=== PATIENT | male | born 1950 | race Caucasian/White ===

== ENCOUNTER 2017-10-30 20:42 | Observation (INO) | payer BC, OTHER ==
[~2017-10-30] VITALS: Ht 175.3 cm; Wt 109.0 kg
[~2017-10-30 20:42] MED LIST: ALLO100T PO; AMLO10TA2 PO; ASPI1TAB83 PO; ATOR-26 PO; B-COTAB18 PO; BNC40 PO; CALC500C50 PO; CARV25TA2 PO; CHOL1TAB2 PO; CLOP1TAB15 PO; FERR325T5 PO; FLV1 PO; FRS/40 PO; IMDSR30 PO; LACTCAP3 PO; MCRK20 PO; MRC50 PO; MULT-845 PO; NTRGSL/4 UT
[2017-10-30] MEDS ORDERED: ASPIRIN 324 MG CHEW PO STA (20:53)
--- NOTE | 2017-10-30 20:58 | EMERGENCY ROOM VISIT NOTE ---
History Report prepared by April: Desirae Ledezma Under the Supervision of: Dr. Wilbert Cosme D.O. First contact with patient: 20:50 Chief Complaint: CHEST PAIN Stated Complaint: CHEST DISCOMFORT History of Present Illness The patient is a 66 year old male who presents to the Emergency Room with complaints of intermittent chest discomfort since 1030 this morning. He notes the discomfort initially began at 1030 this morning and would not go away until thirty minutes after he took Tylenol. He notes the discomfort returned at 1800 this evening. He notes the pain lasted for 45 minutes. He does not have any current chest pain. He was at work when the pain occurred. 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 He denies any shortness of breath, leg pain, or leg swelling. He denies any shortness of breath when he walks. He has a history of CAD with a stent in place and cardiac catheterization. He reports a current sinus infection. He has not taken any Aspirin. He denies any recent alcohol use. He has not taken any NTG. He denies any abdominal pain. He reports a murmur. Source of History: patient Onset: since 1030 this morning Position: chest Quality: other (discomfort) Timing: intermittent Associated Symptoms: No SOB Note: He denies any leg pain or leg swelling. Review of Systems See HPI for pertinent positives & negatives. A total of 10 systems reviewed and were otherwise negative. Past Medical & Surgical Medical Problems: (1) Coronary artery disease (2) elevated calcium levels (3) Ulcerative colitis Surgical Problems: (1) Stented coronary artery Family History Diabetes mellitus Heart disease Social History Smoking Status: Former Smoker Alcohol Use: none Marital Status: Housing Status: lives with significant other Occupation Status: retired Current/Historical Medications Scheduled Allopurinol (Zyloprim), 50 MG PO QPM Amlodipine Besylate (Amlodipine Besylate), 5 MG PO DAILY Aspirin (Aspirin), 1 TAB PO QPM Atorvastatin (Lipitor), 80 MG PO QPM B-Complex Vitamins (Vitamin B Complex), 1 TAB PO DAILY Carvedilol (Coreg), 1.5 TAB PO BID Clopidogrel (Plavix), 75 MG PO DAILY Doxycycline Hyclate (Doxycycline Hyclate), 100 MG PO BID Folic Acid (Folic Acid), 1 TAB PO DAILY Furosemide (Lasix), 40 MG PO DAILY Isosorbide Mononitrate Ext Rel (Imdur Ext Rel), 15 MG PO DAILY Lactobacillus (Acidophilus), 1 CAP PO DAILY Mercaptopurine (Mercaptopurine), 1 TAB PO QPM Multiple Vitamins W/ Minerals (Centrum Silver Adult 50+), 1 TAB PO DAILY Nitroglycerin (Nitrostat), 0.4 MG UT PRN Olmesartan Medoxomil (Olmesartan Medoxomil), 40 MG PO DAILY Potassium Ext Rel (Klor-Con), 20 MEQ PO QPM Allergies Coded Allergies: Fish Oil (Verified Allergy, Severe, RASH, 07/17/10) Vancomycin (Verified Allergy, Unknown, Rash, 05/15/14) SHELLFISH (Verified Adverse Reaction, Intermediate, VOMITTING, 07/17/10) Lisinopril (Verified Adverse Reaction, Mild, COUGH, 07/17/10) Physical Exam Vital Signs Date Time Temp Pulse Resp B/P (MAP) Pulse Ox O2 Delivery O2 Flow Rate FiO2 10/30/17 22:30 58 18 129/63 94 Room Air 10/30/17 21:39 61 16 121/66 94 Room Air 10/30/17 21:04 68 10/30/17 21:03 94 Room Air 10/30/17 20:55 94 Room Air 10/30/17 20:55 93 Room Air 10/30/17 20:47 37.1 71 20 171/81 94 Room Air Physical Exam GENERAL: Patient is awake, alert, and in no acute distress. Patient is resting comfortably and showing no signs of anxiety EYES: The conjunctivae are clear. The pupils are round and reactive. EARS, NOSE, MOUTH AND THROAT: The nose is without any evidence of any deformity. Mucous membranes are moist tongue is midline NECK: The neck is nontender and supple. RESPIRATORY: Normal respiratory effort is noted there is no evidence of wheezing rhonchi or rales CARDIOVASCULAR: Regular rate and rhythm noted to auscultation, systolic murmur was suggested. GASTROINTESTINAL: The abdomen is soft. Bowel sounds are present in all quadrants. Abdomen is nontender MUSCULOSKELETAL/EXTREMITIES: There is no evidence of gross deformity full range of motion is noted in the hips and shoulders SKIN: There is no obvious evidence of any rash. There are no petechiae, pallor or cyanosis noted. NEUROLOGIC: Patient is awake alert and oriented x3. Medical Decision & Procedures ER Provider Diagnostic Interpretation: Radiology results as stated below per my review and radiologist interpretation: CHEST ONE VIEW PORTABLE HISTORY: Atypical CHEST PAIN COMPARISON: Chest 09/17/2014. FINDINGS: Low lung volumes. Small linear densities the left lung base consistent with subsegmental atelectasis are scarring. This remains unchanged. The lungs are otherwise clear. No pleural effusions. No pneumothorax. Stable mild cardiomegaly. IMPRESSION: No significant change compared to the prior study. No acute process. Electronically signed by: Harpreet Duggan M.D. 10/30/2017 9:47 PM Dictated Date/Time: 10/30/2017 9:45 PM Laboratory Results Test 10/30/17 20:55 Prothrombin Time 10.0 SECONDS (9.0-12.0) Prothromb Time International Ratio 1.0 (0.9-1.1) Activated Partial Thromboplast Time 22.9 SECONDS (21.0-31.0) Partial Thromboplastin Ratio 0.9 D-Dimer 600 ug/L FEU (0-500) Magnesium Level 1.9 mg/dl (1.8-2.4) Total Bilirubin 0.6 mg/dl (0.2-1) Direct Bilirubin 0.2 mg/dl (0-0.2) Aspartate Amino Transf (AST/SGOT) 43 U/L (15-37) Alanine Aminotransferase (ALT/SGPT) 50 U/L (12-78) Alkaline Phosphatase 102 U/L (45-117) Total Creatine Kinase 152 U/L (39-308) Creatine Kinase MB 2.0 ng/ml (0.5-3.6) Creatine Kinase MB Ratio 1.3 (0-3.0) Total Protein 7.7 gm/dl (6.4-8.2) Albumin 3.8 gm/dl (3.4-5.0) Lipase 95 U/L (73-393) Laboratory results per my review. Medications Administered Medications (Trade) Dose Ordered Sig/Jo Route Start Time Stop Time Status Last Admin Dose Admin Aspirin (Aspirin Chew) 324 mg NOW STAT PO 10/30/17 20:53 10/30/17 20:55 DC 10/30/17 20:59 324 MG ECG Per My Interpretation Indication: chest pain Rate (beats per minute): 83 Rhythm: normal sinus Findings: Q waves (Inferior), no ectopy Change: no significant change (When compared to 09/18/2014) Change: Patient's EKG was interpreted by me. ED Course 2050: The patient was evaluated in room A12B. A complete history and physical examination were performed. 2052: Ordered Aspirin 324 mg PO 2240: [facility] We discussed the patient' s case. [facility]. Medical Decision Prior records/ancillary studies reviewed. Triage Nursing notes reviewed. The patient's history was concerning for chest pain. Differential diagnosis: Etiologies such as cardiac ischemia, aortic dissection, pulmonary embolism, pneumonia, pneumothorax, musculoskeletal, infections, pericarditis, myocarditis , esophageal rupture, gastrointestinal, as well as others were entertained. The patient is a 66-year-old male who presented to the emergency department for an evaluation of chest discomfort. The patient was treated with aspirin in the emergency department. I discussed the patient's laboratory and radiographic studies with him. I also discussed the limitations of the emergency department workup for chest pain with them. Given his risk factors and past medical history I discussed his case with the on-call [facility] hospitalist. They have agreed to evaluate the patient in the emergency department for further management and disposition. Medication Reconcilliation Current Medication List: was personally reviewed by me Blood Pressure Screening Patient's blood pressure: Elevated blood pressure Blood pressure disposition: Elevated BP felt to be situational Consults Time Called: [id number] Consulting Physician: [facility] Returned Call: [phone] [facility] We discussed the patient's case. [facility]. Impression Primary Impression: Substernal precordial chest pain Scribe Attestation The scribe's documentation has been prepared under my direction and personally reviewed by me in its entirety. I confirm that the note above accurately reflects all work, treatment, procedures, and medical decision making performed by me. Departure Information Dispostion Being Evaluated By Hospitalist Prescriptions Doxycycline Hyclate (Doxycycline Hyclate) 100 Mg Cap 100 MG PO BID for 3 Days, #6 CAP Prov: Irving Paulino, DO 10/31/17 Referrals No Doctor, Assigned (PCP) Patient Instructions My [facility]
[2017-10-30 21:10] LABS: BASO % 0.4 %; BASO ABS # 0.01 K/uL (0-0.2); EOS % 2.8 %; EOS ABS # 0.08 K/uL (0-0.5); HEMATOCRIT 38.8 % (42-52); IG# 0.01 K/uL (0.00-0.02); LYMPH % 22.7 %; LYMPH ABS # 0.64 K/uL (1.2-3.4); MEAN CORPUSCULAR HEMOGLOBIN 33.2 pg (25-34); MEAN CORPUSCULAR HGB CONC 33.5 g/dl (32-36); MEAN PLATELET VOLUME 10.1 fL (7.4-10.4); MONO % 9.9 %; MONO ABS # 0.28 K/uL (0.11-0.59); NEUT % 63.8 %; PLATELET COUNT 155 K/uL (130-400); RED CELL DISTRIBUTION WIDTH CV 15.8 % (11.5-14.5); RED CELL DISTRIBUTION WIDTH SD 57.1 fL (36.4-46.3); WHITE BLOOD COUNT 2.82 K/uL (4.8-10.8)
[2017-10-30 21:19] LABS: PTT PATIENT 22.9 SECONDS (21.0-31.0)
[2017-10-30 21:46] LABS: ALBUMIN 3.8 gm/dl (3.4-5.0); ALKALINE PHOSPHATASE 102 U/L (45-117); ALT/SGPT 50 U/L (12-78); AST/SGOT 43 U/L (15-37); BLOOD UREA NITROGEN 11 mg/dl (7-18); CALCIUM 9.5 mg/dl (8.5-10.1); CARBON DIOXIDE 30 mmol/L (21-32); CREATININE 0.93 mg/dl (0.60-1.40); LIPASE 95 U/L (73-393); POTASSIUM 3.5 mmol/L (3.5-5.1); SODIUM 139 mmol/L (136-145); TOTAL PROTEIN 7.7 gm/dl (6.4-8.2)
[2017-10-30 21:47] LABS: GLUCOSE 92 mg/dl (70-99)
--- NOTE | 2017-10-30 21:48 | DIAGNOSTIC IMAGING REPORT ---
CHEST ONE VIEW PORTABLE HISTORY: Atypical CHEST PAIN COMPARISON: Chest 09/17/2014. FINDINGS: Low lung volumes. Small linear densities the left lung base consistent with subsegmental atelectasis are scarring. This remains unchanged. The lungs are otherwise clear. No pleural effusions. No pneumothorax. Stable mild cardiomegaly. IMPRESSION: No significant change compared to the prior study. No acute process. Electronically signed by: Harpreet Duggan M.D. 10/30/2017 9:47 PM Dictated Date/Time: 10/30/2017 9:45 PM
[2017-10-30] MEDS ORDERED: NRV/5 PO (22:24)
[2017-10-30] MEDS ORDERED: OLME40TA33 PO (22:24)
[2017-10-30] MEDS ORDERED: POTA20TA16 PO (22:24)
[2017-10-30] MEDS ORDERED: ISOS30TA35 PO (22:24)
[2017-10-31] MEDS ORDERED: IV FLUIDS COMPLETED PRN (00:45)
[2017-10-31] MEDS ORDERED: OPTIRAY 320 IV PRN (01:00)
[2017-10-31] MEDS ORDERED: ASPIRIN 81 MG ECTAB PO ONE (01:11)
[2017-10-31] MEDS ORDERED: TRAMADOL HCL 50 MG TAB PO PRN (01:15)
[2017-10-31] MEDS ORDERED: LORAZEPAM 2 MG/ML 1 ML VIAL IV PRN ×2 (01:15)
[2017-10-31] MEDS ORDERED: MoRPHine SULFATE 2 MG/ML CARP IV PRN (01:15)
[2017-10-31] MEDS ORDERED: ACETAMINOPHEN 325 MG TAB PO PRN (01:15)
[2017-10-31] MEDS ORDERED: NITROGLYCERIN 0.4 MG SL PER TAB CHARGE SL PRN (01:15)
[2017-10-31] MEDS ORDERED: PROCHLORPERAZINE INJ 5 MG in SYRINGE 4 ML IV PRN (01:15)
[2017-10-31] MEDS ORDERED: ALBUT/IPRATROP 3MG/0.5MG NEB 3 ML VIAL INH PRN ×2 (01:15→02:30)
[2017-10-31] MEDS ORDERED: SODIUM CHLORIDE 0.65% NA SOLN 45 ML (OCEAN) PRN (01:15)
[2017-10-31] MEDS ORDERED: DOXYCYCLINE IV 100 MG in DEXTROSE 5% 100ML 100 ML IV STA (01:20)
[2017-10-31 01:30] VITALS: BP 152/73; PULSE 72; TEMP 36.9; O2SAT 90; Ht 175.3 cm; Wt 109.0 kg
[2017-10-31] MEDS ORDERED: CARVEDILOL 25 MG TAB PO STA (01:39)
[2017-10-31] MEDS ORDERED: ALLOPURINOL 100 MG TAB PO STA (01:39)
[2017-10-31] MEDS ORDERED: ATORVASTATIN 40 MG TAB PO STA (01:39)
[2017-10-31] MEDS ORDERED: MERCAPTOPURINE 50 MG TAB PO STA (01:40)
[2017-10-31] MEDS ORDERED: NSS + 20MEQ KCL 1000ML 1,000 ML IV SCH (01:45)
[2017-10-31] MEDS ORDERED: LORAZEPAM INJ 0.5 MG in SYRINGE 0.75 ML IV PRN (01:45)
[2017-10-31] MEDS ORDERED: ALBUT/IPRATROP 3MG/0.5MG NEB 3 ML VIAL INH STA (02:26)
[2017-10-31] MEDS ORDERED: METHYLPREDNISOLONE IV 20 MG in SYRINGE 0 ML IV STA (02:34)
[2017-10-31] MEDS ORDERED: NSS + 20MEQ KCL 1000ML 1,000 ML IV ONE (02:35)
[2017-10-31] MEDS ORDERED: ENOXAPARIN 40 MG/0.4 ML SYR SC SCH (06:00)
--- NOTE | 2017-10-31 06:05 | HISTORY & PHYSICAL EXAMINATION ---
DATE OF ADMISSION: 10/30/2017 PRIMARY CARE PHYSICIAN: Dr. Zavala CHIEF COMPLAINT: Chest pain. HISTORY OF PRESENT ILLNESS: History obtained from patient and records. Medical history significant for CAD status post stenting, hypertension, hyperlipidemia, past tobacco abuse, history of IBD on Mercaptopurine, chronic anemia (baseline hemoglobin of 12), history of MGUS, prediabetes as per records. Recent confinement last September 2014 for chest pain. Stress test was normal. Patient has been dealing with sinus symptoms for more than a month now. Outpatient course of Augmentin last month - incomplete response. Two days ago, the patient had sinus congestion, cough symptoms, productive of yellow sputum. Patient noted chest tightness yesterday with some shortness of breath. Patient received Aspirin up on arrival at the ER. Patient currently comfortable. MEDICAL HISTORY: As above. SURGERIES: He has had no surgeries. HOME MEDICATIONS: Include Zyloprim, aspirin, Lipitor, amlodipine, and B complex, Coreg, Plavix, folic acid, furosemide, Imdur ER, lactobacillus, mercaptopurine, Centrum, Nitrostat, olmesartan and Klor-Con. ALLERGIES: ALLERGIC TO SHELLFISH, LISINOPRIL, VANCOMYCIN . FAMILY HISTORY: Heart disease. PERSONAL AND SOCIAL HISTORY: Past tobacco abuse. No chronic intake of alcoholic beverages. [employer] employee. REVIEW OF SYSTEMS: As per HPI. All 10 systems reviewed. all other ROS negative. PHYSICAL EXAMINATION: VITAL SIGNS: Blood pressure was noted to be 171/81 later 120/80, pulse 61, RR 26, sats 94 on room air. GENERAL: Noted to be pleasant, no respiratory distress. SKIN: Pallor, warm. HEENT: Alopecia. Pale palpebral conjunctivae. No ptosis or mucosa. NECK: Short neck. Supple. CHEST: Decreased breath sounds. Occasional wheeze. HEART: Regular rhythm. No murmur. ABDOMEN: Soft, nontender. EXTREMITIES: No edema. No gross deformities. No tenderness NEUROLOGIC: coherent, no gross focality. LABORATORY DATA: Hemoglobin was noted to be 13, hematocrit 38, WBC 2.82, platelets 155. Sodium 136, potassium 3.5, chloride 102, CO2 30, BUN 11, creatinine 0.9 and glucose was noted to be 92. D-dimer abnormal. trop 0 DIAGNOSTIC STUDIES: CT chest initial read showed oral mucous plugging reticulonodular densities, mild peribronchial thickening EKG as per my interpretation rate 80, NSR, normal axis, Q waves inferior leads ASSESSMENT AND PLAN: 1. Atypical chest pain secondary to complicated bronchitis No sepsis 2. CAD status post stenting 3. past tobacco abuse 4. hx IBD on Mercaptopurine. 5. Chronic anemia , hx MGUS. Hemoglobin better than baseline. Observation PCU. Doxycycline, nebs steroid 1 dose for occasional wheeze appreciated AM troponin, TTE RE cp Home in AM if patient feeling better and above cardiac workup unremarkable. DVT prophylaxis, Lovenox subQ. Full code. MTDD
--- NOTE | 2017-10-31 06:47 | DIAGNOSTIC IMAGING REPORT ---
CT ANGIOGRAM OF THE CHEST CLINICAL HISTORY: Atypical chest pain COMPARISON STUDY: Chest x-ray dated 10/30/2017 TECHNIQUE: Following the IV administration of 91 mL of Optiray-320, CT angiogram of the thorax was performed from the thoracic inlet to the lung bases utilizing the pulmonary embolus protocol. Images are reviewed in the axial, sagittal, and coronal planes. IV contrast was administered without complication. MIP imaging was performed. A dose lowering technique was utilized adhering to the principles of ALARA. CT DOSE: 696.70 mGy.cm FINDINGS: There is a multinodular thyroid gland with nodules measuring up to 11 mm in diameter There are mildly enlarged subcarinal lymph nodes measuring up to 12 mm in short axis. There is no pathologic axillary or mediastinal lymphadenopathy There was no evidence of thoracic aortic dilatation. There were no pulmonary artery filling defects to indicate acute pulmonary embolism. No pleural effusions are visualized. There is mild lower lobe bronchial wall thickening. There are clustered nodules within the right lower lobe, likely inflammatory/postinflammatory. These measure up to 8 mm in diameter. A 6 month follow-up CT scan would seem prudent. IMPRESSION: 1. No evidence of acute pulmonary embolism 2. Multiple clustered right lower lobe point nodules measuring up to 8 mm in diameter. These are statistically inflammatory/postinflammatory. A 6 month follow-up CT scan would seem prudent 3. Mildly enlarged mediastinal lymph nodes Electronically signed by: Espinoza Reid M.D. 10/31/2017 6:45 AM Dictated Date/Time: 10/31/2017 6:41 AM
[2017-10-31 06:49] LABS: BASO % 0.4 %; BASO ABS # 0.01 K/uL (0-0.2); HEMATOCRIT 37.3 % (42-52); HEMOGLOBIN 12.3 g/dL (14.0-18.0); IG# 0.01 K/uL (0.00-0.02); LYMPH % 15.7 %; LYMPH ABS # 0.36 K/uL (1.2-3.4); MEAN CELL VOLUME 100.3 fL (80-100); MEAN CORPUSCULAR HEMOGLOBIN 33.1 pg (25-34); MEAN PLATELET VOLUME 10.4 fL (7.4-10.4); MONO % 3.5 %; MONO ABS # 0.08 K/uL (0.11-0.59); NEUT ABS # 1.83 K/uL (1.4-6.5); PLATELET COUNT 136 K/uL (130-400); RED CELL DISTRIBUTION WIDTH CV 15.7 % (11.5-14.5); RED CELL DISTRIBUTION WIDTH SD 57.1 fL (36.4-46.3); WHITE BLOOD COUNT 2.29 K/uL (4.8-10.8)
[2017-10-31 07:21] LABS: BLOOD UREA NITROGEN 12 mg/dl (7-18); CALCIUM 9.3 mg/dl (8.5-10.1); CARBON DIOXIDE 29 mmol/L (21-32); CREATININE 0.75 mg/dl (0.60-1.40); GLUCOSE 128 mg/dl (70-99); SODIUM 140 mmol/L (136-145)
[2017-10-31 07:26] LABS: CHOLESTEROL 112 mg/dl (0-200); LDL CHOLESTEROL CALCULATED 44 mg/dl
[2017-10-31 07:49] VITALS: BP 139/74; PULSE 63; TEMP 36.8; O2SAT 93
[2017-10-31] MEDS ORDERED: PERFLUTREN LIPID MICROSPHERE (DEFINITY) IV ONE ×2 (08:38→11:58)
[2017-10-31] MEDS ORDERED: VITAMIN B COMPLEX TAB PO SCH (09:00)
[2017-10-31] MEDS ORDERED: CARVEDILOL 25 MG TAB PO SCH (09:00)
[2017-10-31] MEDS ORDERED: AMLODIPINE BESYLATE 5 MG TAB PO SCH (09:00)
[2017-10-31] MEDS ORDERED: CEROVITE ADV FORMULA TAB PO SCH (09:00)
[2017-10-31] MEDS ORDERED: OLMESARTAN MEDOXOMIL 40 MG TAB PO SCH (09:00)
[2017-10-31] MEDS ORDERED: CLOPIDOGREL BISULFATE 75 MG TAB PO SCH (09:00)
[2017-10-31] MEDS ORDERED: LACTOBACILLUS ACIDOPHILUS (FLORANEX) TAB PO SCH (09:00)
[2017-10-31] MEDS ORDERED: ISOSORBIDE MONONITRATE 30 MG TABCR PO SCH (09:00)
--- NOTE | 2017-10-31 10:57 | CARDIOLOGY CONSULTATION ---
DATE OF CONSULTATION: 10/31/2017 The patient seen and examined. Chart, medications, telemetry reviewed. REFERRING PHYSICIAN: Dr. Villanueva. PRIMARY CARE PHYSICIAN: Dr. Zavala. PRIMARY ELEMENTARY ASSISTANT PRINCIPAL: Dr. Laguerre. HISTORY OF PRESENT ILLNESS: The patient is a 66-year-old male whose underlying history is notable for ischemic heart disease with prior LAD stent in 1997, history of recurrent ischemia and subsequent right coronary artery stenting after non-ST segment elevation myocardial infarction in 2008 and subsequent repeat coronary intervention of the right coronary artery, distal PDA in 2013. Underlying medical problems include hypertension, hyperlipidemia, ulcerative colitis, monoclonal gammopathy, mild chronic anemia, and diabetes mellitus. The patient notes difficulties with sinus infection and febrile illness off and on for approximately 1-2 months. He notes 2 days prior to admission, increasing symptoms of cough and chest tightness, which is productive sputum. He notes on the date of admission, he shoveled snow and generally felt okay while doing so at low level, but while driving to work, did develop substernal chest pain and tightness. Symptoms were mild in severity, but persistent and due to past history, he presented to the Emergency Room for further evaluation. Episodes had recurred once prior to the ER presentation. On evaluation, they noted no acute ST segment changes or cardiac enzyme abnormalities. He is referred now for further evaluation. He denies tachypalpitations, syncope, or near syncope. Notes no dizziness or lightheadedness. Notes no orthopnea. Notes no recent worsening peripheral edema. Appetite and weight have been stable. He has had no acute changes in medical therapies other than addition of Augmentin approximately 6 weeks ago. REVIEW OF SYSTEMS: Otherwise negative. ALLERGIES: FISH OIL, LISINOPRIL, SHELLFISH AND VANCOMYCIN. MEDICATIONS: Prior to hospitalization were allopurinol 50 mg q.p.m., amlodipine 5 mg p.o. every day, aspirin 81 mg per day, atorvastatin 80 mg p.o. every day, B complex, carvedilol 37.5 mg b.i.d., clopidogrel 75 mg p.o. every day, folic acid 1 mg every day, furosemide 40 mg p.o. every day, isosorbide 15 mg p.o. every day, multivitamin per day, olmesartan 40 mg p.o. every day, potassium chloride 20 mEq p.o. q.p.m. PAST SURGICAL HISTORY: Notable for coronary artery interventions only. FAMILY HISTORY: Positive for heart disease. 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 He has not used recent tobacco products. He uses no significant alcoholic beverages. PHYSICAL EXAMINATION: GENERAL: The patient is an age-appropriate male in no acute distress. VITAL SIGNS: Reveal a heart rate of 63, blood pressure 139/74, O2 saturations 93% on room air. HEENT: Normocephalic and atraumatic. Nares without discharge. Throat was clear. NECK: Supple without thyromegaly, lymphadenopathy, JVD. There are no carotid bruits. Carotid pulses are 2/4 without delay. LUNGS: Notable for mildly diminished breath sounds, but are clear. There are minimal wheezes on forced cough. CARDIOVASCULAR: Regular with normal S1, S2. No murmur, gallop or rub. ABDOMEN: Soft, nontender. There is no palpable hepatosplenomegaly. EXTREMITIES: Without cyanosis or clubbing. There is no peripheral edema. There are intact distal pulses of 3/4. LABORATORY DATA: EKG reveals sinus rhythm with an old inferior infarct without acute evolutionary changes. Laboratory studies since admission revealed troponin negative x3 at less than 0.015. Cholesterol is 112, LDL is 44, HDL is 40. Sodium is 140, potassium is 4.0, chloride is 105, bicarbonate is 29, BUN is 12, creatinine is 0.75. White cell count is 2.2, hemoglobin is 12.3, platelet count is 136. Chest x-ray reveals no infiltrate or edema. CT scan of the chest revealed no evidence of pulmonary emboli. IMPRESSION: A 66-year-old male with known coronary artery disease with prior coronary artery intervention x3 in the past who presents now with mild chest tightness, possibly in association with acute tracheobronchitis or respiratory distress. He appears clinically improved this morning though no signs of recent infarct or injury. Discussed the options of management. We will proceed with stress echocardiography today, exclude underlying ischemic heart disease. Laboratory studies and data all reviewed, only findings notable for mild leukopenia, which appears relatively new for the patient.
--- NOTE | 2017-10-31 11:36 | ECHOCARDIOGRAM REPORT ---
*NOTICE TO RECEIVING [employer] This information is strictly Confidential and protected under [place] law. [place] law prohibits you from making any further disclosure of this information unless further disclosure is expressly permitted by the written consent of the person to whom it pertains or is authorized by law. A general authorization for the release of medical or other information is not sufficient for this purpose. Hospital accepts no responsibility if the information is made available to any other person, INCLUDING THE PATIENT. Interpretation Summary * Name: ANTWON HOWARD Study Date: 10/31/2017 08:05 AM BP: 152/73 mmHg * Patient Location: .[facility]\S\N285\S\1 HR: 73 * : 1950 (M/d/yyyy) Gender: Male Height: 69 in * Age: 66 yrs Ethnicity: [place] Weight: 240 lb * Ordering Physician: Jovan Villanueva * Referring Physician: Self, Referred * Performed By: Maria Ines Luz RCS * * Reason For Study: CHEST PAIN * BSA: 2.2 m2 * -- Conclusions -- * The left ventricle is normal in size. * There is moderate concentric left ventricular hypertrophy. * No regional wall motion abnormalities noted. * Ejection Fraction = 60-65%. * Aortic valve sclerosis moderate, without significant aortic valvular stenosis. * Grade I diastolic dysfunction, (abnormal relaxation pattern). * The left atrium is mildly dilated. Procedure Details * A complete two-dimensional transthoracic echocardiogram was performed (2D, M-mode, Doppler and color flow Doppler). * The study was technically difficult. * A contrast injection of Definity was performed to improve assessment of LV function. * Contrast was injected into an intravenous site in the left arm. * One vial of Definity ultrasound contrast was diluted in normal saline to a total volume of 10 ml. A total of '1' ml of solution was administered during imaging. * Lot # [id number] of Definity utilized for procedure. * Expiration date SEP 30. * The attending nurse who injected the contrast agent was GALINA GILLESPIE CPL, RN. Left Ventricle * The left ventricle is normal in size. * There is moderate concentric left ventricular hypertrophy. * Left ventricular systolic function is normal. * Ejection Fraction = 60-65%. * No regional wall motion abnormalities noted. Right Ventricle * The right ventricle is normal in size and function. Atria * The left atrium is mildly dilated. * Right atrial size is normal. * No ASD detected; PFO is not assessed. Mitral Valve * The mitral valve anatomy is normal. * There is no mitral valve stenosis. * There is trace mitral regurgitation. Tricuspid Valve * The tricuspid valve anatomy is normal. * There is no tricuspid stenosis. * There is trace tricuspid regurgitation. Aortic Valve * The aortic valve is trileaflet. * Aortic valve sclerosis moderate, without significant aortic valvular stenosis. * No aortic regurgitation is present. Pulmonic Valve * The pulmonic valve is not well visualized. Great Vessels * The aortic root is normal size. Pericardium/Pleural * There is no pericardial effusion. Great Vessels * Normal inferior vena cava diameter and respiratory variation suggests normal central venous pressure. Left Ventricular Diastolic Function * Grade I diastolic dysfunction, (abnormal relaxation pattern). MMode 2D Measurements and Calculations IVSd 1.6 cm IVSs 2.0 cm LVIDd 4.5 cm LVIDs 2.8 cm LVPWd 1.3 cm LVPWs 1.5 cm IVS/LVPW 1.2 FS 37.0 % EDV(Teich) 92.7 ml ESV(Teich) 30.6 ml EF(Teich) 67.0 % EDV(cubed) 91.4 ml ESV(cubed) 22.9 ml EF(cubed) 75.0 % % IVS thick 26.5 % % LVPW thick 14.5 % LV mass(C)d 263.8 grams LV mass(C)dI 118.2 grams/m\S\2 LV mass(C)s 195.9 grams LV mass(C)sI 87.8 grams/m\S\2 SV(Teich) 62.1 ml SI(Teich) 27.8 ml/m\S\2 SV(cubed) 68.5 ml SI(cubed) 30.7 ml/m\S\2 Ao root diam 3.3 cm Ao root area 8.8 cm\S\2 ACS 1.8 cm LA dimension 4.6 cm LA/Ao 1.4 LVOT diam 2.0 cm LVOT area 3.2 cm\S\2 LVAd ap4 37.3 cm\S\2 LVLd ap4 8.4 cm EDV(MOD-sp4) 134.8 ml EDV(sp4-el) 140.6 ml LVAs ap4 23.3 cm\S\2 LVLs ap4 7.1 cm ESV(MOD-sp4) 63.2 ml ESV(sp4-el) 64.5 ml EF(MOD-sp4) 53.1 % EF(sp4-el) 54.1 % LVAd ap2 29.4 cm\S\2 LVLd ap2 7.6 cm EDV(MOD-sp2) 96.6 ml EDV(sp2-el) 95.9 ml LVAs ap2 21.4 cm\S\2 LVLs ap2 7.2 cm ESV(MOD-sp2) 52.5 ml ESV(sp2-el) 53.9 ml EF(MOD-sp2) 45.6 % EF(sp2-el) 43.8 % LVLd %diff -9.93 % EDV(MOD-bp) 118.3 ml LVLs %diff 0.82 % ESV(MOD-bp) 57.6 ml EF(MOD-bp) 51.3 % SV(MOD-sp4) 71.6 ml SI(MOD-sp4) 32.1 ml/m\S\2 SV(MOD-sp2) 44.0 ml SI(MOD-sp2) 19.7 ml/m\S\2 SV(MOD-bp) 60.7 ml SI(MOD-bp) 27.2 ml/m\S\2 SV(sp4-el) 76.1 ml SI(sp4-el) 34.1 ml/m\S\2 SV(sp2-el) 42.0 ml SI(sp2-el) 18.8 ml/m\S\2 Doppler Measurements and Calculations MV E max flor 69.1 cm/sec MV A max flor 94.0 cm/sec MV E/A 0.74 MV P1/2t max flor 76.8 cm/sec MV P1/2t 60.3 msec MVA(P1/2t) 3.6 cm\S\2 MV dec slope 372.7 cm/sec\S\2 MV dec time 0.24 sec Ao V2 max 182.0 cm/sec Ao max PG 13.3 mmHg Ao max PG (full) 7.3 mmHg LILIAM(V,A) 2.2 cm\S\2 LILIAM(V,D) 2.2 cm\S\2 LV V1 max PG 6.0 mmHg LV V1 max 122.1 cm/sec PA V2 max 111.3 cm/sec PA max PG 5.0 mmHg TR max flor 258.8 cm/sec
[2017-10-31 12:31] VITALS: BP 120/62; PULSE 75; TEMP 36.9; O2SAT 92
--- NOTE | 2017-10-31 12:41 | EXERCISE STRESS ECHO ---
*NOTICE TO RECEIVING CONSTITUTION PARTY AGENCY This information is strictly Confidential and protected under [place] law. [place] law prohibits you from making any further disclosure of this information unless further disclosure is expressly permitted by the written consent of the person to whom it pertains or is authorized by law. A general authorization for the release of medical or other information is not sufficient for this purpose. Hospital accepts no responsibility if the information is made available to any other person, INCLUDING THE PATIENT. Interpretation Summary * Name: ANTWON HOWARD Study Date: 10/31/2017 11:02 AM BP: 147/74 mmHg * Patient Location: [facility]\S\N287\S\2 HR: 59 * : 1950 (M/d/yyyy) Gender: Male Height: 69 in * Age: 66 yrs Ethnicity: [place] Weight: 240 lb * Ordering Physician: Jv Hoffman * Referring Physician: Self, Referred * Performed By: Myah Heath RDCS * * Reason For Study: CHEST PAIN * BSA: 2.2 m2 * The stress echocardiogram is negative for inducible ischemia. * _ workload achieved. * -- Conclusions -- * Resting wall motion: Normal. Stress wall motion: Appropriate increase in Left ventricular systolic function and decrease in cavity size. No stress induced segmental wall motion abnormalities. * Heart rate resposnse was slightly sub optmal achieving 80% age predicted maximum without symptoms. Procedure Details * A contrast injection of Definity was performed to improve assessment of LV function. * Contrast was injected into an intravenous site in the left arm. * One vial of Definity ultrasound contrast was diluted in normal saline to a total volume of 10 ml. A total of '4' ml of solution was administered during imaging. * Lot # [id number] of Definity utilized for procedure. * Expiration date SEP 30. * The attending nurse who injected the contrast agent was GALINA GILLESPIE RN. Left Ventricle * Resting wall motion: Normal. Stress wall motion: Appropriate increase in Left ventricular systolic function and decrease in cavity size. No stress induced segmental wall motion abnormalities. * The left ventricular ejection fraction increases normally with stress. The left ventricular end-systolic cavity size reduces post-stress (normal response). The left ventricular wall motion with stress is normal. Stress Parameters * Sinus rhythm with old inferior Q waves . * Stress ECG: No ST changes. No arrhythmias. * The stress portion of this study was personally supervised by the undersigned interpreting physician. * Rest heart rate was '59' BPM. * Rest blood pressure was '147/74' * Maximum heart rate achieved was 125 bpm. * Maximum heart rate was 80 % of maximum age-predicted heart rate. * Maximum blood pressure was '218/56' * Total exercise time was '6:13' * Maximum exercise MET level achieved was '7.20' METS * Maximum treadmill speed was '3.30' miles per hour. * Maximum treadmill elevation was '14.00'% grade. * Exercise was terminated due to 'FATIGUE'
--- NOTE | 2017-10-31 15:09 | Progress Note ---
Subjective Date of Service: Oct 31, 2017. Subjective Pt evaluation today including: conversation w/ patient, physical exam, lab review, review of studies, review of inpatient medication list Saw/examined the patient in room 287 No problems/issues today mild cough persists no shortness of breath, denies chest pain/palpitations Problem List Medical Problems: (1) Substernal precordial chest pain Status: Acute Review of Systems Constitutional: No fever, No chills Respiratory: + cough, + sputum, No wheezing, No shortness of breath, No dyspnea on exertion, No dyspnea at rest, No hemoptysis Cardiac: No chest pain, No edema, No palpitations Medications Current Inpatient Medications Medications (Trade) Dose Ordered Sig/Jo Route Start Time Stop Time Status Last Admin Dose Admin Miscellaneous (Iv Fluids Completed) 1 ea PRN PRN N/A 10/31/17 00:45 10/31/18 00:44 Ioversol (Optiray 320) 100 ml UD PRN IV 10/31/17 01:00 11/04/17 00:59 Doxycycline Hyclate (Vibramycin Cap) 100 mg BID PO 10/31/17 21:00 11/10/17 20:59 Enoxaparin Sodium (Lovenox Inj) 40 mg Q24H SC 10/31/17 06:00 11/30/17 05:59 10/31/17 06:13 40 MG Acetaminophen (Tylenol Tab) 650 mg Q4H PRN PO 10/31/17 01:15 11/30/17 01:14 Nitroglycerin (Nitrostat Tab) 0.4 mg UD PRN SL 10/31/17 01:15 11/30/17 01:14 Morphine Sulfate (MoRPHine SULFATE INJ) 4 mg Q3H PRN IV 10/31/17 01:15 11/14/17 01:14 Tramadol HCl (Ultram Tab) not relieved ... Q6H PRN PO 10/31/17 01:15 11/30/17 01:14 Prochlorperazine Edisylate 5 mg/ Syringe 5 ml @ 5 mls/min Q6H PRN IV 10/31/17 01:15 11/30/17 01:14 Sodium Chloride (Andale Nasal Girard) 2 sprays TID PRN NA 10/31/17 01:15 11/30/17 01:14 Lorazepam (Ativan Inj) 0.5 mg Q4H PRN IV 10/31/17 01:15 11/30/17 01:14 Allopurinol (Zyloprim Tab) 50 mg QPM PO 10/31/17 21:00 11/30/17 20:59 Amlodipine Besylate (Norvasc Tab) 5 mg DAILY PO 10/31/17 09:00 11/30/17 08:59 10/31/17 09:22 5 MG Aspirin (Ecotrin Tab) 81 mg QPM PO 10/31/17 21:00 11/30/17 20:59 Atorvastatin Calcium (Lipitor Tab) 80 mg QPM PO 10/31/17 21:00 11/30/17 20:59 Carvedilol (Coreg Tab) 37.5 mg BID PO 10/31/17 09:00 11/30/17 08:59 10/31/17 09:21 37.5 MG Clopidogrel Bisulfate (plAVix TAB) 75 mg DAILY PO 10/31/17 09:00 11/30/17 08:59 10/31/17 09:21 75 MG Folic Acid (Folvite Tab) 1 mg DAILY PO 10/31/17 09:00 11/30/17 08:59 10/31/17 09:22 1 MG Isosorbide Mononitrate (Imdur Ext Rel Tab) 15 mg DAILY PO 10/31/17 09:00 11/30/17 08:59 10/31/17 09:22 15 MG Mercaptopurine (Purinethol Tab) 50 mg QPM PO 10/31/17 21:00 11/30/17 20:59 Multivitamins/ Minerals (Multivitamin W/ Minerals Tab) 1 tab DAILY PO 10/31/17 09:00 11/30/17 08:59 10/31/17 09:22 1 TAB Olmesartan (Benicar Tab) 40 mg DAILY PO 10/31/17 09:00 11/30/17 08:59 10/31/17 09:22 40 MG Vitamin B Complex (Vitamin B Complex) 1 tab DAILY PO 10/31/17 09:00 11/30/17 08:59 10/31/17 09:21 1 TAB Lactobacillus Acidophilus (Floranex Tab) 1 tab DAILY PO 10/31/17 09:00 11/30/17 08:59 10/31/17 09:22 1 TAB Albuterol/ Ipratropium (Duoneb) 3 ml Q2H PRN INH 10/31/17 01:15 11/30/17 01:14 Lorazepam 0.5 mg/ Syringe 1 ml @ 1 mls/min Q4H PRN IV 10/31/17 01:45 11/30/17 01:44 Objective Vital Signs Date Time Temp Pulse Resp B/P (MAP) Pulse Ox O2 Delivery O2 Flow Rate FiO2 10/31/17 12:31 36.9 75 18 120/62 (81) 92 Room Air 10/31/17 12:30 Room Air 10/31/17 08:30 Room Air 10/31/17 07:49 36.8 63 18 139/74 (95) 93 Room Air 10/31/17 04:00 Room Air 10/31/17 01:30 36.9 72 18 152/73 90 Room Air 10/31/17 01:07 61 15 146/70 93 10/31/17 00:48 61 15 146/70 93 Room Air 10/30/17 22:30 58 18 129/63 94 Room Air 10/30/17 21:39 61 16 121/66 94 Room Air 10/30/17 21:04 68 10/30/17 21:03 94 Room Air 10/30/17 20:55 94 Room Air 10/30/17 20:55 93 Room Air 10/30/17 20:47 37.1 71 20 171/81 94 Room Air Physical Exam General Appearance: no apparent distress Eyes: normal inspection ENT: hearing grossly normal Neck: supple Respiratory/Chest: no respiratory distress, no accessory muscle use Cardiovascular: regular rate, rhythm, no edema, no murmur Abdomen: normal bowel sounds, non tender, soft Extremities: normal inspection, no pedal edema Neurologic/Psychiatric: no motor/sensory deficits, alert, normal mood/affect Skin: normal color Lymphatic: no adenopathy Laboratory Results Last 24 Hours Test 10/30/17 20:55 10/30/17 23:20 10/31/17 06:39 White Blood Count 2.82 K/uL 2.29 K/uL Red Blood Count 3.92 M/uL 3.72 M/uL Hemoglobin 13.0 g/dL 12.3 g/dL Hematocrit 38.8 % 37.3 % Mean Corpuscular Volume 99.0 fL 100.3 fL Mean Corpuscular Hemoglobin 33.2 pg 33.1 pg Mean Corpuscular Hemoglobin Concent 33.5 g/dl 33.0 g/dl Platelet Count 155 K/uL 136 K/uL Mean Platelet Volume 10.1 fL 10.4 fL Neutrophils (%) (Auto) 63.8 % 80.0 % Lymphocytes (%) (Auto) 22.7 % 15.7 % Monocytes (%) (Auto) 9.9 % 3.5 % Eosinophils (%) (Auto) 2.8 % 0.0 % Basophils (%) (Auto) 0.4 % 0.4 % Neutrophils # (Auto) 1.80 K/uL 1.83 K/uL Lymphocytes # (Auto) 0.64 K/uL 0.36 K/uL Monocytes # (Auto) 0.28 K/uL 0.08 K/uL Eosinophils # (Auto) 0.08 K/uL 0.00 K/uL Basophils # (Auto) 0.01 K/uL 0.01 K/uL RDW Standard Deviation 57.1 fL 57.1 fL RDW Coefficient of Variation 15.8 % 15.7 % Immature Granulocyte % (Auto) 0.4 % 0.4 % Immature Granulocyte # (Auto) 0.01 K/uL 0.01 K/uL Prothrombin Time 10.0 SECONDS Prothromb Time International Ratio 1.0 Activated Partial Thromboplast Time 22.9 SECONDS Partial Thromboplastin Ratio 0.9 D-Dimer 600 ug/L FEU Sodium Level 139 mmol/L 140 mmol/L Potassium Level 3.5 mmol/L 4.0 mmol/L Chloride Level 102 mmol/L 105 mmol/L Carbon Dioxide Level 30 mmol/L 29 mmol/L Anion Gap 7.0 mmol/L 6.0 mmol/L Blood Urea Nitrogen 11 mg/dl 12 mg/dl Creatinine 0.93 mg/dl 0.75 mg/dl Est Creatinine Clear Calc Drug Dose 98.2 ml/min 121.1 ml/min Estimated GFR () 100.2 112.4 Estimated GFR (Non- 86.5 96.9 BUN/Creatinine Ratio 11.7 16.4 Random Glucose 92 mg/dl 128 mg/dl Calcium Level 9.5 mg/dl 9.3 mg/dl Magnesium Level 1.9 mg/dl Total Bilirubin 0.6 mg/dl Direct Bilirubin 0.2 mg/dl Aspartate Amino Transf (AST/SGOT) 43 U/L Alanine Aminotransferase (ALT/SGPT) 50 U/L Alkaline Phosphatase 102 U/L Total Creatine Kinase 152 U/L Creatine Kinase MB 2.0 ng/ml Creatine Kinase MB Ratio 1.3 Troponin I < 0.015 ng/ml < 0.015 ng/ml < 0.015 ng/ml Total Protein 7.7 gm/dl Albumin 3.8 gm/dl Lipase 95 U/L Triglycerides Level 139 mg/dl Cholesterol Level 112 mg/dl HDL Cholesterol 40 mg/dl LDL Cholesterol, Calculated 44 mg/dl VLDL Cholesterol, Calculated 28 mg/dl Cholesterol/HDL Ratio 2.8 Assessment and Plan This is a 66 year old male with a PMH of CAD s/p stents, ulcerative colitis on long-term mercaptopurine and allopurinol, HTN - presents with chest tightness, and possible bronchitis Chest Pain r/o ACS cardiac enzymes negative x3 echo with no significant acute findings stress echo performed and negative continue current cardiac medications on discharge outpatient follow-up with cardiology, Dr. Laguerre Acute Complicated Bronchitis CT chest shows mild inflammation of the left lower lobe bronchial wall will d/c home with doxycycline for 3 days UC continue home medications HTN blood pressure is stable, continue home medications DVT ppx Lovenox FULL CODE
[2017-10-31] MEDS ORDERED: DXY100 PO (15:10)
--- NOTE | 2017-10-31 15:15 | Discharge Instructions ---
Discharge Instructions Date of Service Oct 31, 2017. Admission Reason for Admission: Chest Pain Discharge Discharge Diagnosis / Problem: Chest Pain - Bronchitis Discharge Goals Goal(s): Decrease discomfort, Improve function, Diagnostic testing, Therapeutic intervention Activity Recommendations Activity Limitations: resume your previous activity . Instructions / Follow-Up Instructions / Follow-Up Please follow-up with Dr. Zavala on November 03 at 12:45PM * Your stress test is negative * You will be discharged with three days of doxycycline (antibiotic) - take this for 3 days Current Hospital Diet Patient's current hospital diet: AHA Diet (Heart Healthy) Discharge Diet Recommended Diet: AHA Diet (Heart Healthy) Pending Studies Studies pending at discharge: no Laboratory Results Lipid Panel Test 10/31/17 06:39 Range/Units Triglycerides Level 139 0-150 mg/dl Cholesterol Level 112 0-200 mg/dl HDL Cholesterol 40 mg/dl Cholesterol/HDL Ratio 2.8 LDL Cholesterol, Calculated 44 mg/dl Medical Emergencies . Who to Call and When: Medical Emergencies: If at any time you feel your situation is an emergency, please call 911 immediately. . Non-Emergent Contact Non-Emergency issues call your: Primary Care Provider, [employer] . . "Provider Documentation" section prepared by Irving Paulino. . VTE Core Measure Inpt VTE Proph given/why not?: Enoxaparin (Lovenox)SQ
--- NOTE | 2017-10-31 15:17 | Discharge Summary ---
Discharge Summary Date of Service Oct 31, 2017. Discharge Summary Admission Date: Oct 31, 2017 at 00:31 Discharge Date: Oct 31, 2017 Discharge Disposition: Home Principal Diagnosis: Chest pain, not likely ACS Complicated Acute Bronchitis Medication Reconciliation New Medications: Doxycycline Hyclate (Doxycycline Hyclate) 100 Mg Cap 100 MG PO BID for 3 Days, #6 CAP Continued Medications: Allopurinol (Zyloprim) 100 Mg Tab 50 MG PO QPM, TAB TAKE 1/2 OF A 100 MG TABLET Amlodipine Besylate (Amlodipine Besylate) 5 Mg Tab 5 MG PO DAILY Aspirin (Aspirin) 81 Mg Tab 1 TAB PO QPM Atorvastatin (Lipitor) 80 Mg Tab 80 MG PO QPM, TAB B-Complex Vitamins (Vitamin B Complex) 1 Tab Tab 1 TAB PO DAILY Carvedilol (Coreg) 25 Mg Tab 1.5 TAB PO BID, TAB Clopidogrel (Plavix) 75 Mg Tab 75 MG PO DAILY, TAB Folic Acid (Folic Acid) 1 Mg Tab 1 TAB PO DAILY Furosemide (Lasix) 40 Mg Tab 40 MG PO DAILY, TAB Isosorbide Mononitrate Ext Rel (Imdur Ext Rel) 30 Mg Tabcr 15 MG PO DAILY Lactobacillus (Acidophilus) 1 Cap Cap 1 CAP PO DAILY Mercaptopurine (Mercaptopurine) 50 Mg Tab 1 TAB PO QPM Multiple Vitamins W/ Minerals (Centrum Silver Adult 50+) 1 Tab Tab 1 TAB PO DAILY Nitroglycerin (Nitrostat) 0.4 Mg Tab 0.4 MG UT PRN, 0 Refills Olmesartan Medoxomil (Olmesartan Medoxomil) 40 Mg Tab 40 MG PO DAILY Potassium Ext Rel (Klor-Con) 20 Meq Tabcr 20 MEQ PO QPM Admission Information HPI (per Admitting provider): DATE OF ADMISSION: 10/30/2017 PRIMARY CARE PHYSICIAN: Dr. Zavala CHIEF COMPLAINT: Chest pain. HISTORY OF PRESENT ILLNESS: History obtained from patient records. Medical history significant for CAD status post stenting, hypertension, hyperlipidemia, past tobacco abuse, history of IBD, chronic anemia, baseline hemoglobin of 12, history of MGUS, prediabetes, ____ as per records. Recent confinement, last September 2014 for chest pain. Stress test was normal. The patient has been dealing with sinus symptoms for more than a month now. Outpatient course of Augmentin, incomplete response. Two days ago, the patient had congestion, cough symptoms, productive of yellow sputum, chest tightness. No shortness of breath. The patient upon arrival at the ER, the patient received aspirin. The patient currently comfortable. MEDICAL HISTORY: As above. SURGERIES: He has had no surgeries. HOME MEDICATIONS: Include Zyloprim, aspirin, Lipitor, amlodipine, and B complex, Coreg, Plavix, folic acid, furosemide, Imdur ER, lactobacillus, mercaptopurine, Centrum, Nitrostat, olmesartan and Klor-Con. ALLERGIES: ALLERGIC TO SHELLFISH, LISINOPRIL, VANCOMYCIN ____. FAMILY HISTORY: Heart disease. PERSONAL AND SOCIAL HISTORY: Past tobacco abuse. No chronic intake of alcoholic beverages. [employer] employee. REVIEW OF SYSTEMS: As per HPI. All 10 systems reviewed, all other ROS negative. PHYSICAL EXAMINATION: VITAL SIGNS: Blood pressure was noted to be 171/81, pulse 61, RR 26, sats 94 on room air. GENERAL: Noted to be pleasant, no respiratory distress. SKIN: Pallor, warm. HEENT: Alopecia. ____. No ptosis or mucosa. NECK: Short neck. Supple. CHEST: Decreased breath sounds. Occasional wheeze. HEART: Regular rhythm. No murmur. ABDOMEN: Soft, nontender. EXTREMITIES: No edema. NEUROLOGIC: No gross deformities. ____ no gross focality. LABORATORY DATA: Hemoglobin was noted to be 13, hematocrit 38, ____ 2.82, platelets 155. Sodium 136, potassium 3.5, chloride 102, CO2 30, BUN 11, creatinine 0.9 and glucose was noted to be 92. D-dimer abnormal. DIAGNOSTIC STUDIES: CT chest initial read showed oral mucous plugging reticulonodular densities, mild peribronchial thickening ____. ASSESSMENT AND PLAN: 1. Atypical chest pain secondary to complicated bronchitis No sepsis 2. CAD status post stenting 3. past tobacco abuse 4. hx IBD on Mercaptopurine. 5. Chronic anemia , hx MGUS. Hemoglobin better than baseline. Observation PCU. Doxycycline, nebs steroid 1 dose for occasional wheeze appreciated AM troponin, TTE RE cp Home in AM if patient feeling better and above cardiac workup unremarkable. DVT prophylaxis, Lovenox subQ. Full code. Hospital Course This is a 66 year old male with a PMH of CAD s/p stents, ulcerative colitis on long-term mercaptopurine and allopurinol, HTN - presents with chest tightness, and possible bronchitis Chest Pain r/o ACS cardiac enzymes negative x3 echo with no significant acute findings stress echo performed and negative continue current cardiac medications on discharge outpatient follow-up with cardiology, Dr. Laguerre Acute Complicated Bronchitis CT chest shows mild inflammation of the left lower lobe bronchial wall will d/c home with doxycycline for 3 days UC continue home medications HTN blood pressure is stable, continue home medications DVT ppx Lovenox FULL CODE Total time spent on discharge = 25 minutes This includes examination of the patient, discharge planning, medication reconciliation, and communication with other providers. Discharge Instructions Please follow-up with Dr. Zavala on November 03 at 12:45PM * Your stress test is negative * You will be discharged with three days of doxycycline (antibiotic) - take this for 3 days
[2017-10-31 15:28] VITALS: BP 120/62; PULSE 75; TEMP 36.9; O2SAT 92
[2017-10-31] MEDS ORDERED: ATORVASTATIN 40 MG TAB PO SCH (21:00)
[2017-10-31] MEDS ORDERED: ASPIRIN 81 MG ECTAB PO SCH (21:00)
[2017-10-31] MEDS ORDERED: ALLOPURINOL 100 MG TAB PO SCH (21:00)
[2017-10-31] MEDS ORDERED: MERCAPTOPURINE 50 MG TAB PO SCH (21:00)
[2017-10-31] MEDS ORDERED: DOXYCYCLINE HYCLATE 100 MG CAP PO SCH (21:00)
== END 2017-10-31 15:58 | disposition home or self-care (01) ==
LOC: C.EDB 20:42 → C.MED 10-31 00:31 → ENRESERV 10-31 01:01 → C.MED 10-31 06:03
PROVIDERS: ADMIT Internal Medicine; ATTEND Family Medicine
DX: R07.9 Chest pain, unspecified (principal); J20.9 Acute bronchitis, unspecified; D64.9 Anemia, unspecified; I25.10 Atherosclerotic heart disease of native coronary artery without angina pectoris; K51.90 Ulcerative colitis, unspecified, without complications; I10 Essential (primary) hypertension; E78.5 Hyperlipidemia, unspecified; E11.9 Type 2 diabetes mellitus without complications; D47.2 Monoclonal gammopathy; Z87.891 Personal history of nicotine dependence; I25.2 Old myocardial infarction; Z91.013 Allergy to seafood; Z79.82 Long term (current) use of aspirin; Z79.899 Other long term (current) drug therapy; Z79.02 Long term (current) use of antithrombotics/antiplatelets; Z88.1 Allergy status to other antibiotic agents; Z88.8 Allergy status to other drugs, medicaments and biological substances; Z82.49 Family history of ischemic heart disease and other diseases of the circulatory system

== ENCOUNTER 2018-10-12 10:22 | Inpatient (IN) ==
[2018-10-12] MEDS ORDERED: fentaNYL citrate 100 MCG/2 ML VIAL ONE (12:31)
[2018-10-12] MEDS ORDERED: HEPARIN (PORCINE) 1000 UNIT/ML 10 ML (CATH LAB USE ONLY) ONE (12:31)
[2018-10-12] MEDS ORDERED: MIDAZOLAM HCL 1 MG/ML 2ML VIAL ONE (12:31)
[2018-10-12] MEDS ORDERED: NiCARDipine HCL INJ 2.5 MG/ML 10 ML AMP ONE (12:31)
[2018-10-12] MEDS ORDERED: NITROGLYCERIN/D5W 100MCG/ML 20ML SYR ONE (12:33)
--- NOTE | 2018-10-12 12:44 | Pre Anesthesia Assessment ---
Date of Service October 12, 2018 Pre Sedation Assessment Vital Signs Temp Pulse Resp BP Pulse Ox 10/12/18 11:06 36.6 C 49 L 16 173/77 H 98 Cardiovascular RRR, no murmur, no edema Respiratory normal respiratory effort, lungs clear to auscultation Pre-Sedation Airway Assessment Smoking Status: Former smoker Short, Thick Neck: No Thyromental Distance: > or= 3.5 Finger Breadths Oral Cavity: + WNL Mallampati Class: II ASA: ASA3 Procedure Planning Contraindications for Sedation: none Current Medications Reviewed: Yes Notes The planned sedation has been discussed with the patient. Informed Consent was obtained. I have identified the patient, determined the appropriateness of sedation and have assessed the patient immediately prior to the procedure. All medicine(s) and interventions are by my order.
--- NOTE | 2018-10-12 12:44 | History & Physical Bridge Note ---
Date of Service October 12, 2018 History & Physical Bridge Note I have examined the patient, reviewed the History & Physical and in the interval since the performance of the History & Physical I have noted the following changes of clinical significance: no changes noted
[2018-10-12] MEDS ORDERED: ADENOSINE IV SOLN 3 MG/ML 20 ML VIAL IV ONE (13:35)
--- NOTE | 2018-10-12 13:47 | Post Anesthesia Assessment ---
Date of Service October 12, 2018 Post Sedation Assessment Vital Signs Temp Pulse Resp BP Pulse Ox 10/12/18 11:06 36.6 C 49 L 16 173/77 H 98 Post Sedation Plan On clinical assessment, the patient appears to have tolerated the sedation without complications. Patient is recovering as anticipated. Patient will continue to be monitored by nursing and may be discharged when sedation discharge criteria are met per below protocol. Upon Completions of procedure and additional 15 minutes continue every 5 minute vital signs and the P.A.R. score; then discharge to a Phase I or Fast Track to Phase II per the following guidelines: * Discharge Patient to appropriate Phase II area if PAR is 8 or greater or return to pre- procedure baseline. The post - procedure orders will be as directed. * If PAR score is less than 8 or not return to pre-procedure baseline then patient will follow Phase I monitoring till PAR is reached for Phase II. The Phase I may be done in procedure room or may call to secure a Phase I area. * �If naloxone or flumazenil are used for reversal, hold in Phase I for continued monitoring from when last reversal dose was given for a minimum of 60 minutes or longer pending the nurse and/or physician discretion of patient condition before discharge to Phase II.� Please call the Sedation Physician to re-evaluate and complete post-note for discharge to Phase II area. Do NOT discharge from procedure sedation or Phase 1 until post- sedation evaluation note is complete by procedure /sedation MD Sedation Discharge Instructions to be given to the patient at discharge to home.
--- NOTE | 2018-10-12 13:50 | Cardiac Catheterization ---
Cardiac Cath Procedure Full Procedure Date October 12, 2018 Pre-Procedure Diagnosis Pre-Procedure Diagnosis: Angina, CAD, Arrhythmia and Cardiothoracic Symptom AUC Score AUC Score: 7 Post-Procedure Diagnosis Post-Procedure Diagnosis: Moderate CAD and Elevated Intracardiac Pressures Procedure(s) Performed Procedure(s) Performed: Coronary Angiography and Left Heart Cath Lift Truck Mechanic Arturo Arteaga DO Night Shift Supervisor(s) Robin ULLOA. Iván RTR. Estimated Blood Loss Estimated Blood Loss: 5cc Medication(s) Medication(s): Fentanyl, Lidocaine 1%, Nicardipine, Nitroglycerin and Versed Summary of Findings 60% mid LAD in stent restenosis. Hemodynamics Rest Ao:: 132/57/98 Final Ao: 143/71/102 LV: 140/12/24 Recommendations Recommendations: Management Recommendatons (FFR LAD) Specimens Specimens: None Radiation Exposure (mGy) 2310 Contrast (mls) 110 Anesthesia Moderate sedation. Start 1248. End 1341. Procedural Complication(s) None Disposition cath lad for FFR ACC Data: [employer] Operator Cardiac Status Clinical evaluation leading to the procedure CAD Presenation: Stable angina Anginal Classification: CCS III Heart Failure: No Imaging Studies Past 6 Months: Yes Stress Studies Past 6 Months: Yes Stress Testing w/SPECT MPI: Yes - Negative Coronary Anatomy Dominant: Right Left Main (% Stenosis): Ostial (20% taper) LAD (% Stenosis): Proximal (10%) and Mid (60% in distal portion of stent. 30-40 % calcified stenosis distal to stent. ) D1 (% Stenosis): Ostial (60%) D2 (% Stenosis): Ostial (70%) Circumflex (% Stenosis): Mid (10% diffuse) OM1 (% Stenosis): Mid (10-20% diffuse) RCA (% Stenosis): Mid (10%) and Distal (10%, patent stent) R PDA (% Stenosis): Normal R PL1 (% Stenosis): Proximal (patent stent distal to RPDA) Diagnostic Physicians Name: Arturo Arteaga DO Closure Device Recommendations: Management Recommendatons (FFR LAD) Intraprocedure Events Significant Disection: No Perforation: No
[2018-10-12] MEDS ORDERED: CLOPIDOGREL BISULFATE 300 MG TAB ONE (14:36)
--- NOTE | 2018-10-12 14:43 | Pre Anesthesia Assessment ---
Date of Service October 12, 2018 Pre Sedation Assessment Vital Signs Temp Pulse Resp BP Pulse Ox 10/12/18 11:06 36.6 C 49 L 16 173/77 H 98 Cardiovascular RRR, no murmur, no edema Respiratory normal respiratory effort, lungs clear to auscultation Pre-Sedation Airway Assessment Smoking Status: Current every day smoker Hx Sleep Apnea: No Hx Difficult Intubation: No Short, Thick Neck: No Thyromental Distance: > or= 3.5 Finger Breadths Oral Cavity: + WNL Mallampati Class: II ASA: ASA3 Procedure Planning Contraindications for Sedation: none Current Medications Reviewed: Yes Notes The planned sedation has been discussed with the patient. Informed Consent was obtained. I have identified the patient, determined the appropriateness of sedation and have assessed the patient immediately prior to the procedure. All medicine(s) and interventions are by my order.
--- NOTE | 2018-10-12 14:43 | Post Anesthesia Assessment ---
Date of Service October 12, 2018 Post Sedation Assessment Vital Signs Temp Pulse Resp BP Pulse Ox 10/12/18 11:06 36.6 C 49 L 16 173/77 H 98 Recovery Score Activity: Moves 4 extremities Respiration: Deep Breath/Cough Circulation: +/-20% PreAnes Value Consciousness: Fully Awake Oxygen Saturation: O2 needed for >90% Discharge Sedation Level of Care: Fast Track Phase II Post Sedation Plan On clinical assessment, the patient appears to have tolerated the sedation without complications. Patient is recovering as anticipated. Patient will continue to be monitored by nursing and may be discharged when sedation discharge criteria are met per below protocol. Upon Completions of procedure and additional 15 minutes continue every 5 minute vital signs and the P.A.R. score; then discharge to a Phase I or Fast Track to Phase II per the following guidelines: * Discharge Patient to appropriate Phase II area if PAR is 8 or greater or return to pre- procedure baseline. The post - procedure orders will be as directed. * If PAR score is less than 8 or not return to pre-procedure baseline then patient will follow Phase I monitoring till PAR is reached for Phase II. The Phase I may be done in procedure room or may call to secure a Phase I area. * �If naloxone or flumazenil are used for reversal, hold in Phase I for continued monitoring from when last reversal dose was given for a minimum of 60 minutes or longer pending the nurse and/or physician discretion of patient condition before discharge to Phase II.� Please call the Sedation Physician to re-evaluate and complete post-note for discharge to Phase II area. Do NOT discharge from procedure sedation or Phase 1 until post- sedation evaluation note is complete by procedure /sedation MD Sedation Discharge Instructions to be given to the patient at discharge to home.
[2018-10-12] MEDS ORDERED: ONDANSETRON INJ 2 MG/ML 2 ML VIAL IV PRN (14:46)
[2018-10-12] MEDS ORDERED: ACETAMINOPHEN 325 MG TAB PO PRN (14:46)
--- NOTE | 2018-10-12 14:46 | Cardiac Catheterization ---
Cardiac Cath Procedure Full Procedure Date October 12, 2018 Pre-Procedure Diagnosis Pre-Procedure Diagnosis: Angina and CAD AUC Score AUC Score: 7 Post-Procedure Diagnosis Post-Procedure Diagnosis: Severe CAD and Successful PCI Procedure(s) Performed Procedure(s) Performed: Coronary Angiography, Drug Eluting Stent, IVUS and Fractional Flow [place] Wirer Carlyle Razo MD Automatic Transmission Mechanic(s) Robin Minor RTR. Estimated Blood Loss Estimated Blood Loss: 15 Medication(s) Medication(s): Clopidogrel, Fentanyl, Lidocaine 1%, Nicardipine, Nitroglycerin and Versed Summary of Findings Indication: Refractory Angina Access: 6Fr right radial artery Catheters: EBU 3.5 guide Findings: For full details of patients coronary angiography please see cath report dictated by Dr. Arteaga. Briefly patient found to have moderate mid LAD in-stent restenosis. Decision to further evaluate with FFR. -- FFR -- LM Cannulated with EBU 3.5 guide Straight FFR wire placed into distal LAD iFR 0.88 FFR 0.73 Decision to proceed with PCI. -- PCI -- Antithrombotic therapy: Heparin, Clopidogrel Procedure: FFR wire removed and BMW wire passed across lesion into distal vessel Mid LAD lesion predilated with 2.5 compliant balloon IVUS used to assess extent of disease/in-stent restenosis. Most severe stenosis in the mid segment at take-off 2nd diagonal. Dilated lesion stented with 2.75 x 33 Xience Viola stent Stent post-dilated with 3.0 noncompliant balloon IC vasodilators administered for spasm Repeat IVUS showed well-expanded stent with no apparent coronary complications. Post procedure JEMAL 3 flow, stent well expanded with minimal residual stenosis and no apparent cardiac complications. Arterial Closure: TR Band Summary: 1. Successful PCI of mid LAD with single drug-eluting stent overlapping mid- distal aspect of prior stent (2.75 x 33 Xience Viola; 3.0 NC). 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 Continue dual-antiplatelet therapy for at least 6 months Continue statin, and ASCVD risk factor modification Consult cardiac Rehab Hemodynamics Rest Ao:: - Final Ao: -- LV: -- Recommendations Recommendations: PCI without planned CABG Specimens Specimens: None Radiation Exposure (mGy) -- Contrast (mls) -- Anesthesia Moderate sedation Procedural Complication(s) None Disposition PCU ACC Data: Contract Implementation Analyst Cardiac Status Clinical evaluation leading to the procedure CAD Presenation: Stable angina Anginal Classification: CCS III Heart Failure: No Cardiogenic Shock within 24 Hours: No Cardiac Arrest within 24 Hours: No Imaging Studies Past 6 Months: Yes Stress Studies Past 6 Months: Yes Stress Echocardiogram: Yes - Negative Diagnostic Physicians Name: Carlyle Razo MD Status: Elective Closure Device Percutaneous Entry Location: Radial Recommendations: PCI without planned CABG PCI Indication: Angina despite med therapy Lesion Segment Name: mid LAD Culprit Artery: Yes Stenosis Prior to Rx (%): 70 Chronic Total Occlusion: No IVUS: Yes FFR: Yes Ratio: less than or equal to 0.75% Pre-Procedure JEMAL Flow: 3 Previously Treated Lesion: Timeframe: greater than 2 years Treated with Stent: Yes In-Stent Restenosis: Yes In-Stent Thrombosis: No Stent Type: Type Unknown Yes Lesion Complexity: Non-High/Non-C Thrombus Present: No Bifurcation Lesion: Yes Guidewire Across Lesion: Stenosis Post-Procedure (%): 0 Post-Procedure JEMAL Flow : 3 Devices(s) Deployed: Yes Yes Intraprocedure Events Significant Disection: No Perforation: No
[2018-10-12] MEDS ORDERED: NITROGLYCERIN SL 0.4 MG/TAB TAB SL PRN (14:49)
[2018-10-12] MEDS ORDERED: ALBUTEROL HFA 8 GM INHALER INH PRN (14:49)
[2018-10-12] MEDS ORDERED: SODIUM CHLORIDE 0.9% 1000ML 1,000 ML IV SCH (15:00)
[2018-10-12] MEDS: GABAPENTIN 100 MG CAP PO SCH (20:35)
[2018-10-13 06:38] LABS: Basophils # (auto) 0.01 K/uL (0-0.2); Basophils % (auto) 0.2 %; Eosinophils # (auto) 0.18 K/uL (0-0.5); Eosinophils % (auto) 4.2 %; Hematocrit (blood only) 37.4 % (42-52); Hemoglobin 12.3 g/dL (14.0-18.0); Immature Granulocytes # (auto) 0.02 K/uL (0.00-0.02); Immature Granulocytes % (auto) 0.5 %; Lymphocytes % (auto) 16.3 %; Mean Corpuscular Hgb Conc 32.9 g/dL (32-36); Mean Corpuscular Volume 100.3 fL (80-100); Mean Platelet Volume 11.1 fL (7.4-10.4); Monocytes # (auto) 0.28 K/uL (0.11-0.59); Monocytes % (auto) 6.5 %; Neutrophils % (auto) 72.3 %; Nucleated RBC # (auto) 0.02 K/uL (0-0); Nucleated RBC % (auto) 0.4 %; Platelet Count 164 K/uL (130-400); RDW Coefficient of Variation 15.8 % (11.5-14.5); RDW Standard Deviation 57.9 fL (36.4-46.3); Red Blood Count 3.73 M/uL (4.7-6.1); White Blood Count 4.29 K/uL (4.8-10.8)
[2018-10-13 07:12] LABS: BUN Creatinine Ratio 16.2 (10-20); Calcium 9.1 mg/dl (8.5-10.1); Creatinine Clr Calc Pharmacy 118.3 ml/min; Est GFR (Non-African American) 95.7
[2018-10-13] MEDS ORDERED: OLMESARTAN MEDOXOMIL 40 MG TAB PO SCH (09:00)
[2018-10-13] MEDS ORDERED: ISOSORBIDE MONO EXTENDED REL 30 MG TABCR PO SCH (09:00)
[2018-10-13] MEDS ORDERED: CLOPIDOGREL BISULFATE 75 MG TAB PO SCH (09:00)
[2018-10-13] MEDS ORDERED: TAMSULOSIN HCL 0.4 MG CAP PO SCH (09:00)
[2018-10-13] MEDS ORDERED: FOLIC ACID 1 MG TAB PO SCH (09:00)
[2018-10-13] MEDS ORDERED: FUROSEMIDE 40 MG TAB PO SCH (09:00)
[2018-10-13] MEDS ORDERED: TIOTROPIUM BROMIDE 5 PUFF/90 MCG INH INH SCH (09:00)
[2018-10-13] MEDS ORDERED: ASPIRIN 81 MG ECTAB PO SCH (09:00)
[2018-10-13] MEDS ORDERED: AMLODIPINE BESYLATE 5 MG TAB PO SCH (09:00)
[2018-10-13] MEDS ORDERED: METOPROLOL SUCC 25MG EXT REL TAB PO SCH (09:00)
[2018-10-13] MEDS ORDERED: ATORVASTATIN 40 MG TAB PO SCH (09:00)
[2018-10-13] MEDS ORDERED: MERCAPTOPURINE 50 MG TAB PO SCH (09:00)
[2018-10-13] MEDS: GABAPENTIN 100 MG CAP PO SCH (09:02)
--- NOTE | 2018-10-13 12:04 | Cardiology Progress Note ---
Date of Service October 13, 2018 Assessment & Plan (1) CAD (coronary artery disease), [place] coronary artery: Drug-eluting stent implanted without complication. Patient will continue dual antiplatelet therapy as previously ordered. Will schedule follow-up with Dr. Mario in the next 2-4 weeks. (2) Status post insertion of drug-eluting stent into left anterior descending ( LAD) artery: Continue dual antiplatelet therapy uninterrupted for 1 year post percutaneous intervention. Aspirin may be interrupted earlier if surgical procedure is necessary. (3) Frequent PVCs: Continue beta-win (4) Sinus pause: Patient asymptomatic. No medication changes at this time. Will follow up with outpatient brine tank separator operator for further evaluation. Subjective Patient seen and examined at the bedside. No bleeding or hematoma overnight. Telemetry demonstrates sinus rhythm with PVCs. There is nicely 3.1-second sinus pause at approximately 3:38 AM. No associated symptoms. Patient requesting discharge. Offers no complaints. Review of Systems All systems reviewed & are unremarkable except as noted in HPI & below Physical Exam 2 Vital Signs (Past 24 Hours): Last Vital Signs Temp 36.5 C 10/13/18 10:13 Pulse 67 10/13/18 10:13 Resp 16 10/13/18 10:13 BP 118/62 10/13/18 10:13 Pulse Ox 93 10/13/18 10:13 Physical Exam: General: NAD, AAO x3, well nourished. HEENT: Normocephalic. Atraumatic. Conjunctiva pink, no scleral icterus. Neck: No carotid bruits, the carotid upstrokes are brisk. No JVD. No HJR Heart: Regular with ectopy. Normal S-1 and S-2 no S-3 or S-4 gallop. No murmurs or rub appreciated. PMI is not displaced. No RV heave. Lungs: Clear bilateral without rales , rhonchi, or wheeze. Abdomen: Normal bowel sounds. Soft. Nontender. No masses or organomegaly. No abdominal bruits. Extremities: No clubbing, cyanosis, or edema. Pulses: No ecchymosis or hematoma of the right anterior wrist. Radial=2/ 4, Dorsalis pedis =2/4, posterior tibial=2/4. Neuro: Cranial nerves grossly intact. No focal motor deficit. _ (1) CAD (coronary artery disease), [place] coronary artery [place] vs. transplanted heart: [place] heart Associated angina: with stable angina Qualified Code(s): I25.118 - Atherosclerotic heart disease of [place] coronary artery with other forms of angina pectoris
--- NOTE | 2018-10-13 12:07 | Discharge Summary ---
Date of Service October 13, 2018 Admission HPI Patient presented for elective left heart catheterization with coronary angiography due to anginal symptoms and frequent PVCs. Carries a history of RCA and LAD stenting in the past. Admission Exam Per Admitting Provider General: NAD, AAO x3, well nourished. HEENT: Normocephalic. Atraumatic. Conjunctiva pink, no scleral icterus. Neck: No carotid bruits, the carotid upstrokes are brisk. No JVD. No HJR Heart: Regular with ectopy. Normal S-1 and S-2 no S-3 or S-4 gallop. No murmurs or rub appreciated. PMI is not displaced. No RV heave. Lungs: Clear bilateral without rales , rhonchi, or wheeze. Abdomen: Normal bowel sounds. Soft. Nontender. No masses or organomegaly. No abdominal bruits. Extremities: No clubbing, cyanosis, or edema. Pulses: radial=2/4, Dorsalis pedis =2/4, posterior tibial=2/4. Neuro: Cranial nerves grossly intact. No focal motor deficit. Principal Diagnosis Principal Diagnosis Coronary artery disease status post drug-eluting stent implantation to the left anterior descending coronary artery. Discharge Exam Unchanged. No evidence of right upper extremity ecchymosis or hematoma. Discharge Data Allergies Allergy/AdvReac Type Severity Reaction Status Date / Time fish oil Allergy Severe RASH Verified 03/28/18 08:43 vancomycin Allergy Unknown Rash Verified 03/28/18 08:43 shellfish derived AdvReac Intermediate VOMITTING Verified 03/28/18 08:43 lisinopril AdvReac Mild COUGH Verified 03/28/18 08:43 Procedures Performed Operation Date: 10/12/18 11:30 Actual Procedures p Cath, Left with Cors and Vent - Arturo Arteaga DO s Cineradiography w/Routine Exam - Arturo Arteaga DO s Fraction Flow Lena SGL Ves - Nino Razo MD s IVUS Coronary Single Vessel - Nino Razo MD Ordered Studies 10/12/18 06:41 CL Cath Imgs for PACS use only Routine 10/13/18 08:54 CL IVUS Coronary Single Vessel Routine Hospital Course (1) CAD (coronary artery disease), [place] coronary artery: Drug-eluting stent implanted without complication. Patient will continue dual antiplatelet therapy as previously ordered. Will schedule follow-up with Dr. Mario in the next 2-4 weeks. (2) Status post insertion of drug-eluting stent into left anterior descending ( LAD) artery: Continue dual antiplatelet therapy uninterrupted for 1 year post percutaneous intervention. Aspirin may be interrupted earlier if surgical procedure is necessary. (3) Frequent PVCs: Continue beta-win (4) Sinus pause: Patient asymptomatic. No medication changes at this time. Will follow up with outpatient document examiner for further evaluation. Total Time Total Time Spent Total Time Spent (In Minutes): 30 Discharge Plan Discharge Items Patient Disposition: Home - Self-Care Reason For Visit: PCI Discharge Diagnosis: CAD, Angina, s/p drug eluting stent implantation to the mid LAD Discharge Goals: Improve disease control Activity: Per 'Additional Instructions' section Non-emergency contact: Primary Care Provider and Accounts Payable Coordinator Call non-emergency contact if: you have any medication questions and your pain is worsening Follow-up/Referrals: Jeimy Zavala MD [Primary Care Provider] - Diet: Heart Healthy Add Provider Instructions: ACTIVITY RECOMMENDATIONS: Excess manipulation of the wrist should be avoided for the next 24-48 hours. * No lifting over 2 pounds (approximately a 1/2 gallon of milk) with the utilized arm for 24 hours. * No strenuous activity such as bowling or tennis for 3 days. * Keep the site of the procedure covered with a bandage for 24 hours. *You may shower the day after the procedure. Do not take a tub bath or submerge the puncture site in water for the next 3 days. *Do not operate any motorized equipment for 3 days. SPECIAL CARE INSTRUCTIONS: The site may be slightly bruised and sore following your procedure. Should any of the following occur, contact the Dr. who performed your procedure. 1. Redness/inflammation, swelling, chills, or fever, or colored drainage at procedure site within 3-7 days after your procedure. 2. Coldness, discoloration, ongoing numbness, severe pain, or swelling. Expect mild tingling of hand and tenderness at the puncture site for up to three days. If this persists beyond three days, or other symptoms develop, notify the Dr. who performed your procedure. BLEEDING: If the procedure site on your wrist begins to bleed, do not panic 1. Place 1 or 2 fingers firmly just slightly above the insertion site to stop the bleeding. You may be able to feel your pulse as you hold pressure. 2. Lift your finger after 5 minutes to see if the bleeding has stopped. 3. Once the bleeding has stopped, gently wipe the wrist area clean with a bandage. * If the bleeding from your wrist does not stop after 10 minutes, or if there is a large amount of bleeding or spurting, call 911 ([address] not drive yourself to the hospital). SKIN IRRITATION: * You may experience some redness and/or swelling in the area where radiation was administered. If any skin irritation occurs, please contact your family physician. FOLLOW UP VISIT: Keep any scheduled doctor appointments. Prescriptions: Continue furosemide 40 mg Tablet 40 mg PO DAILY RF: 0 gabapentin 100 mg Capsule 100 mg PO TID RF: 0 mercaptopurine 50 mg Tablet 50 mg PO DAILY RF: 0 isosorbide mononitrate 30 mg Tablet Extended Release 24 Hr 30 mg PO QAM RF: 0 potassium chloride [Klor-Con M20] 20 mEq Tablet,Er Particles/Crystals 20 meq PO DAILY RF: 0 folic acid 1 mg Tablet 1 mg PO DAILY RF: 0 lutein 20 mg Capsule 20 mg PO DAILY RF: 0 atorvastatin 80 mg Tablet 80 mg PO DAILY RF: 0 allopurinol 100 mg Tablet 50 mg PO DAILY RF: 0 albuterol sulfate [ProAir RespiClick] 90 mcg/actuation Aerosol Powdr Breath Activated 2 puff INHALATION Q6H PRN (Reason: Shortness Of Breath) RF: 0 nitroglycerin [Nitrostat] 0.4 mg Tablet, Sublingual 0.4 mg Sublingual UD PRN (Reason: Chest Pain) RF: 0 olmesartan [Benicar] 40 mg Tablet 40 mg PO DAILY RF: 0 clopidogrel [Plavix] 75 mg Tablet 75 mg PO DAILY RF: 0 vitamin B complex Tablet 1 tab PO DAILY RF: 0 aspirin 81 mg Tablet,Delayed Release (Dr/Ec) 81 mg PO DAILY RF: 0 Probiotic Acidophilus tablet 1 tab PO DAILY RF: 0 amlodipine 5 mg tablet 5 mg PO DAILY RF: 0 metoprolol succinate 25 mg tablet 25 mg PO DAILY RF: 0 tamsulosin 0.4 mg capsule 0.4 mg PO DAILY RF: 0 Spiriva with HandiHaler 18 mcg inhaler 18 mcg Inhalation DAILY RF: 0 Stand-Alone Forms: My [facility] Discharge Orders: Discharge Order (Routine); Ordered 10/13/18 Ordered By: Arturo Arteaga Admission Data Admit Date/Time: 10/12/18 13:58 Attending Provider: Arturo Arteaga Admit Provider: Arturo Arteaga Primary Care Provider: Jeimy Zavala Service: Telemetry Other Interventions: Discharge Summary Assessment (RN) Last Done: 10/13/18 10:13
== END 2018-10-13 11:00 | disposition home or self-care (01) | DRG 247 ==
LOC: CC 10:22 → 2E 13:58
DX: Z68.35 Body mass index [BMI] 35.0-35.9, adult; Z88.8 Allergy status to other drugs, medicaments and biological substances; Z88.1 Allergy status to other antibiotic agents; I25.118 Atherosclerotic heart disease of native coronary artery with other forms of angina pectoris; T82.855A Stenosis of coronary artery stent, initial encounter; Z79.82 Long term (current) use of aspirin; E66.9 Obesity, unspecified; D47.2 Monoclonal gammopathy; Z79.899 Other long term (current) drug therapy; Z82.49 Family history of ischemic heart disease and other diseases of the circulatory system; Z87.891 Personal history of nicotine dependence; K51.90 Ulcerative colitis, unspecified, without complications; I45.5 Other specified heart block; Z91.013 Allergy to seafood; I49.3 Ventricular premature depolarization; Y83.2 Surgical operation with anastomosis, bypass or graft as the cause of abnormal reaction of the patient, or of later complication, without mention of misadventure at the time of the procedure; Z83.3 Family history of diabetes mellitus; I25.2 Old myocardial infarction; Z79.02 Long term (current) use of antithrombotics/antiplatelets; E78.5 Hyperlipidemia, unspecified; Z83.49 Family history of other endocrine, nutritional and metabolic diseases; I10 Essential (primary) hypertension; Z82.3 Family history of stroke; Z95.5 Presence of coronary angioplasty implant and graft

== ENCOUNTER 2019-05-27 09:28 | Observation (INO) ==
[2019-05-27] MEDS ORDERED: ASPIRIN CHEW 324 MG PO STA (09:54)
[2019-05-27 10:02] LABS: Basophils # (auto) 0.01 K/uL (0-0.2); Basophils % (auto) 0.3 %; Eosinophils # (auto) 0.15 K/uL (0-0.5); Eosinophils % (auto) 4.5 %; Hematocrit (blood only) 37.5 % (42-52); Hemoglobin 12.4 g/dL (14.0-18.0); Immature Granulocytes # (auto) 0.01 K/uL (0.00-0.02); Immature Granulocytes % (auto) 0.3 %; Lymphocytes # (auto) 0.65 K/uL (1.2-3.4); Lymphocytes % (auto) 19.6 %; Mean Corpuscular Hemoglobin 33.2 pg (25-34); Mean Corpuscular Hgb Conc 33.1 g/dL (32-36); Mean Corpuscular Volume 100.3 fL (80-100); Mean Platelet Volume 11.2 fL (7.4-10.4); Monocytes # (auto) 0.23 K/uL (0.11-0.59); Monocytes % (auto) 6.9 %; Neutrophils # (auto) 2.27 K/uL (1.4-6.5); Neutrophils % (auto) 68.4 %; Platelet Count 181 K/uL (130-400); RDW Standard Deviation 58.3 fL (36.4-46.3); Red Blood Count 3.74 M/uL (4.7-6.1); White Blood Count 3.32 K/uL (4.8-10.8)
[2019-05-27 10:12] LABS: Alanine Aminotransferase 46 U/L (12-78); Albumin Level 3.4 gm/dl (3.4-5.0); Aspartate Aminotransferase 25 U/L (15-37); BUN Creatinine Ratio 10.1 (10-20); Blood Urea Nitrogen 8 mg/dl (7-18); Calcium 9.5 mg/dl (8.5-10.1); Carbon Dioxide 33 mmol/L (21-32); Chloride 107 mmol/L (98-107); Creatinine Clr Calc Pharmacy 113.5 ml/min; Est GFR (Non-African American) 94.1; Glucose 119 mg/dl (70-99); Lipase 75 U/L (73-393); Potassium 3.9 mmol/L (3.5-5.1); Sodium 141 mmol/L (136-145)
[2019-05-27 10:14] LABS: Partial Thromboplastin Ratio 0.8; Partial Thromboplastin Time 22.2 Seconds (21.0-31.0); Prothrombin Time 10.3 Seconds (9.0-12.0)
[2019-05-27 10:15] LABS: Albumin Globulin Ratio 0.9 (0.9-2); Alkaline Phosphatase 92 U/L (45-117); Bilirubin,Total 0.7 mg/dl (0.2-1); Globulin 3.7 gm/dl (2.5-4.0); Total Protein 7.1 gm/dl (6.4-8.2); Troponin I < 0.015 ng/ml (0-0.045)
--- NOTE | 2019-05-27 10:17 | Emergency Department Note ---
Entered by Laura Saunders acting as a scribe for History of Present Illness General Chief complaint: Cardiac Assessment Stated complaint: CHEST TIGHTNESS Time Seen by Provider: 05/27/19 09:46 Source: patient and family History of Present Illness Provider complaint: chest discomfort Onset (ago): week(s) 1 Location: chest Radiation: back Pain Consistency: + intermittent Maximum Pain Intensity: 3 Quality: + other (tightness) Associated symptoms: + other (lightheaded, under a lot of stress); no na usea/vomiting and no shortness of breath Treatments prior to arrival: other (1 dose of Nitroglycerin) The patient is a 68 year old male who presents to the ED with complaints of intermittent chest discomfort that started 1 week ago. The patient describes the pain as tightness in his chest. The patient notes that after a spell of sneezing this morning, the tightness became more severe and it radiated into his back. The patient states that he took 1 dose of Nitroglycerin at 0900 which helped the pain but made him feel lightheaded. Per , the patient has been under a lot more stress than usual. The patient denies shortness of breath, nausea and vomiting. Home Medications Home Medications Medication Instructions Recorded Confirmed Type ProAir RespiClick 2 puff INHALATION Q6H PRN 07/04/18 05/27/19 History allopurinol 50 mg PO DAILY 07/04/18 05/27/19 History aspirin 81 mg PO HS 07/04/18 05/27/19 History atorvastatin 80 mg PO HS 07/04/18 05/27/19 History clopidogrel [Plavix] 75 mg PO DAILY 07/04/18 05/27/19 History folic acid 1 mg PO DAILY 07/04/18 05/27/19 History furosemide 40 mg PO DAILY 07/04/18 05/27/19 History gabapentin 100 mg PO TID 07/04/18 05/27/19 History isosorbide mononitrate 30 mg PO QAM 07/04/18 05/27/19 History lutein 20 mg PO DAILY 07/04/18 05/27/19 History mercaptopurine 50 mg PO DAILY 07/04/18 05/27/19 History nitroglycerin [Nitrostat] 0.4 mg SUBLINGUAL UD PRN 07/04/18 05/27/19 History olmesartan [Benicar] 40 mg PO DAILY 07/04/18 05/27/19 History potassium chloride [Klor-Con M20] 20 meq PO HS 07/04/18 05/27/19 History vitamin B complex 1 tab PO DAILY 07/04/18 05/27/19 History Probiotic Acidophilus 1 tab PO DAILY 10/12/18 05/27/19 History amlodipine 5 mg PO DAILY #0 10/12/18 05/27/19 History tamsulosin 0.4 mg PO DAILY #0 10/12/18 05/27/19 History tiotropium bromide [Spiriva with 1 cap INHALATION DAILY #0 10/12/18 05/27/19 History HandiHaler] carvedilol 37.5 mg PO BID 05/27/19 05/27/19 History loperamide [Imodium A-D] 2 mg PO Q3H PRN 05/27/19 05/27/19 History Allergies Allergy/AdvReac Type Severity Reaction Status Date / Time fish oil Allergy Severe RASH Verified 05/27/19 10:15 vancomycin Allergy Unknown Rash Verified 05/27/19 10:15 shellfish derived AdvReac Intermediate VOMITTING Verified 05/27/19 10:15 lisinopril AdvReac Mild COUGH Verified 05/27/19 10:15 Past Med/Surg History Medical History Pre-diabetes (Chronic) COPD (chronic obstructive pulmonary disease) (Chronic) HTN (hypertension) (Chronic) Frequent PVCs (Chronic) Coronary artery disease (Chronic 05/15/14) Ulcerative colitis (Chronic) Chest pain (Acute 09/17/14) Surgical History Stented coronary artery (Chronic) 1997, 2008, 2013 and 10/12 Family History Other Heart disease Stroke Social History Preferred Language: Greek Communication Ability: Effective Redrying 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 and A total of 10 systems reviewed and were otherwise negative Physical Exam Vital Signs Vital Signs - 24 hr 05/27/19 09:34 05/27/19 09:42 05/27/19 10:13 Temperature 36.6 C Temperature Source Oral Sepsis Recent Fever Within 48 Hours No Sepsis New/Unexplained Change in Mental Status No Sepsis Action Taken by Nursing No Action Required Pulse Rate 58 L 61 Pulse Rate [Apical] 59 L 59 L Pulse Rhythm Regular Regular Pulse Rhythm [Apical] Regular Regular Respiratory Rate 13 13 15 Respiratory Effort / Characteristics Non-Labored Non-Labored Non-Labored Respiratory Depth Normal Normal Normal Respiratory Pattern Regular Regular Regular Blood Pressure 163/78 H Blood Pressure [Right Arm] 148/75 H 140/67 Blood Pressure Mean 106 Blood Pressure Mean [Right Arm] 99 91 Blood Pressure Position [Right Arm] Sitting Sitting Pulse Oximetry 95 94 94 Oxygen Delivery Method Room Air Room Air Room Air Oxygen Flow Rate 0 0 05/27/19 11:14 Temperature Temperature Source Sepsis Recent Fever Within 48 Hours Sepsis New/Unexplained Change in Mental Status Sepsis Action Taken by Nursing Pulse Rate Pulse Rate [Apical] 52 L Pulse Rhythm Pulse Rhythm [Apical] Regular Respiratory Rate 18 Respiratory Effort / Characteristics Non-Labored Respiratory Depth Normal Respiratory Pattern Regular Blood Pressure Blood Pressure [Right Arm] 128/66 Blood Pressure Mean Blood Pressure Mean [Right Arm] 86 Blood Pressure Position [Right Arm] Pulse Oximetry 95 Oxygen Delivery Method Room Air Oxygen Flow Rate General: Non-ill appearing older male in no acute distress. HEENT: Normal cephalic atraumatic. Pupils are equal round and reactive to light. Extraocular movements are intact. Oropharynx is pink with moist mucous membranes. No swelling of the mouth lips or tongue. Neck: Supple with a midline trachea. No meningeal signs or stiffness, no JVD or bruits. No Stridor. Chest: Clear to auscultation bilaterally. No wheezes or rhonchi. No increased work of breathing. Heart: regular rate and rhythm. Abdomen: Soft nontender, nondistended without rebound guarding or rigidity. Extremities: No cyanosis clubbing or edema. No calf tenderness or asymmetry Spine/Back. Non tender to palpation. No CVA tenderness Skin: Good turgor without rashes. Neurologic exam: Cranial nerves two through 12 are intact. Motor and sensation are intact and symmetrical throughout. Course 0948: Past medical records reviewed. The patient was evaluated in room C9. A complete history and physical exam was performed. 1026: I reevaluated the patient and he appears to be comfortable. I updated the patient on the test results and plan for admission. He verbally agrees and understands. 1036: I discussed the patient's case with Jennifer Martin PA-C. She will evaluated the patient for further management. Consultations Consultation #1: I discussed the patient's case with LOGAN Shahid. She will evaluated the patient for further management. Time: 10:36 Administered Medications Gabapentin (Neurontin) 100 mg PO TID NAM Stop: 06/26/19 13:59 Last Admin: 05/27/19 14:19 Dose: 100 mg Documented by: [id number] Discontinued Medications Aspirin (Aspirin) 324 mg PO NOW STA Stop: 05/27/19 09:55 Last Admin: 05/27/19 10:12 Dose: 324 mg Documented by: [id number] Furosemide (Lasix) 40 mg PO NOW ONE Stop: 05/27/19 12:20 Last Admin: 05/27/19 12:45 Dose: 40 mg Documented by: [id number] Medical Decision Making Differential Diagnosis Differentials include acute coronary syndrome, arrhythmias, metabolic and electrolyte abnormality. Medical Records Attestation: I reviewed the patient's medical records. Home Medications Current Medication List: was personally reviewed by me Laboratory Data Attestation: I reviewed the patient's lab results. Result diagrams: 05/27/19 09:44 05/27/19 09:44 Lab Results 05/27/19 05/27/19 05/27/19 Range/Units 09:44 09:44 09:44 WBC 3.32 L (4.8-10.8) K/uL RBC 3.74 L (4.7-6.1) M/uL Hgb 12.4 L (14.0-18.0) g/dL Hct 37.5 L (42-52) % MCV 100.3 H (80-100) fL MCH 33.2 (25-34) pg MCHC 33.1 (32-36) g/dL RDW Std Deviation 58.3 H (36.4-46.3) fL RDW Coeff of Flo 16.0 H (11.5-14.5) % Plt Count 181 (130-400) K/uL MPV 11.2 H (7.4-10.4) fL Immature Gran % (Auto) 0.3 % Neut % (Auto) 68.4 % Lymph % (Auto) 19.6 % [place] % (Auto) 6.9 % Eos % (Auto) 4.5 % Baso % (Auto) 0.3 % Immature Gran # (Auto) 0.01 (0.00-0.02) K/uL Neut # (Auto) 2.27 (1.4-6.5) K/uL Lymph # (Auto) 0.65 L (1.2-3.4) K/uL [place] # (Auto) 0.23 (0.11-0.59) K/uL Eos # (Auto) 0.15 (0-0.5) K/uL Baso # (Auto) 0.01 (0-0.2) K/uL PT 10.3 (9.0-12.0) Seconds INR 1.0 (0.9-1.1) APTT 22.2 (21.0-31.0) Seconds PTT Ratio 0.8 Sodium 141 (136-145) mmol/L Potassium 3.9 (3.5-5.1) mmol/L Chloride 107 (98-107) mmol/L Carbon Dioxide 33 H (21-32) mmol/L Anion Gap 1.0 L (3-11) BUN 8 (7-18) mg/dl Creatinine 0.78 (0.6-1.4) mg/dl Est Cr Clr Drug Dosing 113.5 ml/min Est GFR ( Amer) 109.0 Est GFR (Non-Af Amer) 94.1 BUN/Creatinine Ratio 10.1 (10-20) Glucose 119 H (70-99) mg/dl Calcium 9.5 (8.5-10.1) mg/dl Total Bilirubin 0.7 (0.2-1) mg/dl AST 25 (15-37) U/L ALT 46 (12-78) U/L Alkaline Phosphatase 92 (45-117) U/L Troponin I < 0.015 (0-0.045) ng/ml Total Protein 7.1 (6.4-8.2) gm/dl Albumin 3.4 (3.4-5.0) gm/dl Globulin 3.7 (2.5-4.0) gm/dl Albumin/Globulin Ratio 0.9 (0.9-2) Lipase 75 (73-393) U/L Imaging Data Radiologist's Impression: Radiology results as stated below per my review and the radiologist's interpretation: XR chest 1V portable CLINICAL HISTORY: Chest Pain COMPARISON STUDY: Chest radiograph July 04, 2018. Chest CT October 31, 2017. FINDINGS: Moderate cardiomegaly is unchanged. There is no evidence for pulmonary edema. No pneumothorax or pleural effusion is noted. Apparent left basilar opacity likely reflect artifact or epicardial fat pad. IMPRESSION: No acute cardiopulmonary findings. Moderate cardiomegaly. Electronically signed by: Myron Gordon M.D. 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 No change from EKG #1. Blood Pressure Blood Pressure Findings: Elevated blood pressure Blood Pressure Disposition: further management by hospitalist [facility] Narrative This patient comes in as described above. He was placed in room C9. He has a significant cardiac history he is also had stress lately. He has had intermittent chest pain for about a week. It seems to be worse with exertion. He had more chest pain after sneezing. At present, he has minimal chest pain and says he feels much better. He was given aspirin 324 mg p.o. His initial EKG shows some old inferior changes but no change compared to the most recent EKG and specifically the one in September, it looks identical to. I did a second EKG and there is no change compared to the first. Chest x-ray and multiple blood testing was obtained. He was reassessed frequently. He has remained stable. I did this second EKG and there is no change compared to the first. His initial troponin is negative. Chest x-ray does not suggest congestive heart failure pneumonia or pneumothorax. He has no acute electrolyte or metabolic abnormalities. Given his presentation of symptoms and his significant cardiac history/risk factor profile he does score greater than 4 on the heart score and I do think he needs to be admitted/observe for further inpatient treatment and evaluation. Impression & Plan Chest pain, Unstable angina, Coronary artery disease, HTN (hypertension) Discharge Plan Visit Data *Final* Discharge Date/Time: 05/27/19 12:41 Chief Complaint: Cardiac Assessment Stated Complaint: CHEST TIGHTNESS ED Provider: Navneet June Discharge Problem: Chest pain, Unstable angina, Coronary artery disease, HTN (hypertension) Patient Disposition: Admitted As Inpatient Discharge Instructions Interventions: ED Discharge Assessment Last Done: 05/27/19 12:41 The scribe's documentation has been prepared under my direction and personally reviewed by me in its entirety. I confirm that the note above accurately reflects all work, treatment, procedures, and medical decision making performed by me.
--- NOTE | 2019-05-27 10:38 | XRay Report ---
XR chest 1V portable CLINICAL HISTORY: Chest Pain COMPARISON STUDY: Chest radiograph July 04, 2018. Chest CT October 31, 2017. FINDINGS: Moderate cardiomegaly is unchanged. There is no evidence for pulmonary edema. No pneumothor ax or pleural effusion is noted. Apparent left basilar opacity likely reflect artifact or epicardial fat pad. IMPRESSION: No acute cardiopulmonary findings. Moderate cardiomegaly. Electronically signed by: Myron Gordon M.D. 05/27/2019 10:37 AM
--- NOTE | 2019-05-27 11:14 | History & Physical Report ---
Date of Service May 27, 2019 Assessment & Plan (1) Chest pain: This is a 68yo M with a PMH of CAD (s/p stent placement in 1997, 2003, 2008 and 2018), HTN, HLD, COPD and other medical problems listed below who presents with intermittent chest pain x 1 week. -Atypical presentation of pain -However, has significant history of CAD with stent placements, most recently 1 RICA to LAD in Sep 2018 -EKG without changes, initial troponin negative, CXR without acute abnormalities -Given full dose aspirin prior to arrival. Continue plavix, statin, carvedilol, Imdur, baby aspirin -Routine cardiology consult, trend troponin, monitor on telemetry (2) COPD (chronic obstructive pulmonary disease): Stable. Continue Spiriva, Proair inhaler (3) HTN (hypertension): Normotensive -Continue amlodipine, carvedilol, olmesartan DVT Ppx: SQ lovenox Code status: FULL PCP: Lucas Dispo: Observation telemetry. Plan to return home once medically stable. Patient seen in collaboration with Dr. Bell. Please see addendum. History of Present Illness Chief Complaint: chest pain Primary Care Provider: Jeimy Zavala MD This is a 68yo M with a PMH of CAD (s/p stent placement in 1997, 2003, 2008 and 2018), HTN, HLD, COPD and other medical problems listed below who presents with intermittent CP x 1 week. Pain has been gradually increasing throughout the week, lasting a few hours at a time. Had worsening chest tightness today following sneezing episode. Describes pain as substernal, non-radiating tightness made worse with sneezing. Not worse with exertion. No associated diaphoresis, nausea, vomiting or shortness of breath. Had some pain in his back during this time but isn't sure if it was from sneezing or associated with chest pain. Took a ntg with some improvement of pain prior to arrival. Now endorsing a 1/10 discomfort. Denies fever, chills, lightheadedness, visual changes, palpitations, abdominal pain, dysuria, constipation or lower extremity swelling. Endorses 2 episodes of loose stool this morning as well as a productive cough with clear phlegm. Follows with Dr. Laguerre for history of CAD s/p multiple stents, most recently a stent to LAD at [facility] on October 12 2018. History of frequent PVCs in the past but condition has been much improved since last stent placement. Allergies Allergy/AdvReac Type Severity Reaction Status Date / Time fish oil Allergy Severe RASH Verified 05/27/19 10:15 vancomycin Allergy Unknown Rash Verified 05/27/19 10:15 shellfish derived AdvReac Intermediate VOMITTING Verified 05/27/19 10:15 lisinopril AdvReac Mild COUGH Verified 05/27/19 10:15 Home Medications Home Medications Medication Instructions Recorded Confirmed Type ProAir RespiClick 2 puff INHALATION Q6H PRN 07/04/18 05/27/19 History allopurinol 50 mg PO DAILY 07/04/18 05/27/19 History aspirin 81 mg PO HS 07/04/18 05/27/19 History atorvastatin 80 mg PO HS 07/04/18 05/27/19 History clopidogrel [Plavix] 75 mg PO DAILY 07/04/18 05/27/19 History folic acid 1 mg PO DAILY 07/04/18 05/27/19 History furosemide 40 mg PO DAILY 07/04/18 05/27/19 History gabapentin 100 mg PO TID 07/04/18 05/27/19 History isosorbide mononitrate 30 mg PO QAM 07/04/18 05/27/19 History lutein 20 mg PO DAILY 07/04/18 05/27/19 History mercaptopurine 50 mg PO DAILY 07/04/18 05/27/19 History nitroglycerin [Nitrostat] 0.4 mg SUBLINGUAL UD PRN 07/04/18 05/27/19 History olmesartan [Benicar] 40 mg PO DAILY 07/04/18 05/27/19 History potassium chloride [Klor-Con M20] 20 meq PO HS 07/04/18 05/27/19 History vitamin B complex 1 tab PO DAILY 07/04/18 05/27/19 History Probiotic Acidophilus 1 tab PO DAILY 10/12/18 05/27/19 History amlodipine 5 mg PO DAILY #0 10/12/18 05/27/19 History tamsulosin 0.4 mg PO DAILY #0 10/12/18 05/27/19 History tiotropium bromide [Spiriva with 1 cap INHALATION DAILY #0 10/12/18 05/27/19 History HandiHaler] carvedilol 37.5 mg PO BID 05/27/19 05/27/19 History loperamide [Imodium A-D] 2 mg PO Q3H PRN 05/27/19 05/27/19 History Past Med/Surg History Medical History Pre-diabetes (Chronic) COPD (chronic obstructive pulmonary disease) (Chronic) HTN (hypertension) (Chronic) Frequent PVCs (Chronic) Coronary artery disease (Chronic 05/15/14) Ulcerative colitis (Chronic) Chest pain (Acute 09/17/14) Surgical History Stented coronary artery (Chronic) 1997, 2008, 2013 and 10/12 Family History Other Heart disease Stroke Social History Preferred Language: [place] Islander Communication Ability: Effective Installation Technician Required: No Beliefs That Will Affect Care: None Current Living Situation: Spouse Other Information That Helps Us Care for You: No Feels Safe at Home: Yes Safety Concerns: Feels Safe At This Time Smoking Status: Former smoker Do You Dip or Chew Tobacco: No ; Number of Years Since Quit: 25 ; Second Hand Exposure: No ; Tobacco Cessation Education Requested by Patient: No Hx Alcohol Use: No Hx Substance Use: No Review of Systems Review of Systems: At least ten systems reviewed and negative except as noted in the HPI. Physical Exam Physical Exam: General Appearance: WD/WN, vitals as above, NAD, sitting up in bed, pleasant, conversing easily, obese Head: normocephalic, atraumatic Eyes: normal inspection, PERRL, conjunctivae normal, anicteric sclerae ENT: external ear and nose normal, oropharynx normal Neck: trachea midline, no thyromegaly normal visual inspection Respiratory: normal respiratory effort, lungs clear to auscultation, no wheeze, rales, rhonchi. No accessory muscle use Cardiovascular: regular rate, rhythm, no murmur, normal peripheral pulses. Vessels: no JVD or carotid bruit Chest: normal inspection of chest, non-tender to palpation Abdomen/GI: normal bowel sounds, soft, nontender, no hepatosplenomegaly Extremities/Musculoskelatal: no cyanosis or clubbing, extremities motor strength 5/5 Neurologic: PERRL, EOMI, accommodation nl, no face palsy, no dysarthria CN's II-XI intact bilaterally and moves all extremities Psychiatric: A+Ox3, euthymic affect Skin: no rashes, normal color, warm/dry Results & Data Vital Signs (Past 12 Hours) Vital Signs Temp Pulse Pulse Resp BP BP Pulse Ox 05/27/19 10:13 61 59 L 15 140/67 94 05/27/19 09:42 59 L 13 148/75 H 94 05/27/19 09:34 36.6 C 58 L 13 163/78 H 95 ECG Rhythm: sinus bradycardia Change: no significant change Additional Comments: h/o inferior infarct with chronic EKG changes Supervising Physician Co-Signing Physician Notes HISTORY: Record reviewed. Patient interviewed and examined. Care coordinated with Jennifer Calvert PA-C. Please refer to her documentation for patient's history. Briefly, 68 YO male with history of CAD and other problems. S/P cardiac cath with PCI x 4, last PCI RICA LAD September 2018. Presented to ED with a few days of nonexertional midsternal chest pressure, worse this morning after sneezing, relieved by NTG. Pain not pleuritic in nature. EXAM: General- no distress Lungs- few bibasilar rales, otherwise clear to auscultation; no respiratory distress Cardiovascular- RRR; no murmur; no gallop; no JVD; no pretibial edema Abdomen- + bowel sounds, soft, nontender Extremities- no cyanosis; no calf tenderness Neuro- alert, oriented Skin- warm & dry DATA: Hgb 12.4, WBC 3320, plts 181,000. MCV 100. Troponin < 0.015. Other lab studies as noted. Portable chest x-ray reviewed and demonstrated poor inspiratory effort, cardiomegaly, no infiltrates, effusions, CHF. EKG performed at 09:34 reviewed and demonstrated SB at 56 / minute, [address] elevation inferior leads, possible age-indeterminate inferior infarct. Tracing was compared to EKG from 10/12/18 which showed similar abnormalities. ASSESSMENT AND PLAN: Known CAD, s/p multiple PCI's. Atypical chest pain relieved by NTG. Abnormal EKG, but unchanged. Troponin negative. Check repeat troponin. Continue aspirin, clopidogrel, beta win, nitrates, statin. Consult Cardiology. Please refer to ROSHAN Calvert's documentation for discussion of other issues.
[2019-05-27] MEDS ORDERED: FUROSEMIDE 40 MG TAB PO ONE (12:19)
[2019-05-27] MEDS ORDERED: ALBUTEROL HFA 8 GM INHALER INH PRN (13:14)
[2019-05-27] MEDS ORDERED: LOPERAMIDE HCL 2 MG CAP PO PRN (13:14)
[2019-05-27] MEDS ORDERED: ACETAMINOPHEN 325 MG TAB PO PRN (13:14)
[2019-05-27] MEDS ORDERED: ONDANSETRON INJ 2 MG/ML 2 ML VIAL IV PRN (13:14)
[2019-05-27] MEDS ORDERED: NITROGLYCERIN SL 0.4 MG/TAB TAB SL PRN (13:14)
--- NOTE | 2019-05-27 14:09 | Cardiology Consultation ---
Date of Consultation May 27, 2019 Assessment & Plan (1) Coronary artery disease: (2) Stented coronary artery: (3) Chest pain: This is a patient with atypical chest pain but has an extensive cardiac history. He has been admitted for observation. Cardiac markers are negative and his EKG shows no acute changes. I would hold his breakfast in the morning. We will reevaluate him and decide on any additional testing at that time. History of Present Illness Attending Physician: Sarthak Bell MD History of Present Illness This is a 68-year-old male patient who is had an extensive cardiac history as outlined below. He was in his usual state of health earlier in the week when he started to develop some mild chest discomfort. At first he was not concerned because it was so minimal but this morning he awoke and had some congestion. He sneezed really hard and had severe chest pain radiating to his back. He was concerned enough that he decided to come to the emergency department. Prior to leaving his home he did take a sublingual nitroglycerin and by the time he arrived to the emergency department his discomfort was gone. He denies any current ongoing chest arm or back discomfort. He denies shortness of breath. He has had no heart palpitations. 2 sets of cardiac markers are negative. His EKG shows no acute changes. Past medical history: 1. Premature coronary artery disease 1. Inferior wall myocardial infarction status post PCI of the RCA in 1997 2. NSTEMI in August 2009 while visiting his son in [place], catheterization at that time revealing high grade RCA stenosis treated with a drug eluting stent. 3. Catheterization performed at [facility] on October 30, 2009 demonstrated nonobstructive coronary artery disease with widely patent stents. 4. Complaints of exertional dyspnea in May 2014 lead to abnormal nuclear stress testing and ultimately cardiac catheterization, PCI of the distal RCA with a drug-eluting stent 05/25/2014 5. cardiac catheterization 10/10/18, RICA to mid / distal LAD , [facility] 6. Improvement in subjective symptoms and objective PVC burden on Holter monitors performed prior to and after the 10/12/18 LAD stent 2. Hypertension 3. Hyperlipidemia 4. Ulcerative colitis 5. GERD 6. Hyperparathyroidism. 7. IgM monoclonal gammopathy of uncertain significance 8. Obesity 9. Lumbar radiculopathy Allergies Allergy/AdvReac Type Severity Reaction Status Date / Time fish oil Allergy Severe RASH Verified 05/27/19 10:15 vancomycin Allergy Unknown Rash Verified 05/27/19 10:15 shellfish derived AdvReac Intermediate VOMITTING Verified 05/27/19 10:15 lisinopril AdvReac Mild COUGH Verified 05/27/19 10:15 Home Medications Home Medications Medication Instructions Recorded Confirmed Type ProAir RespiClick 2 puff INHALATION Q6H PRN 07/04/18 05/27/19 History allopurinol 50 mg PO DAILY 07/04/18 05/27/19 History aspirin 81 mg PO HS 07/04/18 05/27/19 History atorvastatin 80 mg PO HS 07/04/18 05/27/19 History clopidogrel [Plavix] 75 mg PO DAILY 07/04/18 05/27/19 History folic acid 1 mg PO DAILY 07/04/18 05/27/19 History furosemide 40 mg PO DAILY 07/04/18 05/27/19 History gabapentin 100 mg PO TID 07/04/18 05/27/19 History isosorbide mononitrate 30 mg PO QAM 07/04/18 05/27/19 History lutein 20 mg PO DAILY 07/04/18 05/27/19 History mercaptopurine 50 mg PO DAILY 07/04/18 05/27/19 History nitroglycerin [Nitrostat] 0.4 mg SUBLINGUAL UD PRN 07/04/18 05/27/19 History olmesartan [Benicar] 40 mg PO DAILY 07/04/18 05/27/19 History potassium chloride [Klor-Con M20] 20 meq PO HS 07/04/18 05/27/19 History vitamin B complex 1 tab PO DAILY 07/04/18 05/27/19 History Probiotic Acidophilus 1 tab PO DAILY 10/12/18 05/27/19 History amlodipine 5 mg PO DAILY #0 10/12/18 05/27/19 History tamsulosin 0.4 mg PO DAILY #0 10/12/18 05/27/19 History tiotropium bromide [Spiriva with 1 cap INHALATION DAILY #0 10/12/18 05/27/19 History HandiHaler] carvedilol 37.5 mg PO BID 05/27/19 05/27/19 History loperamide [Imodium A-D] 2 mg PO Q3H PRN 05/27/19 05/27/19 History Patient History Medical History Pre-diabetes (Chronic) COPD (chronic obstructive pulmonary disease) (Chronic) HTN (hypertension) (Chronic) Frequent PVCs (Chronic) Coronary artery disease (Chronic 05/15/14) Ulcerative colitis (Chronic) Chest pain (Acute 09/17/14) Surgical History Stented coronary artery (Chronic) 1997, 2008, 2013 and 10/12 Family History Other Heart disease Stroke Social History Preferred Language: Bhutanese Communication Ability: Effective Gmat Tutor Required: No Beliefs That Will Affect Care: None Current Living Situation: Spouse Other Information That Helps Us Care for You: No Feels Safe at Home: Yes Safety Concerns: Feels Safe At This Time Smoking Status: Former smoker Do You Dip or Chew Tobacco: No ; Number of Years Since Quit: 25 ; Second Hand Exposure: No ; Tobacco Cessation Education Requested by Patient: No Hx Alcohol Use: No Hx Substance Use: No Review of Systems Review of Systems: All systems reviewed & are unremarkable except as noted in HPI & below Nothing additional Physical Exam Physical Exam: General: no acute distress and stated age Head: normocephalic, no masses, lesions, tenderness or abnormalities Eyes: conjunctiva are pink and non-injected, sclera clear Neck: supple, no adenopathy, no bruits, normal jugular venous pulse, no hepatojugular reflux Chest: normal shape and normal respiratory effort Lungs: clear to auscultation and percussion Cardiac Exam: - regular rate & rhythm, no murmurs gallops or rubs - normal S1, normal S2 Pulses: 2(+) throughout Abdomen: abdomen soft, non-tender, no abnormal masses and no hepatosplenomegaly Musculoskeletal: no gait disturbance, no joint inflammation, no deforming arthritis Extremities: no edema and no cyanosis Neuro: grossly normal exam Results & Data Vital Signs (Past 12 Hours) Vital Signs Temp Pulse Pulse Resp BP BP Pulse Ox 05/27/19 13:56 45 L 05/27/19 13:15 36.6 C 50 L 17 158/75 H 97 05/27/19 12:41 48 L 18 138/65 95 05/27/19 12:00 48 L 17 131/76 94 05/27/19 11:14 52 L 18 128/66 95 05/27/19 10:13 61 59 L 15 140/67 94 05/27/19 09:42 59 L 13 148/75 H 94 05/27/19 09:34 36.6 C 58 L 13 163/78 H 95 Laboratory Results Laboratory Results - last 24 hr 05/27/19 05/27/19 05/27/19 09:44 09:44 09:44 WBC 3.32 L RBC 3.74 L Hgb 12.4 L Hct 37.5 L MCV 100.3 H MCH 33.2 MCHC 33.1 RDW Std Deviation 58.3 H RDW Coeff of Flo 16.0 H Plt Count 181 MPV 11.2 H Immature Gran % (Auto) 0.3 Neut % (Auto) 68.4 Lymph % (Auto) 19.6 [place] % (Auto) 6.9 Eos % (Auto) 4.5 Baso % (Auto) 0.3 Immature Gran # (Auto) 0.01 Neut # (Auto) 2.27 Lymph # (Auto) 0.65 L [place] # (Auto) 0.23 Eos # (Auto) 0.15 Baso # (Auto) 0.01 PT 10.3 INR 1.0 APTT 22.2 PTT Ratio 0.8 Sodium 141 Potassium 3.9 Chloride 107 Carbon Dioxide 33 H Anion Gap 1.0 L BUN 8 Creatinine 0.78 Est Cr Clr Drug Dosing 113.5 Est GFR ( Amer) 109.0 Est GFR (Non-Af Amer) 94.1 BUN/Creatinine Ratio 10.1 Glucose 119 H Calcium 9.5 Total Bilirubin 0.7 AST 25 ALT 46 Alkaline Phosphatase 92 Troponin I < 0.015 Total Protein 7.1 Albumin 3.4 Globulin 3.7 Albumin/Globulin Ratio 0.9 Lipase 75 Medications Administered Current Inpatient Medications Acetaminophen (Tylenol) 650 mg PO Q4H PRN PRN Reason: Pain or Fever Stop: 06/26/19 13:13 Albuterol (Ventolin Hfa) 2 puffs INH Q6H PRN PRN Reason: Shortness Of Breath Stop: 06/26/19 13:13 Allopurinol (Zyloprim) 50 mg PO DAILY NAM Stop: 06/27/19 08:59 Amlodipine Besylate (Norvasc) 5 mg PO DAILY NAM Stop: 06/27/19 08:59 Aspirin (Ecotrin Ectab) 81 mg PO HS NAM Stop: 06/27/19 20:59 Atorvastatin Calcium (Lipitor) 80 mg PO HS NAM Stop: 06/26/19 20:59 Carvedilol (Coreg) 37.5 mg PO BID NAM Stop: 06/26/19 20:59 Clopidogrel Bisulfate (Plavix) 75 mg PO DAILY NAM Stop: 06/27/19 08:59 Enoxaparin Sodium (Lovenox) 40 mg SQ Q24H NAM Stop: 06/26/19 14:59 Folic Acid (Folvite) 1 mg PO DAILY NAM Stop: 06/27/19 08:59 Furosemide (Lasix) 40 mg PO DAILY NAM Stop: 06/27/19 08:59 Gabapentin (Neurontin) 100 mg PO TID NAM Stop: 06/26/19 13:59 Last Admin: 05/27/19 14:19 Dose: 100 mg Documented by: Isosorbide Mononitrate (Imdur Extended Rel) 30 mg PO QAM NAM Stop: 06/27/19 08:59 Loperamide HCl (Imodium) 2 mg PO Q3H PRN PRN Reason: Diarrhea Stop: 06/26/19 13:13 Mercaptopurine (Purinethol) 50 mg PO DAILY NAM Stop: 06/27/19 08:59 Nitroglycerin (Nitrostat) 0.4 mg SL PRN PRN PRN Reason: Chest Pain Stop: 06/26/19 13:13 Olmesartan (Benicar) 40 mg PO DAILY NAM Stop: 06/27/19 08:59 Ondansetron HCl (Zofran) 4 mg IV Q6H PRN PRN Reason: Nausea Stop: 06/26/19 13:13 Potassium Chloride (Klor-Con M20) 20 meq PO HS NAM Stop: 06/26/19 20:59 Saccharomyces Boulardii (Florastor) 1 mg PO DAILY [facility] Stop: 06/27/19 08:59 Tamsulosin HCl (Flomax) 0.4 mg PO DAILY [facility] Stop: 06/27/19 08:59 Tiotropium [place] (Spiriva) 1 puffs INH DAILY [facility] Stop: 06/27/19 08:59 Vitamin B Complex (Vitamin B Complex) 1 tab PO DAILY [facility] Stop: 06/27/19 08:59
[2019-05-27] MEDS: GABAPENTIN 100 MG CAP PO SCH ×2 (14:19→19:22)
[2019-05-27] MEDS ORDERED: ENOXAPARIN INJ 40 MG/0.4 ML SYR SQ SCH (15:00)
[2019-05-27] MEDS ORDERED: CARVEDILOL 25 MG TAB PO SCH (21:00)
[2019-05-27] MEDS ORDERED: POTASSIUM CHLORIDE 20 MEQ TABCR PO SCH (21:00)
[2019-05-27] MEDS ORDERED: ATORVASTATIN 40 MG TAB PO SCH (21:00)
[2019-05-27] MEDS: METOPROLOL SUCC 25MG EXT REL TAB PO SCH (22:19)
[2019-05-28 05:55] LABS: Hematocrit (blood only) 36.3 % (42-52); Mean Corpuscular Hgb Conc 33.1 g/dL (32-36); Mean Corpuscular Volume 99.7 fL (80-100); Mean Platelet Volume 10.1 fL (7.4-10.4); Platelet Count 164 K/uL (130-400); RDW Coefficient of Variation 15.9 % (11.5-14.5); RDW Standard Deviation 57.9 fL (36.4-46.3); Red Blood Count 3.64 M/uL (4.7-6.1); White Blood Count 4.06 K/uL (4.8-10.8)
[2019-05-28 06:21] LABS: Calcium 9.3 mg/dl (8.5-10.1); Creatinine Clr Calc Pharmacy 106.5 ml/min; Est GFR (African American) 106.3; Est GFR (Non-African American) 91.7; Potassium 4.1 mmol/L (3.5-5.1)
--- NOTE | 2019-05-28 08:45 | Cardiology Progress Note ---
Date of Service May 28, 2019 Assessment & Plan (1) Chest pain: Proceed with exercise stress echocardiogram for further risk stratification. Will perform test on his home medications including metoprolol. Subjective CC: follow up chest pain, know history of complex CAD Subjective: Mr Judd fell well overnight with no additional chest pain or tightness. Serical EKGs tracings without acute change. Has findings of chronic inferior infarction unchanged compared to hisoritcal tracings. Troponin negative x 3. Telemetry SB and SR without PVCs. Review of Systems Review of Systems: All systems reviewed & are unremarkable except as noted in HPI & below Physical Exam Physical Exam: Temp Pulse Resp BP Pulse Ox 36.6 C 54 L 19 175/78 H 91 05/28/19 07:19 05/28/19 07:19 05/28/19 07:19 05/28/19 07:19 05/28/19 07:19 Constitutional: WD/WN, vitals as above Respiratory: normal respiratory effort, lungs clear to auscultation Cardiovascular: RRR, no murmur, no edema Vessels: no JVD Gastrointestinal (Abdomen): normal bowel sounds, soft, nontender, no hepatosplenomegaly Neurologic: PERRL, EOMI, accommodation nl, no face palsy, no dysarthria Results & Data Vital Signs (Past 12 Hours) Vital Signs Temp Pulse Resp BP Pulse Ox 05/28/19 07:19 36.6 C 54 L 19 175/78 H 91 05/28/19 03:08 36.8 C 58 L 18 169/91 H 93 05/27/19 23:26 36.5 C 51 L 17 144/73 H 94 Laboratory Results Cardiac Enzymes 05/27/19 05/27/19 05/27/19 Range/Units 09:44 15:47 21:39 AST 25 (15-37) U/L Troponin I < 0.015 < 0.015 < 0.015 (0-0.045) ng/ml Coagulation 05/27/19 Range/Units 09:44 PT 10.3 (9.0-12.0) Seconds APTT 22.2 (21.0-31.0) Seconds CBC 05/27/19 05/28/19 Range/Units 09:44 05:35 WBC 3.32 L 4.06 L (4.8-10.8) K/uL RBC 3.74 L 3.64 L (4.7-6.1) M/uL Hgb 12.4 L 12.0 L (14.0-18.0) g/dL Hct 37.5 L 36.3 L (42-52) % Plt Count 181 164 (130-400) K/uL Neut # (Auto) 2.27 (1.4-6.5) K/uL Lymph # (Auto) 0.65 L (1.2-3.4) K/uL [place] # (Auto) 0.23 (0.11-0.59) K/uL Eos # (Auto) 0.15 (0-0.5) K/uL Baso # (Auto) 0.01 (0-0.2) K/uL Comprehensive Metabolic Panel 05/27/19 05/28/19 Range/Units 09:44 05:35 Sodium 141 143 (136-145) mmol/L Potassium 3.9 4.1 (3.5-5.1) mmol/L Chloride 107 106 (98-107) mmol/L Carbon Dioxide 33 H 34 H (21-32) mmol/L BUN 8 12 (7-18) mg/dl Creatinine 0.78 0.83 (0.6-1.4) mg/dl Glucose 119 H 98 (70-99) mg/dl Calcium 9.5 9.3 (8.5-10.1) mg/dl AST 25 (15-37) U/L ALT 46 (12-78) U/L Alkaline Phosphatase 92 (45-117) U/L Total Protein 7.1 (6.4-8.2) gm/dl Albumin 3.4 (3.4-5.0) gm/dl Intake and Output 05/27/19 05/28/19 05/28/19 22:59 06:59 14:59 Intake Total 675 / 1315 400 / 1315 Output Total 1850 / 2775 925 / 2775 Balance -1175 / -1460 -525 / -1460 Intake: Oral 675 / 1315 400 / 1315 Output: Urine 1850 / 2775 925 / 2775 Other: Weight 109 kg Medications Administered Current Inpatient Medications Acetaminophen (Tylenol) 650 mg PO Q4H PRN PRN Reason: Pain or Fever Stop: 06/26/19 13:13 Albuterol (Ventolin Hfa) 2 puffs INH Q6H PRN PRN Reason: Shortness Of Breath Stop: 06/26/19 13:13 Allopurinol (Zyloprim) 50 mg PO DAILY [facility] Stop: 06/27/19 08:59 Amlodipine Besylate (Norvasc) 5 mg PO DAILY [facility] Stop: 06/27/19 08:59 Aspirin (Ecotrin Ectab) 81 mg PO HS [facility] Stop: 06/27/19 20:59 Atorvastatin Calcium (Lipitor) 80 mg PO HS [facility] Stop: 06/26/19 20:59 Last Admin: 05/27/19 19:23 Dose: 80 mg Documented by: Clopidogrel Bisulfate (Plavix) 75 mg PO DAILY [facility] Stop: 06/27/19 08:59 Enoxaparin Sodium (Lovenox) 40 mg SQ Q24H [facility] Stop: 06/26/19 14:59 Last Admin: 05/27/19 18:20 Dose: 40 mg Documented by: Folic Acid (Folvite) 1 mg PO DAILY [facility] Stop: 06/27/19 08:59 Furosemide (Lasix) 40 mg PO DAILY [facility] Stop: 06/27/19 08:59 Gabapentin (Neurontin) 100 mg PO TID [facility] Stop: 06/26/19 13:59 Last Admin: 05/27/19 19:22 Dose: 100 mg Documented by: Isosorbide Mononitrate (Imdur Extended Rel) 30 mg PO QAM [facility] Stop: 06/27/19 08:59 Loperamide HCl (Imodium) 2 mg PO Q3H PRN PRN Reason: Diarrhea Stop: 06/26/19 13:13 Mercaptopurine (Purinethol) 50 mg PO DAILY [facility] Stop: 06/27/19 08:59 Metoprolol Succinate (Toprol Xl) 25 mg PO BID [facility] Stop: 06/26/19 20:59 Last Admin: 05/27/19 22:19 Dose: Not Given Documented by: Nitroglycerin (Nitrostat) 0.4 mg SL PRN PRN PRN Reason: Chest Pain Stop: 06/26/19 13:13 Olmesartan (Benicar) 40 mg PO DAILY [facility] Stop: 06/27/19 08:59 Ondansetron HCl (Zofran) 4 mg IV Q6H PRN PRN Reason: Nausea Stop: 06/26/19 13:13 Potassium Chloride (Klor-Con M20) 20 meq PO HS NAM Stop: 06/26/19 20:59 Last Admin: 05/27/19 19:23 Dose: 20 meq Documented by: Saccharomyces Boulardii (Florastor) 1 mg PO DAILY NAM Stop: 06/27/19 08:59 Tamsulosin HCl (Flomax) 0.4 mg PO DAILY NAM Stop: 06/27/19 08:59 Tiotropium [place] (Spiriva) 1 puffs INH DAILY NAM Stop: 06/27/19 08:59 Vitamin B Complex (Vitamin B Complex) 1 tab PO DAILY NAM Stop: 06/27/19 08:59 (1) Chest pain Chest pain type: chest pain due to myocardial ischemia Ischemic chest pain type: unstable angina pectoris Qualified Code(s): I20.0 - Unstable angina
[2019-05-28] MEDS: GABAPENTIN 100 MG CAP PO SCH ×2 (08:51→13:25)
[2019-05-28] MEDS: METOPROLOL SUCC 25MG EXT REL TAB PO SCH (08:51)
[2019-05-28] MEDS: FUROSEMIDE 40 MG TAB PO SCH ×2 (08:52→11:14)
[2019-05-28] MEDS ORDERED: FOLIC ACID 1 MG TAB PO SCH (09:00)
[2019-05-28] MEDS ORDERED: TAMSULOSIN HCL 0.4 MG CAP PO SCH (09:00)
[2019-05-28] MEDS ORDERED: SACCHAROMYCES BOULARDII 250 MG CAP PO SCH ×2 (09:00)
[2019-05-28] MEDS ORDERED: OLMESARTAN MEDOXOMIL 40 MG TAB PO SCH (09:00)
[2019-05-28] MEDS ORDERED: ISOSORBIDE MONO EXTENDED REL 30 MG TABCR PO SCH (09:00)
[2019-05-28] MEDS ORDERED: NON-FORMULARY MEDICATION (Lutein 20 MG) PO SCH (09:00)
[2019-05-28] MEDS ORDERED: VITAMIN B COMPLEX TAB PO SCH (09:00)
[2019-05-28] MEDS ORDERED: AMLODIPINE BESYLATE 5 MG TAB PO SCH (09:00)
[2019-05-28] MEDS ORDERED: TIOTROPIUM BROMIDE 5 PUFF/90 MCG INH INH SCH (09:00)
[2019-05-28] MEDS ORDERED: MERCAPTOPURINE 50 MG TAB PO SCH (09:00)
[2019-05-28] MEDS ORDERED: ALLOPURINOL 100 MG TAB PO SCH (09:00)
[2019-05-28] MEDS ORDERED: CLOPIDOGREL BISULFATE 75 MG TAB PO SCH (09:00)
--- NOTE | 2019-05-28 12:29 | Discharge Summary ---
Date of Service May 28, 2019 Admission HPI Per Admitting Provider This is a 68yo M with a PMH of CAD (s/p stent placement in 1997, 2003, 2008 and 2018), HTN, HLD, COPD and other medical problems listed below who presents with intermittent CP x 1 week. Pain has been gradually increasing throughout the week, lasting a few hours at a time. Had worsening chest tightness today following sneezing episode. Describes pain as substernal, non-radiating tightness made worse with sneezing. Not worse with exertion. No associated diaphoresis, nausea, vomiting or shortness of breath. Had some pain in his back during this time but isn't sure if it was from sneezing or associated with chest pain. Took a ntg with some improvement of pain prior to arrival. Now endorsing a 1/10 discomfort. Denies fever, chills, lightheadedness, visual changes, palpitations, abdominal pain, dysuria, constipation or lower extremity swelling. Endorses 2 episodes of loose stool this morning as well as a productive cough with clear phlegm. Follows with Dr. Laguerre for history of CAD s/p multiple stents, most recently a stent to LAD at [facility] on October 12 2018. History of frequent PVCs in the past but condition has been much improved since last stent placement. Admission Exam Per Admitting Provider General Appearance: WD/WN, vitals as above, NAD, sitting up in bed, pleasant, conversing easily, obese Head: normocephalic, atraumatic Eyes: normal inspection, PERRL, conjunctivae normal, anicteric sclerae ENT: external ear and nose normal, oropharynx normal Neck: trachea midline, no thyromegaly normal visual inspection Respiratory: normal respiratory effort, lungs clear to auscultation, no wheeze, rales, rhonchi. No accessory muscle use Cardiovascular: regular rate, rhythm, no murmur, normal peripheral pulses. Vessels: no JVD or carotid bruit Chest: normal inspection of chest, non-tender to palpation Abdomen/GI: normal bowel sounds, soft, nontender, no hepatosplenomegaly Extremities/Musculoskelatal: no cyanosis or clubbing, extremities motor strength 5/5 Neurologic: PERRL, EOMI, accommodation nl, no face palsy, no dysarthria CN's II-XI intact bilaterally and moves all extremities Psychiatric: A+Ox3, euthymic affect Skin: no rashes, normal color, warm/dry Principal Diagnosis Atypical chest pain CAD s/p stents Discharge Data Allergies Allergy/AdvReac Type Severity Reaction Status Date / Time fish oil Allergy Severe RASH Verified 05/27/19 10:15 vancomycin Allergy Unknown Rash Verified 05/27/19 10:15 shellfish derived AdvReac Intermediate VOMITTING Verified 05/27/19 10:15 lisinopril AdvReac Mild COUGH Verified 05/27/19 10:15 Consultations 05/27/19 10:36 ED Decision to Admit Stat 05/27/19 13:14 Consult Cardiology Routine Hospital Course (1) Chest pain: (2) COPD (chronic obstructive pulmonary disease): (3) HTN (hypertension): 68-year-old man with a history of coronary disease status post drug- eluting stent to LAD in September 2018 presented with atypical chest pain. He reported waking up with this and had had it over the last few days. The intensity was increased prompting his arrival to the ER. He was admitted to the hospitalist service and serial troponin enzymes were trended and negative overnight. EKG did not reveal active ischemia. Cardiology was consulted and recommended a exercise stress echocardiogram which was performed with the following morning. This was negative for inducible ischemia and his presenting symptom of chest discomfort was not reproduced. During his hospitalization he had no events on telemetry, he remained hemodynamically stable and chest pain- free. Aspirin and Plavix were continued and he was considered stable from discharge. Retrospectively his chest discomfort may have been related to chest wall strain related to vigorous sneezing that occurred that morning. On time of discharge a [id number] examination was performed revealing a normal heart exam with a normal S1/S2 and no evidence of murmurs, gallops, rubs. There was no peripheral edema. Lungs were clear to auscultation. Patient was mentating and ambulating at baseline and was stable for discharge with close primary care follow-up recommended. He also has a close follow-up with cardiology next week which is already setup. Total Time Total Time Spent Total Time Spent (In Minutes): 60 Total Time Includes: Examination of the Patient, Discharge Planning, Medication Reconciliation, Communication With Other Providers and Other (arranged follow- up) Discharge Plan Discharge Items Patient Disposition: Home - Self-Care Reason For Visit: CHEST PAIN Discharge Diagnosis: Atypical chest pain CAD s/p stents Condition on Discharge: Good Activity: Resume your previous activity Non-emergency contact: Primary Care Provider Call non-emergency contact if: you have any medication questions, your symptoms worsen, your pain is not controlled, your pain is worsening, your pain is unusual for you, your pain is concerning for you and you have a fever Follow-up/Referrals: Juan Laguerre DO [Sausage Cooker] - Jeimy Zavala MD [Primary Care Provider] - Diet: Carb Consistent or DM2 and Heart Healthy Addtl Attending Provider Instructions: Please take all medications as instructed on discharge list below. It is recommended that you follow-up with your primary care physician within one week of discharge to ensure that you are still doing well, and that your chest pain has not returned. 06/04/2019 11:00 AM Jeimy Zavala MD General Internal Medicine [facility] You have been scheduled to see your Cardiology group at the following date and time: 06/08/2019 1:00 PM Brea Michel PA-C Cardiology, [facility] It was a pleasure taking care of you! Please call if you have any questions or problems. You can reach a [facility] hospitalist on duty at [facility] 24 hours a day by calling [phone]. Take care of yourself. Maria Teresa Connelly DO [facility] Hospitalist Pending Studies at Discharge: No Stand-Alone Forms: My [facility] Medications and DC Order Prescriptions: Continued loperamide [Imodium A-D] 2 mg Capsule 2 mg PO Q3H PRN (Reason: Diarrhea) RF: 0 metoprolol succinate 25 mg tablet extended release 24 hr 25 mg PO BID RF: 0 furosemide 40 mg Tablet 40 mg PO DAILY RF: 0 gabapentin 100 mg Capsule 100 mg PO TID RF: 0 mercaptopurine 50 mg Tablet 50 mg PO DAILY RF: 0 isosorbide mononitrate 30 mg Tablet Extended Release 24 Hr 30 mg PO QAM RF: 0 potassium chloride [Klor-Con M20] 20 mEq Tablet,Er Particles/Crystals 20 meq PO HS RF: 0 folic acid 1 mg Tablet 1 mg PO DAILY RF: 0 lutein 20 mg Capsule 20 mg PO DAILY RF: 0 atorvastatin 80 mg Tablet 80 mg PO HS RF: 0 allopurinol 100 mg Tablet 50 mg PO DAILY RF: 0 ProAir RespiClick 90 mcg/actuation Aerosol Powdr Breath Activated 2 puff INHALATION Q6H PRN (Reason: Shortness Of Breath) RF: 0 nitroglycerin [Nitrostat] 0.4 mg Tablet, Sublingual 0.4 mg Sublingual UD PRN (Reason: Chest Pain) RF: 0 olmesartan [Benicar] 40 mg Tablet 40 mg PO DAILY RF: 0 clopidogrel [Plavix] 75 mg Tablet 75 mg PO DAILY RF: 0 vitamin B complex Tablet 1 tab PO DAILY RF: 0 aspirin 81 mg Tablet,Delayed Release (Dr/Ec) 81 mg PO HS RF: 0 Probiotic Acidophilus tablet 1 tab PO DAILY RF: 0 amlodipine 5 mg Tablet 5 mg PO DAILY Qty: 0 RF: 0 tamsulosin 0.4 mg Capsule 0.4 mg PO DAILY Qty: 0 RF: 0 Spiriva with HandiHaler 18 mcg Capsule, W/Inhalation Device 1 cap INHALATION DAILY Qty: 0 RF: 0 Discharge Orders: Discharge Order (Routine); Ordered 05/28/19 Ordered By: Maria Teresa Connelly Admission Data Admit Date/Time: 05/27/19 11:37 Attending Provider: Maria Teresa Connelly Admit Provider: Sarthak Bell Primary Care Provider: Jeimy Zavala Other Providers: Arthur Valdez ; Sarthak Bell
[2019-05-28] MEDS ORDERED: ASPIRIN 81 MG ECTAB PO SCH (21:00)
== END 2019-05-28 14:07 | disposition home or self-care (01) ==
LOC: 2E 09:28 → ED 09:28 → SUATTDRO 11:37 → 2E 12:41

== ENCOUNTER 2020-12-20 14:03 | Inpatient (IN) ==
[2020-12-20 14:40] LABS: Basophils # (auto) 0.02 K/uL (0-0.2); Basophils % (auto) 0.2 %; Eosinophils % (auto) 4.6 %; Hematocrit (blood only) 44.3 % (42-52); Hemoglobin 14.8 g/dL (14.0-18.0); Immature Granulocytes # (auto) 0.02 K/uL (0.00-0.02); Immature Granulocytes % (auto) 0.2 %; Lymphocytes # (auto) 1.39 K/uL (1.2-3.4); Lymphocytes % (auto) 12.7 %; Mean Corpuscular Hemoglobin 29.5 pg (25-34); Mean Corpuscular Hgb Conc 33.4 g/dL (32-36); Mean Corpuscular Volume 88.2 fL (80-100); Monocytes # (auto) 0.86 K/uL (0.11-0.59); Monocytes % (auto) 7.9 %; Neutrophils # (auto) 8.12 K/uL (1.4-6.5); Neutrophils % (auto) 74.4 %; Platelet Count 226 K/uL (130-400); RDW Coefficient of Variation 14.3 % (11.5-14.5); RDW Standard Deviation 46.1 fL (36.4-46.3); Red Blood Count 5.02 M/uL (4.7-6.1); White Blood Count 10.91 K/uL (4.8-10.8)
[2020-12-20 14:51] LABS: Partial Thromboplastin Ratio 0.9; Partial Thromboplastin Time 22.6 Seconds (21.0-31.0); Prothrombin Time 10.6 Seconds (9.0-12.0)
[2020-12-20 15:11] LABS: Glucose 137 mg/dl (70-99)
[2020-12-20 15:12] LABS: Alanine Aminotransferase 44 U/L (12-78); Albumin Globulin Ratio 0.9 (0.9-2); Albumin Level 3.4 gm/dl (3.4-5.0); Alkaline Phosphatase 105 U/L (45-117); Aspartate Aminotransferase 16 U/L (15-37); BUN Creatinine Ratio 15.7 (10-20); Bilirubin,Total 0.4 mg/dl (0.2-1); Blood Urea Nitrogen 14 mg/dl (7-18); Calcium 9.4 mg/dl (8.5-10.1); Carbon Dioxide 33 mmol/L (21-32); Chloride 105 mmol/L (98-107); NT Pro B Type Natriuretic Pept 47 pg/ml (0-900); Sodium 141 mmol/L (136-145); Total Protein 7.4 gm/dl (6.4-8.2); Troponin I < 0.015 ng/ml (0-0.045)
[2020-12-20 15:38] LABS: Creatinine Clr Calc Pharmacy 99.4 ml/min; Est GFR (African American) 101.8; Est GFR (Non-African American) 87.9
[2020-12-20 15:39] LABS: Influenza A virus by PCR Negative (Neg); Influenza B virus by PCR Negative (Neg); RSV by PCR Negative (Neg); SARS CoV2 RNA(COVID-19) InHosp NEGATIVE (Negative)
--- NOTE | 2020-12-20 15:55 | XRay Report ---
XR chest 1V portable HISTORY: Dyspnea COMPARISON: Chest 05/27/2019. FINDINGS: No pneumothorax. No pleural effusions. Left basilar linear densities favor scarring or atel ectasis. This is similar to the prior study. There are low lung volumes. There is mild central pulmon denia vascular congestion without overt edema. The heart remains mildly enlarged. IMPRESSION: Cardiomegaly with mild central pulmonary vascular congestion. ACT 112: Negative or not required by law. Electronically signed by: Harpreet Duggan M.D. 12/20/2020 3:53 PM
[2020-12-20] MEDS ORDERED: OPTIRAY 320 125ml IV ONE (16:35)
--- NOTE | 2020-12-20 17:00 | CT Scan Report ---
CHEST CTA for PULMONARY ARTERIES CT DOSE: 802.43 mGy.cm HISTORY: hypoxia, shortness of breath, eval for PE. -covid pcr TECHNIQUE: Multiaxial CT images of the chest were performed following the intravenous administration of contrast to evaluate the pulmonary arteries. Maximal intensity projection images were also obtaine d. A dose lowering technique was utilized adhering to the principles of ALARA. COMPARISON STUDY: Chest CT 03/03/2018. FINDINGS: Normal caliber thoracic aorta with no evidence for dissection. No pleural or pericardial ef fusions. The heart is top normal in size. No filling defects within the pulmonary arteries to suggest pulmonary embolus. No pneumothorax. The central airways are patent. Mild diffuse bronchial wall thic kening. No evidence for pulmonary edema. Decrease in size in the cluster of nodular densities within the right lower lobe. Therefore, these are considered to be benign. No new pulmonary nodules. No foca l lung consolidations to suggest pneumonia. No suspicious lytic or blastic osseous lesions. No hilar lymphadenopathy. Mild retrograde opacification of the hepatic veins. Otherwise, the liver, spleen, ad renal glands are unremarkable. Normal esophagus. Stable mildly enlarged paraesophageal lymph nodes me asuring up to 13 mm. Dense coronary artery calcifications are noted. IMPRESSION: 1. No evidence for pulmonary embolus. 2. Stable mild paraesophageal lymphadenopathy. 3. Decrease in the cluster of nodular densities within the right lower lobe. Therefore, these are lik angel benign. 4. No new focal lung consolidations to suggest pneumonia. ACT 112: Negative or not required by law. Electronically signed by: Harpreet Duggan M.D. 12/20/2020 4:59 PM
[2020-12-20] MEDS ORDERED: ALBUT/IPRATROP 3MG/0.5MG NEB 3 ML VIAL NEB STA (17:26)
[2020-12-20] MEDS ORDERED: methylPREDNISolone 125 MG/2 ML VIAL IV STA (17:26)
--- NOTE | 2020-12-20 18:39 | History & Physical Report ---
Date of Service December 20, 2020 Assessment & Plan (1) Acute respiratory failure with hypoxia: (2) COPD (chronic obstructive pulmonary disease): Patient has a significant CAD history, COPD group B, now presents with hypoxia, shortness of breath Recent history of nasal congestion, and treatment with antibiotics (Augmentin), 10-day course Patient does not feel to be much improved, currently requiring supplemental oxygen CT PE negative for PE, however shows decrease in the cluster of nodular densities within the right lower lobe. No new focal lung consolidations to suggest pneumonia. In the ED received 125 mg of Solu-Medrol and albuterol neb For now we will continue with duo nebs as needed, and 40 IV Solu-Medrol twice daily for likely COPD exacerbation We will obtain procalcitonin and sputum cultx Goal O2 sat 88 to 92% given COPD Troponin was negative, will continue to trend given his significant CAD history If patient develops chest pain or troponin elevated, will discuss further with cardiology, patient follows with Dr. Laguerre Hypertension -Has been difficult to control for the patient, on multiple agents Follows with cardiology, Dr. Laguerre Most recently Coreg was increased to 25 mg twice a day, and patient was also s tarted on spironolactone, in addition to isosorbide, losartan, amlodipine, furosemide Current blood pressure at goal CAD -Continue aspirin and Plavix due to patient's history of complex coronary anatomy, multiple PCI's Continue home atorvastatin 80 mg daily HLD Continue home atorvastatin Obesity BMI 37.5 Patient has thick neck Counseling recommended, patient also may need eval for OSAas outpt DVTppx: SCDs, lovenox Code: Full History of Present Illness Chief Complaint: Shortness of breath, hypoxia Primary Care Provider: Jeimy Zavala MD Pt is a 70 yo M with hx of CAD (s/p stent placement in 1997, 2004, 2009 and 2019), chronic diastolic CHF, ulcerative colitis, HTN, HLD, prediabetes, COPD group B, restrictive pulm. dis., who presents with shortness of breath and hypoxia. Patient reports being seen by PCP earlier this month, on December 11, for nasal congestion, and some shortness of breath. Reports that he was prescribed antibiotic (Augmentin), and just about to be finished with 10-day course. He reports that he was having some cough, productive, with some greenish sputum. Also reports that sputum is now more clear. Denies having typical chest pain as he had before with his heart disease. He does say though that when he is walking up the stairs, he gets short of breath. Also when he bends over, he says that he feels lightheaded. Denies any fevers, but reports chills. Had some loose stools since started antibiotics, however denies diarrhea. Also denies abdominal pain nausea or vomiting. In the ED, patient was on status of supplemental oxygen. He was given 125 mg of Solu-Medrol, and albuterol neb. Currently reports feeling better, he is on 2 L of supplemental O2, satting 94%, speaking in full sentences, nonlabored. In the ED, CT PE was obtained, which was negative for PE. Allergies Allergy/AdvReac Type Severity Reaction Status Date / Time fish oil Allergy Severe RASH Verified 12/20/20 15:37 vancomycin Allergy Mild Rash Verified 12/20/20 15:37 shellfish derived AdvReac Intermediate VOMITTING Verified 12/20/20 15:37 lisinopril AdvReac Mild COUGH Verified 12/20/20 15:37 Home Medications Medication Instructions Recorded Confirmed Type ProAir RespiClick 2 puff INHALATION Q6H PRN 07/04/18 12/20/20 History atorvastatin 80 mg PO HS 07/04/18 12/20/20 History clopidogrel [Plavix] 75 mg PO QAM 07/04/18 12/20/20 History folic acid 1 mg PO QAM 07/04/18 12/20/20 History gabapentin 100 mg PO BID 07/04/18 12/20/20 History isosorbide mononitrate 30 mg PO QAM 07/04/18 12/20/20 History lutein 20 mg PO QAM 07/04/18 12/20/20 History nitroglycerin [Nitrostat] 0.4 mg SUBLINGUAL UD PRN 07/04/18 12/20/20 History olmesartan [Benicar] 40 mg PO QAM 07/04/18 12/20/20 History vitamin B complex 1 tab PO QAM 07/04/18 12/20/20 History Probiotic Acidophilus 1 tab PO QAM 10/12/18 12/20/20 History tamsulosin 0.4 mg PO HS #0 10/12/18 12/20/20 History amlodipine 10 mg PO QAM 12/20/20 12/20/20 History aspirin [Aspirin Childrens] 81 mg PO HS 12/20/20 12/20/20 History carvedilol [Coreg] 25 mg PO BID 12/20/20 12/20/20 History cholecalciferol (vitamin D3) 25 mcg PO QAM 12/20/20 12/20/20 History [Vitamin D3] furosemide 20 mg PO QAM 12/20/20 12/20/20 History spironolactone 12.5 mg PO QAM 12/20/20 12/20/20 History umeclidinium [Incruse Ellipta] 1 inh INHALATION QAM 12/20/20 12/20/20 History vedolizumab [Entyvio] 300 mg IV .Q8WK 12/20/20 12/20/20 History Past Med/Surg History Medical History (Updated 12/20/20 @ 18:48 by Michael Marrufo MD) Chest pain (09/17/14) COPD (chronic obstructive pulmonary disease) Coronary artery disease (05/15/14) Frequent PVCs HTN (hypertension) Pre-diabetes Ulcerative colitis Surgical History Stented coronary artery 1997, 2008, 2013 and 10/12 Family History Other Heart disease Stroke Social History Smoking Status: Never smoker Number of Years Since Quit: 25; Second Hand Exposure: No; Hx Alcohol Use: No Hx Substance Use: No Preferred Language: Togolese Communication Ability: Effective Block Cuber Required: No Beliefs That Will Affect Care: None Current Living Situation: Spouse Feels Safe at Home: Yes Assistive Devices: None Review of Systems Review of Systems: All systems reviewed & are unremarkable except as noted in HPI & below Constitutional: + chills; no fever Eyes: no problem reported Ear, Nose, Mouth, Throat: no problem reported Respiratory: + cough and + dyspnea Cardiovascular: no chest pain, no palpitations and no edema Gastrointestinal: no abdominal pain, no nausea and no vomiting Genitourinary: no problem reported Musculoskeletal: no problem reported Integumentary: no problem reported Neurologic: no problem reported Psychiatric: no problem reported Endocrine: no problem reported Hematologic / Lymphatic: no problem reported Allergy / Immunological: no problem reported Physical Exam Constitutional: WD/WN, vitals as above no acute distress Eyes: PERRL, conjunctivae normal, anicteric sclerae ENMT: external ear and nose normal, oropharynx normal Neck: Thick neck Respiratory: normal respiratory effort; no respiratory distress Auscultation: no wheezes Poor air movement bilaterally, no wheezing Cardiovascular: RRR, no murmur, no edema Chest (Breasts): Chest: normal inspection of chest Gastrointestinal (Abdomen): Inspection/Auscultation: abdomen normal to inspection; abdomen not distended Percussion/Palpation: abdomen soft; abdomen nontender, no guarding and abdomen not rigid Obese abdomen Musculoskeletal: no cyanosis or clubbing, extremities motor strength 5/5 Head/Neck/Chest: normocephalic and head atraumatic Extremities: extremities normal to inspection Skin: no rashes, warm and dry Neurologic: PERRL, EOMI, accommodation nl, no face palsy, no dysarthria moves all extremities Psychiatric: A+Ox3, euthymic affect Genitourinary: no CVA tenderness Lymphatic: no lymphedema Results & Data Results & Data ([facility]) Vital Signs (Past 12 Hours) Vital Signs Temp Pulse Pulse Resp BP Pulse Ox 12/20/20 17:37 68 16 94 12/20/20 17:02 69 16 128/68 94 12/20/20 16:00 69 17 113/56 L 94 12/20/20 15:30 73 13 117/59 L 93 12/20/20 15:00 73 16 124/65 92 12/20/20 14:46 70 16 88 L 12/20/20 14:30 82 18 118/68 93 12/20/20 14:20 77 18 153/70 H 91 12/20/20 14:08 36.5 C 79 20 130/76 84 L Laboratory Results 12/20/20 12/20/20 12/20/20 Range/Units 14:46 14:46 14:25 WBC (4.8-10.8) K/uL RBC (4.7-6.1) M/uL Hgb (14.0-18.0) g/dL Hct (42-52) % MCV (80-100) fL MCH (25-34) pg MCHC (32-36) g/dL RDW Std Deviation (36.4-46.3) fL RDW Coeff of Flo (11.5-14.5) % Plt Count (130-400) K/uL MPV (7.4-10.4) fL Immature Gran % (Auto) % Neut % (Auto) % Lymph % (Auto) % Payette % (Auto) % Eos % (Auto) % Baso % (Auto) % Neut # (Auto) (1.4-6.5) K/uL Lymph # (Auto) (1.2-3.4) K/uL Payette # (Auto) (0.11-0.59) K/uL Eos # (Auto) (0-0.5) K/uL Baso # (Auto) (0-0.2) K/uL Immature Gran # (Auto) (0.00-0.02) K/uL PT (9.0-12.0) Seconds INR (0.9-1.1) APTT (21.0-31.0) Seconds PTT Ratio Sodium 141 (136-145) mmol/L Potassium 4.0 (3.5-5.1) mmol/L Chloride 105 (98-107) mmol/L Carbon Dioxide 33 H (21-32) mmol/L Anion Gap 3.0 (3-11) BUN 14 (7-18) mg/dl Creatinine 0.89 (0.6-1.4) mg/dl Est Cr Clr Drug Dosing 99.4 ml/min Est GFR ( Amer) 101.8 Est GFR (Non-Af Amer) 87.9 BUN/Creatinine Ratio 15.7 (10-20) Glucose 137 H (70-99) mg/dl Calcium 9.4 (8.5-10.1) mg/dl Total Bilirubin 0.4 (0.2-1) mg/dl AST 16 (15-37) U/L ALT 44 (12-78) U/L Alkaline Phosphatase 105 (45-117) U/L Troponin I < 0.015 (0-0.045) ng/ml NT-Pro-B Natriuret Pep 47 (0-900) pg/ml Total Protein 7.4 (6.4-8.2) gm/dl Albumin 3.4 (3.4-5.0) gm/dl Globulin 4.0 (2.5-4.0) gm/dl Albumin/Globulin Ratio 0.9 (0.9-2) COVID-19 Eval Order CovFluRsv at [facility] SARS-CoV-2 (PCR) NEGATIVE (Negative) Influenza Type A (PCR) Negative (Neg) Influenza Type B (PCR) Negative (Neg) RSV (RT-PCR) Negative (Neg) 12/20/20 12/20/20 Range/Units 14:25 14:25 WBC 10.91 H (4.8-10.8) K/uL RBC 5.02 (4.7-6.1) M/uL Hgb 14.8 (14.0-18.0) g/dL Hct 44.3 (42-52) % MCV 88.2 (80-100) fL MCH 29.5 (25-34) pg MCHC 33.4 (32-36) g/dL RDW Std Deviation 46.1 (36.4-46.3) fL RDW Coeff of Flo 14.3 (11.5-14.5) % Plt Count 226 (130-400) K/uL MPV 11.0 H (7.4-10.4) fL Immature Gran % (Auto) 0.2 % Neut % (Auto) 74.4 % Lymph % (Auto) 12.7 % Payette % (Auto) 7.9 % Eos % (Auto) 4.6 % Baso % (Auto) 0.2 % Neut # (Auto) 8.12 H (1.4-6.5) K/uL Lymph # (Auto) 1.39 (1.2-3.4) K/uL Payette # (Auto) 0.86 H (0.11-0.59) K/uL Eos # (Auto) 0.50 (0-0.5) K/uL Baso # (Auto) 0.02 (0-0.2) K/uL Immature Gran # (Auto) 0.02 (0.00-0.02) K/uL PT 10.6 (9.0-12.0) Seconds INR 1.0 (0.9-1.1) APTT 22.6 (21.0-31.0) Seconds PTT Ratio 0.9 Sodium (136-145) mmol/L Potassium (3.5-5.1) mmol/L Chloride (98-107) mmol/L Carbon Dioxide (21-32) mmol/L Anion Gap (3-11) BUN (7-18) mg/dl Creatinine (0.6-1.4) mg/dl Est Cr Clr Drug Dosing ml/min Est GFR ( Amer) Est GFR (Non-Af Amer) BUN/Creatinine Ratio (10-20) Glucose (70-99) mg/dl Calcium (8.5-10.1) mg/dl Total Bilirubin (0.2-1) mg/dl AST (15-37) U/L ALT (12-78) U/L Alkaline Phosphatase (45-117) U/L Troponin I (0-0.045) ng/ml NT-Pro-B Natriuret Pep (0-900) pg/ml Total Protein (6.4-8.2) gm/dl Albumin (3.4-5.0) gm/dl Globulin (2.5-4.0) gm/dl Albumin/Globulin Ratio (0.9-2) COVID-19 Eval Order SARS-CoV-2 (PCR) (Negative) Influenza Type A (PCR) (Neg) Influenza Type B (PCR) (Neg) RSV (RT-PCR) (Neg) Diagnostic Findings CXR IMPRESSION: Cardiomegaly with mild central pulmonary vascular congestion. CT PE IMPRESSION: 1. No evidence for pulmonary embolus. 2. Stable mild paraesophageal lymphadenopathy. 3. Decrease in the cluster of nodular densities within the right lower lobe. The refore, these are likely benign. 4. No new focal lung consolidations to suggest pneumonia.
[2020-12-20] MEDS ORDERED: ENOXAPARIN INJ 40 MG/0.4 ML SYR SQ ONE (19:35)
--- NOTE | 2020-12-20 20:04 | Emergency Department Note ---
Impression & Plan Hypoxia, SOB (shortness of breath) ED Provider Note INFORMANT: Patient ED PROVIDER(S): Sarthak Be MD CHIEF COMPLAINT: Shortness of breath PLAN: Disposition: Admitted Condition: Good Outpatient prescription management: none Referral: None MEDICAL DECISION MAKING: Patient presented with progressive shortness of breath. He was isolated and tested for Covid this was negative. Chest x-ray did not reveal any acute findings. The patient underwent CT PE study and this did not reveal any evidence of pulmonary embolism or pneumonia. He had an unremarkable chemistry panel, LFTs, troponin and BNP. His white blood cell count was borderline elevated at 10.9. His twelve-lead ECG showed a normal sinus rhythm and there was questionable new inferior Q waves. The patient responded well to supplemental oxygen. He was ambulated and dropped his oxygen saturations quite abruptly. He was given a DuoNeb and Solu-Medrol. He will need further management in the hospital. Consultation was made with Jennifer Calvert PA-C of the [facility]. Patient will be admitted under Dr. Marrufo. Triage Nursing notes reviewed and agree them. Vital Signs: reviewed and remarkable for hypoxia Differential diagnosis: COVID-19, reactive airway disease, pneumonia, pneumothorax, COPD, CHF, infections, cardiac ischemia, pulmonary embolism, musculoskeletal, gastrointestinal, as well as other pathologies. Diagnostics interpreted by me: ECG: Rate: 69 Rhythm:Normal sinus [place]:Normal QRS:Normal ST segements:No elevation or depression Other: Inferior Q waves. No PACs or PVCs Cardiac Monitoring: Cardiac monitoring ordered by me: The patient was placed on continuous cardiac monitoring and observed. It revealed a normal sinus rhythm at 70 beats per minute without ectopy or evidence of dysrhythmia. Imaging studies: Chest x-ray and CT scan as above. I refer you to the EMR for further details. Consultation(s): [facility] HPI: The patient is a 70 year old male who presents to the Emergency Room with complaints of shortness of breath. This started a few months ago and is worsening over the last few weeks. The patient also notes the following associated symptoms, dyspnea on exertion, PND, nasal congestion, productive cough. The patient has found no relieving factors. Current pain is rated as 0/10. Patient went to urgent care and was found to have hypoxia. He was directed to the ER. No known Covid contacts. Pt denies LOC, headache, fevers, chills, diaphoresis, visual changes, neck pain, chest pain, nausea, vomiting, abdominal pain, back pain, melena, hematochezia, urinary symptoms, numbness, weakness, lymphadenopathy, rash, or other complaints. ROS: See above HPI for pertinent positives & negatives. A total of 10 systems reviewed and were otherwise negative. PAST MEDICAL HISTORY:See Below , hypertension PAST SURGICAL HISTORY:See Below, FAMILY HISTORY:See Below SOCIAL HISTORY:See Below, quit smoking HOME MEDICATIONS:See Below ALLERGIES:See Below VITALS:See Below PHYSICAL EXAMINATION: GENERAL: Awake, alert, mildly dyspneic-appearing, in no distress HENT: Normocephalic, atraumatic. Oropharynx unremarkable. EYES: Normal conjunctiva. Sclera non-icteric. NECK: Inspection normal. Non-tender. Supple. No nuchal rigidity. FROM. No masses. RESPIRATORY: Clear to auscultation. No wheezes. No rales. Normal respiratory effort. CARDIAC: Normal rate. Normal rhythm. No murmurs. No rubs. Extremities warm and well perfused. Pulses equal. No JVD. GI: Soft, non-distended. No tenderness to palpation. No rebound or guarding. No masses. RECTAL: Deferred. MUSCULOSKELETAL: Atraumatic. Chest examination reveals no tenderness. The back is symmetrical on inspection without obvious abnormality. There is no CVA tenderness to palpation. No joint edema. LOWER EXTREMITIES: Calves are equal size bilaterally and non-tender. 1+ edema. Chronic venous discoloration. NEURO: Normal sensorium. No sensory or motor deficits noted. SKIN: No rash or jaundice noted. Sarthak Be MD Past Med/Surg History Medical History (Updated 12/20/20 @ 20:02 by Sarthak Be MD) Chest pain (09/17/14) COPD (chronic obstructive pulmonary disease) Coronary artery disease (05/15/14) Frequent PVCs HTN (hypertension) Pre-diabetes Ulcerative colitis Surgical History Stented coronary artery 1997, 2008, 2013 and 10/12 Family History Other Heart disease Stroke Social History Smoking Status: Former smoker Number of Years Since Quit: 25; Second Hand Exposure: No; Do You Dip or Chew Tobacco: No; Hx Alcohol Use: No Hx Substance Use: No Preferred Language: Vietnamese Communication Ability: Effective Corporate Strategy Associate Required: No Beliefs That Will Affect Care: None Current Living Situation: Spouse Other Information That Helps Us Care for You: No Feels Safe at Home: Yes Safety Concerns: Feels Safe At This Time Assistive Devices: Glasses Allergies Allergies Allergy/AdvReac Type Severity Reaction Status Date / Time fish oil Allergy Severe RASH Verified 12/20/20 15:37 vancomycin Allergy Mild Rash Verified 12/20/20 15:37 shellfish derived AdvReac Intermediate VOMITTING Verified 12/20/20 15:37 lisinopril AdvReac Mild COUGH Verified 12/20/20 15:37 Home Meds Home Medications Medication Instructions Recorded Confirmed ProAir RespiClick 2 puff INHALATION Q6H PRN 07/04/18 12/20/20 atorvastatin 80 mg PO HS 07/04/18 12/20/20 clopidogrel [Plavix] 75 mg PO QAM 07/04/18 12/20/20 folic acid 1 mg PO QAM 07/04/18 12/20/20 gabapentin 100 mg PO BID 07/04/18 12/20/20 isosorbide mononitrate 30 mg PO QAM 07/04/18 12/20/20 lutein 20 mg PO QAM 07/04/18 12/20/20 nitroglycerin [Nitrostat] 0.4 mg SUBLINGUAL UD PRN 07/04/18 12/20/20 olmesartan [Benicar] 40 mg PO QAM 07/04/18 12/20/20 vitamin B complex 1 tab PO QAM 07/04/18 12/20/20 Probiotic Acidophilus 1 tab PO QAM 10/12/18 12/20/20 tamsulosin 0.4 mg PO HS #0 10/12/18 12/20/20 amlodipine 10 mg PO QAM 12/20/20 12/20/20 aspirin [Aspirin Childrens] 81 mg PO HS 12/20/20 12/20/20 carvedilol [Coreg] 25 mg PO BID 12/20/20 12/20/20 cholecalciferol (vitamin D3) 25 mcg PO QAM 12/20/20 12/20/20 [Vitamin D3] furosemide 20 mg PO QAM 12/20/20 12/20/20 spironolactone 12.5 mg PO QAM 12/20/20 12/20/20 umeclidinium [Incruse Ellipta] 1 inh INHALATION QA 12/20/20 12/20/20 vedolizumab [Entyvio] 300 mg IV .Q8WK 12/20/20 12/20/20 Results & Data (ED) Vital Signs Vital Signs - 24 hr 12/20/20 14:08 12/20/20 14:20 12/20/20 14:30 Temperature 36.5 C Temperature Source Temporal Artery Scan Pulse Rate 79 77 82 Pulse Rate [Right Finger] Pulse Rate from SpO2 Sensor 77 80 Pulse Rhythm Regular Pulse Strength Normal Respiratory Rate 20 18 18 Respiratory Effort / Characteristics Non-Labored Spontaneous Respiratory Depth Normal Respiratory Pattern Regular Blood Pressure 130/76 153/70 H 118/68 Blood Pressure Mean 94 97 84 Blood Pressure Position Sitting Pulse Oximetry 84 L 91 93 Oxygen Delivery Method Room Air Oxygen Flow Rate Sepsis Recent Fever Within 48 Hours No Sepsis New/Unexplained Change in Mental Status No Sepsis Action Taken by Nursing No Action Required 12/20/20 14:46 12/20/20 15:00 12/20/20 15:30 Temperature Temperature Source Pulse Rate 70 73 73 Pulse Rate [Right Finger] Pulse Rate from SpO2 Sensor 75 73 Pulse Rhythm Regular Pulse Strength Respiratory Rate 16 16 13 Respiratory Effort / Characteristics Respiratory Depth Respiratory Pattern Blood Pressure 124/65 117/59 L Blood Pressure Mean 84 78 Blood Pressure Position Pulse Oximetry 88 L 92 93 Oxygen Delivery Method Room Air Oxygen Flow Rate 3 Sepsis Recent Fever Within 48 Hours Sepsis New/Unexplained Change in Mental Status Sepsis Action Taken by Nursing 12/20/20 16:00 12/20/20 17:02 12/20/20 17:30 Temperature Temperature Source Pulse Rate 69 69 71 Pulse Rate [Right Finger] Pulse Rate from SpO2 Sensor 69 70 69 Pulse Rhythm Pulse Strength Respiratory Rate 17 16 12 Respiratory Effort / Characteristics Respiratory Depth Respiratory Pattern Blood Pressure 113/56 L 128/68 133/82 Blood Pressure Mean 75 88 99 Blood Pressure Position Pulse Oximetry 94 94 94 Oxygen Delivery Method Oxygen Flow Rate Sepsis Recent Fever Within 48 Hours Sepsis New/Unexplained Change in Mental Status Sepsis Action Taken by Nursing 12/20/20 17:37 12/20/20 18:00 Temperature Temperature Source Pulse Rate 68 Pulse Rate [Right Finger] 68 Pulse Rate from SpO2 Sensor 68 Pulse Rhythm Pulse Strength Respiratory Rate 16 16 Respiratory Effort / Characteristics Non-Labored Spontaneous Respiratory Depth Respiratory Pattern Blood Pressure 136/79 Blood Pressure Mean 98 Blood Pressure Position Pulse Oximetry 94 96 Oxygen Delivery Method Nasal Cannula Oxygen Flow Rate 2 Sepsis Recent Fever Within 48 Hours Sepsis New/Unexplained Change in Mental Status Sepsis Action Taken by Nursing Laboratory Data Result diagrams: 12/20/20 14:25 12/20/20 14:25 Lab Results 12/20/20 12/20/20 12/20/20 Range/Units 14:25 14:25 14:25 WBC 10.91 H (4.8-10.8) K/uL RBC 5.02 (4.7-6.1) M/uL Hgb 14.8 (14.0-18.0) g/dL Hct 44.3 (42-52) % MCV 88.2 (80-100) fL MCH 29.5 (25-34) pg MCHC 33.4 (32-36) g/dL RDW Std Deviation 46.1 (36.4-46.3) fL RDW Coeff of Flo 14.3 (11.5-14.5) % Plt Count 226 (130-400) K/uL MPV 11.0 H (7.4-10.4) fL Immature Gran % (Auto) 0.2 % Neut % (Auto) 74.4 % Lymph % (Auto) 12.7 % [place] % (Auto) 7.9 % Eos % (Auto) 4.6 % Baso % (Auto) 0.2 % Neut # (Auto) 8.12 H (1.4-6.5) K/uL Lymph # (Auto) 1.39 (1.2-3.4) K/uL [place] # (Auto) 0.86 H (0.11-0.59) K/uL Eos # (Auto) 0.50 (0-0.5) K/uL Baso # (Auto) 0.02 (0-0.2) K/uL Immature Gran # (Auto) 0.02 (0.00-0.02) K/uL PT 10.6 (9.0-12.0) Seconds INR 1.0 (0.9-1.1) APTT 22.6 (21.0-31.0) Seconds PTT Ratio 0.9 Sodium 141 (136-145) mmol/L Potassium 4.0 (3.5-5.1) mmol/L Chloride 105 (98-107) mmol/L Carbon Dioxide 33 H (21-32) mmol/L Anion Gap 3.0 (3-11) BUN 14 (7-18) mg/dl Creatinine 0.89 (0.6-1.4) mg/dl Est Cr Clr Drug Dosing 99.4 ml/min Est GFR ( Amer) 101.8 Est GFR (Non-Af Amer) 87.9 BUN/Creatinine Ratio 15.7 (10-20) Glucose 137 H (70-99) mg/dl Calcium 9.4 (8.5-10.1) mg/dl Total Bilirubin 0.4 (0.2-1) mg/dl AST 16 (15-37) U/L ALT 44 (12-78) U/L Alkaline Phosphatase 105 (45-117) U/L Troponin I < 0.015 (0-0.045) ng/ml NT-Pro-B Natriuret Pep 47 (0-900) pg/ml Total Protein 7.4 (6.4-8.2) gm/dl Albumin 3.4 (3.4-5.0) gm/dl Globulin 4.0 (2.5-4.0) gm/dl Albumin/Globulin Ratio 0.9 (0.9-2) Procalcitonin (0-0.5) ng/ml COVID-19 Eval Order SARS-CoV-2 (PCR) (Negative) Influenza Type A (PCR) (Neg) Influenza Type B (PCR) (Neg) RSV (RT-PCR) (Neg) 12/20/20 12/20/20 12/20/20 Range/Units 14:25 14:46 14:46 WBC (4.8-10.8) K/uL RBC (4.7-6.1) M/uL Hgb (14.0-18.0) g/dL Hct (42-52) % MCV (80-100) fL MCH (25-34) pg MCHC (32-36) g/dL RDW Std Deviation (36.4-46.3) fL RDW Coeff of Flo (11.5-14.5) % Plt Count (130-400) K/uL MPV (7.4-10.4) fL Immature Gran % (Auto) % Neut % (Auto) % Lymph % (Auto) % [place] % (Auto) % Eos % (Auto) % Baso % (Auto) % Neut # (Auto) (1.4-6.5) K/uL Lymph # (Auto) (1.2-3.4) K/uL [place] # (Auto) (0.11-0.59) K/uL Eos # (Auto) (0-0.5) K/uL Baso # (Auto) (0-0.2) K/uL Immature Gran # (Auto) (0.00-0.02) K/uL PT (9.0-12.0) Seconds INR (0.9-1.1) APTT (21.0-31.0) Seconds PTT Ratio Sodium (136-145) mmol/L Potassium (3.5-5.1) mmol/L Chloride (98-107) mmol/L Carbon Dioxide (21-32) mmol/L Anion Gap (3-11) BUN (7-18) mg/dl Creatinine (0.6-1.4) mg/dl Est Cr Clr Drug Dosing ml/min Est GFR ( Amer) Est GFR (Non-Af Amer) BUN/Creatinine Ratio (10-20) Glucose (70-99) mg/dl Calcium (8.5-10.1) mg/dl Total Bilirubin (0.2-1) mg/dl AST (15-37) U/L ALT (12-78) U/L Alkaline Phosphatase (45-117) U/L Troponin I (0-0.045) ng/ml NT-Pro-B Natriuret Pep (0-900) pg/ml Total Protein (6.4-8.2) gm/dl Albumin (3.4-5.0) gm/dl Globulin (2.5-4.0) gm/dl Albumin/Globulin Ratio (0.9-2) Procalcitonin < 0.05 (0-0.5) ng/ml COVID-19 Eval Order CovFluRsv at [facility] SARS-CoV-2 (PCR) NEGATIVE (Negative) Influenza Type A (PCR) Negative (Neg) Influenza Type B (PCR) Negative (Neg) RSV (RT-PCR) Negative (Neg) Administered Medications Aspirin (Aspirin 81 Mg Ectab) 81 mg PO [facility] Stop: 01/19/21 20:59 Last Admin: 12/20/20 21:19 Dose: 81 mg Documented by: [id number] Atorvastatin Calcium (Atorvastatin 40 Mg Tab) 80 mg PO NAM Stop: 01/19/21 20:59 Last Admin: 12/20/20 21:20 Dose: 80 mg Documented by: [id number] Carvedilol (Carvedilol 25 Mg Tab) 25 mg PO BID NAM Stop: 01/19/21 20:59 Last Admin: 12/20/20 21:19 Dose: 25 mg Documented by: [id number] Gabapentin (Gabapentin 100 Mg Cap) 100 mg PO BID NAM Stop: 01/19/21 20:59 Last Admin: 12/20/20 21:20 Dose: 100 mg Documented by: [id number] Tamsulosin HCl (Tamsulosin Hcl 0.4 Mg Cap) 0.4 mg PO [facility] Stop: 01/19/21 20:59 Last Admin: 12/20/20 21:20 Dose: 0.4 mg Documented by: [id number] Discontinued Medications Albuterol (Albut/Ipratrop 3mg/0.5mg Neb 3 Ml Vial) 3 ml NEB NOW STA Stop: 12/20/20 17:27 Last Admin: 12/20/20 17:37 Dose: 3 ml Documented by: [id number] Enoxaparin Sodium (Enoxaparin Inj 40 Mg/0.4 Ml Syr) 40 mg SQ NOW ONE Stop: 12/20/20 19:36 Last Admin: 12/20/20 21:20 Dose: 40 mg Documented by: [id number] Ioversol (Optiray 320 125ml) 117 ml IV ONCE ONE Stop: 12/20/20 16:36 Last Admin: 12/20/20 16:35 Dose: 117 ml Documented by: [id number] Methylprednisolone (Methylprednisolone 125 Mg/2 Ml Vial) 125 mg IV NOW STA Stop: 12/20/20 17:27 Last Admin: 12/20/20 17:32 Dose: 125 mg Documented by: [id number] Imaging Data Radiologist's Impression: Chest X-Ray 12/20/20 14:27 XR chest 1V portable HISTORY: Dyspnea COMPARISON: Chest 05/27/2019. FINDINGS: No pneumothorax. No pleural effusions. Left basilar linear densities favor scarring or atelectasis. This is similar to the prior study. There are low lung volumes. There is mild central pulmonary vascular congestion without overt edema. The heart remains mildly enlarged. IMPRESSION: Cardiomegaly with mild central pulmonary vascular congestion. ACT 112: Negative or not required by law. Electronically signed by: Harpreet Duggan M.D. 12/20/2020 3:53 PM Chest CTA 12/20/20 16:11 CHEST CTA for PULMONARY ARTERIES CT DOSE: 802.43 mGy.cm HISTORY: hypoxia, shortness of breath, eval for PE. -covid pcr TECHNIQUE: Multiaxial CT images of the chest were performed following the intravenous administration of contrast to evaluate the pulmonary arteries. Maximal intensity projection images were also obtained. A dose lowering technique was utilized adhering to the principles of ALARA. COMPARISON STUDY: Chest CT 03/03/2018. FINDINGS: Normal caliber thoracic aorta with no evidence for dissection. No pleural or pericardial effusions. The heart is top normal in size. No filling defects within the pulmonary arteries to suggest pulmonary embolus. No pneumo thorax. The central airways are patent. Mild diffuse bronchial wall thickening. No evidence for pulmonary edema. Decrease in size in the cluster of nodular densities within the right lower lobe. Therefore, these are considered to be benign. No new pulmonary nodules. No focal lung consolidations to suggest pneumonia. No suspicious lytic or blastic osseous lesions. No hilar lymphadenopathy. Mild retrograde opacification of the hepatic veins. Otherwise, the liver, spleen, adrenal glands are unremarkable. Normal esophagus. Stable mildly enlarged paraesophageal lymph nodes measuring up to 13 mm. Dense coronary artery calcifications are noted. IMPRESSION: 1. No evidence for pulmonary embolus. 2. Stable mild paraesophageal lymphadenopathy. 3. Decrease in the cluster of nodular densities within the right lower lobe. The refore, these are likely benign. 4. No new focal lung consolidations to suggest pneumonia. ACT 112: Negative or not required by law. Electronically signed by: Harpreet Duggan M.D. 12/20/2020 4:59 PM Discharge Plan Visit Data Chief Complaint: Illness Stated Complaint: LOW OXYGEN LEVELS/POST NASAL DRIP/FATIGUED ED Provider: Sarthak Be Discharge Problem: Hypoxia, SOB (shortness of breath) Patient Disposition: Admitted As Inpatient Discharge Instructions Interventions: ED Discharge Assessment Last Done: 12/20/20 20:02
[2020-12-20] MEDS ORDERED: ALBUT/IPRATROP 3MG/0.5MG NEB 3 ML VIAL NEB PRN (20:21)
[2020-12-20] MEDS: carvediloL 25 MG TAB PO SCH (21:19)
[2020-12-20] MEDS: ASPIRIN 81 MG ECTAB PO SCH (21:19)
[2020-12-20] MEDS: TAMSULOSIN HCL 0.4 MG CAP PO SCH (21:20)
[2020-12-20] MEDS: ATORVASTATIN 40 MG TAB PO SCH (21:20)
[2020-12-20] MEDS: GABAPENTIN 100 MG CAP PO SCH (21:20)
[2020-12-20 23:38] LABS: Appearance Urine Clear (Clear); Bilirubin Urine Negative (Negative); Blood Urine Negative (Negative); Color Urine Yellow; Glucose Urine UA Negative (Negative); Ketones Urine Negative (Negative); Leukocyte Esterase Urine Negative (Negative); Nitrite Urine Negative (Negative); Protein Urine Negative (Negative); Specific Gravity Urine 1.033 (1.000-1.030); Urobilinogen Urine Negative (Negative)
[2020-12-21] MEDS: methylPREDNISolone 40 MG in SYRINGE 0 ML IV SCH ×2 (05:09→17:48)
[2020-12-21 06:18] LABS: Hematocrit (blood only) 43.5 % (42-52); Hemoglobin 14.2 g/dL (14.0-18.0); Mean Corpuscular Hemoglobin 29.2 pg (25-34); Mean Corpuscular Hgb Conc 32.6 g/dL (32-36); Mean Corpuscular Volume 89.3 fL (80-100); Platelet Count 253 K/uL (130-400); RDW Coefficient of Variation 14.2 % (11.5-14.5); RDW Standard Deviation 46.3 fL (36.4-46.3); Red Blood Count 4.87 M/uL (4.7-6.1); White Blood Count 7.53 K/uL (4.8-10.8)
[2020-12-21 06:33] LABS: BUN Creatinine Ratio 20.7 (10-20); Calcium 9.2 mg/dl (8.5-10.1); Creatinine Clr Calc Pharmacy 97.9 ml/min; Est GFR (African American) 101.4; Est GFR (Non-African American) 87.5; Magnesium 2.2 mg/dl (1.8-2.4); Potassium 4.4 mmol/L (3.5-5.1)
[2020-12-21] MEDS: FOLIC ACID 1 MG TAB PO SCH (08:35)
[2020-12-21] MEDS: FUROSEMIDE 20 MG TAB PO SCH (08:35)
[2020-12-21] MEDS: carvediloL 25 MG TAB PO SCH ×2 (08:35→20:21)
[2020-12-21] MEDS: SPIRONOLACTONE 12.5 MG TAB PO SCH (08:35)
[2020-12-21] MEDS: GABAPENTIN 100 MG CAP PO SCH ×2 (08:35→20:23)
[2020-12-21] MEDS: ISOSORBIDE MONO EXTENDED REL 30 MG TABCR PO SCH (08:35)
[2020-12-21] MEDS: amLODIPine BESYLATE 5 MG TAB PO SCH (08:36)
[2020-12-21] MEDS: ADVANCED PROBIOTIC 1250 MG CAPSULE PO SCH (08:36)
[2020-12-21] MEDS: VITAMIN B COMPLEX TAB PO SCH (08:36)
[2020-12-21] MEDS: CLOPIDOGREL BISULFATE 75 MG TAB PO SCH (08:36)
[2020-12-21] MEDS: OLMESARTAN MEDOXOMIL 40 MG TAB PO SCH (08:36)
[2020-12-21] MEDS: ENOXAPARIN INJ 40 MG/0.4 ML SYR SQ SCH (08:36)
[2020-12-21] MEDS ORDERED: UMECLIDINIUM BROMIDE 62.5MCG/BLISTER 7 PUFFS/INHALER INH SCH (09:00)
[2020-12-21] MEDS: DOXYCYCLINE HYCLATE 100 MG CAP PO SCH ×2 (10:21→20:24)
[2020-12-21] MEDS: ALBUT/IPRATROP 3MG/0.5MG NEB 3 ML VIAL NEB SCH ×2 (15:36→20:04)
--- NOTE | 2020-12-21 16:59 | Hospitalist Progress Note ---
Date of Service December 21, 2020 Assessment & Plan (1) Acute respiratory failure with hypoxia: (2) COPD (chronic obstructive pulmonary disease): Acute respiratory failure with hypoxia COPD exacerbation -CTA:No evidence for pulmonary embolus. Stable mild paraesophageal lymphadenopathy. Decrease in the cluster of nodular densities within the right lower lobe. Therefore, these are likely benign. No new focal lung consolidations to suggest pneumonia. -Procalcitonin: <0.05 -Negative COVID Screen -ECHO :pending -Sputum culture pending -Continue bronchodilators, Solu-Medrol, Doxy -Titrate oxygen to keep saturations 88-92% -Wean off of oxygen as able -Pulmonary Hygiene Abnormal EKG Echo pending Patient denies chest pain Negative troponins Hypertension BP stable Continue home medications Needs sleep study as outpatient CAD S/P multiple PCIs Continue aspirin, Plavix, beta-win, statin, isosorbide HLD Continue atorvastatin Obesity BMI 37 DVT Px: SQ Lovenox Code Status: Full Code Admission and Anticipated Discharge Date Admission Date: December 20, 2020 Subjective Patient is seen and examined at bedside Reports cough with associated shortness of breath on exertion Denies chest pain, dizziness, nausea, abdominal pain Offers no other complaints Review of Systems Review of Systems: All systems reviewed & are unremarkable except as noted in HPI & below Physical Exam Physical Exam: Physical Exam: Vitals signs as noted above General Appearance:Obese, no apparent distress Head: normocephalic, Atraumatic Eyes: normal inspection, EOMI Neck: supple, Trachea midline Respiratory/Chest: Decreased breath sounds, Expiratory wheezes Cardiovascular: S1, S2, No murmur Abdomen/GI:Soft, Non tender, Bowel sounds present Extremities/Musculoskelatal:normal inspection, Trace edema Neurologic/Psych:AAOX3, grossly no focal neurological deficits Skin: normal color, warm Results & Data Results & Data ([facility]) Vital Signs (Past 12 Hours) Vital Signs Temp Pulse Pulse Resp BP BP Pulse Ox 12/21/20 16:00 36.4 C L 70 18 120/66 93 12/21/20 15:37 68 18 91 12/21/20 15:00 64 12/21/20 11:51 36.8 C 82 20 119/66 91 12/21/20 07:43 60 Laboratory Results Short CBC 12/21/20 Range/Units 05:51 WBC 7.53 (4.8-10.8) K/uL Hgb 14.2 (14.0-18.0) g/dL Hct 43.5 (42-52) % Plt Count 253 (130-400) K/uL BMP 12/21/20 05:51 Sodium 140 Potassium 4.4 Chloride 105 Carbon Dioxide 35 H BUN 19 H Creatinine 0.90 Glucose 147 H Calcium 9.2 Cardiac Enzymes 12/20/20 12/21/20 Range/Units 20:27 02:38 Troponin I < 0.015 < 0.015 (0-0.045) ng/ml Urine 12/20/20 Range/Units 23:30 Urine Color Yellow Urine Appearance Clear (Clear) Urine pH 6.0 (4.5-7.5) Ur Specific [place] 1.033 H (1.000-1.030) Urine Protein Negative (Negative) Urine Glucose (UA) Negative (Negative)
[2020-12-21] MEDS: ASPIRIN 81 MG ECTAB PO SCH (20:22)
[2020-12-21] MEDS: TAMSULOSIN HCL 0.4 MG CAP PO SCH (20:22)
[2020-12-21] MEDS: ATORVASTATIN 40 MG TAB PO SCH (20:23)
[2020-12-21] MEDS: FAMOTIDINE 10 MG TABLET PO SCH (20:24)
[2020-12-22] MEDS: methylPREDNISolone 40 MG in SYRINGE 0 ML IV SCH ×2 (05:34→17:42)
--- NOTE | 2020-12-22 06:24 | Electrocardiogram Report ---
Test Reason : Blood Pressure : / mmHG Vent. Rate : 069 BPM Atrial Rate : 069 BPM P-R Int : 168 ms QRS Dur : 092 ms QT Int : 384 ms P-R-T Axes : 000 010 053 degrees QTc Int : 411 ms Normal sinus rhythm Inferior infarct , age undetermined Abnormal ECG When compared with ECG of 28-MAY-2019 06:26, Inferior infarct is now Present Confirmed by Evan Berry ([id number]) on 12/22/2020 6:24:12 AM Referred By: REFERRED SELF Confirmed By:Evan Berry
[2020-12-22 06:37] LABS: Hematocrit (blood only) 41.6 % (42-52); Hemoglobin 13.7 g/dL (14.0-18.0); Mean Corpuscular Hemoglobin 29.5 pg (25-34); Mean Corpuscular Hgb Conc 32.9 g/dL (32-36); Mean Corpuscular Volume 89.5 fL (80-100); Mean Platelet Volume 10.5 fL (7.4-10.4); Platelet Count 236 K/uL (130-400); RDW Coefficient of Variation 14.5 % (11.5-14.5); RDW Standard Deviation 47.3 fL (36.4-46.3); Red Blood Count 4.65 M/uL (4.7-6.1)
[2020-12-22 07:03] LABS: BUN Creatinine Ratio 34.1 (10-20); Calcium 8.6 mg/dl (8.5-10.1); Est GFR (African American) 91.4; Est GFR (Non-African American) 78.9; Potassium 4.6 mmol/L (3.5-5.1)
[2020-12-22] MEDS: ALBUT/IPRATROP 3MG/0.5MG NEB 3 ML VIAL NEB SCH ×4 (07:33→20:03)
[2020-12-22] MEDS: OLMESARTAN MEDOXOMIL 40 MG TAB PO SCH (08:23)
[2020-12-22] MEDS: GABAPENTIN 100 MG CAP PO SCH ×2 (08:23→19:49)
[2020-12-22] MEDS: ISOSORBIDE MONO EXTENDED REL 30 MG TABCR PO SCH (08:23)
[2020-12-22] MEDS: carvediloL 25 MG TAB PO SCH ×2 (08:23→19:47)
[2020-12-22] MEDS: FOLIC ACID 1 MG TAB PO SCH (08:23)
[2020-12-22] MEDS: SPIRONOLACTONE 12.5 MG TAB PO SCH (08:23)
[2020-12-22] MEDS: CLOPIDOGREL BISULFATE 75 MG TAB PO SCH (08:23)
[2020-12-22] MEDS: DOXYCYCLINE HYCLATE 100 MG CAP PO SCH ×2 (08:23→19:49)
[2020-12-22] MEDS: VITAMIN B COMPLEX TAB PO SCH (08:23)
[2020-12-22] MEDS: amLODIPine BESYLATE 5 MG TAB PO SCH (08:24)
[2020-12-22] MEDS: ADVANCED PROBIOTIC 1250 MG CAPSULE PO SCH (08:24)
[2020-12-22] MEDS: FUROSEMIDE 20 MG TAB PO SCH (08:24)
[2020-12-22] MEDS: ENOXAPARIN INJ 40 MG/0.4 ML SYR SQ SCH (08:25)
--- NOTE | 2020-12-22 17:57 | Hospitalist Progress Note ---
Date of Service December 22, 2020 Assessment & Plan (1) Acute respiratory failure with hypoxia: (2) COPD (chronic obstructive pulmonary disease): Acute respiratory failure with hypoxia COPD exacerbation -CTA:No evidence for pulmonary embolus. Stable mild paraesophageal lymphadenopathy. Decrease in the cluster of nodular densities within the right lower lobe. Therefore, these are likely benign. No new focal lung consolidations to suggest pneumonia. -Procalcitonin: <0.05 -Negative COVID Screen -ECHO : EF 60 to 65%. Moderate concentric LVH. Grade 1 diastolic dysfunction. -Sputum culture: Moderate normal lidia -Continue bronchodilators, Solu-Medrol, Doxy -Titrate oxygen to keep saturations 88-92% -Wean off of oxygen as able -Pulmonary Hygiene Continue current management Abnormal EKG Echo pending Patient denies chest pain Negative troponins Hypertension BP stable Continue home medications Needs sleep study as outpatient CAD S/P multiple PCIs Continue aspirin, Plavix, beta-win, statin, isosorbide HLD Continue atorvastatin Obesity BMI 37 DVT Px: SQ Lovenox Code Status: Full Code Admission and Anticipated Discharge Date Admission Date: December 20, 2020 Subjective Patient is seen and examined at bedside Less cough and dyspnea today No new complaints Still requiring 2 L of supplemental oxygen to maintain saturation Denies chest pain, dizziness, nausea, abdominal pain Offers no other complaints Review of Systems Review of Systems: All systems reviewed & are unremarkable except as noted in HPI & below Physical Exam Physical Exam: Physical Exam: Vitals signs as noted above General Appearance:Obese, no apparent distress Head: normocephalic, Atraumatic Eyes: normal inspection, EOMI Neck: supple, Trachea midline Respiratory/Chest: Decreased breath sounds, CTA Cardiovascular: S1, S2, No murmur Abdomen/GI:Soft, Non tender, Bowel sounds present Extremities/Musculoskelatal:normal inspection, Trace edema Neurologic/Psych:AAOX3, grossly no focal neurological deficits Skin: normal color, warm Results & Data Results & Data ([facility]) Vital Signs (Past 12 Hours) Vital Signs Temp Pulse Pulse Pulse Resp BP Pulse Ox 12/22/20 16:15 87 L 12/22/20 15:50 51 L 12/22/20 15:33 73 18 95 12/22/20 15:08 36.4 C L 55 L 18 118/62 91 12/22/20 11:23 70 16 95 12/22/20 11:14 36.4 C L 56 L 18 102/56 L 92 12/22/20 07:33 67 16 95 12/22/20 07:24 36.4 C L 60 18 129/69 92 Laboratory Results Short CBC 12/22/20 Range/Units 06:28 WBC 13.10 H (4.8-10.8) K/uL Hgb 13.7 L (14.0-18.0) g/dL Hct 41.6 L (42-52) % Plt Count 236 (130-400) K/uL BMP 12/22/20 06:28 Sodium 139 Potassium 4.6 Chloride 104 Carbon Dioxide 32 BUN 34 H D Creatinine 0.98 Glucose 152 H Calcium 8.6
[2020-12-22] MEDS: ASPIRIN 81 MG ECTAB PO SCH (19:47)
[2020-12-22] MEDS: TAMSULOSIN HCL 0.4 MG CAP PO SCH (19:48)
[2020-12-22] MEDS: ATORVASTATIN 40 MG TAB PO SCH (19:48)
[2020-12-22] MEDS: FAMOTIDINE 10 MG TABLET PO SCH (19:49)
[2020-12-23] MEDS: methylPREDNISolone 40 MG in SYRINGE 0 ML IV SCH ×2 (05:33→17:36)
[2020-12-23 07:19] LABS: BUN Creatinine Ratio 39.4 (10-20); Calcium 8.6 mg/dl (8.5-10.1); Creatinine Clr Calc Pharmacy 103.9 ml/min; Est GFR (African American) 103.8; Est GFR (Non-African American) 89.5; Magnesium 2.7 mg/dl (1.8-2.4); Potassium 4.5 mmol/L (3.5-5.1)
[2020-12-23] MEDS: ALBUT/IPRATROP 3MG/0.5MG NEB 3 ML VIAL NEB SCH ×4 (07:20→19:35)
[2020-12-23] MEDS: SPIRONOLACTONE 12.5 MG TAB PO SCH (07:47)
[2020-12-23] MEDS: FOLIC ACID 1 MG TAB PO SCH (07:48)
[2020-12-23] MEDS: carvediloL 25 MG TAB PO SCH ×2 (07:48→20:19)
[2020-12-23] MEDS: ENOXAPARIN INJ 40 MG/0.4 ML SYR SQ SCH (07:48)
[2020-12-23] MEDS: OLMESARTAN MEDOXOMIL 40 MG TAB PO SCH (07:48)
[2020-12-23] MEDS: FUROSEMIDE 20 MG TAB PO SCH (07:48)
[2020-12-23] MEDS: ISOSORBIDE MONO EXTENDED REL 30 MG TABCR PO SCH (07:48)
[2020-12-23] MEDS: GABAPENTIN 100 MG CAP PO SCH ×2 (07:49→20:22)
[2020-12-23] MEDS: ADVANCED PROBIOTIC 1250 MG CAPSULE PO SCH (07:49)
[2020-12-23] MEDS: DOXYCYCLINE HYCLATE 100 MG CAP PO SCH ×2 (07:49→20:22)
[2020-12-23] MEDS: CLOPIDOGREL BISULFATE 75 MG TAB PO SCH (07:49)
[2020-12-23] MEDS: VITAMIN B COMPLEX TAB PO SCH (07:49)
[2020-12-23] MEDS: amLODIPine BESYLATE 5 MG TAB PO SCH (07:49)
[2020-12-23] MEDS: ASPIRIN 81 MG ECTAB PO SCH (20:21)
[2020-12-23] MEDS: TAMSULOSIN HCL 0.4 MG CAP PO SCH (20:21)
[2020-12-23] MEDS: ATORVASTATIN 40 MG TAB PO SCH (20:21)
[2020-12-23] MEDS: FAMOTIDINE 10 MG TABLET PO SCH (20:22)
--- NOTE | 2020-12-23 20:35 | Hospitalist Progress Note ---
Date of Service December 23, 2020 Assessment & Plan (1) Acute respiratory failure with hypoxia: (2) COPD (chronic obstructive pulmonary disease): Acute respiratory failure with hypoxia COPD exacerbation -CTA:No evidence for pulmonary embolus. Stable mild paraesophageal lymphadenopathy. Decrease in the cluster of nodular densities within the right lower lobe. Therefore, these are likely benign. No new focal lung consolidations to suggest pneumonia. -Procalcitonin: <0.05 -Negative COVID Screen -ECHO : EF 60 to 65%. Moderate concentric LVH. Grade 1 diastolic dysfunction. -Sputum culture: Moderate normal lidia -Continue bronchodilators, Solu-Medrol, Doxy -Titrate oxygen to keep saturations 88-92% -Wean off of oxygen as able -Pulmonary Hygiene -Will need 2 step prior to discharge -Taper down steroids as able Abnormal EKG Echo pending Patient denies chest pain Negative troponins Hypertension BP stable Continue home medications Needs sleep study as outpatient CAD S/P multiple PCIs Continue aspirin, Plavix, beta-win, statin, isosorbide HLD Continue atorvastatin Obesity BMI 37 DVT Px: SQ Lovenox Code Status: Full Code Admission and Anticipated Discharge Date Admission Date: December 20, 2020 Subjective Patient is seen and examined at bedside Cough, dyspnea continues to improve Still requiring minimal supplemental oxygen to maintain saturation No new complaints today Denies chest pain, dizziness, nausea, abdominal pain Review of Systems Review of Systems: All systems reviewed & are unremarkable except as noted in HPI & below Physical Exam Physical Exam: Physical Exam: Vitals signs as noted above General Appearance:Obese, no apparent distress Head: normocephalic, Atraumatic Eyes: normal inspection, EOMI Neck: supple, Trachea midline Respiratory/Chest: Decreased breath sounds, CTA Cardiovascular: S1, S2, No murmur Abdomen/GI:Soft, Non tender, Bowel sounds present Extremities/Musculoskelatal:normal inspection, Trace edema Neurologic/Psych:AAOX3, grossly no focal neurological deficits Skin: normal color, warm Results & Data Results & Data ([facility]) Vital Signs (Past 12 Hours) Vital Signs Temp Pulse Resp BP Pulse Ox 12/23/20 19:36 102 H 22 86 L 12/23/20 18:49 36.6 C 66 19 131/67 95 12/23/20 15:48 36.4 C L 55 L 18 114/61 92 12/23/20 14:56 64 16 95 12/23/20 11:41 66 16 92 12/23/20 11:22 36.4 C L 60 18 111/[address] [facility] 12/23/20 06:09 Sodium 140 Potassium 4.5 Chloride 104 Carbon Dioxide 35 H BUN 34 H Creatinine 0.85 Glucose 155 H Calcium 8.6
[2020-12-24] MEDS: methylPREDNISolone 40 MG in SYRINGE 0 ML IV SCH (05:53)
[2020-12-24 06:51] LABS: BUN Creatinine Ratio 38.2 (10-20); Calcium 8.7 mg/dl (8.5-10.1); Creatinine Clr Calc Pharmacy 109.1 ml/min; Est GFR (African American) 105.8; Est GFR (Non-African American) 91.3; Magnesium 2.9 mg/dl (1.8-2.4); Potassium 4.6 mmol/L (3.5-5.1)
[2020-12-24] MEDS: ALBUT/IPRATROP 3MG/0.5MG NEB 3 ML VIAL NEB SCH (08:10)
--- NOTE | 2020-12-24 08:25 | XRay Report ---
XR chest 2V PA/lateral HISTORY: Hypoxia COMPARISON: Chest 12/20/2020. FINDINGS: No pneumothorax. There are low lung volumes. Mild elevation the right hemidiaphragm. No pallavi dence for pulmonary edema. The heart is mildly enlarged. This remains unchanged. There are bibasilar linear densities which have progressed. Trace bilateral pleural effusions and mild interstitial thick ening. IMPRESSION: 1. Low lung volumes with bibasilar linear densities. This favors subsegmental atelectasis. 2. Trace bilateral pleural effusions. 3. Cardiomegaly. No evidence for pulmonary edema. ACT 112: Negative or not required by law. Electronically signed by: Harpreet Duggan M.D. 12/24/2020 8:24 AM
[2020-12-24] MEDS: SPIRONOLACTONE 12.5 MG TAB PO SCH (08:42)
[2020-12-24] MEDS: OLMESARTAN MEDOXOMIL 40 MG TAB PO SCH (08:42)
[2020-12-24] MEDS: carvediloL 25 MG TAB PO SCH ×2 (08:43→19:47)
[2020-12-24] MEDS: FOLIC ACID 1 MG TAB PO SCH (08:43)
[2020-12-24] MEDS: ISOSORBIDE MONO EXTENDED REL 30 MG TABCR PO SCH (08:43)
[2020-12-24] MEDS: FUROSEMIDE 20 MG TAB PO SCH (08:43)
[2020-12-24] MEDS: amLODIPine BESYLATE 5 MG TAB PO SCH (08:44)
[2020-12-24] MEDS: DOXYCYCLINE HYCLATE 100 MG CAP PO SCH ×2 (08:44→19:51)
[2020-12-24] MEDS: ADVANCED PROBIOTIC 1250 MG CAPSULE PO SCH (08:44)
[2020-12-24] MEDS: ENOXAPARIN INJ 40 MG/0.4 ML SYR SQ SCH (08:44)
[2020-12-24] MEDS: VITAMIN B COMPLEX TAB PO SCH (08:44)
[2020-12-24] MEDS: GABAPENTIN 100 MG CAP PO SCH ×2 (08:44→19:50)
[2020-12-24] MEDS: CLOPIDOGREL BISULFATE 75 MG TAB PO SCH (08:44)
[2020-12-24] MEDS ORDERED: ALBUT/IPRATROP 3MG/0.5MG NEB 3 ML VIAL NEB PRN (10:26)
--- NOTE | 2020-12-24 14:48 | Hospitalist Progress Note ---
Date of Service December 24, 2020 Assessment & Plan (1) Acute respiratory failure with hypoxia: (2) COPD (chronic obstructive pulmonary disease): Acute respiratory failure with hypoxia COPD exacerbation -CTA:No evidence for pulmonary embolus. Stable mild paraesophageal lymphadenopathy. Decrease in the cluster of nodular densities within the right lower lobe. Therefore, these are likely benign. No new focal lung consolidations to suggest pneumonia. -Negative COVID Screen -ECHO : EF 60 to 65%. Moderate concentric LVH. Grade 1 diastolic dysfunction. -Sputum culture: Moderate normal lidia -Continue bronchodilators, Solu-Medrol, Doxy -Titrate oxygen to keep saturations 88-92% -Will need 2 step prior to discharge -We will discontinue Solu-Medrol today and start with oral prednisone tomorrow -Clinically much better today -Will ask for PT and OT evaluation and possible discharge tomorrow Abnormal EKG Echo pending-as above Patient denies chest pain Negative troponins Hypertension BP stable Continue home medications Needs sleep study as outpatient CAD S/P multiple PCIs Continue aspirin, Plavix, beta-win, statin, isosorbide HLD Continue atorvastatin Obesity BMI 37 DVT Px: SQ Lovenox Code Status: Full Code Likely discharge tomorrow following 2 steps O2 saturation test Admission and Anticipated Discharge Date Admission Date: December 20, 2020 Subjective 12/24/2020 The patient was seen and examined in medical telemetry unit He has been feeling much better and requiring intermittent oxygen therapy to maintain saturation Denies any chest pain and/or palpitation, any nausea and or vomiting, no fever and/or chills Review of Systems Review of Systems: All systems reviewed and are unremarkable except as noted below Respiratory: + cough, + dyspnea on exertion and + wheezing Physical Exam Physical Exam: Sitting on a chair without any acute distress Constitutional: well developed, well nourished and + obese; not ill appearing Eyes: PERRL, conjunctivae normal, anicteric sclerae ENMT: external ear and nose normal, oropharynx normal Neck: trachea midline, no thyromegaly Respiratory: + respiratory distress (Minimal respiratory distress) Auscultation: + diminished lung sounds, + crackles (Bibasilar crackles) and + wheezes (Minimal wheezing bilaterally) Cardiovascular: Rate/Rhythm: regular rate and regular rhythm Heart Sounds: no murmur Extremities: + edema (Trace edema bilaterally) Gastrointestinal (Abdomen): Inspection/Auscultation: normal bowel sounds; abdomen not distended Percussion/Palpation: abdomen soft; abdomen nontender Musculoskeletal: No acute arthritis in any joint Neurologic: PERRL, EOMI, accommodation nl, no face palsy, no dysarthria Lymphatic: no cervical or axillary lymphadenopathy Results & Data Results & Data ([facility]) Vital Signs (Past 12 Hours) Vital Signs Temp Pulse Pulse Resp BP Pulse Ox 12/24/20 11:12 36.8 C 60 18 117/59 L 93 12/24/20 08:11 62 16 95 12/24/20 07:24 36.4 C L 59 L 18 125/76 94 12/24/20 07:18 48 L 12/24/20 02:59 36.6 C 65 20 136/67 95 Laboratory Results BMP 12/24/20 05:37 Sodium 142 Potassium 4.6 Chloride 107 Carbon Dioxide 35 H BUN 31 H Creatinine 0.81 Glucose 153 H Calcium 8.7 Medications Administered Current Inpatient Medications Albuterol (Albut/Ipratrop 3mg/0.5mg Neb 3 Ml Vial) 3 ml NEB QIDR PRN PRN Reason: Shortness Of Breath Or Wheezing Stop: 01/20/21 14:59 Amlodipine Besylate (Amlodipine Besylate 5 Mg Tab) [facility] [place]: 01/20/21 08:59 Last Admin: 12/24/20 08:44 Dose: 10 mg Documented by: Aspirin (Aspirin 81 Mg Ectab) 81 mg PO [facility] Stop: 01/19/21 20:59 Last Admin: 12/23/20 20:21 Dose: 81 mg Documented by: Atorvastatin Calcium (Atorvastatin 40 Mg Tab) 80 mg PO [facility] Stop: 01/19/21 20:59 Last Admin: 12/23/20 20:21 Dose: 80 mg Documented by: Carvedilol (Carvedilol 25 Mg Tab) 25 mg PO BID [facility] Stop: 01/19/21 20:59 Last Admin: 12/24/20 08:43 Dose: 25 mg Documented by: Clopidogrel Bisulfate (Clopidogrel Bisulfate 75 Mg Tab) 75 mg PO QAM [facility] Stop: 01/20/21 08:59 Last Admin: 12/24/20 08:44 Dose: 75 mg Documented by: Doxycycline Hyclate (Doxycycline Hyclate 100 Mg Cap) 100 mg PO BID [facility] Stop: 12/28/20 08:59 Last Admin: 12/24/20 08:44 Dose: 100 mg Documented by: Enoxaparin Sodium (Enoxaparin Inj 40 Mg/0.4 Ml Syr) 40 mg SQ QAM [facility] Stop: 01/20/21 08:59 Last Admin: 12/24/20 08:44 Dose: 40 mg Documented by: Famotidine (Famotidine 10 Mg Tablet) 10 mg PO HS [facility] Stop: 01/20/21 20:59 Last Admin: 12/23/20 20:22 Dose: 10 mg Documented by: Folic Acid (Folic Acid 1 Mg Tab) 1 mg PO QAM [facility] Stop: 01/20/21 08:59 Last Admin: 12/24/20 08:43 Dose: 1 mg Documented by: Furosemide (Furosemide 20 Mg Tab) 20 mg PO QAM [facility] Stop: 01/20/21 08:59 Last Admin: 12/24/20 08:43 Dose: 20 mg Documented by: Gabapentin (Gabapentin 100 Mg Cap) 100 mg PO BID [facility] Stop: 01/19/21 20:59 Last Admin: 12/24/20 08:44 Dose: 100 mg Documented by: Methylprednisolone 40 mg/ (Syringe) 0.64 mls @ 1.5 mls/min IV Q12H [facility] Stop: 01/20/21 05:59 Last Admin: 12/24/20 05:53 Dose: 1.5 mls/min Documented by: Isosorbide Mononitrate (Isosorbide [place] Extended Rel 30 Mg Tabcr) 30 mg PO QAM [facility] Stop: 01/20/21 08:59 Last Admin: 12/24/20 08:43 Dose: 30 mg Documented by: Lactobacillus Acidoph/Casei/Rhamnos (Advanced Probiotic 1250 Mg Capsule) 2 cap PO QAM [facility] Stop: 01/20/21 08:59 Last Admin: 12/24/20 08:44 Dose: 2 cap Documented by: Olmesartan (Olmesartan Medoxomil 40 Mg Tab) 40 mg PO QAM [facility] Stop: 01/20/21 08:59 Last Admin: 12/24/20 08:42 Dose: 40 mg Documented by: Spironolactone (Spironolactone 12.5 Mg Tab) 12.5 mg PO QAM [facility] Stop: 01/20/21 08:59 Last Admin: 12/24/20 08:42 Dose: 12.5 mg Documented by: Tamsulosin HCl (Tamsulosin Hcl 0.4 Mg Cap) 0.4 mg PO [facility] Stop: 01/19/21 20:59 Last Admin: 12/23/20 20:21 Dose: 0.4 mg Documented by: Umeclidinium [place] (Umeclidinium [place] 62.5mcg/Blister 7 Puffs/Inhaler) 1 puffs [facility]H [facility] Stop: 01/20/21 08:59 Last Admin: 12/21/20 08:37 Dose: 1 puffs Documented by: Vitamin B Complex (Vitamin B Complex Tab) [facility] tab [facility] [place]: 01/20/21 08:59 Last Admin: 12/24/20 08:44 Dose: 1 tab Documented by:
[2020-12-24] MEDS: ASPIRIN 81 MG ECTAB PO SCH (19:48)
[2020-12-24] MEDS: ATORVASTATIN 40 MG TAB PO SCH (19:49)
[2020-12-24] MEDS: FAMOTIDINE 10 MG TABLET PO SCH (19:50)
[2020-12-24] MEDS: TAMSULOSIN HCL 0.4 MG CAP PO SCH (22:17)
[2020-12-25] MEDS: CLOPIDOGREL BISULFATE 75 MG TAB PO SCH (08:16)
[2020-12-25] MEDS: ADVANCED PROBIOTIC 1250 MG CAPSULE PO SCH (08:16)
[2020-12-25] MEDS: carvediloL 25 MG TAB PO SCH (08:17)
[2020-12-25] MEDS: OLMESARTAN MEDOXOMIL 40 MG TAB PO SCH (08:17)
[2020-12-25] MEDS: ISOSORBIDE MONO EXTENDED REL 30 MG TABCR PO SCH (08:17)
[2020-12-25] MEDS: VITAMIN B COMPLEX TAB PO SCH (08:17)
[2020-12-25] MEDS: FOLIC ACID 1 MG TAB PO SCH (08:17)
[2020-12-25] MEDS: amLODIPine BESYLATE 5 MG TAB PO SCH (08:18)
[2020-12-25] MEDS: SPIRONOLACTONE 12.5 MG TAB PO SCH (08:18)
[2020-12-25] MEDS: FUROSEMIDE 20 MG TAB PO SCH (08:18)
[2020-12-25] MEDS: DOXYCYCLINE HYCLATE 100 MG CAP PO SCH (08:18)
[2020-12-25] MEDS: GABAPENTIN 100 MG CAP PO SCH (08:19)
[2020-12-25] MEDS: ENOXAPARIN INJ 40 MG/0.4 ML SYR SQ SCH (08:20)
[2020-12-25] MEDS ORDERED: predniSONE 20 MG TAB PO SCH (09:00)
--- NOTE | 2020-12-25 12:30 | Hospitalist Progress Note ---
Date of Service December 25, 2020 Assessment & Plan (1) Acute respiratory failure with hypoxia: (2) COPD (chronic obstructive pulmonary disease): Acute respiratory failure with hypoxia COPD exacerbation -CTA:No evidence for pulmonary embolus. Stable mild paraesophageal lymphadenopathy. Decrease in the cluster of nodular densities within the right lower lobe. Therefore, these are likely benign. No new focal lung consolidations to suggest pneumonia. -Negative COVID Screen -ECHO : EF 60 to 65%. Moderate concentric LVH. Grade 1 diastolic dysfunction. -Sputum culture: Moderate normal lidia -Continue bronchodilators, Solu-Medrol, Doxy -Titrate oxygen to keep saturations 88-92% -Clinically much better and awaiting to do steps O2 saturation before discharge this afternoon -Did very well with PT and OT evaluation Abnormal EKG Echo pending-as above Patient denies chest pain Negative troponins Hypertension BP stable Continue home medications Needs sleep study as outpatient CAD S/P multiple PCIs Continue aspirin, Plavix, beta-win, statin, isosorbide Denies any chest pain and or palpitation HLD Continue atorvastatin Obesity BMI 37 DVT Px: SQ Lovenox Code Status: Full Code We will discharge home this afternoon Admission and Anticipated Discharge Date Admission Date: December 20, 2020 Subjective 12/24/2020 The patient was seen and examined in medical telemetry unit He has been feeling much better and requiring intermittent oxygen therapy to maintain saturation Denies any chest pain and/or palpitation, any nausea and or vomiting, no fever and/or chills 12/25/2020 The patient was seen and examined in medical telemetry unit He has been feeling a lot better and did very well with physical therapy He will have to do steps O2 saturation test before discharge this afternoon Review of Systems Review of Systems: All systems reviewed and are unremarkable except as noted below Constitutional: no fever and no chills Respiratory: + dyspnea on exertion; no cough and no wheezing Physical Exam Physical Exam: Sitting on a chair without any acute distress Constitutional: well developed, well nourished and + obese; not ill appearing Eyes: PERRL, conjunctivae normal, anicteric sclerae ENMT: external ear and nose normal, oropharynx normal Neck: trachea midline, no thyromegaly Respiratory: + respiratory distress (Minimal respiratory distress) Auscultation: + diminished lung sounds, + crackles (Bibasilar crackles) and + wheezes (Minimal wheezing bilaterally) Cardiovascular: Rate/Rhythm: regular rate and regular rhythm Heart Sounds: no murmur Extremities: + edema (Trace edema bilaterally) Gastrointestinal (Abdomen): Inspection/Auscultation: normal bowel sounds; abdomen not distended Percussion/Palpation: abdomen soft; abdomen nontender Musculoskeletal: No acute arthritis in any joint Neurologic: PERRL, EOMI, accommodation nl, no face palsy, no dysarthria Psychiatric: A+Ox3, euthymic affect Lymphatic: no cervical or axillary lymphadenopathy Results & Data Results & Data ([facility]) Vital Signs (Past 12 Hours) Vital Signs Temp Pulse Pulse Pulse Pulse Pulse Pulse 12/25/20 11:44 70 62 77 57 L 12/25/20 07:55 36.5 C 65 12/25/20 07:34 83 12/25/20 03:53 36.4 C L 67 12/25/20 00:41 36.5 C 53 L Resp Resp Resp Resp Resp BP Pulse Ox 12/25/20 11:44 18 18 20 18 12/25/20 07:55 18 132/72 95 12/25/20 07:34 12/25/20 03:53 18 126/65 93 12/25/20 00:41 16 139/71 94 Pulse Ox Pulse Ox Pulse Ox Pulse Ox 12/25/20 11:44 93 96 85 L 92 12/25/20 07:55 12/25/20 07:34 12/25/20 03:53 12/25/20 00:41 Medications Administered Current Inpatient Medications Albuterol (Albut/Ipratrop 3mg/0.5mg Neb 3 Ml Vial) 3 ml NEB QIDR PRN PRN Reason: Shortness Of Breath Or Wheezing Stop: 01/20/21 14:59 Amlodipine Besylate (Amlodipine Besylate 5 Mg Tab) 10 mg PO [facility] Stop: 01/20/21 08:59 Last Admin: 12/25/20 08:18 Dose: 10 mg Documented by: Aspirin (Aspirin 81 Mg Ectab) 81 mg PO [facility] Stop: 01/19/21 20:59 Last Admin: 12/24/20 19:48 Dose: 81 mg Documented by: Atorvastatin Calcium (Atorvastatin 40 Mg Tab) 80 mg PO [facility] Stop: 01/19/21 20:59 Last Admin: 12/24/20 19:49 Dose: 80 mg Documented by: Carvedilol (Carvedilol 25 Mg Tab) 25 mg PO BID [facility] Stop: 01/19/21 20:59 Last Admin: 12/25/20 08:17 Dose: 25 mg Documented by: Clopidogrel Bisulfate (Clopidogrel Bisulfate 75 Mg Tab) 75 mg PO QAM [facility] Stop: 01/20/21 08:59 Last Admin: 12/25/20 08:16 Dose: 75 mg Documented by: Doxycycline Hyclate (Doxycycline Hyclate 100 Mg Cap) 100 mg PO BID [facility] Stop: 12/28/20 08:59 Last Admin: 12/25/20 08:18 Dose: 100 mg Documented by: Enoxaparin Sodium (Enoxaparin Inj 40 Mg/0.4 Ml Syr) [facility] [place]: 01/20/21 08:59 Last Admin: 12/25/20 08:20 Dose: 40 mg Documented by: Famotidine (Famotidine 10 Mg Tablet) 10 mg PO [facility] Stop: 01/20/21 20:59 Last Admin: 12/24/20 19:50 Dose: 10 mg Documented by: Folic Acid (Folic Acid 1 Mg Tab) [facility] [place] Stop: 01/20/21 08:59 Last Admin: 12/25/20 08:17 Dose: 1 mg Documented by: Furosemide (Furosemide 20 Mg Tab) 20 mg PO QAM [facility] Stop: 01/20/21 08:59 Last Admin: 12/25/20 08:18 Dose: 20 mg Documented by: Gabapentin (Gabapentin 100 Mg Cap) 100 mg PO BID [facility] Stop: 01/19/21 20:59 Last Admin: 12/25/20 08:19 Dose: 100 mg Documented by: Isosorbide Mononitrate (Isosorbide [place] Extended Rel 30 Mg Tabcr) 30 mg PO [facility] Stop: 01/20/21 08:59 Last Admin: 12/25/20 08:17 Dose: 30 mg Documented by: Lactobacillus Acidoph/Casei/Rhamnos (Advanced Probiotic 1250 Mg Capsule) 2 cap PO QAM [facility] Stop: 01/20/21 08:59 Last Admin: 12/25/20 08:16 Dose: 2 cap Documented by: Olmesartan (Olmesartan Medoxomil 40 Mg Tab) [facility] [place] Stop: 01/20/21 08:59 Last Admin: 12/25/20 08:17 Dose: 40 mg Documented by: Prednisone (Prednisone 20 Mg Tab) 40 mg PO DAILY [facility] Stop: 01/24/21 08:59 Last Admin: 12/25/20 08:19 Dose: 40 mg Documented by: Spironolactone (Spironolactone 12.5 Mg Tab) 12.5 mg PO QAM [facility] Stop: 01/20/21 08:59 Last Admin: 12/25/20 08:18 Dose: 12.5 mg Documented by: Tamsulosin HCl (Tamsulosin Hcl 0.4 Mg Cap) 0.4 mg PO [facility] Stop: 01/19/21 20:59 Last Admin: 12/24/20 22:17 Dose: 0.4 mg Documented by: Umeclidinium [place] (Umeclidinium [place] 62.5mcg/Blister 7 Puffs/Inhaler) 1 puffs [facility] [place] Stop: 01/20/21 08:59 Last Admin: 12/21/20 08:37 Dose: 1 puffs Documented by: Vitamin B Complex (Vitamin B Complex Tab) 1 tab PO QAM [facility] Stop: 01/20/21 08:59 Last Admin: 12/25/20 08:17 Dose: 1 tab Documented by:
--- NOTE | 2020-12-26 08:15 | Discharge Summary ---
Date of Service December 26, 2020 Admission HPI Per Admitting Provider Pt is a 70 yo M with hx of CAD (s/p stent placement in 1997, 2003, 2008 and 2018), chronic diastolic CHF, ulcerative colitis, HTN, HLD, prediabetes, COPD group B, restrictive pulm. dis., who presents with shortness of breath and hypoxia. Patient reports being seen by PCP earlier this month, on December 11, for nasal congestion, and some shortness of breath. Reports that he was prescribed antibiotic (Augmentin), and just about to be finished with 10-day course. He reports that he was having some cough, productive, with some greenish sputum. Also reports that sputum is now more clear. Denies having typical chest pain as he had before with his heart disease. He does say though that when he is walking up the stairs, he gets short of breath. Also when he bends over, he says that he feels lightheaded. Denies any fevers, but reports chills. Had some loose stools since started antibiotics, however denies diarrhea. Also denies abdominal pain nausea or vomiting. In the ED, patient was on status of supplemental oxygen. He was given 125 mg of Solu-Medrol, and albuterol neb. Currently reports feeling better, he is on 2 L of supplemental O2, satting 94%, speaking in full sentences, nonlabored. In the ED, CT PE was obtained, which was negative for PE. Admission Exam Per Admitting Provider Constitutional: WD/WN, vitals as above no acute distress Eyes: PERRL, conjunctivae normal, anicteric sclerae ENMT: external ear and nose normal, oropharynx normal Neck: Thick neck Respiratory: normal respiratory effort; no respiratory distress Auscultation: no wheezes Poor air movement bilaterally, no wheezing Cardiovascular: RRR, no murmur, no edema Chest (Breasts): Chest: normal inspection of chest Gastrointestinal (Abdomen): Inspection/Auscultation: abdomen normal to inspection; abdomen not distended Percussion/Palpation: abdomen soft; abdomen nontender, no guarding and abdomen not rigid Obese abdomen Musculoskeletal: no cyanosis or clubbing, extremities motor strength 5/5 Head/Neck/Chest: normocephalic and head atraumatic Extremities: extremities normal to inspection Skin: no rashes, warm and dry Neurologic: PERRL, EOMI, accommodation nl, no face palsy, no dysarthria moves all extremities Psychiatric: A+Ox3, euthymic affect Genitourinary: no CVA tenderness Lymphatic: no lymphedema Principal Diagnosis Acute respiratory failure with hypoxia, COPD exacerbation, CAD status post multiple PCI's, hypertension Discharge Exam Constitutional well developed, well nourished and + obese; not ill appearing Eyes PERRL, conjunctivae normal, anicteric sclerae ENMT external ear and nose normal, oropharynx normal Neck trachea midline, no thyromegaly Respiratory + respiratory distress (Minimal respiratory distress) Auscultation: + diminished lung sounds, + crackles (Bibasilar crackles) and + wheezes (Minimal wheezing bilaterally) Cardiovascular Rate/Rhythm: regular rate and regular rhythm Heart Sounds: no murmur Extremities: + edema (Trace edema bilaterally) Gastrointestinal (Abdomen) Inspection/Auscultation: normal bowel sounds; abdomen not distended Percussion/Palpation: abdomen soft; abdomen nontender Neurologic PERRL, EOMI, accommodation nl, no face palsy, no dysarthria Psychiatric A+Ox3, euthymic affect Lymphatic no cervical or axillary lymphadenopathy Discharge Data Allergies Allergy/AdvReac Type Severity Reaction Status Date / Time fish oil Allergy Severe RASH Verified 12/20/20 15:37 vancomycin Allergy Mild Rash Verified 12/20/20 15:37 shellfish derived AdvReac Intermediate VOMITTING Verified 12/20/20 15:37 lisinopril AdvReac Mild COUGH Verified 12/20/20 15:37 Consultations 12/20/20 17:53 ED Decision to Admit Stat Ordered Studies 12/20/20 16:11 CT angio chest PE protocol Stat Hospital Course (1) Acute respiratory failure with hypoxia: (2) COPD (chronic obstructive pulmonary disease): Acute respiratory failure with hypoxia COPD exacerbation -CTA:No evidence for pulmonary embolus. Stable mild paraesophageal lymphadenopathy. Decrease in the cluster of nodular densities within the right lower lobe. Therefore, these are likely benign. No new focal lung consolidations to suggest pneumonia. -Negative COVID Screen -ECHO : EF 60 to 65%. Moderate concentric LVH. Grade 1 diastolic dysfunction. -Sputum culture: Moderate normal lidia -Continue bronchodilators, Solu-Medrol, Doxy -Titrate oxygen to keep saturations 88-92% -Clinically much better and awaiting to do steps O2 saturation before discharge this afternoon -Did very well with PT and OT evaluation Abnormal EKG Echo pending-as above Patient denies chest pain Negative troponins Hypertension BP stable Continue home medications Needs sleep study as outpatient CAD S/P multiple PCIs Continue aspirin, Plavix, beta-win, statin, isosorbide Denies any chest pain and or palpitation HLD Continue atorvastatin Obesity BMI 37 DVT Px: SQ Lovenox Code Status: Full Code We will discharge home this afternoon Total Time Total Time Spent Total Time Spent (In Minutes): 35 minutes Total Time Includes: Examination of the Patient, Discharge Planning, Medication Reconciliation and Communication With Other Providers Discharge Plan Discharge Items Patient Disposition: Home - Self-Care Reason For Visit: HYPOXIA, RESP FAILURE Discharge Diagnosis: Acute respiratory failure with hypoxia, COPD exacerbation, CAD status post multiple PCI's, hypertension Condition on Discharge: Good Activity: Resume your previous activity Non-emergency contact: Primary Care Provider Call non-emergency contact if: you have any medication questions and your symptoms worsen Follow-up/Referrals: Jeimy Zavala MD [Primary Care Provider] - (Date & Time 12/26/2020 11:00 AM Provider Jeimy Zavala MD Department General Internal Medicine [facility] ) Diet: Heart Healthy Addtl Attending Provider Instructions: Please use oxygen as advised Take your medications as prescribed You need to have an outpatient sleep study through your PCP to rule out sleep apnea Pending Studies at Discharge: No Stand-Alone Forms: My [facility] [employer], Smoking Cessation Medications and DC Order Prescriptions: New doxycycline hyclate 100 mg Capsule 100 mg PO BID 4 Days Qty: 8 RF: 0 prednisone 10 mg tablet 10 mg PO UD Qty: 18 RF: 0 Continued gabapentin 100 mg Capsule 100 mg PO BID RF: 0 isosorbide mononitrate 30 mg Tablet Extended Release 24 Hr 30 mg PO QAM RF: 0 folic acid 1 mg Tablet 1 mg PO QAM RF: 0 lutein 20 mg Capsule 20 mg PO QAM RF: 0 atorvastatin 80 mg Tablet 80 mg PO HS RF: 0 ProAir RespiClick 90 mcg/actuation Aerosol Powdr Breath Activated 2 puff INHALATION Q6H PRN (Reason: Shortness Of Breath) RF: 0 nitroglycerin [Nitrostat] 0.4 mg Tablet, Sublingual 0.4 mg Sublingual UD PRN (Reason: Chest Pain) RF: 0 olmesartan [Benicar] 40 mg Tablet 40 mg PO QAM RF: 0 clopidogrel [Plavix] 75 mg Tablet 75 mg PO QAM RF: 0 vitamin B complex Tablet 1 tab PO QAM RF: 0 Probiotic Acidophilus tablet 1 tab PO QAM RF: 0 tamsulosin 0.4 mg Capsule 0.4 mg PO HS Qty: 0 RF: 0 carvedilol [Coreg] 25 mg Tablet 25 mg PO BID RF: 0 spironolactone 25 mg tablet 12.5 mg PO QAM RF: 0 amlodipine 10 mg Tablet 10 mg PO QAM RF: 0 aspirin [Aspirin Childrens] 81 mg Tablet,Chewable 81 mg PO HS RF: 0 furosemide 20 mg tablet 20 mg PO QAM RF: 0 cholecalciferol (vitamin D3) [Vitamin D3] 25 mcg (1,000 unit) Capsule 25 mcg PO QAM RF: 0 Entyvio 300 mg Recon Soln 300 mg IV .Q8WK RF: 0 Incruse Ellipta 62.5 mcg/actuation blister with device 1 inh INHALATION QAM RF: 0 Discharge Orders: Discharge Order (Routine); Ordered 12/25/20 Ordered By: Trice Wetzel Admission Data Admit Date/Time: 12/20/20 18:26 Attending Provider: Trice Wetzel Admit Provider: Michael Marrufo Primary Care Provider: Jeimy Zavala Other Providers: Michael Marrufo ; Karson Elena Other Interventions: Discharge Summary Assessment (RN) Last Done: 12/25/20 14:04
== END 2020-12-25 15:55 | disposition home or self-care (01) | DRG 190 ==
LOC: ED 14:03 → 2N 18:26 → SUATTDRO 18:26 → 2N 20:02

== ENCOUNTER 2022-09-15 18:55 | Observation (INO) ==
[2022-09-15 19:57] LABS: Hematocrit (blood only) 41.3 % (40.1-51.0); Hemoglobin 13.6 g/dl (14.0-18.0); Mean Corpuscular Hemoglobin 27.9 pg (25.0-34.0); Mean Corpuscular Hgb Conc 32.9 g/dL (32.0-36.0); Mean Corpuscular Volume 84.8 fL (80.0-100.0); Mean Platelet Volume 11.1 fL (9.4-12.4); Platelet Count 253 K/uL (130-400); RDW Coefficient of Variation 13.5 % (11.5-14.5); RDW Standard Deviation 41.9 fL (36.4-46.3); Red Blood Count 4.87 M/uL (4.63-6.08)
[2022-09-15 19:59] LABS: Appearance Urine Clear (Clear); Bilirubin Urine Negative (Negative); Blood Urine Negative (Negative); Color Urine Yellow; Glucose Urine UA Negative (Negative); Ketones Urine Negative (Negative); Leukocyte Esterase Urine Negative (Negative); Nitrite Urine Negative (Negative); Protein Urine Negative (Negative); Specific Gravity Urine 1.018 (1.000-1.030); Urobilinogen Urine Negative (Negative); pH Urine 6.5 (4.5-7.5)
[2022-09-15] MEDS ORDERED: SODIUM CHLORIDE 0.9% 1000ML 1,000 ML IV ONE (22:35)
--- NOTE | 2022-09-15 22:39 | Emergency Department Note ---
Impression & Plan BRBPR (bright red blood per rectum), Diverticulitis large intestine, History of CAD (coronary artery disease) ED Provider Note Provider: Hernan Cardenas MD DATE OF SERVICE: 09/15/2022 CHIEF COMPLAINT: Bleeding per rectum HISTORY OF PRESENT ILLNESS: Patient is a 71-year-old gentleman history of ulcerative colitis, COPD, hypertension, cardiac disease on aspirin Plavix presenting here today reporting that sinus mornings and 7 episode of significant bloody bowel movements with some clots. Little bit of left lower abdominal discomfort. Denies nausea. Has been eating and drinking today. Denies trauma. Reports a history of ulcerative colitis as well as somewhat distantly diverticulitis. No sick contacts reported. No fevers reported. Patient states he did feel a bit lightheaded or faint earlier but has not passed out or fallen. No vomiting reported and has again been eating okay. present and contributes to history. PAST MEDICAL HISTORY: As noted above MEDICATIONS: Reviewed is on aspirin and Plavix SOCIAL HISTORY: and lives in [place] PHYSICAL EXAM: GENERAL: alert and oriented in no acute distress on stretcher Head: normocephalic and atraumatic EYES: No injection, discharge or icterus. NECK: Trachea midline. ENT: Mucous membranes pink and moist. LUNGS: Airway patent. No retractions. Breath sounds clear HEART: Regular rate and rhythm. No chest wall tenderness ABDOMEN: Soft with some slight left lower quadrant tenderness. No guarding. No peritonitis. SKIN: Acyanotic, warm, dry, without rashes EXTREMITIES: Without swelling, tenderness or deformity NEUROLOGICAL: No focal deficits. No aphasia. No facial droop or slurred speech. Ambulatory. EK bpm sinus bradycardia first-degree AV block. No acute ST segment elevation or depression with QTC of 420. CONTINUOUS CARDIAC MONITORING: was ordered and showed a heart rate of 50s bpm in sinus bradycardia Patient's laboratory studies and imaging reviewed. Differential includes Diverticulosis, AVM, coagulopathy, colitis, inflammatory bowel disease, malignancy, Tracie-Carter tear, esophagitis, peptic ulcer disease, variceal bleed, gastritis, epistaxis, fissure, hemorrhoids, as well as other pathologies. IMPRESSION/MEDICAL DECISION MAKING: Patient with history diverticulitis and also colitis now with bright red blood per rectum multiple episodes a day. No vomiting or significant heartburn symptoms. Doubt this represents upper GI bleed. Somewhat lower quadrant tenderness. Given his history of UC as well as possible diverticulitis we will complete a CT scan here. Basic blood are obtained without significant anemia or leukocytosis. Doubt sepsis. EKG was completed as well troponin is lightheadedness seems likely more related to his abdominal complaints. No recent antibiotics or sick contacts and doubt this represents C. difficile colitis or infective colitis. Episode of bloody diarrhea while here. [id number] hemoglobin later obtained as well as redraw for chemistries. Stable renal function. No severe electrolyte abnormality. [id number] hemoglobin is somewhat downtrending from earlier hemoglobin but mildly so. Troponin not elevated. Evidence of hepatitis or pancreatitis. CRP minimally elevated 0.83. Negative urinalysis. Negative COVID. CT report as below with evidence of focal diverticulitis. Discussed with the patient. Given his discomfort and significant bleeding in addition to being covered with Zosyn discussed further observation in the hospital. Again patient on aspirin and Plavix likely exacerbating his bloody bowel movements and has had several while here. DIAGNOSIS: Bright red blood per rectum, diverticulitis, history of CAD DISPOSITION: Hospitalist will evaluate Patient was agreeable with this plan. Preliminary Findings Only See Final Report For Complete Findings CT ABDOMEN & PELVIS With Contrast: Diverticulosis. There appears to be a small amount of inflammation and thickening of a diverticulum in the mid sigmoid colon likely representing a small focal area of diverticulitis (series 2, image 76). No extraluminal air or abnormal fluid. No evidence of bowel obstruction. There is a normal appendix. Bilateral nonobstructing renal calculi. No mass or lymphadenopathy. The prostate gland is enlarged.. Radiologist: Alexi Perdue MD Study ready at 00:50 and initial results transmitted at 01:07 Past Med/Surg History Medical History BPH (benign prostatic hyperplasia) CAD (coronary artery disease) follows with Dr. Laguerre Cardiac murmur COPD (chronic obstructive pulmonary disease) Frequent PVCs History of myocardial infarction 2014 History of skin cancer HLD (hyperlipidemia) HTN (hypertension) Pre-diabetes Ulcerative colitis Surgical History History of cardiac catheterization multiple w/ stents 1997, 2008, 2013, 2019 History of colonoscopy History of esophagogastroduodenoscopy (EGD) History of heart artery stent x 4 (last placed 2018) History of Mohs micrographic surgery for skin cancer multiple Family History Other Heart disease No family history of adverse response to anesthesia Stroke Social History Smoking Status: Never smoker Second Hand Exposure: No; Hx Alcohol Use: No Hx Substance Use: No Preferred Language: Kazakh Communication Ability: Effective Medical Cost Consultant Required: No Beliefs That Will Affect Care: None Current Living Situation: Spouse Feels Safe at Home: Yes Assistive Devices: Glasses and Oxygen - Continuous Allergies Allergies Allergy/AdvReac Type Severity Reaction Status Date / Time fish oil Allergy Severe RASH Verified 06/30/21 11:37 vancomycin Allergy Mild Rash Verified 06/30/21 11:37 shellfish derived AdvReac Intermediate VOMITTING Verified 06/30/21 11:37 lisinopril AdvReac Mild COUGH Verified 06/30/21 11:37 Home Meds Home Medications Medication Instructions Recorded Confirmed albuterol sulfate 90 mcg/actuation 2 puff inhalation Q6H PRN 07/04/18 06/30/21 breath activated powder inhaler Shortness Of Breath (ProAir RespiClick) atorvastatin 80 mg tablet 80 mg PO HS 07/04/18 06/30/21 clopidogrel 75 mg tablet (Plavix) 75 mg PO QAM 07/04/18 06/30/21 folic acid 1 mg tablet 1 mg PO QAM 07/04/18 06/30/21 gabapentin 100 mg capsule 100 mg PO HS 07/04/18 06/30/21 isosorbide mononitrate 30 mg 30 mg PO QAM 07/04/18 06/30/21 tablet,extended release 24 hr lutein 20 mg capsule 20 mg PO QAM 07/04/18 06/30/21 nitroglycerin 0.4 mg sublingual 0.4 mg sublingual UD PRN Chest Pain 07/04/18 06/30/21 tablet (Nitrostat) olmesartan 40 mg tablet (Benicar) 40 mg PO QAM 07/04/18 06/30/21 vitamin B complex 1 tab PO QAM 07/04/18 06/30/21 tamsulosin 0.4 mg capsule 0.4 mg PO HS ##0 10/12/18 06/30/21 amlodipine 10 mg tablet 10 mg PO QAM 12/20/20 06/30/21 aspirin 81 mg chewable tablet 81 mg PO HS 12/20/20 06/30/21 (Aspirin Childrens) carvedilol 25 mg tablet (Coreg) 25 mg PO BID 12/20/20 06/30/21 cholecalciferol (vitamin D3) 25 25 mcg PO QAM 12/20/20 06/30/21 mcg (1,000 unit) capsule (Vitamin D3) furosemide 20 mg tablet 20 mg PO QAM 12/20/20 06/30/21 spironolactone 25 mg tablet 12.5 mg PO HS 12/20/20 06/30/21 umeclidinium 62.5 mcg/actuation 1 inh inhalation [facility] 12/20/20 06/30/21 blister powder for inhalation (Incruse Ellipta) vedolizumab 300 mg intravenous 300 mg IV .Q8WK 12/20/20 06/30/21 solution (Entyvio) fluticasone propionate 50 2 spray intranasal DAILY PRN 06/30/21 06/30/21 mcg/actuation nasal Allergy Symptoms spray,suspension (Flonase Allergy Relief) lactobacillus combination no.4 3 3,000 mmu cells PO QAM 06/30/21 06/30/21 billion cell capsule (Probiotic) Previous Rx's Medication Instructions Recorded oxycodone 5 mg tablet 5 mg PO Q6 PRN pain #12 tabs 06/30/21 amoxicillin 500 mg-potassium 1 tab PO TID #30 tabs 05/10/22 clavulanate 125 mg tablet (Augmentin) Results & Data (ED) Vital Signs Vital Signs - 24 hr 09/15/22 18:59 09/15/22 23:00 09/16/22 00:31 Temperature 36.8 C Temperature Source Temporal Artery Scan Pulse Rate - Lying 56 L Pulse Rate - Sitting 69 Pulse Rate - Standing 70 Pulse Rate 70 Pulse Rate [Apical] 52 L Respiratory Rate 18 15 Respiratory Effort / Characteristics Non-Labored Non-Labored Spontaneous Respiratory Depth Normal Normal Blood Pressure - Lying 126/60 Blood Pressure - Sitting 127/55 L Blood Pressure- Standing 119/63 Blood Pressure 158/77 H Blood Pressure [Right Arm] Blood Pressure Mean 104 Blood Pressure Mean [Right Arm] Pulse Oximetry 90 92 Oxygen Delivery Method Room Air Room Air Oxygen Flow Rate Sepsis Recent Fever Within 48 Hours No Sepsis New/Unexplained Change in Mental Status No Sepsis Action Taken by Nursing No Action Required Oxygen Flow Rate - Titration Pulse Oximetry Post Tiitration 09/16/22 01:00 09/16/22 01:01 09/16/22 01:11 Temperature Temperature Source Pulse Rate - Lying Pulse Rate - Sitting Pulse Rate - Standing Pulse Rate Pulse Rate [Apical] 59 L Respiratory Rate 20 Respiratory Effort / Characteristics Non-Labored Spontaneous Respiratory Depth Normal Blood Pressure - Lying Blood Pressure - Sitting Blood Pressure- Standing Blood Pressure Blood Pressure [Right Arm] 119/63 Blood Pressure Mean Blood Pressure Mean [Right Arm] 81 Pulse Oximetry 90 90 88 L Oxygen Delivery Method Room Air Room Air Nasal Cannula Oxygen Flow Rate 0 Sepsis Recent Fever Within 48 Hours Sepsis New/Unexplained Change in Mental Status Sepsis Action Taken by Nursing Oxygen Flow Rate - Titration 2 Pulse Oximetry Post Tiitration 93 Laboratory Data 09/15/22 19:29 09/15/22 19:29 Lab Results 09/15/22 09/15/22 09/15/22 Range/Units 19:29 19:29 19:29 WBC 7.40 (4.8-10.8) K/ul RBC 4.87 (4.63-6.08) M/uL Hgb 13.6 L (14.0-18.0) g/dl POC Hgb (14.0-18.0) g/dl Hct 41.3 (40.1-51.0) % POC Hct (42-52) % MCV 84.8 (80.0-100.0) fL MCH 27.9 (25.0-34.0) pg MCHC 32.9 (32.0-36.0) g/dL RDW Std Deviation 41.9 (36.4-46.3) fL RDW Coeff of Lfo 13.5 (11.5-14.5) % Plt Count 253 (130-400) K/uL MPV 11.1 (9.4-12.4) fL ESR (0-20) mm/hr PT Cancelled INR Cancelled APTT Cancelled PTT Ratio Cancelled POC Sodium (135-144) mmol/L Sodium Cancelled POC Potassium (3.3-5.0) mmol/L Potassium Cancelled POC Chloride (101-112) mmol/L Chloride Cancelled Carbon Dioxide Cancelled POC Total CO2 (24-31) mmol/L Anion Gap Cancelled POC Anion Gap (16-25) mmol/L POC BUN (7-18) mg/dl BUN Cancelled Creatinine Cancelled POC Creatinine (0.6-1.3) mg/dl Est Cr Clr Drug Dosing Cancelled Est GFR ( Amer) Cancelled Est GFR (Non-Af Amer) Cancelled BUN/Creatinine Ratio Cancelled Glucose Cancelled POC Glucose (other) (70-99) mg/dl Calcium Cancelled POC Ioniz Calcium Annita (1.12-1.32) mmol/l Total Bilirubin Cancelled AST Cancelled ALT Cancelled Alkaline Phosphatase Cancelled Troponin I High Sens (0-20) pg/ml C-Reactive Protein (0-0.5) mg/dl Total Protein Cancelled Albumin Cancelled Globulin Cancelled Albumin/Globulin Ratio Cancelled Lipase (11-82) U/L Urine Color Urine Appearance (Clear) Urine pH (4.5-7.5) Ur Specific Burden (1.000-1.030) Urine Protein (Negative) Urine Glucose (UA) (Negative) Urine Ketones (Negative) Urine Blood (Negative) Urine Nitrite (Negative) Urine Bilirubin (Negative) Urine Urobilinogen (Negative) Ur Leukocyte Esterase (Negative) SARS-CoV-2, RNA, NAAT (NEGATIVE) Blood Type Antibody Screen 09/15/22 09/15/22 09/15/22 Range/Units 19:29 19:35 23:40 WBC (4.8-10.8) K/ul RBC (4.63-6.08) M/uL Hgb (14.0-18.0) g/dl POC Hgb (14.0-18.0) g/dl Hct (40.1-51.0) % POC Hct (42-52) % MCV (80.0-100.0) fL MCH (25.0-34.0) pg MCHC (32.0-36.0) g/dL RDW Std Deviation (36.4-46.3) fL RDW Coeff of Flo (11.5-14.5) % Plt Count (130-400) K/uL MPV (9.4-12.4) fL ESR (0-20) mm/hr PT INR APTT PTT Ratio POC Sodium (135-144) mmol/L Sodium POC Potassium (3.3-5.0) mmol/L Potassium POC Chloride (101-112) mmol/L Chloride Carbon Dioxide POC Total CO2 (24-31) mmol/L Anion Gap POC Anion Gap (16-25) mmol/L POC BUN (7-18) mg/dl BUN Creatinine POC Creatinine (0.6-1.3) mg/dl Est Cr Clr Drug Dosing Est GFR ( Amer) Est GFR (Non-Af Amer) BUN/Creatinine Ratio Glucose POC Glucose (other) (70-99) mg/dl Calcium POC Ioniz Calcium Annita (1.12-1.32) mmol/l Total Bilirubin AST ALT Alkaline Phosphatase Troponin I High Sens (0-20) pg/ml C-Reactive Protein (0-0.5) mg/dl Total Protein Albumin Globulin Albumin/Globulin Ratio Lipase (11-82) U/L Urine Color Yellow Urine Appearance Clear (Clear) Urine pH 6.5 (4.5-7.5) Ur Specific Burden 1.018 (1.000-1.030) Urine Protein Negative (Negative) Urine Glucose (UA) Negative (Negative) Urine Ketones Negative (Negative) Urine Blood Negative (Negative) Urine Nitrite Negative (Negative) Urine Bilirubin Negative (Negative) Urine Urobilinogen Negative (Negative) Ur Leukocyte Esterase Negative (Negative) SARS-CoV-2, RNA, NAAT NEGATIVE (NEGATIVE) Blood Type A Positive Antibody Screen NEGATIVE 09/15/22 09/15/22 09/15/22 Range/Units 23:44 23:44 23:44 WBC (4.8-10.8) K/ul RBC (4.63-6.08) M/uL Hgb (14.0-18.0) g/dl POC Hgb (14.0-18.0) g/dl Hct (40.1-51.0) % POC Hct (42-52) % MCV (80.0-100.0) fL MCH (25.0-34.0) pg MCHC (32.0-36.0) g/dL RDW Std Deviation (36.4-46.3) fL RDW Coeff of Flo (11.5-14.5) % Plt Count (130-400) K/uL MPV (9.4-12.4) fL ESR 27 H (0-20) mm/hr PT 11.3 INR 1.1 APTT 23.7 PTT Ratio 0.9 POC Sodium (135-144) mmol/L Sodium 140 POC Potassium (3.3-5.0) mmol/L Potassium 3.9 POC Chloride (101-112) mmol/L Chloride 107 Carbon Dioxide 28 POC Total CO2 (24-31) mmol/L Anion Gap 5 POC Anion Gap (16-25) mmol/L POC BUN (7-18) mg/dl BUN 14 Creatinine 0.73 POC Creatinine (0.6-1.3) mg/dl Est Cr Clr Drug Dosing 120.9 Est GFR ( Amer) 109.7 Est GFR (Non-Af Amer) 94.6 BUN/Creatinine Ratio 19.2 Glucose 147 H POC Glucose (other) (70-99) mg/dl Calcium 9.4 POC Ioniz Calcium Annita (1.12-1.32) mmol/l Total Bilirubin 0.4 AST 17 ALT 28 Alkaline Phosphatase 72 Troponin I High Sens 6.3 (0-20) pg/ml C-Reactive Protein 0.83 H (0-0.5) mg/dl Total Protein 6.2 Albumin 3.2 L Globulin 3.0 Albumin/Globulin Ratio 1.1 Lipase 34 (11-82) U/L Urine Color Urine Appearance (Clear) Urine pH (4.5-7.5) Ur Specific Burden (1.000-1.030) Urine Protein (Negative) Urine Glucose (UA) (Negative) Urine Ketones (Negative) Urine Blood (Negative) Urine Nitrite (Negative) Urine Bilirubin (Negative) Urine Urobilinogen (Negative) Ur Leukocyte Esterase (Negative) SARS-CoV-2, RNA, NAAT (NEGATIVE) Blood Type Antibody Screen 09/15/22 Range/Units 23:47 WBC (4.8-10.8) K/ul RBC (4.63-6.08) M/uL Hgb (14.0-18.0) g/dl POC Hgb 12.9 L (14.0-18.0) g/dl Hct (40.1-51.0) % POC Hct 38 L (42-52) % MCV (80.0-100.0) fL MCH (25.0-34.0) pg MCHC (32.0-36.0) g/dL RDW Std Deviation (36.4-46.3) fL RDW Coeff of Flo (11.5-14.5) % Plt Count (130-400) K/uL MPV (9.4-12.4) fL ESR (0-20) mm/hr PT INR APTT PTT Ratio POC Sodium 142 (135-144) mmol/L Sodium POC Potassium 3.7 (3.3-5.0) mmol/L Potassium POC Chloride 102 (101-112) mmol/L Chloride Carbon Dioxide POC Total CO2 33 H (24-31) mmol/L Anion Gap POC Anion Gap 12.0 L (16-25) mmol/L POC BUN 13 (7-18) mg/dl BUN Creatinine POC Creatinine 0.9 (0.6-1.3) mg/dl Est Cr Clr Drug Dosing Est GFR ( Amer) Est GFR (Non-Af Amer) BUN/Creatinine Ratio Glucose POC Glucose (other) 150 H (70-99) mg/dl Calcium POC Ioniz Calcium Annita 1.31 (1.12-1.32) mmol/l Total Bilirubin AST ALT Alkaline Phosphatase Troponin I High Sens (0-20) pg/ml C-Reactive Protein (0-0.5) mg/dl Total Protein Albumin Globulin Albumin/Globulin Ratio Lipase (11-82) U/L Urine Color Urine Appearance (Clear) Urine pH (4.5-7.5) Ur Specific Burden (1.000-1.030) Urine Protein (Negative) Urine Glucose (UA) (Negative) Urine Ketones (Negative) Urine Blood (Negative) Urine Nitrite (Negative) Urine Bilirubin (Negative) Urine Urobilinogen (Negative) Ur Leukocyte Esterase (Negative) SARS-CoV-2, RNA, NAAT (NEGATIVE) Blood Type Antibody Screen Administered Medications Discontinued Medications Sodium Chloride (Nss 1000ml) 1,000 mls @ 999 mls/hr IV .Q1H1M ONE Stop: 09/15/22 23:35 Last Infusion: 09/16/22 01:04 Dose: 0 mls/hr Documented By: Admin: 09/15/22 23:34 Dose: 999 mls/hr Documented By: JEWEL Ioversol (Optiray 350 100ml) 100 ml IV ONCE ONE Stop: 09/16/22 00:25 Last Admin: 09/16/22 00:24 Dose: 85 ml Documented By: FRED Discharge Plan Visit Data Chief Complaint: GI Bleed Stated Complaint: BLOOD IN STOOL, GI SYMPTOMS ED Provider: Hernan Cardenas Discharge Problem: BRBPR (bright red blood per rectum), Diverticulitis large intestine, History of CAD (coronary artery disease) Patient Disposition: Being Evaluated by Hospitalist Forms Stand Alone Forms: My New [facility] Prescriptions Prescriptions: No Action gabapentin 100 mg Capsule 100 mg PO HS isosorbide mononitrate 30 mg Tablet Extended Release 24 Hr 30 mg PO QAM folic acid 1 mg Tablet 1 mg PO QAM lutein 20 mg Capsule 20 mg PO QAM atorvastatin 80 mg Tablet 80 mg PO HS ProAir RespiClick 90 mcg/actuation Aerosol Powdr Breath Activated 2 puff INHALATION Q6H PRN (Reason: Shortness Of Breath) nitroglycerin [Nitrostat] 0.4 mg Tablet, Sublingual 0.4 mg Sublingual UD PRN (Reason: Chest Pain) Rx Instructions: NEEDED FOR CHEST PAIN: ONE TABLET UNDER THE TONGUE EVERY 5 MINUTES UP TO 3 DOSES. olmesartan [Benicar] 40 mg Tablet 40 mg PO QAM clopidogrel [Plavix] 75 mg Tablet 75 mg PO QAM vitamin B complex Tablet 1 tab PO QAM tamsulosin 0.4 mg Capsule 0.4 mg PO HS Qty: 0 carvedilol [Coreg] 25 mg Tablet 25 mg PO BID spironolactone 25 mg tablet 12.5 mg PO HS amlodipine 10 mg Tablet 10 mg PO QAM aspirin [Aspirin Childrens] 81 mg Tablet,Chewable 81 mg PO HS furosemide 20 mg tablet 20 mg PO QAM cholecalciferol (vitamin D3) [Vitamin D3] 25 mcg (1,000 unit) Capsule 25 mcg PO QAM Entyvio 300 mg Recon Soln 300 mg IV .Q8WK Incruse Ellipta 62.5 mcg/actuation blister with device 1 inh INHALATION QAM fluticasone propionate [Flonase Allergy Relief] 50 mcg/actuation spray,suspension 2 spray INTRANASAL DAILY PRN (Reason: Allergy Symptoms) Probiotic 3 billion cell Capsule 3,000 mmu cells PO QAM oxycodone 5 mg tablet 5 mg PO Q6 PRN (Reason: pain) Qty: 12 0RF amoxicillin-pot clavulanate [Augmentin] 500-125 mg tablet 1 tab PO TID Qty: 30 0RF Referrals Referrals: Jeimy Zavala MD [Primary Care Provider] - : Diverticulitis large intestine Qualifiers: Diverticulitis bleeding: with bleeding Diverticulitis complication: without perforation or abscess Qualified Code(s): K57.33 - Diverticulitis of large intestine without perforation or abscess with bleeding
[2022-09-16] LABS: iSTAT Creatinine 0.9 mg/dl (0.6-1.3); iSTAT Hemoglobin 12.9 g/dl (14.0-18.0); iSTAT Ionized Calcium 1.31 mmol/l (1.12-1.32); iSTAT Potassium 3.7 mmol/L (3.3-5.0)
[2022-09-16 00:06] LABS: INR 1.1 (0.9-1.1); Partial Thromboplastin Ratio 0.9; Partial Thromboplastin Time 23.7 Seconds (21.0-31.0); Prothrombin Time 11.3 Seconds (9.0-12.0)
[2022-09-16 00:23] LABS: Albumin Globulin Ratio 1.1 (0.9-2); Albumin Level 3.2 gm/dl (3.4-5.0); BUN Creatinine Ratio 19.2 (10-20); Bilirubin,Total 0.4 mg/dl (0.2-1.0); C Reactive Protein 0.83 mg/dl (0-0.5); Calcium 9.4 mg/dl (8.5-10.1); Creatinine Clr Calc Pharmacy 120.9 ml/min; Est GFR (African American) 109.7 ml/min; Est GFR (Non-African American) 94.6 ml/min; Potassium 3.9 mmol/L (3.5-5.1); Total Protein 6.2 gm/dl (6.0-8.3)
[2022-09-16] MEDS ORDERED: OPTIRAY 350 100ml IV ONE (00:24)
[2022-09-16 00:26] LABS: Troponin I High Sensitivity 6.3 pg/ml (0-20)
[2022-09-16] MEDS ORDERED: PIPERACILLIN/TAZOBACTAM 4.5 GM/120 ML BAG IV ONE (01:16)
[2022-09-16] MEDS ORDERED: CARBOHYDRATES FOR HYPOGLYCEMIA PO PRN (03:29)
[2022-09-16] MEDS ORDERED: NITROGLYCERIN SL 0.4 MG/TAB TAB SL PRN ×2 (03:29)
[2022-09-16] MEDS ORDERED: GLUCOSE 10 TAB/TUBE PO PRN (03:29)
[2022-09-16] MEDS ORDERED: GLUCAGON FOR INJ 1 MG VIAL SQ PRN (03:29)
[2022-09-16] MEDS ORDERED: ACETAMINOPHEN 325 MG TAB PO PRN (03:29)
[2022-09-16] MEDS ORDERED: DEXTROSE 50% 50 ML SYRINGE IV PRN (03:29)
[2022-09-16] MEDS ORDERED: GLUCOSE 40% GEL 15 GM TUBE PO PRN (03:29)
[2022-09-16] MEDS: SODIUM CHLORIDE 0.9% 1000ML 1,000 ML IV SCH ×2 (04:13→16:01)
[2022-09-16] MEDS: INSULIN ASPART PER UNIT SC SCH ×4 (04:13→20:11)
--- NOTE | 2022-09-16 04:21 | History and Physical Report ---
DATE OF ADMISSION: 09/16/2022 CHIEF COMPLAINT: Rectal bleed. HISTORY OF PRESENT ILLNESS: This is a 71-year-old male with past medical history significant for history of hyperparathyroidism,parathyroid hyperplasia, hyperlipidemia, prediabetes, COPD, restrictive lung disease, history of coronary artery disease, status post stents, last stent was few years ago as per patient,, hypertension, history of frequent PVCs, chronic diastolic CHF, history of ulcerative colitis, GERD, vitamin D deficiency, osteopenia, lumbar radiculopathy, IgM monoclonal gammopathy, history of asbestos exposure, history of tobacco use, presents with rectal bleed. The patient says since yesterday morning he had several episodes of rectal bleed, which was not getting better, so came to the ER. His hemoglobin is 13.6. Resting comfortably, hemodynamically stable. Denies any headache. No blurred visions, no runny nose, no sore throat, no cough, no fevers, no chest pain. He says he is always having some shortness of breath because of his COPD. No nausea, no vomiting, no abdominal discomfort. Normal bladder movements. Currently, no swelling in the legs. ALLERGIES: FISH OIL, VANCOMYCIN, SHELLFISH, LISINOPRIL. PAST MEDICAL HISTORY: As mentioned above. PAST SURGICAL HISTORY: Cardiac catheterization, cardiac stent placement, colonoscopy, colonoscopy with biopsy, colonoscopy with polypectomy, sigmoidoscopy with biopsy. MEDICATIONS: The patient is on albuterol 2 puffs inhalation q.i.d., amlodipine 10 mg p.o. a.m., aspirin 81 mg p.o. at bedtime, atorvastatin 80 mg p.o. at bedtime, Coreg 25 mg p.o. b.i.d., vitamin D 25 mcg p.o. a.m., Plavix 75 mg p.o. a.m., Entyvio 300 mg IV q. 8 weeks, Flonase 2 sprays intranasal daily, Trelegy Ellipta 1 inhalation daily, folic acid 1 mg p.o. a.m., Lasix 20 mg p.o. a.m., gabapentin 100 mg p.o. at bedtime, Imdur 30 mg p.o. a.m., probiotic 1 tablet p.o. a.m., lutein 20 mg p.o. a.m., metformin 500 mg p.o. a.m., nitroglycerin 0.4 mg sublingual p.r.n., Benicar 40 mg p.o. a.m., Flomax 0.4 mg p.o. a.m., vitamin B complex 1 tablet p.o. a.m. FAMILY HISTORY: Significant for aunt has diabetes; mother had diabetes, stroke; father had hypertension, stroke, son has hypertension. SOCIAL HISTORY: , former smoker, quit in 1989, smoked 2 packs a day for 25 years. No alcohol use. No drug use. REVIEW OF SYSTEMS: As per HPI. Rest of review of systems is negative. PHYSICAL EXAMINATION: GENERAL: The patient is of moderate build, not in acute distress. VITAL SIGNS: Temperature 36.8, pulse 59, respiratory rate 20, blood pressure 112/63, oxygen 90%. HEENT: Pupils equal, round and reactive to light. Oral mucosa moist. NECK: No JVD, no neck masses. CARDIOVASCULAR: S1 and S2 heard. Regular rate and rhythm. No murmur, no gallop. RESPIRATORY SYSTEM: Normal AP diameter. No accessory muscle use. No wheezing, crackles. ABDOMEN: Soft, bowel sounds present, nontender, no distention. CENTRAL NERVOUS SYSTEM: Cranial nerves II through XII are grossly intact, nonfocal. EXTREMITIES: No edema, no erythema. LABORATORY DATA: WBC 7.4, hemoglobin 13.6, hematocrit 41.3, platelets 253. PT 11.3, INR 1.1, APTT 23.7. Sodium 140, potassium 3.9, chloride 107, bicarbonate 28, BUN 14, creatinine 0.7, serum glucose 147, calcium 9.4, total bilirubin 0.4, AST 17, ALT 28, alkaline phosphatase 72. Troponin I high sensitivity 6.3. C- reactive protein 0.8. Urinalysis negative. SARS-CoV-2 rapid test negative. IMAGING DATA: CT of abdomen and pelvis preliminary report showed diverticulosis, small amount of inflammation and thickening of a diverticulum in the mid sigmoid colon, likely represent a small focal area of diverticulitis. EKG: Sinus bradycardia, sinus arrhythmia with first-degree AV block at rate of 57, no acute ST changes seen. No significant change from previous ECGs. ASSESSMENT AND PLAN: This is a 71-year-old male, who presents with rectal bleed. 1. Rectal bleed. CT imaging showing diverticulosis and also focal diverticulitis, possible source of bleeding. Starting on Zosyn, IV fluids, n.p.o. Consult GI in the a.m.Blood consent obtained. We will follow H and H q.6 hours. 2. History of coronary artery disease, status post stents. The patient says had four stents but not in last one year. We will hold aspirin and Plavix. Continue his statin and Coreg with holding parameters. 3. Hypertension. Coreg, Benicar, Lasix, Imdur and amlodipine with holding parameters. 4. History of benign prostatic hypertrophy. On Flomax. 5. History of chronic diastolic congestive heart failure, currently getting fluids. On Lasix, which we will continue with monitoring for volume overload. 6. History of frequent premature ventricular contractions, on beta win. 7. History of chronic obstructive pulmonary disease and restrictive lung disease. Continue home inhalers. 8. Prediabetes. We will hold metformin. Place on insulin sliding scale. Follow the blood sugar, follow HbA1c levels. 9. History of ulcerative colitis, On entyvio 10. history of gastroesophageal reflux disease: We will place on IV Protonix. 11. History of hyperparathyroidism. 12. Deep venous thrombosis prophylaxis: Sequential compression devices for now. DISPOSITION: Closely monitor in the tele floor. Level 1 full code. Expect to discharge home and follow with family doctor. Job ID: [id number] [facility]
[2022-09-16 04:50] LABS: Basophils # (auto) 0.02 K/uL (0-0.2); Basophils % (auto) 0.3 %; Eosinophils # (auto) 0.26 K/uL (0-0.50); Eosinophils % (auto) 3.7 %; Hematocrit (blood only) 36.8 % (40.1-51.0); Hemoglobin 11.9 g/dl (14.0-18.0); Immature Granulocytes # (auto) 0.03 K/uL (0.00-0.02); Immature Granulocytes % (auto) 0.4 %; Lymphocytes # (auto) 1.54 K/uL (1.2-3.4); Lymphocytes % (auto) 21.8 %; Mean Corpuscular Hemoglobin 27.5 pg (25.0-34.0); Mean Corpuscular Hgb Conc 32.3 g/dL (32.0-36.0); Mean Corpuscular Volume 85.2 fL (80.0-100.0); Mean Platelet Volume 10.9 fL (9.4-12.4); Monocytes % (auto) 9.9 %; Neutrophils # (auto) 4.52 K/uL (1.4-6.5); Neutrophils % (auto) 63.9 %; Platelet Count 220 K/uL (130-400); RDW Coefficient of Variation 13.5 % (11.5-14.5); RDW Standard Deviation 42.1 fL (36.4-46.3); Red Blood Count 4.32 M/uL (4.63-6.08); White Blood Count 7.07 K/ul (4.8-10.8)
[2022-09-16 05:16] LABS: Potassium 3.9 mmol/L (3.5-5.1)
[2022-09-16 05:17] LABS: BUN Creatinine Ratio 17.1 (10-20); Calcium 8.9 mg/dl (8.5-10.1); Creatinine Clr Calc Pharmacy 127.2 ml/min; Est GFR (African American) 111.6 ml/min; Est GFR (Non-African American) 96.3 ml/min; Magnesium 1.9 mg/dl (1.7-2.4)
[2022-09-16] MEDS: ALBUTEROL HFA 8 GM INHALER INH SCH ×2 (06:13→11:20)
[2022-09-16] MEDS: PIPERACILLIN/TAZOBACTAM 3.375 GM in DEXTROSE 5% 100 ML IV SCH ×2 (06:28→16:01)
[2022-09-16] MEDS: amLODIPine BESYLATE 5 MG TAB PO SCH (07:50)
[2022-09-16] MEDS: carvediloL 25 MG TAB PO SCH ×2 (07:52→22:31)
[2022-09-16] MEDS: CHOLECALCIFEROL 1,000 UNITS 25 MCG TAB PO SCH (07:53)
[2022-09-16] MEDS: FLUTICASONE FUROATE 100MCG 14 PUFFS/INHALER INH SCH (07:55)
[2022-09-16] MEDS: FLUTICASONE PROPIONATE NA SPR 16 GM BTL SCH (07:55)
[2022-09-16] MEDS: FOLIC ACID 1 MG TAB PO SCH (07:56)
[2022-09-16] MEDS: ADVANCED PROBIOTIC 1250 MG CAPSULE PO SCH (07:57)
[2022-09-16] MEDS: ISOSORBIDE MONO EXTENDED REL 30 MG TABCR PO SCH (07:57)
[2022-09-16] MEDS: OLMESARTAN MEDOXOMIL 40 MG TAB PO SCH (07:58)
[2022-09-16] MEDS: TAMSULOSIN HCL 0.4 MG CAP PO SCH (07:59)
[2022-09-16] MEDS: VITAMIN B COMPLEX TAB PO SCH (08:00)
[2022-09-16] MEDS: UMECLIDINIUM/VILANTEROL 62.5/25MCG 7 PUFFS/INHALER INH SCH (08:01)
--- NOTE | 2022-09-16 08:26 | CT Scan Report ---
CT SCAN OF THE ABDOMEN AND PELVIS WITH IV CONTRAST CLINICAL HISTORY: Hematochezia. COMPARISON STUDY: Abdominal CT dated 05/10/2022. TECHNIQUE: Following the IV administration of 85 cc of Optiray 350, CT scan of the abdomen and pelvi s is performed from the lung bases to the proximal femora. Images are reviewed in the axial, sagittal , and coronal planes. IV contrast was administered without complication. A dose lowering technique wa s utilized adhering to the principles of ALARA. CT DOSE: 1743.10 mGy.cm FINDINGS: Lung bases: The heart is mildly enlarged and without pericardial effusion. The coronary arteries are densely calcified. The lung bases are clear noting bibasilar atelectasis. Liver: The contrast-enhanced liver is normal in size, contour, and attenuation. There is no intrahepa tic biliary ductal dilatation. The hepatic veins and portal veins are patent. Scattered subcentimeter hepatic hypodensities likely represent cysts but are too small for definitive characterization. Gallbladder: Unremarkable. Spleen: Normal in size and attenuation. Pancreas: Unremarkable. Adrenal glands: Unremarkable. Kidneys: The contrast enhanced kidneys demonstrate mild cortical atrophy and are without hydronephros is. The kidneys enhance symmetrically. A 3.2 cm cyst is seen on the right. Additional subcentimeter c ortical hypodensities also likely represent cysts but are too small for definitive characterization. There are numerous tiny nonobstructing bilateral renal calculi which measure up to 4 mm. No ureteral stone is seen. Abdominal vasculature: There is advanced atherosclerotic calcification and mild ectasia of the abdomi nal aorta. Bowel: There is moderate to advanced colonic diverticulosis. There are foci of mild acute diverticuli tis involving the descending colon on image #[id number] and the sigmoid colon on image #374. No organized fl uid collection is seen to indicate abscess. Mild fecal retention is seen throughout the colon. There is no bowel obstruction. The appendix is well-visualized and normal. Peritoneum: There is no intraperitoneal free air or abdominal ascites. There is a fat-containing umbi lical hernia. Lymphadenopathy: None. Pelvic viscera: The prostate gland is markedly enlarged and heterogeneous noting median lobe hypertro phy. The bladder wall is thickened/trabeculated indicating chronic outlet obstruction. Skeletal structures: There is mild lumbosacral spondylosis. No lytic or blastic lesions are seen. IMPRESSION: 1. Moderate to advanced colonic diverticulosis with foci of mild acute diverticulitis involving both the descending and sigmoid colon. 2. No intraperitoneal free air is seen and there is no organized fluid collection to suggest abscess. 3. Cardiomegaly. 4. Bilateral nephrolithiasis. 5. Marked prostatomegaly with evidence of chronic bladder outlet obstruction. 6. Additional findings as above. ACT 112: Negative or not required by law. Electronically signed by: Socrates Wong M.D. 09/16/2022 8:25 AM
[2022-09-16] MEDS ORDERED: NON-FORMULARY MEDICATION (Lutein 20 mg Capsule) PO SCH (09:00)
--- NOTE | 2022-09-16 09:54 | Gastrointestinal Consultation ---
Date of Consultation September 16, 2022 Assessment & Plan (1) BRBPR (bright red blood per rectum): (2) Diverticulitis large intestine: (3) Ulcerative colitis: Plan His presentation is more typical of a diverticular bleed than UC flare. - Stool for culture, GI path - Hold diet today until timing of colonoscopy is decided ? here during admission vs. OP in a few months. - Antibiotics - currently on Zosyn. Supervising Physician Co-Signing Physician Notes Attg add: I interviewed and examined pt, reviewed chart and labs. Pt with painless rectal bleeding, h;/o UC. No pain on exam. Plan for cscopy tomorrow. History of Present Illness Reason for Consultation: Rectal bleed Requesting Physician: Dr. Cosby Attending Physician: Yaquelin Archer MD History of Present Illness Mr. Judd is a 71 yr old male pt of Dr. Jeimy Zavala w a hx of CAD, COPD, and ulcerative colitis (in remission on Entyvio) who presented to the ED yesterday for rectal bleeding. He passed about 10 loose/liquid BMs yesterday afternoon/evening consisting of bright/dark red blood w minimal fecal material. He has not had significant abdominal pain. No fevers/chills/sweats. No nausea/vomiting. No CP or SOB. He did feel a bit lightheaded while passing the BMs yesterday. His Hb on arrival was 13.6->11.[address] on arrival w diverticulosis, focal area of diverticulitis w/o abscess or perforation. He is on Plavix for cardiac stents (most recent > a yr ago) and ASA 81mg/day which have both been held. The pt is currently awake, alert, oriented, hemodynamically stable, w/o fever or leukocytosis. Most recent BM was late yesterday, here in the ED, dark red. Most recent colonoscopy was in April 2021 with diverticulosis, a 6mm polyp and w/o endoscopic or microscopic evidence of active UC. Allergies Allergy/AdvReac Type Severity Reaction Status Date / Time fish oil Allergy Severe RASH Verified 06/30/21 11:37 vancomycin Allergy Mild Rash Verified 06/30/21 11:37 shellfish derived AdvReac Intermediate VOMITTING Verified 06/30/21 11:37 lisinopril AdvReac Mild COUGH Verified 06/30/21 11:37 Home Medications Medication Instructions Recorded Confirmed Type atorvastatin 80 mg tablet 80 mg PO HS 07/04/18 09/16/22 History clopidogrel 75 mg tablet (Plavix) 75 mg PO QAM 07/04/18 09/16/22 History folic acid 1 mg tablet 1 mg PO QAM 07/04/18 09/16/22 History gabapentin 100 mg capsule 100 mg PO HS 07/04/18 09/16/22 History isosorbide mononitrate 30 mg 30 mg PO QAM 07/04/18 09/16/22 History tablet,extended release 24 hr lutein 20 mg capsule 20 mg PO QAM 07/04/18 09/16/22 History nitroglycerin 0.4 mg sublingual 0.4 mg sublingual UD PRN Chest Pain 07/04/18 09/16/22 History tablet (Nitrostat) olmesartan 40 mg tablet (Benicar) 40 mg PO QAM 07/04/18 09/16/22 History vitamin B complex 1 tab PO QAM 07/04/18 09/16/22 History tamsulosin 0.4 mg capsule 0.4 mg PO QA ##0 10/12/18 09/16/22 History amlodipine 10 mg tablet 10 mg PO QAM 12/20/20 09/16/22 History aspirin 81 mg chewable tablet 81 mg PO HS 12/20/20 09/16/22 History (Aspirin Childrens) carvedilol 25 mg tablet (Coreg) 25 mg PO AMHS 12/20/20 09/16/22 History cholecalciferol (vitamin D3) 25 25 mcg PO QAM 12/20/20 09/16/22 History mcg (1,000 unit) capsule (Vitamin D3) furosemide 20 mg tablet 20 mg PO QAM 12/20/20 09/16/22 History vedolizumab 300 mg intravenous 300 mg IV .Q8WK 12/20/20 09/16/22 History solution (Entyvio) fluticasone propionate 50 2 spray intranasal DAILY 06/30/21 09/16/22 History mcg/actuation nasal spray,suspension (Flonase Allergy Relief) lactobacillus combination no.4 3 3,000 mmu cells PO QAM 06/30/21 09/16/22 History billion cell capsule (Probiotic) albuterol sulfate 90 mcg/actuation 2 puff inhalation QID 09/16/22 09/16/22 History aerosol inhaler fluticasone fur. 100 mcg-umeclid 1 inh inhalation QAM 09/16/22 09/16/22 History 62.5 mcg-vilant 25 mcg inhalat.powder (Trelegy Ellipta) metformin 500 mg tablet,extended 500 mg PO QAM 09/16/22 09/16/22 History release 24 hr Patient History Medical History BPH (benign prostatic hyperplasia) CAD (coronary artery disease) follows with Dr. Laguerre Cardiac murmur COPD (chronic obstructive pulmonary disease) Frequent PVCs History of myocardial infarction 2014 History of skin cancer HLD (hyperlipidemia) HTN (hypertension) Pre-diabetes Ulcerative colitis Surgical History History of cardiac catheterization multiple w/ stents 1997, 2008, 2013, 2019 History of colonoscopy History of esophagogastroduodenoscopy (EGD) History of heart artery stent x 4 (last placed 2018) History of Mohs micrographic surgery for skin cancer multiple Family History Other Heart disease No family history of adverse response to anesthesia Stroke Social History Smoking Status: Former smoker Smoking End Date: 25 years ago; Second Hand Exposure: No; Hx Alcohol Use: No Hx Substance Use: No Preferred Language: Fijian Communication Ability: Effective Machine Worker Required: No Beliefs That Will Affect Care: None Current Living Situation: Spouse Feels Safe at Home: Yes Assistive Devices: None Review of Systems Review of Systems: ROS: Gen: + lightheaded yesterday. Denies fevers, weight loss Eyes: No eye redness, or pain, no recent vision changes Resp: No SOB, no cough Cardio: No palpitations/irregular beats, no chest pain GI: As per HPI, otherwise (-). : Denies pain on urination Skin: No jaundice, itching or new rashes Physical Exam Constitutional: well developed, well nourished, + obese, healthy appearing and well groomed; no acute distress Eyes: PERRL, conjunctivae normal, anicteric sclerae ENMT: external ear and nose normal, oropharynx normal Neck: trachea midline, no thyromegaly Respiratory: normal respiratory effort, lungs clear to auscultation Cardiovascular: RRR, no murmur, no edema Gastrointestinal (Abdomen): Inspection/Auscultation: abdomen normal to inspection and + hypoactive bowel sounds; abdomen not distended Percussion/Palpation: + abdomen tender (mildly tender across the lower abd/pelvis - bilat) and abdomen soft Musculoskeletal: no cyanosis or clubbing, extremities motor strength 5/5 Skin: no rashes, warm and dry Neurologic: PERRL, EOMI, accommodation nl, no face palsy, no dysarthria Psychiatric: A+Ox3, euthymic affect Lymphatic: no cervical or axillary lymphadenopathy Results & Data ([facility]) Vital Signs (Past 12 Hours) Vital Signs Temp Pulse Pulse Resp BP BP Pulse Ox 09/16/22 07:30 47 L 14 111/63 96 09/16/22 07:00 60 13 131/60 91 09/16/22 06:30 53 L 9 L 125/64 95 09/16/22 06:00 57 L 13 120/62 95 09/16/22 05:30 58 L 14 122/65 96 09/16/22 04:30 51 L 10 L 116/71 89 L 09/16/22 04:00 51 L 14 112/63 09/16/22 03:39 65 16 132/74 96 09/16/22 01:44 56 L 13 123/76 91 09/16/22 00:30 63 20 119/63 09/16/22 00:28 69 13 126/60 09/16/22 00:26 58 L 17 124/58 L 90 09/15/22 22:25 87 L 09/16/22 06:13 56 L 16 97 09/16/22 04:47 09/16/22 03:40 09/16/22 03:40 36.5 C 52 L 16 132/74 96 09/16/22 03:29 75 20 132/74 96 09/16/22 03:29 09/16/22 01:11 88 L 09/16/22 01:01 90 09/16/22 01:00 59 L 20 119/63 90 09/15/22 23:00 52 L 15 92 Pulse Ox O2 Del Method O2 Del Method O2 Flow Rate 09/16/22 07:30 09/16/22 07:00 09/16/22 06:30 09/16/22 06:00 09/16/22 05:30 09/16/22 04:30 09/16/22 04:00 09/16/22 03:39 09/16/22 01:44 09/16/22 00:30 09/16/22 00:28 09/16/22 00:26 09/15/22 22:25 09/16/22 06:13 Room Air 09/16/22 04:47 90 Room Air 09/16/22 03:40 Room Air 09/16/22 03:40 Nasal Cannula 2 09/16/22 03:29 Room Air 09/16/22 03:29 97 Room Air 09/16/22 01:11 Nasal Cannula 0 09/16/22 01:01 Room Air 09/16/22 01:00 Room Air 09/15/22 23:00 Room Air Laboratory Results WBC 7.07, Hb 11, Hct 2, Plts 220, INR 1.1, Na 141, K 3.9, Cl 109, CO2 28, BN 12, Cr 0.7, glucose 114. Diagnostic Findings CTAP w IV : 1. Moderate to advanced colonic diverticulosis with foci of mild acute diverticulitis involving both the descending and sigmoid colon. 2. No intraperitoneal free air is seen and there is no organized fluid collection to suggest abscess. 3. Cardiomegaly. 4. Bilateral nephrolithiasis. 5. Marked prostatomegaly with evidence of chronic bladder outlet obstruction. (1) Diverticulitis large intestine Diverticulitis bleeding: with bleeding Diverticulitis complication: without perforation or abscess Qualified Code(s): K57.33 - Diverticulitis of large intestine without perforation or abscess with bleeding
[2022-09-16 10:35] LABS: Estimated Average Glucose 143 mg/dl; Hemoglobin A1C 6.6 % (4.5-5.6)
[2022-09-16] MEDS: PANTOprazole 40 MG in SYRINGE 0 ML IV SCH (11:02)
[2022-09-16] MEDS ORDERED: ALBUTEROL HFA 8 GM INHALER INH PRN (11:37)
[2022-09-16] MEDS ORDERED: LAVAGE SOLUTION 4000ML PO SCH (14:00)
--- NOTE | 2022-09-16 16:21 | Communication Note ---
Date of Service: September 16, 2022 Patient admitted today for rectal bleed, diverticulitis vs diverticular bleed. Chart Reviewed. Seen and examined in ER. Case discussed with GI--> plan for colonosocpy tomorrow Will continue zosyn. Keep NPO. Check stool studies, ESR, CRP Full note to follow tomorrow
[2022-09-16 16:51] LABS: Hemoglobin 12.2 g/dl (14.0-18.0)
[2022-09-16] MEDS: GABAPENTIN 100 MG CAP PO SCH (22:30)
[2022-09-16] MEDS: ATORVASTATIN 40 MG TAB PO SCH (22:30)
[2022-09-16] MEDS ORDERED: Nursing to Pharmacy Communication SCH (22:45)
[2022-09-17] MEDS: PIPERACILLIN/TAZOBACTAM 3.375 GM in DEXTROSE 5% 100 ML IV SCH ×3 (00:29→17:04)
[2022-09-17] MEDS: SODIUM CHLORIDE 0.9% 1000ML 1,000 ML IV SCH ×2 (00:47→10:29)
[2022-09-17] MEDS: INSULIN ASPART PER UNIT SC SCH ×4 (00:48→21:07)
--- NOTE | 2022-09-17 05:05 | Electrocardiogram Report ---
Test Reason : Blood Pressure : / mmHG Vent. Rate : 057 BPM Atrial Rate : 057 BPM P-R Int : 230 ms QRS Dur : 104 ms QT Int : 432 ms P-R-T Axes : 068 -06 031 degrees QTc Int : 420 ms Sinus bradycardia with sinus arrhythmia with 1st degree A-V block Minimal voltage criteria for LVH, may be normal variant Inferior infarct (cited on or before 20-DEC-2020) Abnormal ECG When compared with ECG of 20-DEC-2020 14:41, MD interval has increased Confirmed by Evan Berry ([id number]) on 09/17/2022 5:05:30 AM Referred By: REFERRED SELF Confirmed By:Evan Berry
[2022-09-17 07:47] LABS: Basophils # (auto) 0.03 K/uL (0-0.2); Basophils % (auto) 0.5 %; Eosinophils # (auto) 0.23 K/uL (0-0.50); Eosinophils % (auto) 3.5 %; Hematocrit (blood only) 35.3 % (40.1-51.0); Hemoglobin 11.3 g/dl (14.0-18.0); Immature Granulocytes # (auto) 0.03 K/uL (0.00-0.02); Immature Granulocytes % (auto) 0.5 %; Lymphocytes # (auto) 1.18 K/uL (1.2-3.4); Lymphocytes % (auto) 17.8 %; Mean Corpuscular Hemoglobin 27.3 pg (25.0-34.0); Mean Corpuscular Volume 85.3 fL (80.0-100.0); Mean Platelet Volume 10.4 fL (9.4-12.4); Monocytes # (auto) 0.52 K/uL (0.24-0.82); Monocytes % (auto) 7.8 %; Neutrophils # (auto) 4.65 K/uL (1.4-6.5); Neutrophils % (auto) 69.9 %; Platelet Count 220 K/uL (130-400); RDW Coefficient of Variation 13.7 % (11.5-14.5); RDW Standard Deviation 42.4 fL (36.4-46.3); Red Blood Count 4.14 M/uL (4.63-6.08); White Blood Count 6.64 K/ul (4.8-10.8)
[2022-09-17 08:08] LABS: Anion Gap 1 (3-11); BUN Creatinine Ratio 10.8 (10-20); Blood Urea Nitrogen 8 mg/dl (6-23); C Reactive Protein < 0.50 mg/dl (0-0.5); Calcium 8.9 mg/dl (8.5-10.1); Carbon Dioxide 32 mmol/L (21-32); Chloride 108 mmol/L (98-107); Est GFR (African American) 109.1 ml/min; Est GFR (Non-African American) 94.1 ml/min; Glucose 105 mg/dl (70-99(Fasting)); Potassium 3.8 mmol/L (3.5-5.1); Sodium 141 mmol/L (136-145)
[2022-09-17] MEDS ORDERED: POLYETHYLENE (MIRALAX) 17 GM PACK PO STA (08:38)
--- NOTE | 2022-09-17 09:03 | Gastroenterology Progress Note ---
Date of Service September 17, 2022 Assessment & Plan (1) BRBPR (bright red blood per rectum): Plan: Suggestive of a diverticular bleed (painless, large volume), hx of diverticulosis. (2) Diverticulitis large intestine: Plan: Continue antibiotics. (3) Ulcerative colitis: Plan: Continue Entyvio. Avoid steroids - may worsen diverticulitis. Plan Colonoscopy today by Dr. Rodriges, further recommendations to follow. Admission and Anticipated Discharge Date Admission Date: September 16, 2022 Supervising Physician Co-Signing Physician Notes Attg add: See cscopy note. OK for discharge in am tomorrow if hgb stable overnight. Will arrange outpt EUS. Please call with questions. Subjective 71 male, UC (Entyvio, well controlled, though has had mild rectal bleeding about once a week) Admitted 1/ for rectal bleeding. CT w diverticulosis and small focus of diverticulitis. Drank approx 1L of golytely, didn't like taste and pt tells me that he was told by nuring not to take more prep after midnight. Most recent BM bloody liquid, no fecal material. Hb 13.6->11.3, no blood transfusions. At home ASA 81mg/day and Plavix (cardiac stenting > 1 yr ago), last doses 09/15/22 AM. Pt is awake, alert, oriented, hemodynamically stable. Denies any current or recent abdominal pain. Review of Systems Review of Systems: ROS: Gen: + lightheaded prior to admission. yesterday. Denies fevers, weight loss Eyes: No eye redness, or pain, no recent vision changes Resp: No SOB, no cough Cardio: No palpitations/irregular beats, no chest pain GI: As per HPI, otherwise (-). : Denies pain on urination Skin: No jaundice, itching or new rashes Physical Exam Constitutional: well developed, well nourished, + obese, healthy appearing and well groomed; no acute distress Eyes: PERRL, conjunctivae normal, anicteric sclerae ENMT: external ear and nose normal, oropharynx normal Neck: trachea midline, no thyromegaly Respiratory: normal respiratory effort, lungs clear to auscultation Cardiovascular: RRR, no murmur, no edema Gastrointestinal (Abdomen): Inspection/Auscultation: abdomen normal to inspection and normal bowel sounds; abdomen not distended Percussion/Palpation: abdomen soft; abdomen nontender Musculoskeletal: no cyanosis or clubbing, extremities motor strength 5/5 Skin: no rashes, warm and dry Neurologic: PERRL, EOMI, accommodation nl, no face palsy, no dysarthria Psychiatric: A+Ox3, euthymic affect Lymphatic: no cervical or axillary lymphadenopathy [facility] Vital Signs (Past 12 Hours) Vital Signs Temp Pulse Pulse Resp BP Pulse Ox O2 Del Method 09/17/22 07:45 59 L 09/17/22 07:33 36.8 C 68 16 134/69 96 Room Air 09/17/22 04:30 36.4 C L 63 18 136/71 94 Room Air 09/17/22 01:00 59 L 09/17/22 00:40 36.7 C 62 145/80 H 91 Room Air 09/16/22 22:00 70 20 148/75 H 94 Room Air Laboratory Results WBC 6.4, Hb 11.3, Hct 35, Plts 220, Na 141, K 3.8, Cl 108, CO2 32, BUN 8, Cr 0.74, glucose 105. Sed 16, CRP 0.5. Stool studies pending. Diagnostic Findings CTAP b w IV 09/15/22: 1. Moderate to advanced colonic diverticulosis with foci of mild acute diverticulitis involving both the descending and sigmoid colon. 2. No intraperitoneal free air is seen and there is no organized fluid collection to suggest abscess. 3. Cardiomegaly. 4. Bilateral nephrolithiasis. 5. Marked prostatomegaly with evidence of chronic bladder outlet obstruction. (1) Diverticulitis large intestine Diverticulitis bleeding: with bleeding Diverticulitis complication: without perforation or abscess Qualified Code(s): K57.33 - Diverticulitis of large intestine without perforation or abscess with bleeding
[2022-09-17 09:37] LABS: Adenovirus F 40/41 PCR Not Detected (NotDetected); Astrovirus PCR Not Detected (NotDetected); Campylobacter PCR Not Detected (NotDetected); Cryptosporidium PCR Not Detected (NotDetected); Cyclospora cayetanensis PCR Not Detected (NotDetected); Entamoeba histolytica PCR Not Detected (NotDetected); Enteroaggregative E.coli(EAEC) Not Detected (NotDetected); Enteropathogenic E.coli (EPEC) Not Detected (NotDetected); Enterotoxigenic E.coli (ETEC) Not Detected (NotDetected); Giardia lamblia PCR Not Detected (NotDetected); Norovirus GI/GII PCR Not Detected (NotDetected); Plesiomonas shigelloides PCR Not Detected (NotDetected); Rotavirus A PCR Not Detected (NotDetected); Salmonella PCR Not Detected (NotDetected); Sapovirus PCR Not Detected (NotDetected); Shiga-like Toxin E.coli (STEC) Not Detected (NotDetected); Shigella/Enteroinvasive E.coli Not Detected (NotDetected); Vibrio cholerae PCR Not Detected (NotDetected); Vibrio species PCR Not Detected (NotDetected); Yersinia enterocolitica PCR Not Detected (NotDetected)
[2022-09-17 10:02] LABS: Cdiff Toxin B Gene (2yr or >) Positive Cdiff Gene (Neg)
[2022-09-17 10:04] LABS: Cdiff Antigen Negative; Cdiff Toxin A+B Negative Cdiff Toxin (Negative)
[2022-09-17] MEDS: FLUTICASONE PROPIONATE NA SPR 16 GM BTL SCH (10:31)
[2022-09-17] MEDS: UMECLIDINIUM/VILANTEROL 62.5/25MCG 7 PUFFS/INHALER INH SCH (10:31)
[2022-09-17] MEDS: FLUTICASONE FUROATE 100MCG 14 PUFFS/INHALER INH SCH (10:31)
[2022-09-17] MEDS: ISOSORBIDE MONO EXTENDED REL 30 MG TABCR PO SCH (10:32)
[2022-09-17] MEDS: VITAMIN B COMPLEX TAB PO SCH (10:32)
[2022-09-17] MEDS: amLODIPine BESYLATE 5 MG TAB PO SCH (10:32)
[2022-09-17] MEDS: OLMESARTAN MEDOXOMIL 40 MG TAB PO SCH (10:32)
[2022-09-17] MEDS: TAMSULOSIN HCL 0.4 MG CAP PO SCH ×2 (10:32→14:55)
[2022-09-17] MEDS: ADVANCED PROBIOTIC 1250 MG CAPSULE PO SCH ×2 (10:32→14:56)
[2022-09-17] MEDS: FOLIC ACID 1 MG TAB PO SCH ×2 (10:32→14:55)
[2022-09-17] MEDS: PANTOprazole 40 MG in SYRINGE 0 ML IV SCH (10:33)
[2022-09-17] MEDS: CHOLECALCIFEROL 1,000 UNITS 25 MCG TAB PO SCH ×2 (10:33→14:56)
[2022-09-17] MEDS ORDERED: LIDOCAINE 2% MPF LOCAL 5 ML VIAL INFIL ONE (11:20)
[2022-09-17] MEDS ORDERED: PROPOFOL IV EMULSION 10 MG/ML 20 ML VIAL IV ONE ×2 (11:20→13:59)
[2022-09-17] MEDS: carvediloL 25 MG TAB PO SCH ×2 (12:31→21:04)
--- NOTE | 2022-09-17 13:14 | History & Physical Bridge Note ---
Date of Service September 17, 2022 History & Physical Bridge Note I have examined the patient, reviewed the History & Physical and in the interval since the performance of the History & Physical I have noted the following changes of clinical significance: no changes noted
--- NOTE | 2022-09-17 13:14 | Anesthesiology Consultation ---
Date of Service September 17, 2022 Assessment & Plan Chart Review Chart Review: Acceptable Risk for Surgery and Patient NOT seen in Pre Admission Testing Consults Requested none Proposed Anesthesia Anesthesia Type: MAC Risk / Benefits Reviewed With: PT / POA / Parent / Guardian, Accepts Plan and Informed Consent Obtained History Surgery Operation Date: 09/17/22 15:30 Proposed Procedures p Colonoscopy Dr Rodriges - Mary Rodriges MD Height/Weight Height: 5 ft 9 in Weight: 115.3 kg Allergies Allergy/AdvReac Type Severity Reaction Status Date / Time fish oil Allergy Severe RASH Verified 06/30/21 11:37 vancomycin Allergy Mild Rash Verified 06/30/21 11:37 shellfish derived AdvReac Intermediate VOMITTING Verified 06/30/21 11:37 lisinopril AdvReac Mild COUGH Verified 06/30/21 11:37 Medications Home Medications Medication Instructions Recorded Confirmed Last Taken atorvastatin 80 mg tablet 80 mg PO HS 07/04/18 09/16/22 06/29/21 clopidogrel 75 mg tablet (Plavix) 75 mg PO QAM 07/04/18 09/16/22 06/30/21 folic acid 1 mg tablet 1 mg PO QAM 07/04/18 09/16/22 06/30/21 gabapentin 100 mg capsule 100 mg PO HS 07/04/18 09/16/22 06/29/21 isosorbide mononitrate 30 mg 30 mg PO QAM 07/04/18 09/16/22 06/30/21 tablet,extended release 24 hr lutein 20 mg capsule 20 mg PO QAM 07/04/18 09/16/22 06/30/21 nitroglycerin 0.4 mg sublingual 0.4 mg sublingual UD PRN Chest Pain 07/04/18 09/16/22 05/27/19 tablet (Nitrostat) olmesartan 40 mg tablet (Benicar) 40 mg PO QAM 07/04/18 09/16/22 06/30/21 vitamin B complex 1 tab PO QAM 07/04/18 09/16/22 06/30/21 tamsulosin 0.4 mg capsule 0.4 mg PO QAM ##0 10/12/18 09/16/22 06/29/21 amlodipine 10 mg tablet 10 mg PO QAM 12/20/20 09/16/22 06/30/21 aspirin 81 mg chewable tablet 81 mg PO HS 12/20/20 09/16/22 06/29/21 (Aspirin Childrens) carvedilol 25 mg tablet (Coreg) 25 mg PO AMHS 12/20/20 09/16/22 06/30/21 cholecalciferol (vitamin D3) 25 25 mcg PO QAM 12/20/20 09/16/22 06/30/21 mcg (1,000 unit) capsule (Vitamin D3) furosemide 20 mg tablet 20 mg PO QAM 12/20/20 09/16/22 06/30/21 vedolizumab 300 mg intravenous 300 mg IV .Q8WK 12/20/20 09/16/22 06/02/21 solution (Entyvio) fluticasone propionate 50 2 spray intranasal DAILY 06/30/21 09/16/22 06/27/21 mcg/actuation nasal spray,suspension (Flonase Allergy Relief) lactobacillus combination no.4 3 3,000 mmu cells PO QAM 06/30/21 09/16/22 06/30/21 billion cell capsule (Probiotic) albuterol sulfate 90 mcg/actuation 2 puff inhalation QID 09/16/22 09/16/22 Unknown aerosol inhaler fluticasone fur. 100 mcg-umeclid 1 inh inhalation QA 09/16/22 09/16/22 Unknown 62.5 mcg-vilant 25 mcg inhalat.powder (Trelegy Ellipta) metformin 500 mg tablet,extended 500 mg PO QAM 09/16/22 09/16/22 Unknown release 24 hr Active Medications Generic Name Dose Route Start Last Admin Trade Name Freq PRN Reason Stop Dose Admin Amlodipine Besylate 10 mg 09/16/22 09:00 09/17/22 10:32 Amlodipine Besylate 5 Mg Tab PO 10/16/22 08:59 10 mg QAM NAM Administration Atorvastatin Calcium 80 mg 09/16/22 21:00 09/16/22 22:30 Atorvastatin 40 Mg Tab PO 10/16/22 20:59 80 mg HS NAM Administration Carvedilol 25 mg 09/16/22 09:00 09/17/22 12:31 Carvedilol 25 Mg Tab PO 10/16/22 08:59 25 mg BID NAM Administration Fluticasone Furoate 1 puffs 09/16/22 09:00 09/17/22 10:31 Fluticasone Furoate 100mcg 14 Puffs/Inhaler INH 10/16/22 08:59 1 puffs QAM NAM Administration Fluticasone Propionate 2 sprays 09/16/22 09:00 09/17/22 10:31 Fluticasone Propionate Na Spr 16 Gm Btl NA 10/16/22 08:59 2 sprays DAILY NAM Administration Folic Acid 1 mg 09/16/22 09:00 09/17/22 10:32 Folic Acid 1 Mg Tab PO 10/16/22 08:59 Not Given QAM NAM Gabapentin 100 mg 09/16/22 21:00 09/16/22 22:30 Gabapentin 100 Mg Cap PO 10/16/22 20:59 100 mg HS NAM Administration Sodium Chloride 1,000 mls @ 100 mls/hr 09/16/22 03:29 09/17/22 10:29 Nss 1000ml IV 10/16/22 03:28 100 mls/hr .Q10H NAM Administration Pantoprazole Sodium 40 mg/ 10 mls @ 5 mls/min 09/16/22 11:00 09/17/22 10:33 Syringe IV 10/16/22 10:59 5 mls/min DAILY@1100 NAM Administration Piperacillin Sod/Tazobactam 115 mls @ 28.75 mls/hr 09/16/22 06:00 09/17/22 10:29 Sod 3.375 gm/ Dextrose IV 09/26/22 05:59 28.8 mls/hr Q8H NAM Administration Protocol Insulin Aspart 0 units 09/16/22 03:29 09/17/22 12:07 Insulin Aspart Per Unit SC 10/16/22 03:28 Not Given Q6 NAM Isosorbide Mononitrate 30 mg 09/16/22 09:00 09/17/22 10:32 Isosorbide [place] Extended Rel 30 Mg Tabcr PO 10/16/22 08:59 30 mg QAM NAM Administration Lactobacillus Acidophilus 2 cap 09/16/22 09:00 09/17/22 10:32 Advanced Probiotic 1250 Mg Capsule PO 10/16/22 08:59 Not Given QAM NAM Olmesartan 40 mg 09/16/22 09:00 09/17/22 10:32 Olmesartan Medoxomil 40 Mg Tab PO 10/16/22 08:59 40 mg QAM NAM Administration Tamsulosin HCl 0.4 mg 09/16/22 09:00 09/17/22 10:32 Tamsulosin Hcl 0.4 Mg Cap PO 10/16/22 08:59 Not Given QAM NAM Umeclidinium/Vilanterol 1 puffs 09/16/22 09:00 09/17/22 10:31 Umeclidinium/Vilanterol 62.5/25mcg 7 Puffs/Inhaler INH 10/16/22 08:59 1 puffs QAM NAM Administration Vitamin B Complex 1 tab 09/16/22 09:00 09/17/22 10:32 Vitamin B Complex Tab PO 10/16/22 08:59 Not Given QAM NAM Vitamin D 1,000 units 09/16/22 09:00 09/17/22 10:33 Cholecalciferol 1,000 Units 25 Mcg Tab PO 10/16/22 08:59 Not Given QAM NAM NPO Date Last Intake of Fluids: 09/17/22 Time Last Intake of Fluids: 10:30 Last Intake of Fluids Comment: sip with meds Date Last Intake of Solids: 09/15/22 Past Medical History Medical History BPH (benign prostatic hyperplasia) CAD (coronary artery disease) follows with Dr. Laguerre Cardiac murmur COPD (chronic obstructive pulmonary disease) Frequent PVCs History of myocardial infarction 2014 History of skin cancer HLD (hyperlipidemia) HTN (hypertension) Pre-diabetes Ulcerative colitis Exercise / Class Metabolic Activity II 4-5 Yardwork/Stairs/Walk up hill Past Family History Family History Other Heart disease No family history of adverse response to anesthesia Stroke Past Surgical History Surgical History History of cardiac catheterization multiple w/ stents 1997, 2009, 2014, 2019 History of colonoscopy History of esophagogastroduodenoscopy (EGD) History of heart artery stent x 4 (last placed 2018) History of Mohs micrographic surgery for skin cancer multiple Past Anesthesia History No Hx of Anesthesia Complications and No Family Hx of Anesthesia Complications History of PONV No Hx of PONV and No Hx of Motion Sickness Social History Smoking Status: Former smoker tobacco type: cigarettes Smoking End Date: 25 years ago Hx Alcohol Use: No Hx Substance Use: No substance use type: does not use Physical Exam Vital Signs Last Vital Signs Temp 36.9 C 09/17/22 12:54 Pulse 66 09/17/22 12:54 Resp 14 09/17/22 12:54 BP 159/77 H 09/17/22 12:54 Pulse Ox 93 09/17/22 12:54 O2 Del Method 09/17/22 12:54 O2 Flow Rate 2 09/16/22 03:40 Constitutional + obese ENMT Mouth: no dentition abnormality Thyromental Distance: > or= 3.5 Finger Breadths Mallampati Class: II Neck normal visual inspection Respiratory normal respiratory effort Auscultation: lungs clear to auscultation bilaterally Cardiovascular Rate/Rhythm: regular rate and regular rhythm Psychiatric Orientation: alert Testing Laboratory Results 09/17/22 07:36 09/17/22 07:36 PT 11.3 Seconds (9.0-12.0) 09/15/22 23:44 INR 1.1 (0.9-1.1) 09/15/22 23:44 APTT 23.7 Seconds (21.0-31.0) 09/15/22 23:44 Hemoglobin A1c 6.6 % (4.5-5.6) H 09/16/22 04:10 Urine Color Yellow 09/15/22 19:29 Urine Appearance Clear (Clear) 09/15/22 19:29 Urine pH 6.5 (4.5-7.5) 09/15/22 19:29 Ur Specific [place] 1.018 (1.000-1.030) 09/15/22 19:29 Urine Protein Negative (Negative) 09/15/22 19:29 Urine Glucose (UA) Negative (Negative) 09/15/22 19:29 Urine Ketones Negative (Negative) 09/15/22 19:29 Urine Nitrite Negative (Negative) 09/15/22 19:29 Ur Leukocyte Esterase Negative (Negative) 09/15/22 19:29 Blood Type A Positive 09/15/22 19:35 Antibody Screen NEGATIVE 09/15/22 19:35 09/17/22 09/17/22 09/17/22 11:44 07:37 05:43 POC Glucose 97 105 H 102 H
[2022-09-17] MEDS ORDERED: PHENYLEPHRINE 100MCG/ML 5ML SYR ONE (13:59)
[2022-09-17] MEDS ORDERED: ePHEDrine sulfate 50 MG/ML AMP ONE (13:59)
--- NOTE | 2022-09-17 14:31 | Anesthesiology Progress Note ---
Date of Service September 17, 2022 Anesthesia Post Procedure Vital Signs Vital Signs: Temp Pulse Pulse Resp BP Pulse Ox O2 Del Method 09/17/22 14:29 54 L 17 110/69 93 Room Air 09/17/22 14:25 62 15 134/73 96 Room Air 09/17/22 14:15 62 15 120/61 95 Room Air 09/17/22 14:00 60 12 96/50 L 90 Room Air 09/17/22 12:54 36.9 C 66 14 159/77 H 93 Room Air 09/17/22 12:27 36.6 C 60 14 142/74 H 92 Room Air 09/17/22 07:45 59 L 09/17/22 07:33 36.8 C 68 16 134/69 96 Room Air 09/17/22 04:30 36.4 C L 63 18 136/71 94 Room Air 09/17/22 01:00 59 L 09/17/22 00:40 36.7 C 62 145/80 H 91 Room Air 09/16/22 22:00 70 20 148/75 H 94 Room Air 09/16/22 19:00 55 L 20 154/78 H 94 Room Air 09/16/22 15:00 78 20 160/72 H 94 Room Air Transfer of Care Handoff Completed per policy Notes Mental Status: alert / awake / arousable Patient Amnestic to Procedure: Yes Nausea / Vomiting: adequately controlled Pain: adequately controlled Airway Patency, RR, SpO2: stable & adequate BP & HR: stable & adequate Hydration State: stable & adequate Anesthetic Complications: no major complications apparent
--- NOTE | 2022-09-17 15:07 | GI REPORT ---
Patient Name: Arthur Judd Procedure Date: 09/17/2022 1:07 PM Date of : 1950 Admit Type: Inpatient Age: 71 Gender: Male Attending MD: Mary Rodriges MD, Procedure: Upper GI endoscopy Providers: Mary Rodriges MD Referring MD: Zack Archer Md Indications: Hematochezia Medicines: See the Anesthesia note for documentation of the administered medications Complications: No immediate complications. Estimated Blood Loss: Estimated blood loss: none. Procedure: Pre-Anesthesia Assessment: - ASA Grade Assessment: III - A patient with severe systemic disease. After obtaining informed consent, the endoscope was passed under direct vision. Throughout the procedure, the patient's blood pressure, pulse, and oxygen saturations were monitored continuously. The Scope was introduced through the mouth, and advanced to the fourth part of duodenum. The upper GI endoscopy was accomplished without difficulty. The patient tolerated the procedure well. Findings: There were candidal plaques in the esophagus. The esophagus as otherwise normal. The entire examined stomach was normal. There was a 12 mm submucosal mass in the duodenal bulb. This was soft to probing. This was biopsied using a "bite on bite" technique. There was an erosion and thickening of the fold at the apex of the bulb. The remainder of the duodenum was normal. There was bilious fluid throughout. Impression: No evidence of UGIB. Submucosal duodenal mass. Recommendation: - Discharge patient to home. - EUS referral, consider EMR vs FTRD. Mary Rodriges M.D. Mary Rodriges MD 09/17/2022 3:06:57 PM This report has been signed electronically. Note Initiated On: 09/17/2022 1:07 PM Number of Addenda: 0 I attest to the content of the Intraoperative Record and orders documented therein, exceptions below {[id number]}
--- NOTE | 2022-09-17 15:17 | GI REPORT ---
Patient Name: Arthur Judd Procedure Date: 09/17/2022 1:04 PM Date of : 1950 Admit Type: Inpatient Age: 71 Gender: Male Attending MD: Mary Rodriges MD, Procedure: Colonoscopy Providers: Mary Rodriges MD Referring MD: Zack Archer Md Indications: Hematochezia Medicines: See the Anesthesia note for documentation of the administered medications Complications: No immediate complications. Estimated Blood Loss: Estimated blood loss: none. Procedure: Pre-Anesthesia Assessment: - ASA Grade Assessment: III - A patient with severe systemic disease. After I obtained informed consent, the scope was passed under direct vision. Throughout the procedure, the patient's blood pressure, pulse, and oxygen saturations were monitored continuously. The Colonoscope was introduced through the anus and advanced to 20 cm into the ileum. The colonoscopy was performed without difficulty. The patient tolerated the procedure well. The quality of the bowel preparation was adequate. Findings: The perianal and digital rectal examinations were normal. There was brown stool and bilious fluid throughout the entire colon. There was a diverticulum with an ulcer with a white fibrinous cap at 15 cm. The cap could not be washed off. Three TTS clips were placed on ulcer site; there was no bleeding with clip placement. There was mild loss of vascularity in the rectum and sigmoid colon, consistent with diagnosis of colitis. There were diverticula throughout the left colon. There was no evidence of active or chronic colitis throughout the colon proximal to the sigmoid. Two sessile polyps were found in the transverse colon and ascending colon. The polyps were 1 to 2 mm in size. These polyps were removed with a cold biopsy forceps. Resection and retrieval were complete. A 5 mm polyp was found in the transverse colon. The polyp was sessile. The polyp was removed with a cold snare. Resection and retrieval were complete. The colon was otherwise normal. The IC valve was normal. The ileum was deeply intubated and was normal. Recommendation: - Discharge patient to home. Pedro Santos MD 09/17/2022 3:16:38 PM This report has been signed electronically. Note Initiated On: 09/17/2022 1:04 PM Number of Addenda: 0 I attest to the content of the Intraoperative Record and orders documented therein, exceptions below {[id number]}
[2022-09-17] MEDS ORDERED: Nursing to Pharmacy Communication SCH (16:30)
--- NOTE | 2022-09-17 17:38 | Hospitalist Progress Note ---
Date of Service September 17, 2022 Assessment & Plan (1) Diverticulitis large intestine: (2) BRBPR (bright red blood per rectum): Plan Rectal bleed. -Most consistent with diverticular bleed -Colonoscopy today with a diverticulum with a non bleeding ulcer. EGD shows submucosal mass in duodenum--will need EUS outpatient -stool PCR negative for active infection, +c diff gene -currently on zosyn for coverage of mild diverticulitis seen on CT A/P, also on florastor History of coronary artery disease, status post stents. The patient says had four stents but not in last one year. -We will hold aspirin and Plavix. Continue his statin and Coreg with holding parameters. Hypertension. -Coreg, Benicar, Lasix, Imdur and amlodipine with holding parameters. History of benign prostatic hypertrophy. - On Flomax. History of chronic diastolic congestive heart failure -d/c further IV fluids, continue lasix History of frequent premature ventricular contractions - on beta win. History of chronic obstructive pulmonary disease and restrictive lung disease - Continue home inhalers. Prediabetes. -We will hold metformin. Place on insulin sliding scale. Follow the blood sugar, follow HbA1c levels. History of ulcerative colitis -On entyvio history of gastroesophageal reflux disease - We will place on IV Protonix. History of hyperparathyroidism. Deep venous thrombosis prophylaxis - Sequential compression devices for now. Plan to discharge home tomorrow Admission and Anticipated Discharge Date Admission Date: September 16, 2022 Subjective colonoscopy and EGD today which patient tolerated well Physical Exam Physical Exam: Sitting in bed, comfortably eating dinner, pleasant and cooperative Respiratory: breathing comfortably on room air, no wheezing/rhonchi/rales Cardiovascular: regular rate and rhythm, no murmurs/rubs/gallops Gastrointestinal (Abdomen): soft, non tender Musculoskeletal: No edema Results & Data Results & Data ([facility]) Vital Signs (Past 12 Hours) Vital Signs Temp Pulse Pulse Resp BP Pulse Ox O2 Del Method 09/17/22 15:48 54 L 09/17/22 14:50 36.9 C 53 L 18 119/67 92 Room Air 09/17/22 14:29 54 L 17 110/69 93 Room Air 09/17/22 14:25 62 15 134/73 96 Room Air 09/17/22 14:15 62 15 120/61 95 Room Air 09/17/22 14:00 60 12 96/50 L 90 Room Air 09/17/22 12:54 36.9 C 66 14 159/77 H 93 Room Air 09/17/22 12:27 36.6 C 60 14 142/74 H 92 Room Air 09/17/22 07:45 59 L 09/17/22 07:33 36.8 C 68 16 134/69 96 Room Air (1) Diverticulitis large intestine Diverticulitis bleeding: with bleeding Diverticulitis complication: without perforation or abscess Qualified Code(s): K57.33 - Diverticulitis of large intestine without perforation or abscess with bleeding
[2022-09-17] MEDS: ATORVASTATIN 40 MG TAB PO SCH (21:04)
[2022-09-17] MEDS: GABAPENTIN 100 MG CAP PO SCH (21:05)
[2022-09-17 22:42] LABS: Appearance Urine Clear (Clear); Bilirubin Urine Negative (Negative); Blood Urine Negative (Negative); Color Urine Yellow; Glucose Urine UA Negative (Negative); Ketones Urine Negative (Negative); Leukocyte Esterase Urine Negative (Negative); Nitrite Urine Negative (Negative); Protein Urine Negative (Negative); Urobilinogen Urine Negative (Negative)
[2022-09-18] MEDS: PIPERACILLIN/TAZOBACTAM 3.375 GM in DEXTROSE 5% 100 ML IV SCH ×3 (00:09→16:41)
[2022-09-18 07:05] LABS: Hematocrit (blood only) 36.4 % (40.1-51.0); Hemoglobin 11.6 g/dl (14.0-18.0); Mean Corpuscular Hemoglobin 27.6 pg (25.0-34.0); Mean Corpuscular Hgb Conc 31.9 g/dL (32.0-36.0); Mean Corpuscular Volume 86.7 fL (80.0-100.0); Mean Platelet Volume 10.1 fL (9.4-12.4); Platelet Count 238 K/uL (130-400); RDW Coefficient of Variation 13.8 % (11.5-14.5); RDW Standard Deviation 42.5 fL (36.4-46.3); White Blood Count 8.11 K/ul (4.8-10.8)
[2022-09-18 07:26] LABS: Calcium 9.2 mg/dl (8.5-10.1); Creatinine Clr Calc Pharmacy 98.5 ml/min; Est GFR (African American) 101.1 ml/min; Est GFR (Non-African American) 87.2 ml/min; Magnesium 1.9 mg/dl (1.7-2.4); Potassium 3.6 mmol/L (3.5-5.1)
[2022-09-18] MEDS: ADVANCED PROBIOTIC 1250 MG CAPSULE PO SCH (07:51)
[2022-09-18] MEDS: VITAMIN B COMPLEX TAB PO SCH (07:51)
[2022-09-18] MEDS: FOLIC ACID 1 MG TAB PO SCH (07:51)
[2022-09-18] MEDS: OLMESARTAN MEDOXOMIL 40 MG TAB PO SCH (07:51)
[2022-09-18] MEDS: CHOLECALCIFEROL 1,000 UNITS 25 MCG TAB PO SCH (07:51)
[2022-09-18] MEDS: carvediloL 25 MG TAB PO SCH ×2 (07:52→20:49)
[2022-09-18] MEDS: amLODIPine BESYLATE 5 MG TAB PO SCH (07:52)
[2022-09-18] MEDS: TAMSULOSIN HCL 0.4 MG CAP PO SCH (07:52)
[2022-09-18] MEDS: ISOSORBIDE MONO EXTENDED REL 30 MG TABCR PO SCH (07:54)
[2022-09-18] MEDS: FLUTICASONE PROPIONATE NA SPR 16 GM BTL SCH (07:54)
[2022-09-18] MEDS: UMECLIDINIUM/VILANTEROL 62.5/25MCG 7 PUFFS/INHALER INH SCH (07:54)
[2022-09-18] MEDS: FLUTICASONE FUROATE 100MCG 14 PUFFS/INHALER INH SCH (07:55)
[2022-09-18] MEDS: INSULIN ASPART PER UNIT SC SCH ×4 (07:57→20:47)
--- NOTE | 2022-09-18 10:46 | Urology Consultation ---
Date of Consultation September 18, 2022 Assessment & Plan (1) Diverticulitis large intestine: (2) BRBPR (bright red blood per rectum): (3) Acute urinary retention: (4) BPH NOS w ur obs/LUTS: Plan Patient with significant incomplete emptying and trouble voiding after procedure for major GI bleed. Had undergone GI procedure due to diverticular bleed. Patient's vitals have improved. Currently blood pressure is stable at 141/76. Creatinine has remained stable at 0.89. All patient's labs and values were reviewed and assessed by myself. Patient's complicated medical and surgical history was all reviewed and summarized above. Patient's urologic history in particular is of note as she has had some issues with lower urinary tract symptoms and has previously undergone prostate needle biopsy due to elevated PSA. Had previously followed with Dr. Velazquez. Had followed with [facility] urology until she left the area. Patient does take tamsulosin for lower urinary tract symptoms. Patient had imaging at admission. This was reviewed interpreted by myself. Does appear the patient have significant signs of chronic bladder outlet obstruction with prostate enlargement. Has no major suspicious lesions of the kidney. Does have some minor lesions that may need to be monitored over time. Patient has subsequently had catheter removed with continued attempts to void. Patient was not drinking a good deal of water as he was trying not to overload the symptoms. Did discuss that increasing water and flushing the system and diluting the urine may actually improve his chances of voiding. Discussed with patient multifactorial nature of urinary issues, retention, and incomplete bladder emptying. Discussed concerns and issues. Discussed decreased mobility and trouble voiding. Discussed issues related to deconditioning and weakened state. Discussed possibility that patient had more moderate to severe issues and with the acute illness and deconditioning these issues became more prevalent and obvious. Discussed bowel function and possible issues related to decrease in function and its relation to other pelvic organs and systems. Discussed different medications, will use during hospitalization and their effect on ability to empty. We will plan to give additional time for patient to return to spontaneous voiding. Patient may have some trouble with incomplete emptying as long as he is able to empty fairly well can continue his tamsulosin and continue to monitor as bowels, activity, and pain medication needs decreased over time. Patient will likely need follow-up with a urologist moving forward. If you would like to continue with [facility] urology he should be in contact with them after this admission if not can set up follow-up with our group in [place]. Will likely need to be assessed for discussion of different options including possible additional medications or procedures that may help with this. Did discuss possibility of future episodes especially with major interventions or with acute illness. Plan to monitor patient throughout the day if he is able to return to spontaneous voiding can likely be discharged without replacement of catheter. If considerable retention or other issues may need to consider replacement of catheter removal in a few days. History of Present Illness Attending Physician: Yaquelin Archer MD History of Present Illness Consult for urinary issues with incomplete emptying and possible retention. Patient has mild to moderate discomfort in pelvis and groin going to back and side in waves. Is dealing with acute illness. Has been deconditioned from this. Had significant diverticular disease and required intervention. Was treated with the GI team due to bleed. Due to illness with GI bleed had decreased activity overall. Has been recovering from anesthesia with procedure. Patient has not had complete return to normal bowel function. Did have 2 bowel movements this morning which is a improvement. Has had some minor urinary issues in the past. Had previously seen Dr. Velazquez with [facility] urology for elevated PSA and lower urinary tract symptoms. Denies bleeding. No severe nausea or vomiting. Currently no fevers. Allergies Allergy/AdvReac Type Severity Reaction Status Date / Time fish oil Allergy Severe RASH Verified 06/30/21 11:37 vancomycin Allergy Mild Rash Verified 06/30/21 11:37 shellfish derived AdvReac Intermediate VOMITTING Verified 06/30/21 11:37 lisinopril AdvReac Mild COUGH Verified 06/30/21 11:37 Home Medications Medication Instructions Recorded Confirmed Type atorvastatin 80 mg tablet 80 mg PO HS 07/04/18 09/16/22 History clopidogrel 75 mg tablet (Plavix) 75 mg PO QAM 07/04/18 09/16/22 History folic acid 1 mg tablet 1 mg PO QAM 07/04/18 09/16/22 History gabapentin 100 mg capsule 100 mg PO 07/04/18 09/16/22 History isosorbide mononitrate 30 mg 30 mg PO QAM 07/04/18 09/16/22 History tablet,extended release 24 hr lutein 20 mg capsule 20 mg PO QAM 07/04/18 09/16/22 History nitroglycerin 0.4 mg sublingual 0.4 mg sublingual UD PRN Chest Pain 07/04/18 09/16/22 History tablet (Nitrostat) olmesartan 40 mg tablet (Benicar) 40 mg PO QAM 07/04/18 09/16/22 History vitamin B complex 1 tab PO QAM 07/04/18 09/16/22 History tamsulosin 0.4 mg capsule 0.4 mg PO QAM ##0 10/12/18 09/16/22 History amlodipine 10 mg tablet 10 mg PO QAM 12/20/20 09/16/22 History aspirin 81 mg chewable tablet 81 mg PO HS 12/20/20 09/16/22 History (Aspirin Childrens) carvedilol 25 mg tablet (Coreg) 25 mg PO AMHS 12/20/20 09/16/22 History cholecalciferol (vitamin D3) 25 25 mcg PO QAM 12/20/20 09/16/22 History mcg (1,000 unit) capsule (Vitamin D3) furosemide 20 mg tablet 20 mg PO QAM 12/20/20 09/16/22 History vedolizumab 300 mg intravenous 300 mg IV .Q8WK 12/20/20 09/16/22 History solution (Entyvio) fluticasone propionate 50 2 spray intranasal DAILY 06/30/21 09/16/22 History mcg/actuation nasal spray,suspension (Flonase Allergy Relief) lactobacillus combination no.4 3 3,000 mmu cells PO QAM 06/30/21 09/16/22 History billion cell capsule (Probiotic) albuterol sulfate 90 mcg/actuation 2 puff inhalation QID 09/16/22 09/16/22 History aerosol inhaler fluticasone fur. 100 mcg-umeclid 1 inh inhalation QAM 09/16/22 09/16/22 History 62.5 mcg-vilant 25 mcg inhalat.powder (Trelegy Ellipta) metformin 500 mg tablet,extended 500 mg PO QAM 09/16/22 09/16/22 History release 24 hr Patient History Medical History BPH (benign prostatic hyperplasia) CAD (coronary artery disease) follows with Dr. Laguerre Cardiac murmur COPD (chronic obstructive pulmonary disease) Frequent PVCs History of myocardial infarction 2015 History of skin cancer HLD (hyperlipidemia) HTN (hypertension) Pre-diabetes Ulcerative colitis Surgical History History of cardiac catheterization multiple w/ stents 1997, 2008, 2013, 2019 History of colonoscopy History of esophagogastroduodenoscopy (EGD) History of heart artery stent x 4 (last placed 2018) History of Mohs micrographic surgery for skin cancer multiple Family History Other Heart disease No family history of adverse response to anesthesia Stroke Social History Smoking Status: Former smoker Smoking End Date: 25 years ago; Second Hand Exposure: No; Hx Alcohol Use: No Hx Substance Use: No Preferred Language: Italian Communication Ability: Effective Substitute Nurse Required: No Beliefs That Will Affect Care: None Current Living Situation: Spouse Feels Safe at Home: Yes Assistive Devices: None Review of Systems Review of Systems: All systems reviewed & are unremarkable except as noted in HPI & below Physical Exam Physical Exam: General: Alert and oriented x 3 in no acute distress. Patient is well nourished and well kept. Obese. HEENT: Normocephalic Atraumatic. Inspection normal. Cranial Nerves 2-12 Grossly intact. Nares are clear. Neck is supple. Normal inspection of face. Normal inspection of neck. Neurologic: No deficits on inspection. Baseline for motor function and sensory. Psychologic: Normal affect. Respiratory: Nonlabored. No use of accessory muscles. No tachypnea or dyspnea. Cardiovascular: No tachycardia Skin: [place] and Dry. No rashes or visible lesions. Extremities: Moving without issues. No motor deficits on inspection Lymphatics: No edema Abdomen: Soft Non-distended. No acites. No rebound or guarding. : Catheter removed. Results & Data ([facility]) Vital Signs (Past 12 Hours) Vital Signs Temp Pulse Pulse Resp BP BP Pulse Ox 09/18/22 07:34 57 L 09/18/22 07:04 36.8 C 63 20 141/76 H 90 09/18/22 02:58 36.6 C 72 20 129/67 91 09/17/22 23:00 36.8 C 68 20 124/64 90 O2 Del Method 09/18/22 07:34 09/18/22 07:04 Room Air 09/18/22 02:58 Room Air 09/17/22 23:00 Room Air PG Care Time/CCT Total # of Minutes Spent Total Time Spent with Patient: Total time spent is greater than 50% in coordination of care (as documented) at patient's floor/unit and/or counseling patient: Coding Level of Care Code 30882 INT INP/OBS CARE 75MIN Diagnoses Diverticulitis large intestine K57.33 Diverticulitis bleeding: with bleeding Diverticulitis complication: without perforation or abscess BRBPR (bright red blood per rectum) K62.5 Acute urinary retention R33.8 BPH NOS w ur obs/LUTS N40.1 (1) Diverticulitis large intestine Diverticulitis bleeding: with bleeding Diverticulitis complication: without perforation or abscess Qualified Code(s): K57.33 - Diverticulitis of large intestine without perforation or abscess with bleeding
[2022-09-18] MEDS: PANTOprazole 40 MG in SYRINGE 0 ML IV SCH (12:01)
--- NOTE | 2022-09-18 16:35 | Hospitalist Progress Note ---
Date of Service September 18, 2022 Assessment & Plan (1) Diverticulitis large intestine: (2) BRBPR (bright red blood per rectum): (3) BPH with urinary obstruction: Plan Rectal bleed. -Most consistent with diverticular bleed -Colonoscopy 09/17 with a diverticulum with a non bleeding ulcer. EGD shows submucosal mass in duodenum--will need EUS outpatient -stool PCR negative for active infection, +c diff gene -currently on zosyn for coverage of mild diverticulitis seen on CT A/P, also on florastor History of coronary artery disease, status post stents. The patient says had four stents but not in last one year. -We will hold aspirin and Plavix. Continue his statin and Coreg with holding parameters. Hypertension. -Coreg, Benicar, Lasix, Imdur and amlodipine with holding parameters. benign prostatic hypertrophy with urinary retention - On Flomax. now with urinary obstruction -will place a boyer catheter -Appreciate Urology input History of chronic diastolic congestive heart failure -d/c further IV fluids, continue lasix History of frequent premature ventricular contractions - on beta win. History of chronic obstructive pulmonary disease and restrictive lung disease - Continue home inhalers. Prediabetes. -We will hold metformin. Place on insulin sliding scale. Follow the blood sugar, follow HbA1c levels. History of ulcerative colitis -On entyvio history of gastroesophageal reflux disease - We will place on IV Protonix. History of hyperparathyroidism. Deep venous thrombosis prophylaxis - Sequential compression devices for now. Will keep overnight. D/c tomorrow, will go home with boyer catheter and need visiting boat pilot and Anticipated Discharge Date Admission Date: September 16, 2022 Subjective Still having difficulty urinating. No further rectal bleed. 2 non bloody BM today Physical Exam Physical Exam: Ambulating in room , no acute distress, pleasant Respiratory: Breathing comfortably on room air, no wheezing/rhonchi Cardiovascular: Regular rate and rhythm, no murmurs/rubs Gastrointestinal (Abdomen): soft, non tender Musculoskeletal: No edema Neurologic: Awake, alert, walking around in room with no difficulty Results & Data Results & Data ([facility]) Vital Signs (Past 12 Hours) Vital Signs Temp Pulse Pulse Resp BP Pulse Ox O2 Del Method 09/18/22 15:58 36.5 C 59 L 20 138/70 97 Room Air 09/18/22 14:59 59 L 09/18/22 11:44 36.5 C 64 22 145/69 H 90 Room Air 09/18/22 10:46 Room Air 09/18/22 07:34 57 L 09/18/22 07:04 36.8 C 63 20 141/76 H 90 Room Air (1) Diverticulitis large intestine Diverticulitis bleeding: with bleeding Diverticulitis complication: without perforation or abscess Qualified Code(s): K57.33 - Diverticulitis of large intestine without perforation or abscess with bleeding
[2022-09-18] MEDS: GABAPENTIN 100 MG CAP PO SCH (20:51)
[2022-09-18] MEDS: ATORVASTATIN 40 MG TAB PO SCH (20:52)
[2022-09-19] MEDS: PIPERACILLIN/TAZOBACTAM 3.375 GM in DEXTROSE 5% 100 ML IV SCH ×3 (00:24→17:12)
[2022-09-19] MEDS: INSULIN ASPART PER UNIT SC SCH ×4 (08:10→20:52)
[2022-09-19] MEDS: FLUTICASONE PROPIONATE NA SPR 16 GM BTL SCH (08:37)
[2022-09-19] MEDS: ADVANCED PROBIOTIC 1250 MG CAPSULE PO SCH (08:38)
[2022-09-19] MEDS: UMECLIDINIUM/VILANTEROL 62.5/25MCG 7 PUFFS/INHALER INH SCH (08:38)
[2022-09-19] MEDS: FLUTICASONE FUROATE 100MCG 14 PUFFS/INHALER INH SCH (08:38)
[2022-09-19] MEDS: amLODIPine BESYLATE 5 MG TAB PO SCH (08:38)
[2022-09-19] MEDS: carvediloL 25 MG TAB PO SCH ×2 (08:38→20:26)
[2022-09-19] MEDS: TAMSULOSIN HCL 0.4 MG CAP PO SCH (08:39)
[2022-09-19] MEDS: CHOLECALCIFEROL 1,000 UNITS 25 MCG TAB PO SCH (08:39)
[2022-09-19] MEDS: VITAMIN B COMPLEX TAB PO SCH (08:39)
[2022-09-19] MEDS: OLMESARTAN MEDOXOMIL 40 MG TAB PO SCH (08:39)
[2022-09-19] MEDS: ISOSORBIDE MONO EXTENDED REL 30 MG TABCR PO SCH (08:39)
[2022-09-19] MEDS: FOLIC ACID 1 MG TAB PO SCH (08:39)
--- NOTE | 2022-09-19 10:25 | XRay Report ---
XR chest 1V portable HISTORY: Hypoxia COMPARISON: Chest 12/24/2020. FINDINGS: No pneumothorax. There are low lung volumes. The heart remains mildly enlarged. No evidence for pulmonary edema. The upper lung zones remain clear. Bibasilar linear densities and trace bilater al pleural effusions persist. This favors subsegmental atelectasis. No new focal lung consolidations identified. IMPRESSION: 1. No change in the low lung volumes and bibasilar linear densities which favor subsegmental atelecta sis. 2. Trace bilateral pleural effusions and mild cardiomegaly also persist. ACT 112: Negative or not required by law. Electronically signed by: Harpreet Duggan M.D. 09/19/2022 10:24 AM
[2022-09-19] MEDS ORDERED: FUROSEMIDE INJ 20 MG/2 ML VIAL IV ONE (10:33)
[2022-09-19] MEDS: FUROSEMIDE 20 MG TAB PO SCH (10:33)
[2022-09-19] MEDS ORDERED: POTASSIUM CHLORIDE CRTAB 20 MEQ TABCR PO STA (10:35)
--- NOTE | 2022-09-19 10:46 | Hospitalist Progress Note ---
Date of Service September 19, 2022 Assessment & Plan (1) Diverticulitis large intestine: (2) BRBPR (bright red blood per rectum): (3) BPH with urinary obstruction: Plan Rectal bleed. -Most consistent with diverticular bleed -Colonoscopy 09/17 with a diverticulum with a non bleeding ulcer. EGD shows submucosal mass in duodenum--will need EUS outpatient -stool PCR negative for active infection, +c diff gene -currently on zosyn for coverage of mild diverticulitis seen on CT A/P, also on florastor History of coronary artery disease, status post stents. The patient says had four stents but not in last one year. -resume aspirin and Plavix if ok with GI. Continue his statin and Coreg with holding parameters. Hypertension. -Coreg, Benicar, Lasix, Imdur and amlodipine with holding parameters. benign prostatic hypertrophy with urinary retention - On Flomax. now with urinary obstruction -Appreciate Urology input -boyer catheter placed 09/18 Acute on chronic diastolic congestive heart failure Acute hypoxic respiratory failure -d/c further IV fluids, lasix 20mg IV once -CXR today shows mild bilateral pleural effusion -check BMP, Mg History of frequent premature ventricular contractions - on beta win. History of chronic obstructive pulmonary disease and restrictive lung disease - Continue home inhalers. Prediabetes. -We will hold metformin. Place on insulin sliding scale. Follow the blood sugar, follow HbA1c levels. History of ulcerative colitis -On entyvio history of gastroesophageal reflux disease - We will place on IV Protonix. History of hyperparathyroidism. Deep venous thrombosis prophylaxis - Sequential compression devices for now. Admission and Anticipated Discharge Date Admission Date: September 16, 2022 Subjective No further rectal bleed O2 sat noted to be 89% this morning on room air. Patient denies shortness of breath but reports leg swelling Boyer catheter inserted yesterday for difficulty voiding Physical Exam Physical Exam: No acute distress, pleasant and comfortable ENMT: neck thick, normocephalic, atraumatic Respiratory: +crackles bilateral bases, no accessory muscle use, no wheezing Cardiovascular: Regular rate and rhythm, no murmurs/rubs/gallops Gastrointestinal (Abdomen): Obese, soft Musculoskeletal: 1+ edema bilaterally Neurologic: awake, alert, spontaneously moving extremities Results & Data Results & Data ([facility]) Vital Signs (Past 12 Hours) Vital Signs Temp Pulse Pulse Resp BP Pulse Ox O2 Del Method 01/08/23 07:43 36.7 C 60 20 141/70 H 89 L Room Air 09/19/22 07:16 49 L 09/19/22 02:14 36.6 C 62 20 123/58 L 90 Room Air 09/18/22 23:13 36.6 C 61 20 145/72 H 90 Room Air (1) Diverticulitis large intestine Diverticulitis bleeding: with bleeding Diverticulitis complication: without perforation or abscess Qualified Code(s): K57.33 - Diverticulitis of large intestine without perforation or abscess with bleeding
[2022-09-19] MEDS: MAGNESIUM OXIDE 400 MG TAB PO SCH ×2 (11:13→20:27)
[2022-09-19] MEDS: PANTOprazole 40 MG in SYRINGE 0 ML IV SCH (11:13)
[2022-09-19 11:53] LABS: BUN Creatinine Ratio 8.4 (10-20); Calcium 9.6 mg/dl (8.5-10.1); Creatinine Clr Calc Pharmacy 103.8 ml/min; Est GFR (African American) 104.1 ml/min; Est GFR (Non-African American) 89.8 ml/min; Magnesium 1.9 mg/dl (1.7-2.4); Potassium 3.8 mmol/L (3.5-5.1)
[2022-09-19] MEDS: GABAPENTIN 100 MG CAP PO SCH (20:26)
[2022-09-19] MEDS: ATORVASTATIN 40 MG TAB PO SCH (20:26)
[2022-09-20] MEDS: PIPERACILLIN/TAZOBACTAM 3.375 GM in DEXTROSE 5% 100 ML IV SCH ×2 (01:15→08:37)
[2022-09-20] MEDS: INSULIN ASPART PER UNIT SC SCH ×2 (07:47→11:47)
[2022-09-20 08:08] LABS: Calcium 9.3 mg/dl (8.5-10.1); Est GFR (African American) 88.6 ml/min; Est GFR (Non-African American) 76.5 ml/min; Magnesium 1.9 mg/dl (1.7-2.4); Potassium 3.7 mmol/L (3.5-5.1)
[2022-09-20] MEDS: UMECLIDINIUM/VILANTEROL 62.5/25MCG 7 PUFFS/INHALER INH SCH (08:38)
[2022-09-20] MEDS: FLUTICASONE FUROATE 100MCG 14 PUFFS/INHALER INH SCH (08:38)
[2022-09-20] MEDS: FLUTICASONE PROPIONATE NA SPR 16 GM BTL SCH (08:39)
[2022-09-20] MEDS: carvediloL 25 MG TAB PO SCH (08:39)
[2022-09-20] MEDS: FUROSEMIDE 20 MG TAB PO SCH (08:39)
[2022-09-20] MEDS: OLMESARTAN MEDOXOMIL 40 MG TAB PO SCH (08:40)
[2022-09-20] MEDS: VITAMIN B COMPLEX TAB PO SCH (08:40)
[2022-09-20] MEDS: ISOSORBIDE MONO EXTENDED REL 30 MG TABCR PO SCH (08:40)
[2022-09-20] MEDS: ADVANCED PROBIOTIC 1250 MG CAPSULE PO SCH (08:40)
[2022-09-20] MEDS: FOLIC ACID 1 MG TAB PO SCH (08:40)
[2022-09-20] MEDS: CHOLECALCIFEROL 1,000 UNITS 25 MCG TAB PO SCH (08:40)
[2022-09-20] MEDS: amLODIPine BESYLATE 5 MG TAB PO SCH (08:40)
[2022-09-20] MEDS: TAMSULOSIN HCL 0.4 MG CAP PO SCH (08:40)
[2022-09-20] MEDS ORDERED: POTASSIUM CHLORIDE CRTAB 20 MEQ TABCR PO STA (09:05)
[2022-09-20] MEDS ORDERED: MAGNESIUM OXIDE 400 MG TAB PO SCH (09:15)
[2022-09-20] MEDS: PANTOprazole 40 MG in SYRINGE 0 ML IV SCH (11:47)
[2022-09-20 11:50] LABS: Cdiff Toxin B Gene (2yr or >) Positive Cdiff Gene (Neg)
[2022-09-20 11:51] LABS: Cdiff Antigen Positive; Cdiff Toxin A+B Negative Cdiff Toxin (Negative)
--- NOTE | 2022-09-20 13:10 | Discharge Summary ---
Date of Service September 20, 2022 Admission HPI Per Admitting Provider HISTORY OF PRESENT ILLNESS: This is a 71-year-old male with past medical history significant for history of hyperparathyroidism,parathyroid hyperplasia, hyperlipidemia, prediabetes, COPD, restrictive lung disease, history of coronary artery disease, status post stents, last stent was few years ago as per patient,, hypertension, history of frequent PVCs, chronic diastolic CHF, history of ulcerative colitis, GERD, vitamin D deficiency, osteopenia, lumbar radiculopathy, IgM monoclonal gammopathy, history of asbestos exposure, history of tobacco use, presents with rectal bleed. The patient says since yesterday morning he had several episodes of rectal bleed, which was not getting better, so came to the ER. His hemoglobin is 13.6. Resting comfortably, hemodynamically stable. Denies any headache. No blurred visions, no runny nose, no sore throat, no cough, no fevers, no chest pain. He says he is always having some shortness of breath because of his COPD. No nausea, no vomiting, no abdominal discomfort. Normal bladder movements. Currently, no swelling in the legs. 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 Pleasant and comfortable Respiratory Breathing comfortably on room air, no wheezing/rhonchi/rales Cardiovascular Regular rate and rhythm, no murmurs/rubs/gallops Gastrointestinal (Abdomen) soft, non tender Musculoskeletal No edema Neurologic awake, alert, ambulating with no difficulty Discharge Data Allergies Allergy/AdvReac Type Severity Reaction Status Date / Time fish oil Allergy Severe RASH Verified 06/30/21 11:37 vancomycin Allergy Mild Rash Verified 06/30/21 11:37 shellfish derived AdvReac Intermediate VOMITTING Verified 06/30/21 11:37 lisinopril AdvReac Mild COUGH Verified 06/30/21 11:37 Consultations 09/16/22 01:23 ED Decision to Admit Stat 09/16/22 08:00 Consult Gastroenterology Routine 09/18/22 08:52 Consult Urology Routine Procedures Performed Operation Date: 09/17/22 15:30 Actual Procedures p EGD Biopsy Cytology - Mary Rodriges MD s Colonoscopy Hemostasis - Mary Rodriges MD Ordered Studies 09/15/22 22:27 CT abd pelvis IV con only Urgent Hospital Course (1) Diverticulitis large intestine: (2) BRBPR (bright red blood per rectum): (3) BPH with urinary obstruction: Plan Rectal bleed. -Most consistent with diverticular bleed -Colonoscopy 09/17 showed diverticulum with a non bleeding ulcer--several clips were placed. EGD shows submucosal mass in duodenum which was biopsied here (p athology pending at time of discharge)--EUS scheduled at [facility] 11/17/2022 for further evaluation -Received 5 days of zosyn while in the hospital for coverage of mild diverticulitis (seen on CT A/P). -Several days of loose stools here. Stool PCR was positive for c diff gene but negative for c diff toxin. -No further bleed since 09/16/2022.. Aspirin and plavix were held here. Aspirin can be resumed at discharge. Plavix can be resumed 09/21/2022 Benign prostatic hypertrophy with urinary retention -CT A/P shows chronic bladder outlet obstruction -Patient was previously on flomax which was continued here. -Multiple attempts to spontaneously void was unsuccessful so a boyer catheter was placed. -He was seen by Urology while here and should follow up in the office in 1-2 weeks for a void trial and further management of his BPH Acute on chronic diastolic congestive heart failure Acute hypoxic respiratory failure -received IV fluids while here and developed volume overload. 89% on RA which improved to 91-92% on RA after diuresis. -received 1 dose lasix 20mg IV and home lasix was resumed. History of coronary artery disease, status post stents. The patient says had four stents but not in last one year. Aspirin and plavix held while here, resumed at discharge Home Health Attestation I certify that this patient is under my care and that I, or a physicians assistant guest services manager working with me, had a face to-face encounter that meets the home health [id number] encounter requirements with this patient. The encounter with the patient was in whole, or in part, for the following medical condition, which is the primary reason for home health care (list medical condition): I certify that, based on my findings, the following services are medically necessary home health services: My clinical findings support the need for the above services because: Further, I certify that my clinical findings support that this patient is homebound (i.e. absences from home require considerable and taxing effort and are for medical reasons or baptism services or infrequently or of short duration when for other reasons) because: Certification for Home Health Services: Based on the above findings, I certify that this patient is confined to the home and needs intermittent shelter care, physical therapy and/or speech therapy or continues to need occupational therapy. The patient is under my care, and I have initiated the establishment of the plan of care. This patient will be followed by a physician who will periodically review the plan of care. Total Time Total Time Spent Total Time Spent (In Minutes): 35 Discharge Plan Discharge Items Patient Disposition: Home - Self-Care Reason For Visit: GI BLEED Discharge Diagnosis: Diverticular Bleed BPH with urinary obstruction Acute on chronic diastolic CHF C diff carrier (no active infection) Condition on Discharge: Good Activity: Resume your previous activity Non-emergency contact: Primary Care Provider, Business Administration Teacher and Urologist Call non-emergency contact if: you have any medication questions Follow-up/Referrals: Tesfaye Kenny DO [Physician] - 09/28/22 9:30 am Mary Rodriges MD [Physician] - Jeimy Zavala MD [Primary Care Provider] - (Date & Time 09/27/2022 11:00 AM Provider Jeimy Zavala MD Department General Internal Medicine [facility] ) Diet: Heart Healthy Fluids: 1800ml (7 cups) Addtl Attending Provider Instructions: You were admitted for rectal bleeding You had an EGD and Colonoscopy 09/17/2022 which did not show active bleeding. It did show a submucosal mass in your duodenum--> you have a follow up EUS 11/17/2022 scheduled at [facility] ([place]). You also had a biopsy of this mass here pathology pending at discharge. You had an ulcer in a diverticulum which was not bleeding but did receive several clips. Please follow up with GI You had no further bleeding while here While here, you developed difficulty urinating and was seen by Urology. A boyer catheter was placed here and you should follow up with Dr Kenny' office in 1- 2 weeks for a void trial and further management of your enlarged prostate. In addition, you received IV fluid here and at the same time your lasix was held so you became mildly volume overloaded. You received 1 dose IV lasix 09/19 and was resumed on your regular lasix. You had several episodes of loose stool here and your stool was NEGATIVE for C diff infection. You are a C diff carrier so are at increased risk for infections when on antibiotics. If you develop bleeding, worsening diarrhea, fever/chills, chest pain, shortness of breath or new symptoms--> please go to the ER YOU CAN RESTART YOUR ASPIRIN NOW. AND RESTART PLAVIX 09/21/2022 IF NO RECURRENT BLEEDING Pending Studies at Discharge: Yes Studies:: Pathology from biopsy of submucosal mass during EGD Stand-Alone Forms: My [facility], Smoking Cessation Medications and DC Order Prescriptions: Continued gabapentin 100 mg Capsule 100 mg PO HS isosorbide mononitrate 30 mg Tablet Extended Release 24 Hr 30 mg PO QAM folic acid 1 mg Tablet 1 mg PO QAM lutein 20 mg Capsule 20 mg PO QAM atorvastatin 80 mg Tablet 80 mg PO HS nitroglycerin [Nitrostat] 0.4 mg Tablet, Sublingual 0.4 mg Sublingual UD PRN (Reason: Chest Pain) Rx Instructions: NEEDED FOR CHEST PAIN: ONE TABLET UNDER THE TONGUE EVERY 5 MINUTES UP TO 3 DOSES. olmesartan [Benicar] 40 mg Tablet 40 mg PO QAM clopidogrel [Plavix] 75 mg Tablet 75 mg PO QAM vitamin B complex Tablet 1 tab PO QAM tamsulosin 0.4 mg Capsule 0.4 mg PO QAM Qty: 0 carvedilol [Coreg] 25 mg Tablet 25 mg PO AMHS amlodipine 10 mg Tablet 10 mg PO QAM aspirin [Aspirin Childrens] 81 mg Tablet,Chewable 81 mg PO HS furosemide 20 mg tablet 20 mg PO QAM Rx Instructions: may take an extra tablet if needed for increased leg swelling cholecalciferol (vitamin D3) [Vitamin D3] 25 mcg (1,000 unit) Capsule 25 mcg PO QAM Entyvio 300 mg Recon Soln 300 mg IV .Q8WK fluticasone propionate [Flonase Allergy Relief] 50 mcg/actuation spray,suspension 2 spray INTRANASAL DAILY Probiotic 3 billion cell Capsule 3,000 mmu cells PO QAM Trelegy Ellipta 100-62.5-25 mcg blister with device 1 inh INHALATION QAM albuterol sulfate 90 mcg/actuation HFA aerosol inhaler 2 puff INHALATION QID Rx Instructions: 2 puffs in morning,noon,evening and before bedtime metformin 500 mg tablet extended release 24 hr 500 mg PO QAM Discharge Orders: Discharge Order (Routine); Ordered 09/20/22 Ordered By: Yaquelin Thakur/Other Patient Handouts: A1C, 5 Steps for Eating Healthier, Indwelling Urinary Catheter Dc, Leg Bag Care Dc Admission Data Admit Date/Time: 09/16/22 02:35 Attending Provider: Yaquelin Archer Admit Provider: Ron Cosby Primary Care Provider: Jeimy Zavala Other Providers: Ron Cosby ; Jeannette Morris ; Ricardo Falcon ; Suzi Dale ; Erendira Bey ; Ellen Kamara ; Angi Koch ; Dru Peña ; Akira Talbert ; Marck Gamino ; Mary Rodriges ; Jennifer Rubio ; Bridgette Parisi ; Arcelia Wong ; Carolina Mckay ; Manish Shaikh ; Juan Manuel Tapia ; Gaurang Lin ; Deja Velez ; Geoffrey Hernandez Jr ; Tesfaye Kenny ; [facility] Other Interventions: Discharge Summary Assessment (RN) Last Done: 09/17/22 14:32
--- NOTE | 2022-10-11 11:21 | Coding Query ---
A supporting diagnosis is required for the test/procedure performed on this patient in order for us to be reimbursed by the patient's insurance. Please provide a supporting diagnosis for the following test/procedure listed below next to the test name along with your signature. *If there is no additional diagnosis for this patient that would support the following test/procedure please document that below next to the test/procedure. Test(s)/Procedure(s) that require a supporting diagnosis: GI GASTROINTESTINAL PANEL DIAGNOSIS:__diarrhea Provider Signature: Jeannette Morris Date: _10/12/22 Thank you Aminata Helm Health Information Management Once completed, please kindly fax back to [phone] For questions please call [phone] EARLENE
== END 2022-09-20 14:30 | disposition home health service (06) ==
LOC: ED 18:55 → EDINP 09-16 02:35 → INTOOBSV 09-16 02:35 → EDINP 09-16 03:29 → 2E 09-17 00:30

== ENCOUNTER 2023-02-19 15:02 | Inpatient (IN) ==
[2023-02-19] MEDS ORDERED: SODIUM CHLORIDE 0.9% 500 ML IV SCH (15:15)
[2023-02-19] MEDS ORDERED: PANTOprazole 80 MG in DEXTROSE 5% 100 ML IV STA (15:15)
[2023-02-19 15:28] LABS: Basophils # (auto) 0.04 K/uL (0-0.2); Basophils % (auto) 0.3 %; Eosinophils # (auto) 0.06 K/uL (0-0.50); Eosinophils % (auto) 0.5 %; Hematocrit (blood only) 33.1 % (42.0-52.0); Hemoglobin 10.8 g/dl (14.0-18.0); Immature Granulocytes # (auto) 0.08 K/uL (0.01-0.20); Immature Granulocytes % (auto) 0.6 %; Lymphocytes # (auto) 1.45 K/uL (1.2-3.4); Lymphocytes % (auto) 11.3 %; Mean Corpuscular Hgb Conc 32.6 g/dL (32.0-36.0); Mean Corpuscular Volume 85.8 fL (80.0-100.0); Mean Platelet Volume 11.3 fL (9.4-12.4); Monocytes # (auto) 0.49 K/uL (0.11-0.59); Monocytes % (auto) 3.8 %; Neutrophils # (auto) 10.66 K/uL (1.40-6.50); Neutrophils % (auto) 83.5 %; Platelet Count 244 K/uL (130-400); RDW Coefficient of Variation 14.1 % (11.5-14.5); RDW Standard Deviation 43.5 fL (36.4-46.3); Red Blood Count 3.86 M/uL (4.70-6.10); White Blood Count 12.78 K/ul (4.8-10.8)
--- NOTE | 2023-02-19 15:34 | Emergency Department Note ---
Impression & Plan Melena, Syncope and collapse, History of CAD (coronary artery disease) ED Provider Note Provider: Hernan Cardenas MD DATE OF SERVICE: 02/19/2023 CHIEF COMPLAINT: Syncope, rectal bleeding HISTORY OF PRESENT ILLNESS: Patient is a 72-year-old gentleman history of hyperparathyroidism, COPD, CAD with stents on aspirin Plavix, hypertension, CHF, ulcerative colitis, and recent stomach biopsy by Dr. Shaikh at the end of January presenting here with the onset this morning of multiple episodes of black dark stools he is concerned for bleeding 4. Has felt a bit weak this morning and lightheaded and went to use the bathroom again and passed out on the toilet. Did not fall per his report. There is some generalized weakness. Denies significant abdominal pain or chest pain. Denies difficulty breathing. States feels similar episode in September of bleeding. Initially thought it was more related to a cold or ulceration but they also found a nodule in his stomach that was biopsied in the last 2 weeks. No bright red blood reported. Patient states that according to he was trembling a bit when he passed out on the toilet. She started with the melanotic stools today yesterday was fine. Nausea may be some dry heaves but no actual vomiting PAST MEDICAL HISTORY: As noted above MEDICATIONS: Reviewed home medications includes aspirin Plavix SOCIAL HISTORY: and lives in [place] PHYSICAL EXAM: GENERAL: alert and oriented in no acute distress on stretcher Head: normocephalic and atraumatic EYES: No injection, discharge or icterus. PERRL NECK: Trachea midline. ENT: Mucous membranes pink and moist. LUNGS: Airway patent. No retractions. Breath sounds clear with good air entry bilaterally. HEART: Regular rate and rhythm. No chest wall tenderness ABDOMEN: Soft and non-tender, without guarding or rebound. No masses appreciated SKIN: Acyanotic, warm, dry, without rashes EXTREMITIES: Without swelling, tenderness or deformity NEUROLOGICAL: No focal deficits. No aphasia. No facial droop or slurred speech. Normal strength and tone in the extremities. Sensation to gross touch normal. EK bpm normal sinus rhythm. No PVC or PAC. No acute ST segment elevation or depression with a QTc of 424. CONTINUOUS CARDIAC MONITORING: was ordered and showed a heart rate of 60s-70s bpm in normal sinus rhythm Patient's laboratory studies and imaging reviewed. Differential includes cardiac etiology, neurological, diverticulosis, AVM, coagulopathy, colitis, inflammatory bowel disease, malignancy, esophagitis, peptic ulcer disease, variceal bleed, gastritis, as well as other pathologies. IMPRESSION/MEDICAL DECISION MAKING: No significant trauma reported sounds more like and also syncope and low suspicion for seizure at this time. Denies any headache or focal neurological deficits. Denies significant abdominal pain. GI history including recent stomach biopsy noted. We will give a dose of Protonix although it may be from recent biopsy. Not peritoneal. Labs checked to look for signs of anemia. Lower suspicion for abdominal perforation given length of time about 2 weeks since the procedure. Patient not tachycardic here. Initial hemoglobin returns at 10.8. Blood bank sample was sent. Slight leukocytosis of 12.7 nonspecific and may be reactive. No other sick contacts reported. CT scan of the abdomen pelvis ordered to look for inflammatory changes but seems less likely to be his ulcerative colitis given lack of discomfort. Chemistries with very slight hyperkalemia but normal renal function. BUN mildly elevated. Again the question of some possible component of mild upper GI bleed exists. No evidence of hepatitis. Normal troponin. Doubt cardiac etiology. CT scan questions some fluid versus may be some clot in the stomach. Will bring in for further evaluation and care. Protonix reported. Hospitalist contacted and patient and updated at bedside. No further episodes of melena while here in the emergency department. DIAGNOSIS: GI bleed, syncope DISPOSITION: Hospitalist will evaluate Patient was agreeable with this plan. Past Med/Surg History Medical History (Updated 02/19/23 @ 21:18 by Hernan Cardenas M.D.) BPH (benign prostatic hyperplasia) BPH NOS w ur obs/LUTS BRBPR (bright red blood per rectum) CAD (coronary artery disease) follows with Dr. Laguerre Cardiac murmur Chronic diastolic heart failure COPD (chronic obstructive pulmonary disease) Diverticulitis large intestine Frequent PVCs History of myocardial infarction 2014 History of skin cancer HLD (hyperlipidemia) HTN (hypertension) Pre-diabetes Ulcerative colitis Surgical History History of cardiac catheterization multiple w/ stents 1997, 2009, 2013, 2019 History of colonoscopy History of esophagogastroduodenoscopy (EGD) History of heart artery stent x 4 (last placed 2018) History of Mohs micrographic surgery for skin cancer multiple Family History Other Heart disease No family history of adverse response to anesthesia Stroke Social History Smoking Status: Former smoker Smoking End Date: 30 years ago; Second Hand Exposure: No; Do You Dip or Chew Tobacco: No; Hx Alcohol Use: No Hx Substance Use: No Preferred Language: Cymraes Communication Ability: Effective Car Carder Required: No Beliefs That Will Affect Care: None Current Living Situation: Spouse Other Information That Helps Us Care for You: No Feels Safe at Home: Yes Safety Concerns: Feels Safe At This Time Assistive Devices: Denture - Lower Assistive Devices Comment: lower right cemented in partial Allergies Allergies Allergy/AdvReac Type Severity Reaction Status Date / Time fish oil Allergy Severe RASH Verified 02/19/23 18:04 vancomycin Allergy Intermediate Rash Verified 02/19/23 18:04 lisinopril AdvReac Intermediate COUGH Verified 02/19/23 18:04 shellfish derived AdvReac Intermediate VOMITTING Verified 02/19/23 18:04 Home Meds Home Medications Medication Instructions Recorded Confirmed atorvastatin 80 mg tablet 80 mg PO HS 07/04/18 02/19/23 clopidogrel 75 mg tablet (Plavix) 75 mg PO QAM 07/04/18 02/19/23 folic acid 1 mg tablet 1 mg PO QAM 07/04/18 02/19/23 isosorbide mononitrate 30 mg 30 mg PO QAM 07/04/18 02/19/23 tablet,extended release 24 hr lutein 20 mg capsule 20 mg PO QAM 07/04/18 02/19/23 nitroglycerin 0.4 mg sublingual 0.4 mg sublingual UD PRN Chest Pain 07/04/18 02/19/23 tablet (Nitrostat) olmesartan 40 mg tablet (Benicar) 40 mg PO QAM 07/04/18 02/19/23 vitamin B complex 1 tab PO QAM 07/04/18 02/19/23 tamsulosin 0.4 mg capsule 0.4 mg PO DAILY ##0 10/12/18 02/19/23 amlodipine 10 mg tablet 10 mg PO QAM 12/20/20 02/19/23 aspirin 81 mg chewable tablet 81 mg PO HS 12/20/20 02/19/23 (Aspirin Childrens) carvedilol 25 mg tablet (Coreg) 25 mg PO AMHS 12/20/20 02/19/23 furosemide 20 mg tablet 20 mg PO QAM 12/20/20 02/19/23 vedolizumab 300 mg intravenous 300 mg IV .Q8WK 12/20/20 02/19/23 solution (Entyvio) fluticasone propionate 50 2 spray intranasal DAILY 06/30/21 02/19/23 mcg/actuation nasal spray,suspension (Flonase Allergy Relief) lactobacillus combination no.4 3 3,000 mmu cells PO QAM 06/30/21 02/19/23 billion cell capsule (Probiotic) albuterol sulfate 90 mcg/actuation 2 puff inhalation QID PRN 09/16/22 02/19/23 aerosol inhaler Shortness Of Breath Or Wheezing fluticasone fur. 100 mcg-umeclid 1 inh inhalation QAM 09/16/22 02/19/23 62.5 mcg-vilant 25 mcg inhalat.powder (Trelegy Ellipta) metformin 500 mg tablet,extended 500 mg PO QAM 09/16/22 02/19/23 release 24 hr fluorouracil 5 % topical cream 1 applic topical DIRECTED PRN 10/27/22 02/19/23 Rash finasteride 5 mg tablet 5 mg PO PM 02/19/23 02/19/23 Results & Data (ED) Vital Signs Vital Signs - 24 hr 02/19/23 15:20 02/19/23 15:20 02/19/23 15:20 Temperature 36.4 C L 36.4 C L Temperature Source Oral Oral Pulse Rate 70 70 Pulse Rate [Apical] 70 Pulse Rate from SpO2 Sensor Pulse Rhythm [Apical] Regular Pulse Strength [Apical] Normal Respiratory Rate 18 18 18 Respiratory Effort / Characteristics Non-Labored Spontaneous Non-Labored Spontaneous Respiratory Depth Normal Normal Respiratory Pattern Regular Regular Blood Pressure 104/48 L Blood Pressure [Right Arm] 104/48 L Blood Pressure Mean 66 Blood Pressure Mean [Right Arm] 66 Blood Pressure Position Lying Blood Pressure Position [Right Arm] Lying Pulse Oximetry 94 94 94 Oxygen Delivery Method Room Air Room Air Room Air Sepsis Recent Fever Within 48 Hours No Sepsis New/Unexplained Change in Mental Status N/A Sepsis Action Taken by Nursing No Action Required 02/19/23 15:42 02/19/23 15:16 02/19/23 15:17 Temperature Temperature Source Pulse Rate 63 77 Pulse Rate [Apical] Pulse Rate from SpO2 Sensor Pulse Rhythm [Apical] Pulse Strength [Apical] Respiratory Rate 5 L Respiratory Effort / Characteristics Respiratory Depth Respiratory Pattern Blood Pressure 104/48 L Blood Pressure [Right Arm] Blood Pressure Mean 63 Blood Pressure Mean [Right Arm] Blood Pressure Position Blood Pressure Position [Right Arm] Pulse Oximetry Oxygen Delivery Method Sepsis Recent Fever Within 48 Hours Sepsis New/Unexplained Change in Mental Status Sepsis Action Taken by Nursing 02/19/23 15:17 02/19/23 16:00 02/19/23 16:00 Temperature Temperature Source Pulse Rate 70 Pulse Rate [Apical] Pulse Rate from SpO2 Sensor 70 Pulse Rhythm [Apical] Pulse Strength [Apical] Respiratory Rate 19 24 Respiratory Effort / Characteristics Respiratory Depth Respiratory Pattern Blood Pressure 94/75 L Blood Pressure [Right Arm] Blood Pressure Mean 80 Blood Pressure Mean [Right Arm] Blood Pressure Position Blood Pressure Position [Right Arm] Pulse Oximetry 94 Oxygen Delivery Method Sepsis Recent Fever Within 48 Hours Sepsis New/Unexplained Change in Mental Status Sepsis Action Taken by Nursing 02/19/23 16:30 02/19/23 16:30 02/19/23 17:00 Temperature Temperature Source Pulse Rate 65 57 L Pulse Rate [Apical] Pulse Rate from SpO2 Sensor 64 Pulse Rhythm [Apical] Pulse Strength [Apical] Respiratory Rate 15 Respiratory Effort / Characteristics Respiratory Depth Respiratory Pattern Blood Pressure 111/57 L 114/62 Blood Pressure [Right Arm] Blood Pressure Mean 86 69 Blood Pressure Mean [Right Arm] Blood Pressure Position Blood Pressure Position [Right Arm] Pulse Oximetry 91 Oxygen Delivery Method Sepsis Recent Fever Within 48 Hours Sepsis New/Unexplained Change in Mental Status Sepsis Action Taken by Nursing 02/19/23 17:00 02/19/23 17:30 Temperature Temperature Source Pulse Rate 66 Pulse Rate [Apical] Pulse Rate from SpO2 Sensor 66 Pulse Rhythm [Apical] Pulse Strength [Apical] Respiratory Rate 13 14 Respiratory Effort / Characteristics Respiratory Depth Respiratory Pattern Blood Pressure Blood Pressure [Right Arm] Blood Pressure Mean Blood Pressure Mean [Right Arm] Blood Pressure Position Blood Pressure Position [Right Arm] Pulse Oximetry 92 94 Oxygen Delivery Method Sepsis Recent Fever Within 48 Hours Sepsis New/Unexplained Change in Mental Status Sepsis Action Taken by Nursing Laboratory Data 02/19/23 15:12 06/10/23 15:12 Lab Results 02/19/23 02/19/23 02/19/23 Range/Units 15:12 15:12 15:12 WBC 12.78 H (4.8-10.8) K/ul RBC 3.86 L (4.70-6.10) M/uL Hgb 10.8 L (14.0-18.0) g/dl Hct 33.1 L (42.0-52.0) % MCV 85.8 (80.0-100.0) fL MCH 28.0 (25.0-34.0) pg MCHC 32.6 (32.0-36.0) g/dL RDW Std Deviation 43.5 (36.4-46.3) fL RDW Coeff of Flo 14.1 (11.5-14.5) % Plt Count 244 (130-400) K/uL MPV 11.3 (9.4-12.4) fL Immature Gran % (Auto) 0.6 % Neut % (Auto) 83.5 % Lymph % (Auto) 11.3 % Bullock % (Auto) 3.8 % Eos % (Auto) 0.5 % Baso % (Auto) 0.3 % Neut # (Auto) 10.66 H (1.40-6.50) K/uL Lymph # (Auto) 1.45 (1.2-3.4) K/uL Bullock # (Auto) 0.49 (0.11-0.59) K/uL Eos # (Auto) 0.06 (0-0.50) K/uL Baso # (Auto) 0.04 (0-0.2) K/uL Immature Gran # (Auto) 0.08 (0.01-0.20) K/uL PT Cancelled INR Cancelled APTT Cancelled PTT Ratio Cancelled Sodium (136-145) mmol/L Potassium (3.5-5.1) mmol/L Chloride (98-107) mmol/L Carbon Dioxide (21-32) mmol/L Anion Gap (3-11) BUN (6-23) mg/dl Creatinine (0.6-1.4) mg/dl Est Cr Clr Drug Dosing ml/min Est GFR ( Amer) ml/min Est GFR (Non-Af Amer) ml/min BUN/Creatinine Ratio (10-20) Glucose (70-99(Fasting)) mg/dl Calcium (8.6-10.3) mg/dl Magnesium (1.7-2.4) mg/dl Total Bilirubin (0.2-1.0) mg/dl AST (13-39) U/L ALT (7-52) U/L Alkaline Phosphatase (34-104) U/L Troponin I High Sens (0-20) pg/ml Total Protein (6.0-8.3) gm/dl Albumin (3.4-5.0) gm/dl Globulin (2.5-4.0) gm/dl Albumin/Globulin Ratio (0.9-2) Lipase (11-82) U/L TSH (0.300-4.500) uIu/ml SARS-CoV-2, RNA, NAAT (NEGATIVE) Blood Type A Positive Antibody Screen NEGATIVE 02/19/23 02/19/23 02/19/23 Range/Units 15:12 15:12 15:41 WBC (4.8-10.8) K/ul RBC (4.70-6.10) M/uL Hgb (14.0-18.0) g/dl Hct (42.0-52.0) % MCV (80.0-100.0) fL MCH (25.0-34.0) pg MCHC (32.0-36.0) g/dL RDW Std Deviation (36.4-46.3) fL RDW Coeff of Flo (11.5-14.5) % Plt Count (130-400) K/uL MPV (9.4-12.4) fL Immature Gran % (Auto) % Neut % (Auto) % Lymph % (Auto) % Bullock % (Auto) % Eos % (Auto) % Baso % (Auto) % Neut # (Auto) (1.40-6.50) K/uL Lymph # (Auto) (1.2-3.4) K/uL Bullock # (Auto) (0.11-0.59) K/uL Eos # (Auto) (0-0.50) K/uL Baso # (Auto) (0-0.2) K/uL Immature Gran # (Auto) (0.01-0.20) K/uL PT INR APTT PTT Ratio Sodium 140 (136-145) mmol/L Potassium 5.4 H (3.5-5.1) mmol/L Chloride 110 H (98-107) mmol/L Carbon Dioxide 28 (21-32) mmol/L Anion Gap 2 L (3-11) BUN 34 H (6-23) mg/dl Creatinine 0.99 (0.6-1.4) mg/dl Est Cr Clr Drug Dosing 85.8 ml/min Est GFR ( Amer) 89.1 ml/min Est GFR (Non-Af Amer) 76.8 ml/min BUN/Creatinine Ratio 34.3 H (10-20) Glucose 166 H (70-99(Fasting)) mg/dl Calcium 9.1 (8.6-10.3) mg/dl Magnesium 1.7 (1.7-2.4) mg/dl Total Bilirubin 0.5 (0.2-1.0) mg/dl AST 19 (13-39) U/L ALT 42 (7-52) U/L Alkaline Phosphatase 68 (34-104) U/L Troponin I High Sens 7.0 (0-20) pg/ml Total Protein 5.4 L (6.0-8.3) gm/dl Albumin 3.0 L (3.4-5.0) gm/dl Globulin 2.4 L (2.5-4.0) gm/dl Albumin/Globulin Ratio 1.3 (0.9-2) Lipase 43 (11-82) U/L TSH 0.478 (0.300-4.500) uIu/ml SARS-CoV-2, RNA, NAAT NEGATIVE (NEGATIVE) Blood Type Antibody Screen 02/19/23 Range/Units 17:04 WBC (4.8-10.8) K/ul RBC (4.70-6.10) M/uL Hgb (14.0-18.0) g/dl Hct (42.0-52.0) % MCV (80.0-100.0) fL MCH (25.0-34.0) pg MCHC (32.0-36.0) g/dL RDW Std Deviation (36.4-46.3) fL RDW Coeff of Flo (11.5-14.5) % Plt Count (130-400) K/uL MPV (9.4-12.4) fL Immature Gran % (Auto) % Neut % (Auto) % Lymph % (Auto) % Bullock % (Auto) % Eos % (Auto) % Baso % (Auto) % Neut # (Auto) (1.40-6.50) K/uL Lymph # (Auto) (1.2-3.4) K/uL Bullock # (Auto) (0.11-0.59) K/uL Eos # (Auto) (0-0.50) K/uL Baso # (Auto) (0-0.2) K/uL Immature Gran # (Auto) (0.01-0.20) K/uL PT 12.0 INR 1.1 APTT 21.4 PTT Ratio 0.8 Sodium (136-145) mmol/L Potassium (3.5-5.1) mmol/L Chloride (98-107) mmol/L Carbon Dioxide (21-32) mmol/L Anion Gap (3-11) BUN (6-23) mg/dl Creatinine (0.6-1.4) mg/dl Est Cr Clr Drug Dosing ml/min Est GFR ( Amer) ml/min Est GFR (Non-Af Amer) ml/min BUN/Creatinine Ratio (10-20) Glucose (70-99(Fasting)) mg/dl Calcium (8.6-10.3) mg/dl Magnesium (1.7-2.4) mg/dl Total Bilirubin (0.2-1.0) mg/dl AST (13-39) U/L ALT (7-52) U/L Alkaline Phosphatase (34-104) U/L Troponin I High Sens (0-20) pg/ml Total Protein (6.0-8.3) gm/dl Albumin (3.4-5.0) gm/dl Globulin (2.5-4.0) gm/dl Albumin/Globulin Ratio (0.9-2) Lipase (11-82) U/L TSH (0.300-4.500) uIu/ml SARS-CoV-2, RNA, NAAT (NEGATIVE) Blood Type Antibody Screen Administered Medications Atorvastatin Calcium (Atorvastatin 40 Mg Tab) 80 mg PO HS NAM Stop: 03/21/23 20:59 Last Admin: 02/19/23 20:27 Dose: 80 mg Documented By: MAY Carvedilol (Carvedilol 25 Mg Tab) 25 mg PO AMHS NAM Stop: 03/21/23 20:59 Last Admin: 02/19/23 20:27 Dose: 25 mg Documented By: MAY Finasteride (Finasteride 5 Mg Tab) 5 mg PO PM NAM Stop: 03/21/23 20:59 Last Admin: 02/19/23 20:27 Dose: 5 mg Documented By: MAY Pantoprazole Sodium 40 mg/ (Dextrose) 100 mls @ 20 mls/hr IV Q5H NAM Stop: 03/21/23 17:14 Last Admin: 02/19/23 19:10 Dose: 8 mg/hr, 20 mls/hr Documented By: CADY Sodium Chloride (Nss 1000ml) 1,000 mls @ 80 mls/hr IV .[id number] NAM Stop: 02/20/23 19:56 Last Admin: 02/19/23 19:38 Dose: 80 mls/hr Documented By: MAY Insulin Aspart (Insulin Aspart Per Unit Charge) 0 units SC ACHS NAM Stop: 03/21/23 20:59 Last Admin: 02/19/23 20:24 Dose: Not Given Documented By: MAY Discontinued Medications Sodium Chloride (Nss) 500 mls @ 999 mls/hr IV .Q31M NAM Stop: 02/19/23 15:45 Last Infusion: 02/19/23 16:26 Dose: 0 mls/hr Documented By: Admin: 02/19/23 15:37 Dose: 999 mls/hr Documented By: KATE Pantoprazole Sodium 80 mg/ (Dextrose) 120 mls @ 480 mls/hr IV ONE STA Stop: 02/19/23 15:29 Last Infusion: 02/19/23 17:29 Dose: 0 mls/hr Documented By: Admin: 02/19/23 16:20 Dose: 480 mls/hr Documented By: KATE Imaging Data Radiologist's Impression: Chest X-Ray 02/19/23 15:15 XR chest 1V portable CLINICAL HISTORY: syncope COMPARISON STUDY: Chest CT December 20, 2020. Chest radiograph September 19, 2022. FINDINGS: Cardiomegaly is unchanged. There is no evidence for pulmonary edema. Mild bibasilar opacities favor atelectasis. No consolidation to suggest pneu monia. There is no pneumothorax or pleural effusion. IMPRESSION: No acute cardiopulmonary findings. ACT 112: Negative or not required by law. Electronically signed by: Myron Gordon M.D. 02/19/2023 4:34 PM Abdomen/Pelvis CT 02/19/23 15:17 CT OF THE ABDOMEN AND PELVIS WITH CONTRAST CLINICAL HISTORY: Melena, syncope, recent stomach biopsy. COMPARISON STUDY: CT of the abdomen and pelvis October 27, 2022. TECHNIQUE: Following IV administration of 90 mL of Optiray, axial images of the abdomen and pelvis were obtained from the lung bases to the proximal femurs. Images were reviewed in the axial, sagittal, and coronal planes. IV contrast was administered without complication. Automated exposure control was utilized for the study. A dose lowering technique was utilized adhering to the principles of ALARA. CT DOSE: 1495.39 mGy.cm FINDINGS: No pneumatosis, free air or portal venous gas is present. Several subcentimeter hypodense hepatic lesions are too small to characterize but are unchanged. There is no biliary or pancreatic ductal dictation. Spleen, adrenal glands are unremarkable. Several bilateral renal calculi measure up to 4 mm. There are no ureteral calculi. There is no hydronephrosis. The prostate is moderately enlarged. 3.1 cm cyst within the upper pole of the right kidney is noted. Numerous subcentimeter renal lesions are too small to characterize. There is minimal stranding adjacent to the pancreas. There is layering hyperdense material within the stomach. Suspected endoscopic clips within the first portion of the duodenum are noted. The adjacent soft tissues are unremarkable. There is no evidence for a bowel obstruction. There is colonic diverticulosis without evidence for acute diverticulitis. There is no lymphadenopathy. There is moderate aortoiliac atherosclerotic plaque. No acute fractures within the visualized skeletal structures. Mild stranding adjacent to the proximal ureters and collecting systems remains unchanged. IMPRESSION: 1. Small amount of layering hyperdense material within the stomach. This likely reflects ingested contents. However, clot could appear similar. Suspected endoscopic clips within the first portion the duodenum. No pneumoperitoneum. 2. Equivocal peripancreatic stranding. Findings could be correlated with serum lipase level to exclude acute pancreatitis. 3. Bilateral nephrolithiasis. No ureteral calculi or hydronephrosis. Mild urothelial thickening, as above. This could be correlated with urinalysis. 4. Colonic diverticulosis. No evidence for acute diverticulitis. ACT 112: Negative or not required by law. Electronically signed by: Myron Gordon M.D. 02/19/2023 4:56 PM Discharge Plan Visit Data Chief Complaint: Seizure ED Provider: Hernan Cardenas Discharge Problem: Melena, Syncope and collapse, History of CAD (coronary artery disease) Patient Disposition: Admitted As Inpatient Discharge Instructions Interventions: ED Discharge Assessment Last Done: 02/19/23 18:27
[2023-02-19 15:46] LABS: Albumin Globulin Ratio 1.3 (0.9-2); BUN Creatinine Ratio 34.3 (10-20); Bilirubin,Total 0.5 mg/dl (0.2-1.0); Calcium 9.1 mg/dl (8.6-10.3); Creatinine Clr Calc Pharmacy 85.8 ml/min; Est GFR (African American) 89.1 ml/min; Est GFR (Non-African American) 76.8 ml/min; Globulin 2.4 gm/dl (2.5-4.0); Magnesium 1.7 mg/dl (1.7-2.4); Potassium 5.4 mmol/L (3.5-5.1); Total Protein 5.4 gm/dl (6.0-8.3)
--- NOTE | 2023-02-19 16:35 | XRay Report ---
XR chest 1V portable CLINICAL HISTORY: syncope COMPARISON STUDY: Chest CT December 20, 2020. Chest radiograph September 19, 2022. FINDINGS: Cardiomegaly is unchanged. There is no evidence for pulmonary edema. Mild bibasilar opaciti es favor atelectasis. No consolidation to suggest pneumonia. There is no pneumothorax or pleural effu nicholas. IMPRESSION: No acute cardiopulmonary findings. ACT 112: Negative or not required by law. Electronically signed by: Myron Gordon M.D. 02/19/2023 4:34 PM
--- NOTE | 2023-02-19 16:58 | CT Scan Report ---
CT OF THE ABDOMEN AND PELVIS WITH CONTRAST CLINICAL HISTORY: Melena, syncope, recent stomach biopsy. COMPARISON STUDY: CT of the abdomen and pelvis October 27, 2022. TECHNIQUE: Following IV administration of 90 mL of Optiray, axial images of the abdomen and pelvis we re obtained from the lung bases to the proximal femurs. Images were reviewed in the axial, sagittal, and coronal planes. IV contrast was administered without complication. Automated exposure control wa s utilized for the study. A dose lowering technique was utilized adhering to the principles of ALARA . CT DOSE: 1495.39 mGy.cm FINDINGS: No pneumatosis, free air or portal venous gas is present. Several subcentimeter hypodense h epatic lesions are too small to characterize but are unchanged. There is no biliary or pancreatic konstantin clyde dictation. Spleen, adrenal glands are unremarkable. Several bilateral renal calculi measure up to 4 mm. There are no ureteral calculi. There is no hydronephrosis. The prostate is moderately enlarged . 3.1 cm cyst within the upper pole of the right kidney is noted. Numerous subcentimeter renal lesion s are too small to characterize. There is minimal stranding adjacent to the pancreas. There is layeri ng hyperdense material within the stomach. Suspected endoscopic clips within the first portion of the duodenum are noted. The adjacent soft tissues are unremarkable. There is no evidence for a bowel obs truction. There is colonic diverticulosis without evidence for acute diverticulitis. There is no lymp hadenopathy. There is moderate aortoiliac atherosclerotic plaque. No acute fractures within the visua lized skeletal structures. Mild stranding adjacent to the proximal ureters and collecting systems rem ains unchanged. IMPRESSION: 1. Small amount of layering hyperdense material within the stomach. This likely reflects ingested con tents. However, clot could appear similar. Suspected endoscopic clips within the first portion the du odenum. No pneumoperitoneum. 2. Equivocal peripancreatic stranding. Findings could be correlated with serum lipase level to exclud e acute pancreatitis. 3. Bilateral nephrolithiasis. No ureteral calculi or hydronephrosis. Mild urothelial thickening, as a rivera. This could be correlated with urinalysis. 4. Colonic diverticulosis. No evidence for acute diverticulitis. ACT 112: Negative or not required by law. Electronically signed by: Myron Gordon M.D. 02/19/2023 4:56 PM
--- NOTE | 2023-02-19 17:48 | History & Physical Report ---
Date of Service February 19, 2023 Assessment & Plan (1) GI bleed: Plan: Symptomatic anemia Patient is 72-year-old male with PMH COPD, restrictive lung disease, prediabetes, HTN, HLD, CAD s/p stents, chronic diastolic heart failure, history of ulcerative colitis, GERD presented to ER with complaint of multiple episodes dark bloody stools today. History: 02/09/2023 had EGD with normal esophagus and stomach, a submucosal nodule found in duodenum and was removed and clips placed. 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 Hgb: 10.8. Baseline Hgb mid 13's BUN: 34,Cr: 0.9 CT abdomen pelvis: Small amount of layering hyperdense material within the stomach. This likely reflects ingested contents. However, clot could appear similar. Suspected endoscopic clips within the first portion the duodenum. No pneumoperitoneum. Equivocal peripancreatic stranding. Findings could be correlated with serum lipase level to exclude acute pancreatitis. Colonic diverticulosis. No evidence for acute diverticulitis. In ER given 500 mL NSS, Protonix bolus and drip Continue Protonix drip NPO IVF H&H every 6 hours Type and cross and hold Hold aspirin, Plavix Blood consent was obtained from the patient as delegated by Dr. Wood. Risks and benefits were explained. All questions were answered, and the patient was offered the opportunity to discuss with attending physician and declined. Lipase WNL Will hold on antibiotics at this time GI consult (2) Syncope: Plan: Reported dizziness with standing today. Patient attempting BM on toilet and had reported syncopal episode. reports body shaking and concern for seizure No tongue laceration CT head: no acute findings Suspect this was syncopal episode secondary to GI bleed, orthostatic hypotension versus vasovagal syncope. Less likely seizure Seizure precautions (3) Ulcerative colitis: Plan: On Entyvio (4) Hyperkalemia: Plan: K: 5.4 Repeat BMP and monitor K (5) History of CAD (coronary artery disease): Plan: S/p stents. Last reported in 2019 Hold aspirin, Plavix Continue isosorbide, carvedilol (6) HTN (hypertension): Plan: Continue carvedilol with holding parameters Hold olmesartan, amlodipine (7) Pre-diabetes: Plan: A1c: 6.4 on 07/28/2022 Hold metformin NovoLog correction sliding scale currently as is NPO. Hold metformin (8) Chronic diastolic heart failure: Plan: Hold Lasix (9) COPD (chronic obstructive pulmonary disease): Plan: No signs acute exacerbation Continue home inhalers (10) BPH NOS w ur obs/LUTS: Plan: Continue tamsulosin, finasteride with holding parameters DVT Prophylaxis SCDs Full Code as per discussion with pt Follows with Dr Zavala for routine care Pt was seen and care coordinated with Dr Wood. See addendum I spent a total of 80 minutes reviewing notes, outpatient records, labs, medication, coordinating, documenting and providing care for this patient excluding time spent in the performance of separately billed services. History of Present Illness Chief Complaint: Bloody stools Primary Care Provider: Jeimy Zavala MD Patient is 72-year-old male with PMH COPD, restrictive lung disease, prediabetes, HTN, HLD, CAD s/p stents, chronic diastolic heart failure, history of ulcerative colitis, GERD presented to ER with complaint of bloody stools today. Patient states this morning had episode of diarrhea. This was later followed by multiple episodes of loose stool with dark red blood. Patient reports had some nausea, no vomiting. Denies abdominal pain. States was having lightheadedness with standing. He feels short of breath with exertion today. Patient states this afternoon felt like he had need to have another bowel movement and was sitting on toilet for when he became nauseated and lightheaded and felt like he was going to pass out. His reports that she came in and found patient passed out with his eyes rolled back in his head and he appeared to be having shaking movements of his body. She states she was able to have him hold onto her to help get him off the toilet. Patient states remembers his being there at getting him off the toilet. Unsure if had loss of control of bowel or bladder as he was on toilet trying to have BM at the time of incident. No history of seizure or seizure-like activity before. On 02/09/2023 had EGD with normal esophagus and stomach, a submucosal nodule found in duodenum and was removed and clips placed. Denies fever/chills, diaphoresis, vomiting, hematemesis, FAUST, vision changes, neck pain, CP, orthopnea, palpitations, cough, sore throat, choking, otalgia, rhinorrhea, extremity weakness, extremity edema, rashes, dysuria, hematuria, urinary frequency. 02/09/2023 had EGD with normal esophagus and stomach, a submucosal nodule found in duodenum and was removed and clips placed. 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 Colonoscopy 09/17/2022: Diverticulum with nonbleeding ulcer, clips were placed on ulcer site, diverticula throughout, no sign active colitis and colon, several polyps found and removed Allergies Allergy/AdvReac Type Severity Reaction Status Date / Time fish oil Allergy Severe RASH Verified 02/19/23 18:04 vancomycin Allergy Intermediate Rash Verified 02/19/23 18:04 lisinopril AdvReac Intermediate COUGH Verified 02/19/23 18:04 shellfish derived AdvReac Intermediate VOMITTING Verified 02/19/23 18:04 Home Medications Medication Instructions Recorded Confirmed Type atorvastatin 80 mg tablet 80 mg PO HS 07/04/18 02/19/23 History clopidogrel 75 mg tablet (Plavix) 75 mg PO QAM 07/04/18 02/19/23 History folic acid 1 mg tablet 1 mg PO QAM 07/04/18 02/19/23 History isosorbide mononitrate 30 mg 30 mg PO QAM 07/04/18 02/19/23 History tablet,extended release 24 hr lutein 20 mg capsule 20 mg PO QAM 07/04/18 02/19/23 History nitroglycerin 0.4 mg sublingual 0.4 mg sublingual UD PRN Chest Pain 07/04/18 02/19/23 History tablet (Nitrostat) olmesartan 40 mg tablet (Benicar) 40 mg PO QAM 07/04/18 02/19/23 History vitamin B complex 1 tab PO QAM 07/04/18 02/19/23 History tamsulosin 0.4 mg capsule 0.4 mg PO DAILY ##0 10/12/18 02/19/23 History amlodipine 10 mg tablet 10 mg PO QAM 12/20/20 02/19/23 History aspirin 81 mg chewable tablet 81 mg PO HS 12/20/20 02/19/23 History (Aspirin Childrens) carvedilol 25 mg tablet (Coreg) 25 mg PO AMHS 12/20/20 02/19/23 History furosemide 20 mg tablet 20 mg PO QAM 12/20/20 02/19/23 History vedolizumab 300 mg intravenous 300 mg IV .Q8WK 12/20/20 02/19/23 History solution (Entyvio) fluticasone propionate 50 2 spray intranasal DAILY 06/30/21 02/19/23 History mcg/actuation nasal spray,suspension (Flonase Allergy Relief) lactobacillus combination no.4 3 3,000 mmu cells PO QAM 06/30/21 02/19/23 History billion cell capsule (Probiotic) albuterol sulfate 90 mcg/actuation 2 puff inhalation QID PRN 09/16/22 02/19/23 History aerosol inhaler Shortness Of Breath Or Wheezing fluticasone fur. 100 mcg-umeclid 1 inh inhalation QAM 09/16/22 02/19/23 History 62.5 mcg-vilant 25 mcg inhalat.powder (Trelegy Ellipta) metformin 500 mg tablet,extended 500 mg PO QAM 09/16/22 02/19/23 History release 24 hr fluorouracil 5 % topical cream 1 applic topical DIRECTED PRN 10/27/22 02/19/23 History Rash finasteride 5 mg tablet 5 mg PO PM 02/19/23 02/19/23 History Past Med/Surg History Medical History (Updated 02/19/23 @ 18:46 by Aleena German PA-C) BPH (benign prostatic hyperplasia) BPH NOS w ur obs/LUTS BRBPR (bright red blood per rectum) CAD (coronary artery disease) follows with Dr. Laguerre Cardiac murmur Chronic diastolic heart failure COPD (chronic obstructive pulmonary disease) Diverticulitis large intestine Frequent PVCs History of myocardial infarction 2014 History of skin cancer HLD (hyperlipidemia) HTN (hypertension) Pre-diabetes Ulcerative colitis Surgical History History of cardiac catheterization multiple w/ stents 1997, 2009, 2014, 2019 History of colonoscopy History of esophagogastroduodenoscopy (EGD) History of heart artery stent x 4 (last placed 2018) History of Mohs micrographic surgery for skin cancer multiple Family History Other Heart disease No family history of adverse response to anesthesia Stroke Social History Smoking Status: Former smoker Smoking End Date: 30 years ago; Second Hand Exposure: No; Do You Dip or Chew Tobacco: No; Hx Alcohol Use: No Hx Substance Use: No Preferred Language: [place] Communication Ability: Effective Standards Analyst Required: No Beliefs That Will Affect Care: None Current Living Situation: Spouse Other Information That Helps Us Care for You: No Feels Safe at Home: Yes Safety Concerns: Feels Safe At This Time Assistive Devices: Denture - Lower Assistive Devices Comment: lower right cemented in partial Review of Systems Review of Systems: All systems reviewed & are unremarkable except as noted in HPI & below Physical Exam Physical Exam: General: no distress, WDWN Head: normocephalic, atraumatic Eyes: PERRL, conjunctiva non-injected, anicteric ENT: normal inspection external ears, nose, mucous membranes mildly dry, no tongue lacerations Neck: supple, trachea midline Lungs: clear, no respiratory distress, no wheezing/rhonchi/rales CV: RRR, no murmur, no pretibial edema Abd: protuberant, normal BS, soft, non-tender Ext: no cyanosis, no calf tenderness Neuro: A&O x 3, no focal deficits noted, normal affect Skin: warm, dry Results & Data Results & Data Vital Signs (Past 12 Hours) Vital Signs Temp Pulse Pulse Resp BP BP Pulse Ox 02/19/23 15:42 63 02/19/23 15:20 70 18 94 02/19/23 15:20 36.4 C L 70 18 104/48 L 94 02/19/23 15:20 36.4 C L 70 18 104/48 L 94 O2 Del Method 02/19/23 15:42 02/19/23 15:20 Room Air 02/19/23 15:20 Room Air 02/19/23 15:20 Room Air Laboratory Results Short CBC 02/19/23 Range/Units 15:12 WBC 12.78 H (4.8-10.8) K/ul Hgb 10.8 L (14.0-18.0) g/dl Hct 33.1 L (42.0-52.0) % Plt Count 244 (130-400) K/uL BMP 02/19/23 15:12 Sodium 140 Potassium 5.4 H Chloride 110 H Carbon Dioxide 28 BUN 34 H Creatinine 0.99 Glucose 166 H Calcium 9.1 Liver Function 02/19/23 Range/Units 15:12 Total Bilirubin 0.5 (0.2-1.0) mg/dl AST 19 (13-39) U/L ALT 42 (7-52) U/L Alkaline Phosphatase 68 (34-104) U/L Albumin 3.0 L (3.4-5.0) gm/dl Diagnostic Findings Chest X-Ray 02/19/23 15:15 XR chest 1V portable CLINICAL HISTORY: syncope COMPARISON STUDY: Chest CT December 20, 2020. Chest radiograph September 19, 2022. FINDINGS: Cardiomegaly is unchanged. There is no evidence for pulmonary edema. Mild bibasilar opacities favor atelectasis. No consolidation to suggest pneumonia. There is no pneumothorax or pleural effusion. IMPRESSION: No acute cardiopulmonary findings. ACT 112: Negative or not required by law. Electronically signed by: Myron Gordon M.D. 02/19/2023 4:34 PM Abdomen/Pelvis CT 02/19/23 15:17 CT OF THE ABDOMEN AND PELVIS WITH CONTRAST CLINICAL HISTORY: Melena, syncope, recent stomach biopsy. COMPARISON STUDY: CT of the abdomen and pelvis October 27, 2022. TECHNIQUE: Following IV administration of 90 mL of Optiray, axial images of the abdomen and pelvis were obtained from the lung bases to the proximal femurs. Images were reviewed in the axial, sagittal, and coronal planes. IV contrast was administered without complication. Automated exposure control was utilized for the study. A dose lowering technique was utilized adhering to the principles of ALARA. CT DOSE: 1495.39 mGy.cm FINDINGS: No pneumatosis, free air or portal venous gas is present. Several subcentimeter hypodense hepatic lesions are too small to characterize but are unchanged. There is no biliary or pancreatic ductal dictation. Spleen, adrenal glands are unremarkable. Several bilateral renal calculi measure up to 4 mm. There are no ureteral calculi. There is no hydronephrosis. The prostate is moderately enlarged. 3.1 cm cyst within the upper pole of the right kidney is noted. Numerous subcentimeter renal lesions are too small to characterize. There is minimal stranding adjacent to the pancreas. There is layering hyperdense ma terial within the stomach. Suspected endoscopic clips within the first portion of the duodenum are noted. The adjacent soft tissues are unremarkable. There is no evidence for a bowel obstruction. There is colonic diverticulosis without evidence for acute diverticulitis. There is no lymphadenopathy. There is moderate aortoiliac atherosclerotic plaque. No acute fractures within the visualized skeletal structures. Mild stranding adjacent to the proximal ureters and collecting systems remains unchanged. IMPRESSION: 1. Small amount of layering hyperdense material within the stomach. This likely reflects ingested contents. However, clot could appear similar. Suspected endoscopic clips within the first portion the duodenum. No pneumoperitoneum. 2. Equivocal peripancreatic stranding. Findings could be correlated with serum lipase level to exclude acute pancreatitis. 3. Bilateral nephrolithiasis. No ureteral calculi or hydronephrosis. Mild urothelial thickening, as above. This could be correlated with urinalysis. 4. Colonic diverticulosis. No evidence for acute diverticulitis. ACT 112: Negative or not required by law. Electronically signed by: Myron Gordon M.D. 02/19/2023 4:56 PM ECG Rate (beats per minute): 72 Rhythm: sinus rhythm Findings: + Q waves (Inferior) Supervising Physician Co-Signing Physician Notes Patient was seen and examined independently at bedside. Chart reviewed including vitals, labs, imaging and OP records. Case discussed with Aleena NEVAREZ and agree with the documentation above. In summary, this is a 72 year old male with complex duodenal nodule s/p OP EGD/EUS with endoscopic resection of the nodule presents with symptoms concerning for UGI bleed/melena with syncope, concern for slippage of the clip. Low concern for UC flare as not typical of his flare which happened in September- on Entyvio q8wks- last one was few days back and hence will hold off on steroids. Had seizure like activity but believe it to be related to his syncope rather than seizure. Hold all antiplatelets and antihypertensive except for beta win. Keep npo, continue IVF and PPI drip. Trend H and H. Hb 10.8 currently, no indication for transfusion but will prepare PRBC in case he continues to bleed or Hb drifts down requiring transfusion. Consult GI. Mild leucocytosis is likely reactive. On exam- vitals stable, AAO, lying comfortably in bed, chest clear, heart sounds normal, abd benign, non focal neuro signs, no LE edema. Rest as per the note above. (6) HTN (hypertension) Hypertension type: unspecified Qualified Code(s): I10 - Essential (primary) hypertension
[2023-02-19 18:01] LABS: INR 1.1 (0.9-1.1); Partial Thromboplastin Ratio 0.8; Partial Thromboplastin Time 21.4 Seconds (21.0-31.0)
[2023-02-19] MEDS ORDERED: ONDANSETRON INJ 2 MG/ML 2 ML VIAL IV PRN (18:57)
[2023-02-19] MEDS ORDERED: ACETAMINOPHEN 325 MG TAB PO PRN (18:57)
[2023-02-19] MEDS ORDERED: ALBUTEROL HFA 8 GM INHALER INH PRN (18:57)
[2023-02-19] MEDS ORDERED: GLUCOSE 10 TAB/TUBE PO PRN (18:57)
[2023-02-19] MEDS ORDERED: GLUCAGON FOR INJ 1 MG VIAL SQ PRN (18:57)
[2023-02-19] MEDS ORDERED: CARBOHYDRATES FOR HYPOGLYCEMIA PO PRN (18:57)
[2023-02-19] MEDS ORDERED: GLUCOSE 40% GEL 15 GM TUBE PO PRN (18:57)
[2023-02-19] MEDS ORDERED: SODIUM CHLORIDE 0.9% 250 ML IV PRN (18:57)
[2023-02-19] MEDS ORDERED: DEXTROSE 50% 50 ML SYRINGE IV PRN (18:57)
--- NOTE | 2023-02-19 19:00 | CT Scan Report ---
CT OF THE HEAD WITHOUT CONTRAST CLINICAL HISTORY: syncope ?body movements COMPARISON STUDY: No previous studies for comparison. CT DOSE: 625.80 mGy.cm TECHNIQUE: Helical axial images of the head were obtained without IV contrast. Automated exposure con trol was utilized for the study. A dose lowering technique was utilized adhering to the principles o f ALARA. FINDINGS: No acute intracranial hemorrhage, midline shift or mass effect is present. Note is made of intravascular contrast from recent contrast-enhanced CT. The ventricular system is unremarkable. The basal cisterns are patent. No extra-axial collections are present. There are no findings to suggest a cute dural sinus thrombosis or acute territorial infarct. No significant calvarial abnormalities are present. Visualized portions of the sinuses and mastoid air cells are clear. IMPRESSION: No acute intracranial findings. ACT 112: Negative or not required by law. Electronically signed by: Myron Gordon M.D. 02/19/2023 6:58 PM
[2023-02-19] MEDS: PANTOprazole 40 MG in DEXTROSE 5% 100 ML IV SCH ×2 (19:10→23:32)
[2023-02-19 19:15] LABS: Appearance Urine Clear (Clear); Bacteria Urine Automated Negative (Negative); Bilirubin Urine Negative (Negative); Blood Urine Negative (Negative); Color Urine Dark Yellow; Epithelial Cell Urine Auto 0-5 /lpf (0-5); Glucose Urine UA Negative (Negative); Ketones Urine Negative (Negative); Leukocyte Esterase Urine Trace (Negative); Nitrite Urine Negative (Negative); Protein Urine Negative (Negative); RBC Urine Automated 0-4 /hpf (0-4); Specific Gravity Urine > 1.045 (1.000-1.030); Urobilinogen Urine Negative (Negative)
[2023-02-19] MEDS: SODIUM CHLORIDE 0.9% 1000ML 1,000 ML IV SCH (19:38)
[2023-02-19] MEDS: INSULIN ASPART PER UNIT CHARGE SC SCH (20:24)
[2023-02-19] MEDS: carvediloL 25 MG TAB PO SCH (20:27)
[2023-02-19] MEDS: FINASTERIDE 5 MG TAB PO SCH (20:27)
[2023-02-19] MEDS: ATORVASTATIN 40 MG TAB PO SCH (20:27)
[2023-02-19 20:30] LABS: Hematocrit (blood only) 30.6 % (42.0-52.0); Hemoglobin 9.9 g/dl (14.0-18.0)
[2023-02-19 20:43] LABS: BUN Creatinine Ratio 35.8 (10-20); Creatinine Clr Calc Pharmacy 89.6 ml/min; Est GFR (African American) 93.6 ml/min; Est GFR (Non-African American) 80.8 ml/min; Potassium 4.5 mmol/L (3.5-5.1)
[2023-02-19] MEDS ORDERED: MELATONIN 3 MG TAB PO PRN (23:36)
[2023-02-20 02:49] LABS: Basophils # (auto) 0.03 K/uL (0-0.2); Basophils % (auto) 0.2 %; Eosinophils # (auto) 0.13 K/uL (0-0.50); Hematocrit (blood only) 28.1 % (42.0-52.0); Hemoglobin 8.9 g/dl (14.0-18.0); Immature Granulocytes # (auto) 0.09 K/uL (0.01-0.20); Immature Granulocytes % (auto) 0.7 %; Lymphocytes % (auto) 15.7 %; Mean Corpuscular Hemoglobin 27.7 pg (25.0-34.0); Mean Corpuscular Hgb Conc 31.7 g/dL (32.0-36.0); Mean Corpuscular Volume 87.5 fL (80.0-100.0); Mean Platelet Volume 11.1 fL (9.4-12.4); Monocytes # (auto) 0.97 K/uL (0.11-0.59); Monocytes % (auto) 7.6 %; Neutrophils # (auto) 9.51 K/uL (1.40-6.50); Neutrophils % (auto) 74.8 %; Platelet Count 201 K/uL (130-400); RDW Coefficient of Variation 14.5 % (11.5-14.5); RDW Standard Deviation 46.4 fL (36.4-46.3); Red Blood Count 3.21 M/uL (4.70-6.10); White Blood Count 12.73 K/ul (4.8-10.8)
[2023-02-20 03:05] LABS: Albumin Globulin Ratio 1.2 (0.9-2); Albumin Level 2.7 gm/dl (3.4-5.0); BUN Creatinine Ratio 38.8 (10-20); Bilirubin,Total 0.3 mg/dl (0.2-1.0); Creatinine Clr Calc Pharmacy 86.9 ml/min; Est GFR (African American) 90.2 ml/min; Est GFR (Non-African American) 77.8 ml/min; Globulin 2.2 gm/dl (2.5-4.0); Potassium 4.5 mmol/L (3.5-5.1); Total Protein 4.9 gm/dl (6.0-8.3)
[2023-02-20] MEDS: PANTOprazole 40 MG in DEXTROSE 5% 100 ML IV SCH ×4 (04:16→21:38)
--- NOTE | 2023-02-20 07:34 | Electrocardiogram Report ---
Test Reason : Blood Pressure : / mmHG Vent. Rate : 072 BPM Atrial Rate : 072 BPM P-R Int : 154 ms QRS Dur : 090 ms QT Int : 388 ms P-R-T Axes : 059 -02 034 degrees QTc Int : 424 ms Normal sinus rhythm Inferior infarct (cited on or before 20-DEC-2020) Abnormal ECG When compared with ECG of 15-SEP-2022 23:17, VA interval has decreased Confirmed by Carlyle Barton ([id number]) on 02/20/2023 7:34:25 AM Referred By: REFERRED SELF Confirmed By:Trip Barton
[2023-02-20 08:41] LABS: Estimated Average Glucose 146 mg/dl; Hemoglobin A1C 6.7 % (4.5-5.6)
--- NOTE | 2023-02-20 08:48 | Hospitalist Progress Note ---
Date of Service February 20, 2023 Assessment & Plan (1) Upper GI bleed: (2) Acute blood loss anemia: (3) Syncope: Plan: 72-year-old male with PMH COPD, restrictive lung disease, prediabetes, HTN, HLD, CAD s/p stents, chronic diastolic heart failure, history of ulcerative colitis, GERD presented to ER with complaint of multiple episodes dark bloody stools and syncopal episode Had recent EUS with EMR resection of duodenal lipoma on 02/09/23 02/09/2023 had EGD with normal esophagus and stomach, a submucosal nodule found in duodenum and was removed and clips placed. 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 Colonoscopy 09/17/2022: Diverticulum with nonbleeding ulcer, clips were placed on ulcer site, diverticula throughout, no sign active colitis and colon, several polyps found and removed On presentation, CT head: no acute findings WBC: 12.7. Hgb: 10.8. Baseline Hgb mid 13's BUN: 34,Cr: 0.9 CT abdomen pelvis: Small amount of layering hyperdense material within the stomach. This likely reflects ingested contents. However, clot could appear similar. Suspected endoscopic clips within the first portion the duodenum. No pneumoperitoneum. Equivocal peripancreatic stranding. Findings could be correlated with serum lipase level to exclude acute pancreatitis. Colonic diverticulosis. No evidence for acute diverticulitis. Had syncopal episode this morning while moving bowel Having bloody BM Stat Hb showed Hb had dropped from 10.8 on admission to 7.6 Stat PRBC ordered Started IVF bolus Home Coreg and imdur stopped for now Continue to hold home ASA and plavix Continue IV PPI drip Continue NPO I called GI Dr Case and discussed with him. Arrangements made for urgent endoscopy EGD done this morning showed hematin in the cardia, clotted blood in gastric antrum, a moderate post-EMR deformity in duodenal bulb. 3 endoclips visible with active bleeding. Area was unsuccessfully injected with epi. To prevent furtehr bleeding, [address] successfully place and no bleeding at end of procedure. Patient brought back from endoscopy I upgraded to ICU level of care and discussed with internal communications specialist 2 more PRBC, 1 platelet and Ca gluconate ordered Continue to monitor serial Hb I called and updated her (4) Ulcerative colitis: Plan: On Entyvio (5) History of CAD (coronary artery disease): Plan: S/p stents. Last reported in 2019 Continue to hold aspirin, Plavix, imdur and coreg as above (6) HTN (hypertension): Plan: Continue to hold all antihypertensives as above (7) Pre-diabetes: Plan: A1c: 6.4 on 07/28/2022 Hold metformin NovoLog correction sliding scale currently as is NPO. Accucheck q6h (8) Chronic diastolic heart failure: Plan: Hold Lasix (9) COPD (chronic obstructive pulmonary disease): Plan: No signs acute exacerbation Continue home inhalers (10) BPH NOS w ur obs/LUTS: Plan: Continue tamsulosin, finasteride with holding parameters DVT Prophylaxis SCDs Full Code I spent a total of 65 minutes of critical care with this patient on the date referenced in note and exclusive of time spent performing procedures or time spent by another provider or resident. This involves my evaluation, physical exam, review of labs, resuscitative measures, communication with providers, ordering medications and labs for management of acute GI hemorrhage Admission and Anticipated Discharge Date Admission Date: February 19, 2023 Subjective Rapid response called on patient this morning Patient had passed out on toilet bowl. He had reported wanting to move his bowel and syncopized on the toilet. Patient had blood all over the toilet bowl BP at the time was 51/31, saturating 98% on room air, BG of 177. I and the nurses quickly moved patient to bed and placed in trendelenberg. He came around and was able to answer all questions appropriately. AOx3 He reports feeling faint and dizzy. Denied any abdominal pain. BP improved to 102/64 but then had been hovering in 90s/60s Patient had another large bloody BM while in bed. Physical Exam Constitutional: + ill appearing and + well hydrated; no acute distress Eyes: +pallor ENMT: external ear and nose normal, oropharynx normal Respiratory: normal respiratory effort, lungs clear to auscultation Cardiovascular: Rate/Rhythm: regular rate and regular rhythm S1 S2 Gastrointestinal (Abdomen): normal bowel sounds, soft, nontender, no hepatosplenomegaly Musculoskeletal: No pedal edema Neurologic: PERRL, EOMI, accommodation nl, no face palsy, no dysarthria Psychiatric: A+Ox3, euthymic affect Results & Data Results & Data Vital Signs (Past 12 Hours) Vital Signs Temp Pulse Pulse Resp BP Pulse Ox O2 Del Method 02/20/23 07:40 63 02/20/23 07:36 36.5 C 74 18 111/67 91 Room Air 02/20/23 04:08 36.6 C 66 18 107/61 94 Room Air 02/19/23 23:00 66 02/19/23 22:22 36.8 C 67 18 108/62 92 Room Air Laboratory Results Abnormal lab results 02/19/23 02/19/23 02/19/23 Range/Units 15:12 15:12 15:12 WBC 12.78 H (4.8-10.8) K/ul RBC 3.86 L (4.70-6.10) M/uL Hgb 10.8 L (14.0-18.0) g/dl Hct 33.1 L (42.0-52.0) % MCHC (32.0-36.0) g/dL RDW Std Deviation (36.4-46.3) fL RDW Coeff of Flo (11.5-14.5) % Neut # (Auto) 10.66 H (1.40-6.50) K/uL [place] # (Auto) (0.11-0.59) K/uL Potassium 5.4 H (3.5-5.1) mmol/L Chloride 110 H (98-107) mmol/L Anion Gap 2 L (3-11) BUN 34 H (6-23) mg/dl BUN/Creatinine Ratio 34.3 H (10-20) Glucose 166 H (70-99(Fasting)) mg/dl POC Glucose (70-99) mg/dl Hemoglobin A1c (4.5-5.6) % Calcium (8.6-10.3) mg/dl Total Protein 5.4 L (6.0-8.3) gm/dl Albumin 3.0 L (3.4-5.0) gm/dl Globulin 2.4 L (2.5-4.0) gm/dl Ur Specific [place] (1.000-1.030) Ur Leukocyte Esterase (Negative) Crossmatch See Detail 02/19/23 02/19/23 02/19/23 Range/Units 19:53 19:53 20:19 WBC (4.8-10.8) K/ul RBC (4.70-6.10) M/uL Hgb 9.9 L (14.0-18.0) g/dl Hct 30.6 L (42.0-52.0) % MCHC (32.0-36.0) g/dL RDW Std Deviation (36.4-46.3) fL RDW Coeff of Flo (11.5-14.5) % Neut # (Auto) (1.40-6.50) K/uL [place] # (Auto) (0.11-0.59) K/uL Potassium (3.5-5.1) mmol/L Chloride 112 H (98-107) mmol/L Anion Gap (3-11) BUN 34 H (6-23) mg/dl BUN/Creatinine Ratio 35.8 H (10-20) Glucose 136 H (70-99(Fasting)) mg/dl POC Glucose 124 H (70-99) mg/dl Hemoglobin A1c (4.5-5.6) % Calcium (8.6-10.3) mg/dl Total Protein (6.0-8.3) gm/dl Albumin (3.4-5.0) gm/dl Globulin (2.5-4.0) gm/dl Ur Specific [place] (1.000-1.030) Ur Leukocyte Esterase (Negative) Crossmatch 02/19/23 02/20/23 02/20/23 Range/Units Unknown 02:20 02:20 WBC 12.73 H (4.8-10.8) K/ul RBC 3.21 L (4.70-6.10) M/uL Hgb 8.9 L (14.0-18.0) g/dl Hct 28.1 L (42.0-52.0) % MCHC 31.7 L (32.0-36.0) g/dL RDW Std Deviation 46.4 H (36.4-46.3) fL RDW Coeff of Flo (11.5-14.5) % Neut # (Auto) 9.51 H (1.40-6.50) K/uL [place] # (Auto) 0.97 H (0.11-0.59) K/uL Potassium (3.5-5.1) mmol/L Chloride 113 H (98-107) mmol/L Anion Gap (3-11) BUN 38 H (6-23) mg/dl BUN/Creatinine Ratio 38.8 H (10-20) Glucose 114 H (70-99(Fasting)) mg/dl POC Glucose (70-99) mg/dl Hemoglobin A1c (4.5-5.6) % Calcium (8.6-10.3) mg/dl Total Protein 4.9 L (6.0-8.3) gm/dl Albumin 2.7 L (3.4-5.0) gm/dl Globulin 2.2 L (2.5-4.0) gm/dl Ur Specific [place] > 1.045 H (1.000-1.030) Ur Leukocyte Esterase Trace H (Negative) Crossmatch 02/20/23 02/20/23 02/20/23 Range/Units 02:20 07:26 08:31 WBC (4.8-10.8) K/ul RBC (4.70-6.10) M/uL Hgb (14.0-18.0) g/dl Hct (42.0-52.0) % MCHC (32.0-36.0) g/dL RDW Std Deviation (36.4-46.3) fL RDW Coeff of Flo (11.5-14.5) % Neut # (Auto) (1.40-6.50) K/uL [place] # (Auto) (0.11-0.59) K/uL Potassium (3.5-5.1) mmol/L Chloride (98-107) mmol/L Anion Gap (3-11) BUN (6-23) mg/dl BUN/Creatinine Ratio (10-20) Glucose (70-99(Fasting)) mg/dl POC Glucose 127 H 177 H (70-99) mg/dl Hemoglobin A1c 6.7 H (4.5-5.6) % Calcium (8.6-10.3) mg/dl Total Protein (6.0-8.3) gm/dl Albumin (3.4-5.0) gm/dl Globulin (2.5-4.0) gm/dl Ur Specific [place] (1.000-1.030) Ur Leukocyte Esterase (Negative) Crossmatch 02/20/23 02/20/23 02/20/23 Range/Units 08:43 08:43 12:50 WBC 16.21 H (4.8-10.8) K/ul RBC 2.73 L (4.70-6.10) M/uL Hgb 7.6 L (14.0-18.0) g/dl Hct 24.2 L (42.0-52.0) % MCHC 31.4 L (32.0-36.0) g/dL RDW Std Deviation 46.7 H (36.4-46.3) fL RDW Coeff of Flo 14.6 H (11.5-14.5) % Neut # (Auto) 12.96 H (1.40-6.50) K/uL [place] # (Auto) 1.09 H (0.11-0.59) K/uL Potassium (3.5-5.1) mmol/L Chloride 114 H (98-107) mmol/L Anion Gap (3-11) BUN 41 H (6-23) mg/dl BUN/Creatinine Ratio 40.6 H (10-20) Glucose 171 H (70-99(Fasting)) mg/dl POC Glucose 176 H (70-99) mg/dl Hemoglobin A1c (4.5-5.6) % Calcium 8.5 L (8.6-10.3) mg/dl Total Protein (6.0-8.3) gm/dl Albumin (3.4-5.0) gm/dl Globulin (2.5-4.0) gm/dl Ur Specific [place] (1.000-1.030) Ur Leukocyte Esterase (Negative) Crossmatch (6) HTN (hypertension) Hypertension type: unspecified Qualified Code(s): I10 - Essential (primary) hypertension
[2023-02-20 08:57] LABS: Basophils # (auto) 0.06 K/uL (0-0.2); Basophils % (auto) 0.4 %; Eosinophils # (auto) 0.19 K/uL (0-0.50); Eosinophils % (auto) 1.2 %; Hematocrit (blood only) 24.2 % (42.0-52.0); Hemoglobin 7.6 g/dl (14.0-18.0); Immature Granulocytes # (auto) 0.11 K/uL (0.01-0.20); Immature Granulocytes % (auto) 0.7 %; Lymphocytes % (auto) 11.1 %; Mean Corpuscular Hemoglobin 27.8 pg (25.0-34.0); Mean Corpuscular Hgb Conc 31.4 g/dL (32.0-36.0); Mean Corpuscular Volume 88.6 fL (80.0-100.0); Mean Platelet Volume 11.5 fL (9.4-12.4); Monocytes # (auto) 1.09 K/uL (0.11-0.59); Monocytes % (auto) 6.7 %; Neutrophils # (auto) 12.96 K/uL (1.40-6.50); Neutrophils % (auto) 79.9 %; Platelet Count 207 K/uL (130-400); RDW Coefficient of Variation 14.6 % (11.5-14.5); RDW Standard Deviation 46.7 fL (36.4-46.3); Red Blood Count 2.73 M/uL (4.70-6.10); White Blood Count 16.21 K/ul (4.8-10.8)
[2023-02-20] MEDS ORDERED: SODIUM CHLORIDE 0.9% 250 ML IV PRN ×2 (08:59→11:23)
[2023-02-20] MEDS ORDERED: NON-FORMULARY MEDICATION (Fluticasone-Umeclidin-Vilanter [Trelegy Ellipta] 100-62.5-25 mcg INH SCH (09:00)
[2023-02-20] MEDS ORDERED: ISOSORBIDE MONO EXTENDED REL 30 MG TABCR PO SCH (09:00)
[2023-02-20 09:13] LABS: BUN Creatinine Ratio 40.6 (10-20); Calcium 8.5 mg/dl (8.6-10.3); Creatinine Clr Calc Pharmacy 84.3 ml/min; Est GFR (African American) 86.9 ml/min; Potassium 4.5 mmol/L (3.5-5.1)
[2023-02-20 09:14] LABS: RBC Morphology Unremarkable
[2023-02-20] MEDS ORDERED: ETOMIDATE 2 MG/ML 20 ML VIAL IV ONE (09:28)
[2023-02-20] MEDS ORDERED: LIDOCAINE 2% 2 ML VIAL/AMP(20MG/ML) INFIL ONE (09:28)
[2023-02-20] MEDS ORDERED: ONDANSETRON INJ 2 MG/ML 2 ML VIAL ONE ×2 (09:28→11:14)
[2023-02-20] MEDS ORDERED: PROPOFOL IV EMULSION 10 MG/ML 20 ML VIAL IV ONE (09:28)
[2023-02-20] MEDS ORDERED: METOCLOPRAMIDE HCL INJ 5 MG/ML 2 ML VIAL ONE ×2 (09:32→11:14)
--- NOTE | 2023-02-20 09:41 | Anesthesiology Consultation ---
Date of Service February 20, 2023 Assessment & Plan Chart Review Chart Review: mems process engineer initiated History Surgery Operation Date: 02/20/23 09:20 Proposed Procedures p Esophagogastroduodenoscopy - Ricardo Leung Case, DO Height/Weight Height: 5 ft 9 in Weight: 112.9 kg Allergies Allergy/AdvReac Type Severity Reaction Status Date / Time fish oil Allergy Severe RASH Verified 02/19/23 18:04 vancomycin Allergy Intermediate Rash Verified 02/19/23 18:04 lisinopril AdvReac Intermediate COUGH Verified 02/19/23 18:04 shellfish derived AdvReac Intermediate VOMITTING Verified 02/19/23 18:04 Medications Home Medications Medication Instructions Recorded Confirmed Last Taken atorvastatin 80 mg tablet 80 mg PO HS 07/04/18 02/19/23 10/26/22 clopidogrel 75 mg tablet (Plavix) 75 mg PO QAM 07/04/18 02/19/23 02/19/23 11:00 folic acid 1 mg tablet 1 mg PO QAM 07/04/18 02/19/23 10/27/22 isosorbide mononitrate 30 mg 30 mg PO QAM 07/04/18 02/19/23 02/19/23 11:00 tablet,extended release 24 hr lutein 20 mg capsule 20 mg PO QAM 07/04/18 02/19/23 10/27/22 nitroglycerin 0.4 mg sublingual 0.4 mg sublingual UD PRN Chest Pain 07/04/18 02/19/23 05/27/19 tablet (Nitrostat) olmesartan 40 mg tablet (Benicar) 40 mg PO QAM 07/04/18 02/19/23 02/19/23 11:00 vitamin B complex 1 tab PO QAM 07/04/18 02/19/23 10/27/22 tamsulosin 0.4 mg capsule 0.4 mg PO DAILY ##0 10/12/18 02/19/23 02/19/23 amlodipine 10 mg tablet 10 mg PO QAM 12/20/20 02/19/23 02/19/23 11:00 aspirin 81 mg chewable tablet 81 mg PO HS 12/20/20 02/19/23 10/26/22 (Aspirin Childrens) carvedilol 25 mg tablet (Coreg) 25 mg PO AMHS 12/20/20 02/19/23 02/19/23 11:00 furosemide 20 mg tablet 20 mg PO QAM 12/20/20 02/19/23 02/19/23 11:00 vedolizumab 300 mg intravenous 300 mg IV .Q8WK 12/20/20 02/19/23 02/16/23 solution (Entyvio) fluticasone propionate 50 2 spray intranasal DAILY 06/30/21 02/19/23 10/27/22 mcg/actuation nasal spray,suspension (Flonase Allergy Relief) lactobacillus combination no.4 3 3,000 mmu cells PO QAM 06/30/21 02/19/23 10/27/22 billion cell capsule (Probiotic) albuterol sulfate 90 mcg/actuation 2 puff inhalation QID PRN 09/16/22 02/19/23 10/27/22 12:00 aerosol inhaler Shortness Of Breath Or Wheezing fluticasone fur. 100 mcg-umeclid 1 inh inhalation QAM 09/16/22 02/19/23 02/18/23 62.5 mcg-vilant 25 mcg inhalat.powder (Trelegy Ellipta) metformin 500 mg tablet,extended 500 mg PO QAM 09/16/22 02/19/23 02/19/23 11:00 release 24 hr fluorouracil 5 % topical cream 1 applic topical DIRECTED PRN 10/27/22 02/19/23 Unknown Rash finasteride 5 mg tablet 5 mg PO PM 02/19/23 02/19/23 02/18/23 Active Medications Generic Name Dose Route Start Last Admin Trade Name Freq PRN Reason Stop Dose Admin Atorvastatin Calcium 80 mg 02/19/23 21:00 02/19/23 20:27 Atorvastatin 40 Mg Tab PO 03/21/23 20:59 80 mg HS NAM Administration Finasteride 5 mg 02/19/23 21:00 02/19/23 20:27 Finasteride 5 Mg Tab PO 03/21/23 20:59 5 mg PM NAM Administration Pantoprazole Sodium 40 mg/ 100 mls @ 20 mls/hr 02/19/23 17:15 02/20/23 04:16 Dextrose IV 03/21/23 17:14 8 mg/hr Q5H NAM 20 mls/hr Administration 8 MG/HR Sodium Chloride 1,000 mls @ 80 mls/hr 02/19/23 18:57 02/19/23 19:38 Nss 1000ml IV 02/20/23 19:56 80 mls/hr .[id number] NAM Administration Insulin Aspart 0 units 02/19/23 21:00 02/19/23 20:24 Insulin Aspart Per Unit Charge SC 03/21/23 20:59 Not Given ACHS NAM Melatonin 3 mg 02/19/23 23:36 02/19/23 23:53 Melatonin 3 Mg Tab PO 03/21/23 23:35 3 mg HS PRN Administration Sleep Ondansetron HCl 4 mg 02/19/23 18:57 02/20/23 07:30 Ondansetron Inj 2 Mg/Ml 2 Ml Vial IV 03/21/23 18:56 4 mg Q6H PRN Administration Nausea Past Medical History Medical History BPH (benign prostatic hyperplasia) BPH NOS w ur obs/LUTS BRBPR (bright red blood per rectum) CAD (coronary artery disease) follows with Dr. Laguerre Cardiac murmur Chronic diastolic heart failure COPD (chronic obstructive pulmonary disease) Diverticulitis large intestine Frequent PVCs History of myocardial infarction 2015 History of skin cancer HLD (hyperlipidemia) HTN (hypertension) Pre-diabetes Ulcerative colitis Past Family History Family History Other Heart disease No family history of adverse response to anesthesia Stroke Past Surgical History Surgical History History of cardiac catheterization multiple w/ stents 1997, 2009, 2014, 2019 History of colonoscopy History of esophagogastroduodenoscopy (EGD) History of heart artery stent x 4 (last placed 2018) History of Mohs micrographic surgery for skin cancer multiple Social History Smoking Status: Former smoker tobacco type: cigarettes Do You Dip or Chew Tobacco: No Smoking End Date: 30 years ago Hx Alcohol Use: No Hx Substance Use: No substance use type: does not use Physical Exam Vital Signs Last Vital Signs Temp 97.7 F 02/20/23 07:36 Pulse 63 02/20/23 07:40 Resp 18 02/20/23 07:36 BP 111/67 02/20/23 07:36 Pulse Ox 91 02/20/23 07:36 O2 Del Method Room Air 02/20/23 07:36 Testing Laboratory Results 02/20/23 08:43 02/20/23 08:43 PT 12.0 Seconds (9.0-12.0) 02/19/23 17:04 INR 1.1 (0.9-1.1) 02/19/23 17:04 APTT 21.4 Seconds (21.0-31.0) 02/19/23 17:04 Hemoglobin A1c 6.7 % (4.5-5.6) H 02/20/23 02:20 Urine Color Dark Yellow 02/19/23 Unknown Urine Appearance Clear (Clear) 02/19/23 Unknown Urine pH 5.0 (4.5-7.5) 02/19/23 Unknown Ur Specific [place] > 1.045 (1.000-1.030) H 02/19/23 Unknown Urine Protein Negative (Negative) 02/19/23 Unknown Urine Glucose (UA) Negative (Negative) 02/19/23 Unknown Urine Ketones Negative (Negative) 02/19/23 Unknown Urine Nitrite Negative (Negative) 02/19/23 Unknown Ur Leukocyte Esterase Trace (Negative) H 02/19/23 Unknown Urine WBC (Auto) 1-5 /hpf (0-5) 02/19/23 Unknown Urine RBC (Auto) 0-4 /hpf (0-4) 02/19/23 Unknown U Hyaline Cast (Auto) 1-5 /lpf (0-5) 02/19/23 Unknown U Epithel Cells (Auto) 0-5 /lpf (0-5) 02/19/23 Unknown Urine Bacteria (Auto) Negative (Negative) 02/19/23 Unknown Blood Type A Positive 02/19/23 15:12 Antibody Screen NEGATIVE 02/19/23 15:12 02/20/23 02/20/23 08:31 07:26 POC Glucose 177 H 127 H Electrocardiogram Date: 02/19/23 Normal sinus rhythm, rate 72 bpm Inferior infarct (cited on or before 20-DEC-2020) Abnormal ECG When compared with ECG of 15-SEP-2022 23:17, [place] interval has decreased Confirmed by Carlyle Barton ([id number]) on 02/20/2023 7:34:25 AM Chest X-Ray Date: 02/19/23 Findings: + NAD Echocardiogram Date: 04/11/21 EF 60-65% Moderate concentric LVH AV sclerosis mild without significant AV stenosis Mild TR The estimated systolic pulmonary pressure is 43 mmHg Grade 1 diastolic dysfunction
--- NOTE | 2023-02-20 09:44 | Gastrointestinal Consultation ---
Date of Consultation February 20, 2023 Assessment & Plan (1) Ulcerative colitis: (2) Melena: (3) Acute blood loss anemia: Discussed case with Dr. Shaikh who performed an EMR of a duodenal bulb Lipoma on 02/09/2023 Continue Protonix gtt 8 mg/hour IV Transfuse to maintain H/H around 10/30 as needed Receiving blood transfusion now Reglan 10 mg IV x1 now Proceed with emergent EGD now History of Present Illness Reason for Consultation: Acute blood loss anemia, Melena Attending Physician: Johanny Wood MD History of Present Illness Arthur Judd is a 72 yo CM with an extensive PMHx who presented to the ER yesterday with complaints of melena with lightheadedness and a syncopal episode following a BM yesterday. He underwent a EUS with EMR resection of a duodenal lipoma on 02/09/[address] Shaikh. He was doing well until yesterday when he had several dark BM's. He has been restarted on his Plavix and Aspirin t herapy since his EMR. He states that he took both his Aspirin and Plavix yesterday. He did have some LLQ abdominal pain, but has not had any hematemesis, nausea or vomiting since his arrival. Early this AM he had a bloody BM, and became diaphoretic, lightheaded and dizzy. A Rapid Response was called and he was transferred to ICU. At the time I saw him, he was feeling nauseated and lightheaded. He denied any abdominal pain, fevers, chills, or other complaints. Allergies Allergy/AdvReac Type Severity Reaction Status Date / Time fish oil Allergy Severe RASH Verified 02/19/23 18:04 vancomycin Allergy Intermediate Rash Verified 02/19/23 18:04 lisinopril AdvReac Intermediate COUGH Verified 02/19/23 18:04 shellfish derived AdvReac Intermediate VOMITTING Verified 02/19/23 18:04 Home Medications Medication Instructions Recorded Confirmed Type atorvastatin 80 mg tablet 80 mg PO HS 07/04/18 02/19/23 History clopidogrel 75 mg tablet (Plavix) 75 mg PO QAM 07/04/18 02/19/23 History folic acid 1 mg tablet 1 mg PO QAM 07/04/18 02/19/23 History isosorbide mononitrate 30 mg 30 mg PO QAM 07/04/18 02/19/23 History tablet,extended release 24 hr lutein 20 mg capsule 20 mg PO QAM 07/04/18 02/19/23 History nitroglycerin 0.4 mg sublingual 0.4 mg sublingual UD PRN Chest Pain 07/04/18 02/19/23 History tablet (Nitrostat) olmesartan 40 mg tablet (Benicar) 40 mg PO QAM 07/04/18 02/19/23 History vitamin B complex 1 tab PO QAM 07/04/18 02/19/23 History tamsulosin 0.4 mg capsule 0.4 mg PO DAILY ##0 10/12/18 02/19/23 History amlodipine 10 mg tablet 10 mg PO QAM 12/20/20 02/19/23 History aspirin 81 mg chewable tablet 81 mg PO HS 12/20/20 02/19/23 History (Aspirin Childrens) carvedilol 25 mg tablet (Coreg) 25 mg PO AMHS 12/20/20 02/19/23 History furosemide 20 mg tablet 20 mg PO QAM 12/20/20 02/19/23 History vedolizumab 300 mg intravenous 300 mg IV .Q8WK 12/20/20 02/19/23 History solution (Entyvio) fluticasone propionate 50 2 spray intranasal DAILY 06/30/21 02/19/23 History mcg/actuation nasal spray,suspension (Flonase Allergy Relief) lactobacillus combination no.4 3 3,000 mmu cells PO QAM 06/30/21 02/19/23 History billion cell capsule (Probiotic) albuterol sulfate 90 mcg/actuation 2 puff inhalation QID PRN 09/16/22 02/19/23 History aerosol inhaler Shortness Of Breath Or Wheezing fluticasone fur. 100 mcg-umeclid 1 inh inhalation QAM 09/16/22 02/19/23 History 62.5 mcg-vilant 25 mcg inhalat.powder (Trelegy Ellipta) metformin 500 mg tablet,extended 500 mg PO QAM 09/16/22 02/19/23 History release 24 hr fluorouracil 5 % topical cream 1 applic topical DIRECTED PRN 10/27/22 02/19/23 History Rash finasteride 5 mg tablet 5 mg PO PM 02/19/23 02/19/23 History Patient History Medical History BPH (benign prostatic hyperplasia) BPH NOS w ur obs/LUTS BRBPR (bright red blood per rectum) CAD (coronary artery disease) follows with Dr. Laguerre Cardiac murmur Chronic diastolic heart failure COPD (chronic obstructive pulmonary disease) Diverticulitis large intestine Frequent PVCs History of myocardial infarction 2014 History of skin cancer HLD (hyperlipidemia) HTN (hypertension) Pre-diabetes Ulcerative colitis Surgical History History of cardiac catheterization multiple w/ stents 1997, 2009, 2013, 2019 History of colonoscopy History of esophagogastroduodenoscopy (EGD) History of heart artery stent x 4 (last placed 2018) History of Mohs micrographic surgery for skin cancer multiple Family History Other Heart disease No family history of adverse response to anesthesia Stroke Social History Smoking Status: Former smoker Second Hand Exposure: No; Do You Dip or Chew Tobacco: No; Hx Alcohol Use: No Hx Substance Use: No Preferred Language: Gambian Communication Ability: Effective Skating Rink Manager Required: No Beliefs That Will Affect Care: None Current Living Situation: Spouse Feels Safe at Home: Yes Assistive Devices: Denture - Lower Review of Systems Review of Systems: All systems reviewed & are unremarkable except as noted in Subjective Physical Exam Constitutional: + acute distress and + ill appearing Eyes: + anicteric sclerae ENMT: external ear and nose normal, oropharynx normal Neck: trachea midline, no thyromegaly Respiratory: normal respiratory effort, lungs clear to auscultation Cardiovascular: Rate/Rhythm: regular rate and regular rhythm Gastrointestinal (Abdomen): normal bowel sounds, soft, nontender, no hepatosplenomegaly Skin: Noted Pallor Psychiatric: A+Ox3, euthymic affect Results & Data Vital Signs (Past 12 Hours) Vital Signs Temp Pulse Pulse Resp BP Pulse Ox O2 Del Method 02/20/23 07:40 63 02/20/23 07:36 36.5 C 74 18 111/67 91 Room Air 02/20/23 04:08 36.6 C 66 18 107/61 94 Room Air 02/19/23 23:00 66 02/19/23 22:22 36.8 C 67 18 108/62 92 Room Air PG Care Time/CCT Total # of Minutes Spent Total Time Spent with Patient: Total time spent is greater than 50% in coordination of care (as documented) at patient's floor/unit and/or counseling patient: Coding Level of Care Code 48271 IN/OBS CONSULT LVL 4,60M Diagnoses Ulcerative colitis K51.90 Melena K92.1 Acute blood loss anemia D62
[2023-02-20] MEDS: SODIUM CHLORIDE 0.9% 1000ML 1,000 ML IV SCH (09:45)
[2023-02-20] MEDS: TAMSULOSIN HCL 0.4 MG CAP PO SCH (09:59)
[2023-02-20] MEDS: INSULIN ASPART PER UNIT CHARGE SC SCH ×4 (10:14→19:03)
[2023-02-20] MEDS: carvediloL 25 MG TAB PO SCH (10:17)
--- NOTE | 2023-02-20 10:40 | GI REPORT ---
Patient Name: Arthur Judd Procedure Date: 02/20/2023 9:35 AM Date of : 1950 Admit Type: Inpatient Age: 72 Gender: Male Attending MD: Ricardo Falcon DO, Procedure: Upper GI endoscopy Providers: Ricardo Falcon DO Referring MD: Johanny Wood MD Indications: Acute post hemorrhagic anemia Medicines: Monitored Anesthesia Care Complications: No immediate complications. Estimated Blood Loss: Estimated blood loss was minimal. Procedure: Pre-Anesthesia Assessment: - Prior to the procedure, a History and Physical was performed, and patient medications and allergies were reviewed. The patient's tolerance of previous anesthesia was also reviewed. The risks and benefits of the procedure and the sedation options and risks were discussed with the patient. All questions were answered, and informed consent was obtained. Prior Anticoagulants: The patient has taken Plavix (clopidogrel), last dose was 1 day prior to procedure. ASA Grade Assessment: IV - A patient with severe systemic disease that is a constant threat to life. After reviewing the risks and benefits, the patient was deemed in satisfactory condition to undergo the procedure. After obtaining informed consent, the endoscope was passed under direct vision. Throughout the procedure, the patient's blood pressure, pulse, and oxygen saturations were monitored continuously. The Endoscope was introduced through the mouth, and advanced to the second part of duodenum. The upper GI endoscopy was accomplished without difficulty. The patient tolerated the procedure well. Findings: The esophagus was normal. Hematin (altered blood/kyhggm-yuuyew-vmtn material) was found in the cardia. Clotted blood was found in the gastric antrum. A moderate post-EMR deformity was found in the duodenal bulb. There were 3 endoclips visible, with active bleeding noted. Area was unsuccessfully injected with 4 mL of a 0.1 mg/mL solution of epinephrine for hemostasis. To prevent further bleeding, four hemostatic clips were successfully placed (MR conditional). Clip advanced research programs director: Purplu. There was no bleeding at the end of the procedure. Impression: - Normal esophagus. - Hematin (altered blood/robrwh-nthgxi-ewpz material) in the cardia. - Clotted blood in the gastric antrum. - Duodenal deformity. Treatment not successful. Clips (MR conditional) were placed. Clip advanced research programs director: Purplu. - No specimens collected. Recommendation: - Return patient to ICU for ongoing care. - Clear liquid diet. - Give Protonix (pantoprazole): 8 mg/hr IV by continuous infusion for 3 days. - Hold Aspirin and Plavix indefinitely - Transfuse PRN to maintain H/H around 10/30 Ricardo Xochitl Falcon, DO 02/20/2023 10:40:09 AM This report has been signed electronically. Note Initiated On: 02/20/2023 9:35 AM Number of Addenda: 0 I attest to the content of the Intraoperative Record and orders documented therein, exceptions below {[id number]}
[2023-02-20] MEDS ORDERED: ePHEDrine sulfate 50 MG/ML AMP ONE (11:09)
[2023-02-20] MEDS ORDERED: PHENYLEPHRINE HCL 10 MG/ML VIAL ONE (11:09)
[2023-02-20] MEDS ORDERED: VASOPRESSIN 20 UNIT/ML VIAL ONE (11:09)
[2023-02-20] MEDS ORDERED: CALCIUM GLUCONATE 10% 1,000 MG in DEXTROSE 5% 50 ML IV ONE ×2 (11:25→11:37)
[2023-02-20] MEDS ORDERED: STAT IV STA ×2 (11:25→11:37)
[2023-02-20] MEDS ORDERED: ATROPINE SULFATE 0.1 MG/ML 10ML SYR IV ONE (11:26)
[2023-02-20] MEDS ORDERED: LIDOCAINE 2% JELLY 5 ML TUBE EXT ONE (11:29)
--- NOTE | 2023-02-20 11:32 | Critical Care Consultation ---
Date of Consultation February 20, 2023 Assessment & Plan (1) Acute blood loss anemia: (2) Upper GI bleed: (3) Hemorrhagic shock: (4) History of CAD (coronary artery disease): Plan 72-year-old male with a history of coronary artery disease and UC who presented with upper GI bleed. Currently in hemorrhagic shock. Received 1 unit of packed RBCs thus far. Awaiting 2 more units of packed RBCs, 1 unit of platelets and 2 g of calcium gluconate. Neurologic: Avoid sedating agents. Pulmonary: Monitor respiratory status closely given history of diastolic CHF. Currently saturating in the low 90s on 4 L nasal cannula. We will consider a dose of diuretic depending on blood pressure. Cardiovascular: Hold antiplatelet therapy given acute bleeding. Maintain MAP above 65 mmHg. Patient with relative bradycardia. He did receive a dose of beta-win earlier today. Gastrointestinal: Patient with upper GI bleed. Appreciate GI input and EGD note. We will have a low threshold for transfer to a tertiary center for possible embolization and IR intervention. Renal: Lundy catheter placed. Monitor urine output closely. Give 2 g of calcium gluconate given rapid transfusion of packed RBCs. Infectious disease: No acute issues at this time. Monitor for fever. Hematologic: Give additional 2 units of packed RBCs, platelets and 2 g of calcium gluconate. INR within normal limits. Hold further antiplatelets or blood thinners. Endocrine: Keep glucose under 180. F/E/N: NPO. Lines and tubes: 2 18-gauge IVs in place and Lundy catheter in place. We will consider placement of a larger central bore catheter if needed. VTE prophylaxis: SCD CODE STATUS: Full Family at bedside: updated over the phone by the hospitalist service. Disposition: ICU. Discussed with hospitalist physician at length along with bedside RN. I have personally spent 47 minutes of critical care time in the direct management of this patient. This is a life/limb threatening event. This includes time spent evaluating patient, direct bedside care, chart review, placing orders, interpretation of diagnostic studies, discussion with consultants, patient, and family members, as well as other required patient management activities. This time is exclusive of all separately billable procedures, and teaching time and separate from and in addition to any other critical care service time. Thank you for allowing us to participate in the care of this patient. History of Present Illness Reason for Consultation: Hemorrhagic shock Attending Physician: Johanny Wood MD History of Present Illness 72-year-old male with history of COPD, diastolic heart failure, UC, GERD and hypertension who was having multiple bloody bowel movements yesterday. He presented to the ER due to shortness of breath. His noted that he appeared to have a syncopal episode yesterday. He also had a syncopal episode earlier to day. He was taken urgently for an EGD. GI noted a normal esophagus. Hematin was noted in the cardia of the stomach. Clotted blood in the gastric antrum. There was a duodenal deformity and "treatment was not successful". MR- compatible clips were placed. CT abdomen and pelvis was obtained yesterday which was revealing of small amount of layering hyperdense material within the stomach. Equivocal peripancreatic stranding. Bilateral nephrolithiasis. CT head was unremarkable. He is notably on dual antiplatelets with aspirin and Plavix for history of coronary artery disease. He has thus far received 1 unit of packed RBCs since admission. His baseline hemoglobin appears to be around 11 and has dropped to 7.6 this morning. Platelet count 207,000. INR 1.1.. APTT 21.4. He has 2 18-gauge IVs in place. Lundy catheter is currently being placed by RN. He endorses some back pain and dizziness. He has mild shortness of breath with mild exertion. He is currently on 4 L nasal cannula. Denies any significant abdominal plain. Allergies Allergy/AdvReac Type Severity Reaction Status Date / Time fish oil Allergy Severe RASH Verified 02/19/23 18:04 vancomycin Allergy Intermediate Rash Verified 02/19/23 18:04 lisinopril AdvReac Intermediate COUGH Verified 02/19/23 18:04 shellfish derived AdvReac Intermediate VOMITTING Verified 02/19/23 18:04 Home Medications Medication Instructions Recorded Confirmed Type atorvastatin 80 mg tablet 80 mg PO HS 07/04/18 02/19/23 History clopidogrel 75 mg tablet (Plavix) 75 mg PO QAM 07/04/18 02/19/23 History folic acid 1 mg tablet 1 mg PO QAM 07/04/18 02/19/23 History isosorbide mononitrate 30 mg 30 mg PO QAM 07/04/18 02/19/23 History tablet,extended release 24 hr lutein 20 mg capsule 20 mg PO QAM 07/04/18 02/19/23 History nitroglycerin 0.4 mg sublingual 0.4 mg sublingual UD PRN Chest Pain 07/04/18 02/19/23 History tablet (Nitrostat) olmesartan 40 mg tablet (Benicar) 40 mg PO QAM 07/04/18 02/19/23 History vitamin B complex 1 tab PO QAM 07/04/18 02/19/23 History tamsulosin 0.4 mg capsule 0.4 mg PO DAILY ##0 10/12/18 02/19/23 History amlodipine 10 mg tablet 10 mg PO QAM 12/20/20 02/19/23 History aspirin 81 mg chewable tablet 81 mg PO HS 12/20/20 02/19/23 History (Aspirin Childrens) carvedilol 25 mg tablet (Coreg) 25 mg PO AMHS 12/20/20 02/19/23 History furosemide 20 mg tablet 20 mg PO QAM 12/20/20 02/19/23 History vedolizumab 300 mg intravenous 300 mg IV .Q8WK 12/20/20 02/19/23 History solution (Entyvio) fluticasone propionate 50 2 spray intranasal DAILY 06/30/21 02/19/23 History mcg/actuation nasal spray,suspension (Flonase Allergy Relief) lactobacillus combination no.4 3 3,000 mmu cells PO QAM 06/30/21 02/19/23 History billion cell capsule (Probiotic) albuterol sulfate 90 mcg/actuation 2 puff inhalation QID PRN 09/16/22 02/19/23 History aerosol inhaler Shortness Of Breath Or Wheezing fluticasone fur. 100 mcg-umeclid 1 inh inhalation QAM 09/16/22 02/19/23 History 62.5 mcg-vilant 25 mcg inhalat.powder (Trelegy Ellipta) metformin 500 mg tablet,extended 500 mg PO QAM 09/16/22 02/19/23 History release 24 hr fluorouracil 5 % topical cream 1 applic topical DIRECTED PRN 10/27/2202/19 History Rash finasteride 5 mg tablet 5 mg PO PM 02/19/23 02/19/23 History Patient History Medical History (Updated 02/20/23 @ 11:39 by Teddy Boyd MD) BPH (benign prostatic hyperplasia) BPH NOS w ur obs/LUTS BRBPR (bright red blood per rectum) CAD (coronary artery disease) follows with Dr. Laguerre Cardiac murmur Chronic diastolic heart failure COPD (chronic obstructive pulmonary disease) Diverticulitis large intestine Frequent PVCs Hemorrhagic shock History of myocardial infarction 2014 History of skin cancer HLD (hyperlipidemia) HTN (hypertension) Pre-diabetes Ulcerative colitis Upper GI bleed Surgical History History of cardiac catheterization multiple w/ stents 1997, 2008, 2013, 2019 History of colonoscopy History of esophagogastroduodenoscopy (EGD) History of heart artery stent x 4 (last placed 2018) History of Mohs micrographic surgery for skin cancer multiple Family History Other Heart disease No family history of adverse response to anesthesia Stroke Social History Smoking Status: Former smoker Smoking End Date: 30 years ago; Second Hand Exposure: No; Do You Dip or Chew Tobacco: No; Hx Alcohol Use: No Hx Substance Use: No Preferred Language: Uzbek Communication Ability: Effective Secondary Set Up Man Required: No Beliefs That Will Affect Care: None Current Living Situation: Spouse Other Information That Helps Us Care for You: No Feels Safe at Home: Yes Safety Concerns: Feels Safe At This Time Assistive Devices: Denture - Lower Assistive Devices Comment: lower right cemented in partial Review of Systems Review of Systems: All systems reviewed & are unremarkable except as noted in HPI & below Physical Exam Physical Exam: Constitutional: Elderly and obese appearing male in moderate distress laying in bed on his left side. Eyes: Pupils are equal round and reactive to light. Conjunctivae are normal. Anicteric sclera. Ears nose, mouth and throat: Mallampati class 2. Normal posterior oropharynx. Uvula is midline. Neck: Trachea is midline. Visual inspection is normal. Respiratory: Clear to auscultation bilaterally. No use of accessory muscles. No significant clubbing noted. Cardiovascular: Bradycardic. No murmurs. No edema. Gastrointestinal: Normal bowel sounds, soft, nontender and nondistended. No hepatosplenomegaly noted. Musculoskeletal: No cyanosis. Patient is able to move all extremities. Strength is 5 out of 5 in the upper and lower extremities. Skin: No rashes, warm dry and intact. Pale. Neurologic: No obvious focal neurological deficits seen. Psychiatric: Alert and oriented x3 with a euthymic affect. Results & Data Results & Data Vital Signs (Past 12 Hours) Vital Signs Temp Pulse Pulse Resp BP BP Pulse Ox 02/20/23 11:10 93 H 22 76/27 L 92 02/20/23 11:00 65 23 87/36 L 98 02/20/23 10:51 36.3 C L 93 H 22 76/27 L 92 02/20/23 09:52 36.8 C 86 16 91/54 L 98 02/20/23 09:40 36.8 C 83 14 108/54 L 100 02/20/23 07:40 63 02/20/23 07:36 36.5 C 74 18 111/67 91 02/20/23 04:08 36.6 C 66 18 107/61 94 O2 Del Method O2 Flow Rate 02/20/23 11:10 Oxymask 10 02/20/23 11:00 Oxymask 10 02/20/23 10:51 Oxymask 10 02/20/23 09:52 3 02/20/23 09:40 02/20/23 07:40 02/20/23 07:36 Room Air 02/20/23 04:08 Room Air Coding Level of Care Code 19480 CRITICAL CARE 1ST 30-74M Diagnoses Acute blood loss anemia D62 Upper GI bleed K92.2 Hemorrhagic shock R57.8 History of CAD (coronary artery disease) Z86.79
--- NOTE | 2023-02-20 11:42 | Anesthesiology Progress Note ---
Date of Service February 20, 2023 Anesthesia Post Procedure Vital Signs Vital Signs: Temp Pulse Pulse Resp BP BP Pulse Ox 02/20/23 11:10 65 22 76/27 L 92 02/20/23 11:00 65 23 87/36 L 98 02/20/23 11:20 97.9 F 77 20 87/43 L 90 02/20/23 10:51 97.3 F L 93 H 22 76/27 L 92 02/20/23 09:52 98.2 F 86 16 91/54 L 98 02/20/23 09:40 98.2 F 83 14 108/54 L 100 02/20/23 07:40 63 02/20/23 07:36 97.7 F 74 18 111/67 91 02/20/23 04:08 97.9 F 66 18 107/61 94 02/19/23 23:00 66 02/19/23 22:22 98.2 F 67 18 108/62 92 02/19/23 20:00 83 02/19/23 19:03 97.9 F 75 142/70 H 94 02/19/23 18:27 66 14 114/62 94 02/19/23 17:30 66 14 94 02/19/23 17:00 13 92 02/19/23 17:00 57 L 114/62 02/19/23 16:30 65 15 91 02/19/23 16:30 111/57 L 02/19/23 16:00 24 02/19/23 16:00 94/75 L 02/19/23 15:17 70 19 94 02/19/23 15:17 104/48 L 02/19/23 15:16 77 5 L 02/19/23 15:42 63 02/19/23 15:20 70 18 94 02/19/23 15:20 97.5 F L 70 18 104/48 L 94 02/19/23 15:20 97.5 F L 70 18 104/48 L 94 O2 Del Method O2 Flow Rate 02/20/23 11:10 Oxymask 5 02/20/23 11:00 Oxymask 10 02/20/23 11:20 Nasal Cannula 4 02/20/23 10:51 Oxymask 10 02/20/23 09:52 3 02/20/23 09:40 02/20/23 07:40 02/20/23 07:36 Room Air 02/20/23 04:08 Room Air 02/19/23 23:00 02/19/23 22:22 Room Air 02/19/23 20:00 02/19/23 19:03 Room Air 02/19/23 18:27 Room Air 02/19/23 17:30 02/19/23 17:00 02/19/23 17:00 02/19/23 16:30 02/19/23 16:30 02/19/23 16:00 02/19/23 16:00 02/19/23 15:17 02/19/23 15:17 02/19/23 15:16 02/19/23 15:42 02/19/23 15:20 Room Air 02/19/23 15:20 Room Air 02/19/23 15:20 Room Air Transfer of Care Handoff Completed per policy Notes Mental Status: alert / awake / arousable and participated in evaluation Patient Amnestic to Procedure: Yes Nausea / Vomiting: adequately controlled Pain: adequately controlled Airway Patency, RR, SpO2: stable & adequate BP & HR: stable & adequate Hydration State: stable & adequate Anesthetic Complications: no major complications apparent and Pt Satisfied with anesthetic care
[2023-02-20] MEDS ORDERED: STAT IV Infusion **Titration per Protocol STA (13:07)
[2023-02-20] MEDS ORDERED: NOREPINEPHRINE/D5W 4 MG/250 ML IV ONE (13:12)
[2023-02-20] MEDS ORDERED: NOREPINEPHRINE/D5W 4 MG/250 ML PLCT IV SCH (13:15)
[2023-02-20] MEDS: FLUTICASONE PROPIONATE NA SPR 16 GM BTL SCH (14:59)
[2023-02-20] MEDS: FLUTICASONE/VILANTEROL 100/25MCG 14 PUFFS/INHALER INH SCH (14:59)
[2023-02-20] MEDS: UMECLIDINIUM BROMIDE 62.5MCG/BLISTER 7 PUFFS/INHALER INH SCH (14:59)
[2023-02-20 15:12] LABS: Hematocrit (blood only) 31.3 % (42.0-52.0); Hemoglobin 10.4 g/dl (14.0-18.0); Mean Corpuscular Hemoglobin 29.4 pg (25.0-34.0); Mean Corpuscular Hgb Conc 33.2 g/dL (32.0-36.0); Mean Corpuscular Volume 88.4 fL (80.0-100.0); Mean Platelet Volume 11.1 fL (9.4-12.4); Platelet Count 108 K/uL (130-400); RDW Coefficient of Variation 14.4 % (11.5-14.5); RDW Standard Deviation 46.5 fL (36.4-46.3); Red Blood Count 3.54 M/uL (4.70-6.10); White Blood Count 21.54 K/ul (4.8-10.8)
[2023-02-20 15:13] LABS: Basophils # (auto) 0.05 K/uL (0-0.2); Basophils % (auto) 0.2 %; Echinocytes 1+; Eosinophils # (auto) 0.06 K/uL (0-0.50); Eosinophils % (auto) 0.3 %; Immature Granulocytes # (auto) 0.12 K/uL (0.01-0.20); Immature Granulocytes % (auto) 0.6 %; Lymphocytes # (auto) 1.77 K/uL (1.2-3.4); Lymphocytes % (auto) 8.2 %; Monocytes # (auto) 1.45 K/uL (0.11-0.59); Monocytes % (auto) 6.7 %; Neutrophils # (auto) 18.09 K/uL (1.40-6.50); Platelet Estimate Normal (Normal)
[2023-02-20] MEDS: FINASTERIDE 5 MG TAB PO SCH (20:54)
[2023-02-20] MEDS: ATORVASTATIN 40 MG TAB PO SCH (20:55)
[2023-02-20 22:40] LABS: Blood Urine 3+ (Negative); RBC Urine Automated >30 /hpf (0-4)
[2023-02-21] MEDS: INSULIN ASPART PER UNIT CHARGE SC SCH ×4 (00:39→16:32)
[2023-02-21] MEDS: PANTOprazole 40 MG in DEXTROSE 5% 100 ML IV SCH ×4 (02:23→19:16)
[2023-02-21 04:54] LABS: Hemoglobin 8.1 g/dl (14.0-18.0); Mean Corpuscular Hemoglobin 29.6 pg (25.0-34.0); Mean Corpuscular Hgb Conc 33.8 g/dL (32.0-36.0); Mean Corpuscular Volume 87.6 fL (80.0-100.0); Mean Platelet Volume 11.6 fL (9.4-12.4); Platelet Count 148 K/uL (130-400); RDW Coefficient of Variation 15.2 % (11.5-14.5); RDW Standard Deviation 48.9 fL (36.4-46.3); Red Blood Count 2.74 M/uL (4.70-6.10); White Blood Count 21.29 K/ul (4.8-10.8)
[2023-02-21 05:11] LABS: Albumin Globulin Ratio 1.5 (0.9-2); Albumin Level 2.4 gm/dl (3.4-5.0); BUN Creatinine Ratio 35.5 (10-20); Bilirubin,Total 0.4 mg/dl (0.2-1.0); Creatinine Clr Calc Pharmacy 79.6 ml/min; Est GFR (African American) 81.1 ml/min; Globulin 1.6 gm/dl (2.5-4.0); Magnesium 1.5 mg/dl (1.7-2.4); Phosphorus 3.6 mg/dl (2.5-4.9); Potassium 4.5 mmol/L (3.5-5.1)
[2023-02-21] MEDS: MAGNESIUM SULFATE / D5W 1 GM/100 ML BAG IV SCH ×3 (05:58→10:04)
[2023-02-21 06:39] LABS: Appearance Urine Clear (Clear); Bacteria Urine Automated Negative (Negative); Bilirubin Urine Negative (Negative); Blood Urine 3+ (Negative); Color Urine Yellow; Epithelial Cell Urine Auto 20-30 /lpf (0-5); Glucose Urine UA Negative (Negative); Ketones Urine Negative (Negative); Leukocyte Esterase Urine 1+ (Negative); Nitrite Urine Negative (Negative); Protein Urine 1+ (Negative); RBC Urine Automated >30 /hpf (0-4); Specific Gravity Urine 1.018 (1.000-1.030); Urobilinogen Urine Negative (Negative)
[2023-02-21] MEDS: FLUTICASONE/VILANTEROL 100/25MCG 14 PUFFS/INHALER INH SCH (07:29)
[2023-02-21] MEDS: FLUTICASONE PROPIONATE NA SPR 16 GM BTL SCH (07:29)
[2023-02-21] MEDS: TAMSULOSIN HCL 0.4 MG CAP PO SCH (07:30)
[2023-02-21] MEDS: UMECLIDINIUM BROMIDE 62.5MCG/BLISTER 7 PUFFS/INHALER INH SCH (07:30)
--- NOTE | 2023-02-21 08:40 | Critical Care Progress Note ---
Date of Service February 21, 2023 Assessment & Plan (1) Acute blood loss anemia: (2) Upper GI bleed: (3) Hemorrhagic shock: (4) History of CAD (coronary artery disease): Plan 72-year-old male with a history of coronary artery disease and UC who presented with upper GI bleed. Pulmonary: History of diastolic CHF. Off nasal cannula. Cardiovascular: Holding antiplatelet therapy per GI recommendations. Patient with relative bradycardia: resolved. Gastrointestinal: Patient with upper GI bleed. D/W prior covering GI, was able to visualize source believes source control has been achieved. Renal: Discontinue [place]y Infectious disease: No acute issues at this time. Leukocytosis of unclear etiology. Fever yesterday, received monoclonal antibody for ulcerative colitis in last week Hematologic: Trend h/h every 8 hours Endocrine: Keep glucose under 180. F/E/N: Clear liquids: advance as tolerated Lines and tubes: Peripheral IVs VTE prophylaxis: SCD: chemical prophylaxis contraindicated secondary to GI bleeding CODE STATUS: Full Disposition: Stable for downgrade out of ICU Admission and Anticipated Discharge Date Admission Date: February 19, 2023 Subjective Reports significant decrease in stool output, feels better than yesterday. Would like to eat. No chest pain shortness of breath no lightheadedness Physical Exam Physical Exam: General: Alert. nontoxic. Skin: Warm, dry, Head: Atraumatic Ears, nose, mouth and throat: airway patent Cardiovascular: Normal peripheral perfusion Respiratory: no respiratory distress Gastrointestinal: Non distended Musculoskeletal: No deformity Results & Data Results & Data Vital Signs (Past 12 Hours) Vital Signs Temp Pulse Resp BP Pulse Ox O2 Del Method O2 Flow Rate 02/21/23 08:15 112/48 L 02/21/23 08:15 37.2 C 81 20 90 02/21/23 08:01 87/60 L 02/21/23 08:01 37.2 C 88 23 02/21/23 08:00 37.2 C 88 18 94 02/21/23 07:45 114/52 L 02/21/23 07:45 37.2 C 82 23 92 02/21/23 07:31 37.3 C 85 15 96 02/21/23 07:31 104/43 L 02/21/23 07:15 104/58 L 02/21/23 07:15 37.3 C 85 16 96 Nasal Cannula 2 02/21/23 07:00 37.3 C 90 19 96 02/21/23 07:00 119/45 L 02/21/23 07:25 Nasal Cannula 2 02/21/23 05:52 37.3 C 84 19 97 02/21/23 05:52 123/53 L 02/21/23 05:52 123/53 L 02/21/23 05:45 37.2 C 80 16 96 02/21/23 05:45 102/46 L 02/21/23 05:30 37.2 C 80 16 98 02/21/23 05:30 99/51 L 02/21/23 05:15 37.3 C 91 H 16 97 02/21/23 05:15 130/53 L 02/21/23 05:00 37.2 C 77 16 97 02/21/23 05:00 110/54 L 02/21/23 04:45 37.3 C 83 19 97 02/21/23 04:45 98/49 L 02/21/23 04:30 37.4 C 78 21 95 02/21/23 04:30 119/58 L 02/21/23 04:16 37.3 C 78 18 97 02/21/23 04:16 107/45 L 02/21/23 04:16 107/45 L 02/21/23 04:15 37.4 C 71 15 97 02/21/23 04:00 37.4 C 90 18 97 02/21/23 04:00 90/57 L 02/21/23 03:45 37.5 C 77 17 96 02/21/23 03:45 123/53 L 02/21/23 03:30 37.5 C 82 15 97 02/21/23 03:30 96/44 L 02/21/23 03:15 37.4 C 85 18 97 02/21/23 03:15 97/48 L 02/21/23 03:00 37.3 C 78 21 97 02/21/23 03:00 109/48 L 02/21/23 02:45 37.1 C 78 18 96 02/21/23 02:45 108/50 L 02/21/23 02:30 37.4 C 83 15 97 02/21/23 02:30 96/46 L 02/21/23 02:17 116/51 L 02/21/23 02:17 37.5 C 91 H 19 95 02/21/23 02:15 37.5 C 79 18 94 02/21/23 02:15 90/47 L 02/21/23 02:00 37.5 C 83 17 94 02/21/23 02:00 95/48 L 02/21/23 01:45 37.4 C 88 17 96 02/21/23 01:45 113/48 L 02/21/23 01:30 37.4 C 85 16 95 02/21/23 01:30 108/51 L 02/21/23 01:15 37.5 C 82 13 95 02/21/23 01:15 97/47 L 02/21/23 01:00 37.5 C 86 23 96 02/21/23 01:00 84/46 L 02/21/23 00:45 37.7 C H 87 16 95 02/21/23 00:45 83/43 L 02/21/23 00:30 37.7 C H 89 18 96 02/21/23 00:30 101/52 L 02/21/23 00:37 96 H 02/21/23 00:15 37.8 C H 88 21 95 02/21/23 00:15 89/52 L 02/21/23 00:01 110/69 02/21/23 00:01 37.8 C H 103 H 17 89 L 02/21/23 00:00 37.9 C H 107 H 16 91 02/20/23 23:45 37.9 C H 93 H 20 93 02/20/23 23:45 110/51 L 02/20/23 23:31 90/55 L 02/20/23 23:31 37.9 C H 92 H 18 91 02/20/23 23:30 37.9 C H 99 H 19 94 02/20/23 23:15 38.0 C H 102 H 19 95 02/20/23 23:15 100/52 L 02/20/23 23:00 38.1 C H 97 H 20 95 02/20/23 23:00 121/61 02/20/23 22:45 38.1 C H 102 H 16 94 02/20/23 22:45 94/48 L 02/20/23 22:31 38.2 C H 103 H 15 89 L 02/20/23 22:31 105/46 L 02/20/23 22:30 38.2 C H 100 H 20 93 02/20/23 22:17 38.2 C H 100 H 20 91 02/20/23 22:15 38.2 C H 103 H 20 92 02/20/23 22:00 38.4 C H 106 H 20 94 02/20/23 22:00 97/53 L 02/20/23 21:45 38.4 C H 102 H 21 94 02/20/23 21:45 95/46 L 02/20/23 21:30 38.5 C H 104 H 23 94 02/20/23 21:30 104/63 02/20/23 21:15 38.5 C H 104 H 20 94 02/20/23 21:15 83/49 L 02/20/23 21:00 38.6 C H 107 H 24 93 02/20/23 21:00 88/49 L 02/20/23 20:55 88/47 L 02/20/23 20:55 38.6 C H 109 H 20 93 02/20/23 20:54 84/47 L 02/20/23 20:54 38.6 C H 107 H 23 92 02/20/23 20:45 38.6 C H 107 H 20 93 02/20/23 20:45 86/47 L Critical Care Results & Data Vital Signs (Past 12 Hours) Vital Signs Temp Pulse Resp BP Pulse Ox O2 Del Method O2 Flow Rate 02/21/23 08:15 112/48 L 02/21/23 08:15 37.2 C 81 20 90 02/21/23 08:01 87/60 L 02/21/23 08:01 37.2 C 88 23 02/21/23 08:00 37.2 C 88 18 94 02/21/23 07:45 114/52 L 02/21/23 07:45 37.2 C 82 23 92 02/21/23 07:31 37.3 C 85 15 96 02/21/23 07:31 104/43 L 02/21/23 07:15 104/58 L 02/21/23 07:15 37.3 C 85 16 96 Nasal Cannula 2 02/21/23 07:00 37.3 C 90 19 96 02/21/23 07:00 119/45 L 02/21/23 07:25 Nasal Cannula 2 02/21/23 05:52 37.3 C 84 19 97 02/21/23 05:52 123/53 L 02/21/23 05:52 123/53 L 02/21/23 05:45 37.2 C 80 16 96 02/21/23 05:45 102/46 L 02/21/23 05:30 37.2 C 80 16 98 02/21/23 05:30 99/51 L 02/21/23 05:15 37.3 C 91 H 16 97 02/21/23 05:15 130/53 L 02/21/23 05:00 37.2 C 77 16 97 02/21/23 05:00 110/54 L 02/21/23 04:45 37.3 C 83 19 97 02/21/23 04:45 98/49 L 02/21/23 04:30 37.4 C 78 21 95 02/21/23 04:30 119/58 L 02/21/23 04:16 37.3 C 78 18 97 02/21/23 04:16 107/45 L 02/21/23 04:16 107/45 L 02/21/23 04:15 37.4 C 71 15 97 02/21/23 04:00 37.4 C 90 18 97 02/21/23 04:00 90/57 L 02/21/23 03:45 37.5 C 77 17 96 02/21/23 03:45 123/53 L 02/21/23 03:30 37.5 C 82 15 97 02/21/23 03:30 96/44 L 02/21/23 03:15 37.4 C 85 18 97 02/21/23 03:15 97/48 L 02/21/23 03:00 37.3 C 78 21 97 02/21/23 03:00 109/48 L 02/21/23 02:45 37.1 C 78 18 96 02/21/23 02:45 108/50 L 02/21/23 02:30 37.4 C 83 15 97 02/21/23 02:30 96/46 L 02/21/23 02:17 116/51 L 02/21/23 02:17 37.5 C 91 H 19 95 02/21/23 02:15 37.5 C 79 18 94 02/21/23 02:15 90/47 L 02/21/23 02:00 37.5 C 83 17 94 02/21/23 02:00 95/48 L 02/21/23 01:45 37.4 C 88 17 96 02/21/23 01:45 113/48 L 02/21/23 01:30 37.4 C 85 16 95 02/21/23 01:30 108/51 L 02/21/23 01:15 37.5 C 82 13 95 02/21/23 01:15 97/47 L 02/21/23 01:00 37.5 C 86 23 96 02/21/23 01:00 84/46 L 02/21/23 00:45 37.7 C H 87 16 95 02/21/23 00:45 83/43 L 02/21/23 00:30 37.7 C H 89 18 96 02/21/23 00:30 101/52 L 02/21/23 00:37 96 H 02/21/23 00:15 37.8 C H 88 21 95 02/21/23 00:15 89/52 L 02/21/23 00:01 110/69 02/21/23 00:01 37.8 C H 103 H 17 89 L 02/21/23 00:00 37.9 C H 107 H 16 91 02/20/23 23:45 37.9 C H 93 H 20 93 02/20/23 23:45 110/51 L 02/20/23 23:31 90/55 L 02/20/23 23:31 37.9 C H 92 H 18 91 02/20/23 23:30 37.9 C H 99 H 19 94 02/20/23 23:15 38.0 C H 102 H 19 95 02/20/23 23:15 100/52 L 02/20/23 23:00 38.1 C H 97 H 20 95 02/20/23 23:00 121/61 02/20/23 22:45 38.1 C H 102 H 16 94 02/20/23 22:45 94/48 L 02/20/23 22:31 38.2 C H 103 H 15 89 L 02/20/23 22:31 105/46 L 02/20/23 22:30 38.2 C H 100 H 20 93 02/20/23 22:17 38.2 C H 100 H 20 91 02/20/23 22:15 38.2 C H 103 H 20 92 02/20/23 22:00 38.4 C H 106 H 20 94 02/20/23 22:00 97/53 L 02/20/23 21:45 38.4 C H 102 H 21 94 02/20/23 21:45 95/46 L 02/20/23 21:30 38.5 C H 104 H 23 94 02/20/23 21:30 104/63 02/20/23 21:15 38.5 C H 104 H 20 94 02/20/23 21:15 83/49 L Lab & Micro Results (Past 24 Hours) RBC 2.74 M/uL (4.70-6.10) L 02/21/23 WBC 21.29 K/ul (4.8-10.8) H 02/21/23 Hgb 8.2 g/dl (14.0-18.0) L 02/21/23 Hct 24.0 % (42.0-52.0) L 02/21/23 MCV 87.6 fL (80.0-100.0) 02/21/23 MCH 29.6 pg (25.0-34.0) 02/21/23 MCHC 33.8 g/dL (32.0-36.0) 02/21/23 RDW Standard Deviation 48.9 fL (36.4-46.3) H 02/21/23 RDW Coefficient of Variation 15.2 % (11.5-14.5) H 02/21/23 Plt Count 148 K/uL (130-400) 02/21/23 MPV 11.6 fL (9.4-12.4) 02/21/23 Neutrophils (%) (Auto) 84.0 % 02/20/23 Lymphocytes (%) (Auto) 8.2 % 02/20/23 Monocytes # (Auto) 1.45 K/uL (0.11-0.59) H 02/20/23 Eosinophils # (Auto) 0.06 K/uL (0-0.50) 02/20/23 Immature Granulocyte % (Auto) 0.6 % 02/20/23 Neutrophils # (Auto) 18.09 K/uL (1.40-6.50) H 02/20/23 Lymphocytes # (Auto) 1.77 K/uL (1.2-3.4) 02/20/23 Monocytes # (Auto) 1.45 K/uL (0.11-0.59) H 02/20/23 Eosinophils # (Auto) 0.06 K/uL (0-0.50) 02/20/23 Basophils # (Auto) 0.05 K/uL (0-0.2) 02/20/23 Immature Granulocyte # (Auto) 0.12 K/uL (0.01-0.20) 3 Echinocytes 1+ 02/20/23 Na 145 mmol/L (136-145) 02/21/23 K 4.5 mmol/L (3.5-5.1) 02/21/23 Cl 117 mmol/L (98-107) H 02/21/23 CO2 26 mmol/L (21-32) 02/21/23 Anion Gap 2 (3-11) L 02/21/23 BUN 38 mg/dl (6-23) H 02/21/23 Creatinine 1.07 mg/dl (0.6-1.4) 02/21/23 Estimated GFR ( Amer) 81.1 ml/min 02/21/23 Estimated GFR (Non-Af Amer) 70.0 ml/min 02/21/23 BUN/Creatinine Ratio 35.5 (10-20) H 02/21/23 Glu 151 mg/dl (70-99(Fasting)) H 02/21/23 Ca 8.0 mg/dl (8.6-10.3) L 02/21/23 Phosphorus Level 3.6 mg/dl (2.5-4.9) 02/21/23 Total Bilirubin 0.4 mg/dl (0.2-1.0) 02/21/23 AST 12 U/L (13-39) L 02/21/23 ALT 18 U/L (7-52) 02/21/23 Alkaline Phosphatase 41 U/L (34-104) 02/21/23 TP 4.0 gm/dl (6.0-8.3) L 02/21/23 Albumin 2.4 gm/dl (3.4-5.0) L 02/21/23 Globulin 1.6 gm/dl (2.5-4.0) L 06/12/23 Albumin/Globulin Ratio 1.5 (0.9-2) 02/21/23 Mg 1.5 mg/dl (1.7-2.4) L 02/21/23 04:29 Calcium Level 8.0 mg/dl (8.6-10.3) L 02/21/23 04:29 I & O Totals 24 Hours 02/20/23 02/21/23 02/22/23 06:59 06:59 06:59 Intake Total 802.000 / 318.776 8308.967 / 5332.967 175.833 / 175.833 Output Total 500 / 500 2224 / 2224 200 / 200 Balance 302.000 / 781.596 4894.967 / 3108.967 -24.167 / -24.167 Cumulative 02/19/23 14:41 thru 02/21/23 08:00 Intake Total 6310.800 Output Total 2924 Balance 3386.800 RT Ventilator Mngmt (Last Documented) Ventilator Ordered Settings Respiratory Rate 20 02/21/23 08:15 Ventilator - PT Measurements Respiratory Rate 20 Coding Level of Care Code 14527 SUB INP/OBS CARE 3/50MIN Diagnoses Acute blood loss anemia D62 Upper GI bleed K92.2 Hemorrhagic shock R57.8 History of CAD (coronary artery disease) Z86.79
--- NOTE | 2023-02-21 09:24 | Gastroenterology Progress Note ---
Date of Service February 21, 2023 Assessment & Plan (1) Upper GI bleed: Plan: 72 year old male with history of COPD, restrictive lung disease, prediabetes, HTN, dyslipidemia, CAD s/p stents, chronic diastolic heart failure, ulcerative colitis admitted w/ multiple episodes dark bloody stools today, recent EGD/EUS in January w/EMR of duodenal bulb lipoma s/p EGD yesterday for hemostasis w/ clip placement May continue clear liquids today Protonix continuous infusion for 3 days. Hold Aspirin and Plavix Transfuse PRN to maintain H/H around 10/30 WThank you for allowing us to participate in the care of this patient. Please call with any acute changes, questions or concerns. Please see addendum below with additional recommendation from my supervising physician. Admission and Anticipated Discharge Date Admission Date: February 19, 2023 Supervising Physician Co-Signing Physician Notes Attending attestation I have seen, examined this patient, and agree with the findings and above by our mid-level provider NIA Chamorro, with the following additions: Doing well after EGD yesterday, no signs of bleeding No vasopressors Agree with liquid diet IV PPI x 72 hr If any signs of bleeding, needs transfer for IR Subjective Pt was seen and evaluated, chart reviewed. S/P EGD yesterday by Dr. Falcon. This AM notes he is feeling better. No longer has GI discomfort, nausea. Last MB was yesterday, less dark and less blood than prior episodes. No vomiting. HGB 8.2 BUN 38 EGD 2022: - Normal esophagus. - Hematin (altered blood/ghybxj-[id number]-phld material) in the cardia. - Clotted blood in the gastric antrum. - Duodenal deformity. Treatment not successful. Clips (MR conditional) were placed. Clip fur liner: Capsule Tech. - No specimens collected. Review of Systems Review of Systems: All systems reviewed & are unremarkable except as noted in HPI & below Physical Exam Constitutional: WD/WN, vitals as above Respiratory: normal respiratory effort, lungs clear to auscultation Gastrointestinal (Abdomen): normal bowel sounds, soft, nontender, no hepatosplenomegaly Skin: no rashes, warm and dry Genitourinary: + catheter Results & Data Vital Signs (Past 12 Hours) Vital Signs Temp Pulse Resp BP Pulse Ox O2 Del Method O2 Flow Rate 02/21/23 08:15 112/48 L 02/21/23 08:15 37.2 C 81 20 90 02/21/23 08:01 87/60 L 02/21/23 08:01 37.2 C 88 23 02/21/23 08:00 37.2 C 88 18 94 02/21/23 07:45 114/52 L 02/21/23 07:45 37.2 C 82 23 92 02/21/23 07:31 37.3 C 85 15 96 02/21/23 07:31 104/43 L 02/21/23 07:15 104/58 L 02/21/23 07:15 37.3 C 85 16 96 Nasal Cannula 2 02/21/23 07:00 37.3 C 90 19 96 02/21/23 07:00 119/45 L 02/21/23 07:25 Nasal Cannula 2 02/21/23 05:52 37.3 C 84 19 97 02/21/23 05:52 123/53 L 02/21/23 05:52 123/53 L 02/21/23 05:45 37.2 C 80 16 96 02/21/23 05:45 102/46 L 02/21/23 05:30 37.2 C 80 16 98 02/21/23 05:30 99/51 L 02/21/23 05:15 37.3 C 91 H 16 97 02/21/23 05:15 130/53 L 02/21/23 05:00 37.2 C 77 16 97 02/21/23 05:00 110/54 L 02/21/23 04:45 37.3 C 83 19 97 02/21/23 04:45 98/49 L 02/21/23 04:30 37.4 C 78 21 95 02/21/23 04:30 119/58 L 02/21/23 04:16 37.3 C 78 18 97 02/21/23 04:16 107/45 L 02/21/23 04:16 107/45 L 02/21/23 04:15 37.4 C 71 15 97 02/21/23 04:00 37.4 C 90 18 97 02/21/23 04:00 90/57 L 02/21/23 03:45 37.5 C 77 17 96 02/21/23 03:45 123/53 L 02/21/23 03:30 37.5 C 82 15 97 02/21/23 03:30 96/44 L 02/21/23 03:15 37.4 C 85 18 97 02/21/23 03:15 97/48 L 02/21/23 03:00 37.3 C 78 21 97 02/21/23 03:00 109/48 L 02/21/23 02:45 37.1 C 78 18 96 02/21/23 02:45 108/50 L 02/21/23 02:30 37.4 C 83 15 97 02/21/23 02:30 96/46 L 02/21/23 02:17 116/51 L 02/21/23 02:17 37.5 C 91 H 19 95 02/21/23 02:15 37.5 C 79 18 94 02/21/23 02:15 90/47 L 02/21/23 02:00 37.5 C 83 17 94 02/21/23 02:00 95/48 L 02/21/23 01:45 37.4 C 88 17 96 02/21/23 01:45 113/48 L 02/21/23 01:30 37.4 C 85 16 95 02/21/23 01:30 108/51 L 02/21/23 01:15 37.5 C 82 13 95 02/21/23 01:15 97/47 L 02/21/23 01:00 37.5 C 86 23 96 02/21/23 01:00 84/46 L 02/21/23 00:45 37.7 C H 87 16 95 02/21/23 00:45 83/43 L 02/21/23 00:30 37.7 C H 89 18 96 02/21/23 00:30 101/52 L 02/21/23 00:37 96 H 02/21/23 00:15 37.8 C H 88 21 95 02/21/23 00:15 89/52 L 02/21/23 00:01 110/69 02/21/23 00:01 37.8 C H 103 H 17 89 L 02/21/23 00:00 37.9 C H 107 H 16 91 02/20/23 23:45 37.9 C H 93 H 20 93 02/20/23 23:45 110/51 L 02/20/23 23:31 90/55 L 02/20/23 23:31 37.9 C H 92 H 18 91 02/20/23 23:30 37.9 C H 99 H 19 94 02/20/23 23:15 38.0 C H 102 H 19 95 02/20/23 23:15 100/52 L 02/20/23 23:00 38.1 C H 97 H 20 95 02/20/23 23:00 121/61 02/20/23 22:45 38.1 C H 102 H 16 94 02/20/23 22:45 94/48 L 02/20/23 22:31 38.2 C H 103 H 15 89 L 02/20/23 22:31 105/46 L 02/20/23 22:30 38.2 C H 100 H 20 93 02/20/23 22:17 38.2 C H 100 H 20 91 02/20/23 22:15 38.2 C H 103 H 20 92 02/20/23 22:00 38.4 C H 106 H 20 94 02/20/23 22:00 97/53 L 02/20/23 21:45 38.4 C H 102 H 21 94 02/20/23 21:45 95/46 L 02/20/23 21:30 38.5 C H 104 H 23 94 02/20/23 21:30 104/63 Laboratory Results 02/21/23 02/21/23 02/21/23 Range/Units Unknown 07:58 07:58 WBC (4.8-10.8) K/ul RBC (4.70-6.10) M/uL Hgb 8.2 L (14.0-18.0) g/dl Hct (42.0-52.0) % MCV (80.0-100.0) fL MCH (25.0-34.0) pg MCHC (32.0-36.0) g/dL RDW Std Deviation (36.4-46.3) fL RDW Coeff of Flo (11.5-14.5) % Plt Count (130-400) K/uL MPV (9.4-12.4) fL Immature Gran % (Auto) % Neut % (Auto) % Lymph % (Auto) % [place] % (Auto) % Eos % (Auto) % Baso % (Auto) % Neut # (Auto) (1.40-6.50) K/uL Lymph # (Auto) (1.2-3.4) K/uL [place] # (Auto) (0.11-0.59) K/uL Eos # (Auto) (0-0.50) K/uL Baso # (Auto) (0-0.2) K/uL Immature Gran # (Auto) (0.01-0.20) K/uL Platelet Estimate (Normal) Echinocytes Sodium (136-145) mmol/L Potassium (3.5-5.1) mmol/L Chloride (98-107) mmol/L Carbon Dioxide (21-32) mmol/L Anion Gap (3-11) BUN (6-23) mg/dl Creatinine (0.6-1.4) mg/dl Est Cr Clr Drug Dosing ml/min Est GFR ( Amer) ml/min Est GFR (Non-Af Amer) ml/min BUN/Creatinine Ratio (10-20) Glucose (70-99(Fasting)) mg/dl POC Glucose (70-99) mg/dl Calcium (8.6-10.3) mg/dl Phosphorus (2.5-4.9) mg/dl Magnesium (1.7-2.4) mg/dl Total Bilirubin (0.2-1.0) mg/dl AST (13-39) U/L ALT (7-52) U/L Alkaline Phosphatase (34-104) U/L Total Protein (6.0-8.3) gm/dl Albumin (3.4-5.0) gm/dl Globulin (2.5-4.0) gm/dl Albumin/Globulin Ratio (0.9-2) Procalcitonin 0.37 (0-0.5) ng/ml Urine Color Yellow Urine Appearance Clear (Clear) Urine pH 5.0 (4.5-7.5) Ur Specific [place] 1.018 (1.000-1.030) Urine Protein 1+ H (Negative) Urine Glucose (UA) Negative (Negative) Urine Ketones Negative (Negative) Urine Blood 3+ H (Negative) Urine Nitrite Negative (Negative) Urine Bilirubin Negative (Negative) Urine Urobilinogen Negative (Negative) Ur Leukocyte Esterase 1+ H (Negative) Urine WBC (Auto) 5-10 H (0-5) /hpf Urine RBC (Auto) >30 H (0-4) /hpf U Hyaline Cast (Auto) 5-10 H (0-5) /lpf U Epithel Cells (Auto) 20-30 H (0-5) /lpf Urine Bacteria (Auto) Negative (Negative) Blood Type Antibody Screen Crossmatch Transfusion React Date Transfusion React Time Tx React Symptoms Reaction Clerical Check Lab Clerical Err Check React Component Return Volume Returned Pre-Trans Blood Type Pre-Trans Vis Hemolysis Pre-Trans NATALIE (Negative) Pre-Trans NATALIE IgG (Negative) Pre-Trans NATALIE Poly (Negative) Pre-Trans NATALIE C3b, C3d (Negative) Post-Trans Blood Type Post-Tx Visible Hemolys Post-Trans NATALIE (Negatuve) Post-Trans NATALIE IgG (Negative) Post-Trans NATALIE Poly (Negative) Post-Trans NATALIE C3b, C3d (Negative) Post-Trans Ur Hemoglobin Reaction Path Interpret Transfusion Serv Com 02/21/23 02/21/23 02/21/23 Range/Units 05:02 04:29 04:29 WBC 21.29 H (4.8-10.8) K/ul RBC 2.74 L (4.70-6.10) M/uL Hgb 8.1 L (14.0-18.0) g/dl Hct 24.0 L (42.0-52.0) % MCV 87.6 (80.0-100.0) fL MCH 29.6 (25.0-34.0) pg MCHC 33.8 (32.0-36.0) g/dL RDW Std Deviation 48.9 H (36.4-46.3) fL RDW Coeff of Flo 15.2 H (11.5-14.5) % Plt Count 148 (130-400) K/uL MPV 11.6 (9.4-12.4) fL Immature Gran % (Auto) % Neut % (Auto) % Lymph % (Auto) % [place] % (Auto) % Eos % (Auto) % Baso % (Auto) % Neut # (Auto) (1.40-6.50) K/uL Lymph # (Auto) (1.2-3.4) K/uL [place] # (Auto) (0.11-0.59) K/uL Eos # (Auto) (0-0.50) K/uL Baso # (Auto) (0-0.2) K/uL Immature Gran # (Auto) (0.01-0.20) K/uL Platelet Estimate (Normal) Echinocytes Sodium 145 (136-145) mmol/L Potassium 4.5 (3.5-5.1) mmol/L Chloride 117 H (98-107) mmol/L Carbon Dioxide 26 (21-32) mmol/L Anion Gap 2 L (3-11) BUN 38 H (6-23) mg/dl Creatinine 1.07 (0.6-1.4) mg/dl Est Cr Clr Drug Dosing 79.6 ml/min Est GFR ( Amer) 81.1 ml/min Est GFR (Non-Af Amer) 70.0 ml/min BUN/Creatinine Ratio 35.5 H (10-20) Glucose 151 H (70-99(Fasting)) mg/dl POC Glucose 156 H (70-99) mg/dl Calcium 8.0 L (8.6-10.3) mg/dl Phosphorus 3.6 (2.5-4.9) mg/dl Magnesium 1.5 L (1.7-2.4) mg/dl Total Bilirubin 0.4 (0.2-1.0) mg/dl AST 12 L (13-39) U/L ALT 18 (7-52) U/L Alkaline Phosphatase 41 (34-104) U/L Total Protein 4.0 L (6.0-8.3) gm/dl Albumin 2.4 L (3.4-5.0) gm/dl Globulin 1.6 L (2.5-4.0) gm/dl Albumin/Globulin Ratio 1.5 (0.9-2) Procalcitonin (0-0.5) ng/ml Urine Color Urine Appearance (Clear) Urine pH (4.5-7.5) Ur Specific [place] (1.000-1.030) Urine Protein (Negative) Urine Glucose (UA) (Negative) Urine Ketones (Negative) Urine Blood (Negative) Urine Nitrite (Negative) Urine Bilirubin (Negative) Urine Urobilinogen (Negative) Ur Leukocyte Esterase (Negative) Urine WBC (Auto) (0-5) /hpf Urine RBC (Auto) (0-4) /hpf U Hyaline Cast (Auto) (0-5) /lpf U Epithel Cells (Auto) (0-5) /lpf Urine Bacteria (Auto) (Negative) Blood Type Antibody Screen Crossmatch Transfusion React Date Transfusion React Time Tx React Symptoms Reaction Clerical Check Lab Clerical Err Check React Component Return Volume Returned Pre-Trans Blood Type Pre-Trans Vis Hemolysis Pre-Trans NATALIE (Negative) Pre-Trans NATALIE IgG (Negative) Pre-Trans NATALIE Poly (Negative) Pre-Trans NATALIE C3b, C3d (Negative) Post-Trans Blood Type Post-Tx Visible Hemolys Post-Trans NATALIE (Negatuve) Post-Trans NATALIE IgG (Negative) Post-Trans NATALIE Poly (Negative) Post-Trans NATALIE C3b, C3d (Negative) Post-Trans Ur Hemoglobin Reaction Path Interpret Transfusion Serv Com 02/20/23 02/20/23 02/20/23 Range/Units 23:33 21:38 20:27 WBC (4.8-10.8) K/ul RBC (4.70-6.10) M/uL Hgb (14.0-18.0) g/dl Hct (42.0-52.0) % MCV (80.0-100.0) fL MCH (25.0-34.0) pg MCHC (32.0-36.0) g/dL RDW Std Deviation (36.4-46.3) fL RDW Coeff of Flo (11.5-14.5) % Plt Count (130-400) K/uL MPV (9.4-12.4) fL Immature Gran % (Auto) % Neut % (Auto) % Lymph % (Auto) % [place] % (Auto) % Eos % (Auto) % Baso % (Auto) % Neut # (Auto) (1.40-6.50) K/uL Lymph # (Auto) (1.2-3.4) K/uL [place] # (Auto) (0.11-0.59) K/uL Eos # (Auto) (0-0.50) K/uL Baso # (Auto) (0-0.2) K/uL Immature Gran # (Auto) (0.01-0.20) K/uL Platelet Estimate (Normal) Echinocytes Sodium (136-145) mmol/L Potassium (3.5-5.1) mmol/L Chloride (98-107) mmol/L Carbon Dioxide (21-32) mmol/L Anion Gap (3-11) BUN (6-23) mg/dl Creatinine (0.6-1.4) mg/dl Est Cr Clr Drug Dosing ml/min Est GFR ( Amer) ml/min Est GFR (Non-Af Amer) ml/min BUN/Creatinine Ratio (10-20) Glucose (70-99(Fasting)) mg/dl POC Glucose 140 H (70-99) mg/dl Calcium (8.6-10.3) mg/dl Phosphorus (2.5-4.9) mg/dl Magnesium (1.7-2.4) mg/dl Total Bilirubin (0.2-1.0) mg/dl AST (13-39) U/L ALT (7-52) U/L Alkaline Phosphatase (34-104) U/L Total Protein (6.0-8.3) gm/dl Albumin (3.4-5.0) gm/dl Globulin (2.5-4.0) gm/dl Albumin/Globulin Ratio (0.9-2) Procalcitonin (0-0.5) ng/ml Urine Color Urine Appearance (Clear) Urine pH (4.5-7.5) Ur Specific [place] (1.000-1.030) Urine Protein (Negative) Urine Glucose (UA) (Negative) Urine Ketones (Negative) Urine Blood 3+ H (Negative) Urine Nitrite (Negative) Urine Bilirubin (Negative) Urine Urobilinogen (Negative) Ur Leukocyte Esterase (Negative) Urine WBC (Auto) (0-5) /hpf Urine RBC (Auto) >30 H (0-4) /hpf U Hyaline Cast (Auto) (0-5) /lpf U Epithel Cells (Auto) (0-5) /lpf Urine Bacteria (Auto) (Negative) Blood Type Antibody Screen Crossmatch Transfusion React Date 02/20/23 Transfusion React Time 1939 Tx React Symptoms FEVER, TACHYCARDIA Reaction Clerical Check None Found Lab Clerical Err Check None Found React Component Return PCLR Volume Returned 0 Pre-Trans Blood Type A POSITIVE Pre-Trans Vis Hemolysis No Pre-Trans NATALIE Negative (Negative) Pre-Trans NATALIE IgG Neg (Negative) Pre-Trans NATALIE Poly Neg (Negative) Pre-Trans NATALIE C3b, C3d Neg (Negative) Post-Trans Blood Type A POSITIVE Post-Tx Visible Hemolys No Post-Trans NATALIE Negative (Negatuve) Post-Trans NATALIE IgG Neg (Negative) Post-Trans NATALIE Poly Neg (Negative) Post-Trans NATALIE C3b, C3d Neg (Negative) Post-Trans Ur Hemoglobin Reaction Path Interpret Transfusion Serv Com NONE 02/20/23 02/20/23 02/20/23 Range/Units 19:01 14:20 12:50 WBC 21.54 H (4.8-10.8) K/ul RBC 3.54 L (4.70-6.10) M/uL Hgb 10.4 L (14.0-18.0) g/dl Hct 31.3 L (42.0-52.0) % MCV 88.4 (80.0-100.0) fL MCH 29.4 (25.0-34.0) pg MCHC 33.2 (32.0-36.0) g/dL RDW Std Deviation 46.5 H (36.4-46.3) fL RDW Coeff of Flo 14.4 (11.5-14.5) % Plt Count 108 L (130-400) K/uL MPV 11.1 (9.4-12.4) fL Immature Gran % (Auto) 0.6 % Neut % (Auto) 84.0 % Lymph % (Auto) 8.2 % [place] % (Auto) 6.7 % Eos % (Auto) 0.3 % Baso % (Auto) 0.2 % Neut # (Auto) 18.09 H (1.40-6.50) K/uL Lymph # (Auto) 1.77 (1.2-3.4) K/uL [place] # (Auto) 1.45 H (0.11-0.59) K/uL Eos # (Auto) 0.06 (0-0.50) K/uL Baso # (Auto) 0.05 (0-0.2) K/uL Immature Gran # (Auto) 0.12 (0.01-0.20) K/uL Platelet Estimate Normal (Normal) Echinocytes 1+ Sodium (136-145) mmol/L Potassium (3.5-5.1) mmol/L Chloride (98-107) mmol/L Carbon Dioxide (21-32) mmol/L Anion Gap (3-11) BUN (6-23) mg/dl Creatinine (0.6-1.4) mg/dl Est Cr Clr Drug Dosing ml/min Est GFR ( Amer) ml/min Est GFR (Non-Af Amer) ml/min BUN/Creatinine Ratio (10-20) Glucose (70-99(Fasting)) mg/dl POC Glucose 118 H 176 H (70-99) mg/dl Calcium (8.6-10.3) mg/dl Phosphorus (2.5-4.9) mg/dl Magnesium (1.7-2.4) mg/dl Total Bilirubin (0.2-1.0) mg/dl AST (13-39) U/L ALT (7-52) U/L Alkaline Phosphatase (34-104) U/L Total Protein (6.0-8.3) gm/dl Albumin (3.4-5.0) gm/dl Globulin (2.5-4.0) gm/dl Albumin/Globulin Ratio (0.9-2) Procalcitonin (0-0.5) ng/ml Urine Color Urine Appearance (Clear) Urine pH (4.5-7.5) Ur Specific [place] (1.000-1.030) Urine Protein (Negative) Urine Glucose (UA) (Negative) Urine Ketones (Negative) Urine Blood (Negative) Urine Nitrite (Negative) Urine Bilirubin (Negative) Urine Urobilinogen (Negative) Ur Leukocyte Esterase (Negative) Urine WBC (Auto) (0-5) /hpf Urine RBC (Auto) (0-4) /hpf U Hyaline Cast (Auto) (0-5) /lpf U Epithel Cells (Auto) (0-5) /lpf Urine Bacteria (Auto) (Negative) Blood Type Antibody Screen Crossmatch Transfusion React Date Transfusion React Time Tx React Symptoms Reaction Clerical Check Lab Clerical Err Check React Component Return Volume Returned Pre-Trans Blood Type Pre-Trans Vis Hemolysis Pre-Trans NATALIE (Negative) Pre-Trans NATALIE IgG (Negative) Pre-Trans NATALIE Poly (Negative) Pre-Trans NATALIE C3b, C3d (Negative) Post-Trans Blood Type Post-Tx Visible Hemolys Post-Trans NATALIE (Negatuve) Post-Trans NATALIE IgG (Negative) Post-Trans NATALIE Poly (Negative) Post-Trans NATALIE C3b, C3d (Negative) Post-Trans Ur Hemoglobin Reaction Path Interpret Transfusion Serv Com 02/19/23 Range/Units 15:12 WBC (4.8-10.8) K/ul RBC (4.70-6.10) M/uL Hgb (14.0-18.0) g/dl Hct (42.0-52.0) % MCV (80.0-100.0) fL MCH (25.0-34.0) pg MCHC (32.0-36.0) g/dL RDW Std Deviation (36.4-46.3) fL RDW Coeff of Flo (11.5-14.5) % Plt Count (130-400) K/uL MPV (9.4-12.4) fL Immature Gran % (Auto) % Neut % (Auto) % Lymph % (Auto) % [place] % (Auto) % Eos % (Auto) % Baso % (Auto) % Neut # (Auto) (1.40-6.50) K/uL Lymph # (Auto) (1.2-3.4) K/uL [place] # (Auto) (0.11-0.59) K/uL Eos # (Auto) (0-0.50) K/uL Baso # (Auto) (0-0.2) K/uL Immature Gran # (Auto) (0.01-0.20) K/uL Platelet Estimate (Normal) Echinocytes Sodium (136-145) mmol/L Potassium (3.5-5.1) mmol/L Chloride (98-107) mmol/L Carbon Dioxide (21-32) mmol/L Anion Gap (3-11) BUN (6-23) mg/dl Creatinine (0.6-1.4) mg/dl Est Cr Clr Drug Dosing ml/min Est GFR ( Amer) ml/min Est GFR (Non-Af Amer) ml/min BUN/Creatinine Ratio (10-20) Glucose (70-99(Fasting)) mg/dl POC Glucose (70-99) mg/dl Calcium (8.6-10.3) mg/dl Phosphorus (2.5-4.9) mg/dl Magnesium (1.7-2.4) mg/dl Total Bilirubin (0.2-1.0) mg/dl AST (13-39) U/L ALT (7-52) U/L Alkaline Phosphatase (34-104) U/L Total Protein (6.0-8.3) gm/dl Albumin (3.4-5.0) gm/dl Globulin (2.5-4.0) gm/dl Albumin/Globulin Ratio (0.9-2) Procalcitonin (0-0.5) ng/ml Urine Color Urine Appearance (Clear) Urine pH (4.5-7.5) Ur Specific [place] (1.000-1.030) Urine Protein (Negative) Urine Glucose (UA) (Negative) Urine Ketones (Negative) Urine Blood (Negative) Urine Nitrite (Negative) Urine Bilirubin (Negative) Urine Urobilinogen (Negative) Ur Leukocyte Esterase (Negative) Urine WBC (Auto) (0-5) /hpf Urine RBC (Auto) (0-4) /hpf U Hyaline Cast (Auto) (0-5) /lpf U Epithel Cells (Auto) (0-5) /lpf Urine Bacteria (Auto) (Negative) Blood Type A Positive Antibody Screen NEGATIVE Crossmatch See Detail Transfusion React Date Transfusion React Time Tx React Symptoms Reaction Clerical Check Lab Clerical Err Check React Component Return Volume Returned Pre-Trans Blood Type Pre-Trans Vis Hemolysis Pre-Trans NATALIE (Negative) Pre-Trans NATALIE IgG (Negative) Pre-Trans NATALIE Poly (Negative) Pre-Trans NATALIE C3b, C3d (Negative) Post-Trans Blood Type Post-Tx Visible Hemolys Post-Trans NATALIE (Negatuve) Post-Trans NATALIE IgG (Negative) Post-Trans NATALIE Poly (Negative) Post-Trans NATALIE C3b, C3d (Negative) Post-Trans Ur Hemoglobin Reaction Path Interpret Transfusion Serv Com
--- NOTE | 2023-02-21 13:10 | Hospitalist Progress Note ---
Date of Service February 21, 2023 Assessment & Plan (1) Upper GI bleed: (2) Acute blood loss anemia: (3) Syncope: Plan: 72-year-old male with PMH COPD, restrictive lung disease, prediabetes, HTN, HLD, CAD s/p stents, chronic diastolic heart failure, history of ulcerative colitis, GERD presented to ER with complaint of multiple episodes dark bloody stools and syncopal episode Had recent EUS with EMR resection of duodenal lipoma on 02/09/23 02/09/2023 had EGD with normal esophagus and stomach, a submucosal nodule found in duodenum and was removed and clips placed. 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 Colonoscopy 09/17/2022: Diverticulum with nonbleeding ulcer, clips were placed on ulcer site, diverticula throughout, no sign active colitis and colon, several polyps found and removed On presentation, CT head: no acute findings WBC: 12.7. Hgb: 10.8. Baseline Hgb mid 13's BUN: 34,Cr: 0.9 CT abdomen pelvis: Small amount of layering hyperdense material within the stomach. This likely reflects ingested contents. However, clot could appear similar. Suspected endoscopic clips within the first portion the duodenum. No pneumoperitoneum. Equivocal peripancreatic stranding. Findings could be correlated with serum lipase level to exclude acute pancreatitis. Colonic diverticulosis. No evidence for acute diverticulitis. On 02/20/23, patient had syncopal episode this morning while moving bowel, had bloody BM. [employer] was called Stat Hb at the time, showed Hb had dropped from 10.8 on admission to 7.6 He had urgent EGD which showed hematin in the cardia, clotted blood in gastric antrum, a moderate post-EMR deformity in duodenal bulb. 3 endoclips visible with active bleeding. Area was unsuccessfully injected with epi. To prevent furtehr bleeding, [address] successfully place and no bleeding at end of procedure. Was moved to ICU for management of hemorrhagic shock Received a total of 3 pRBC and 1 platelet Shock is resolved Hb has remained stable in 8s Continue IV PPI drip. Continue to hold antiplatelets GI on board Started on clears today Continue to monitor Hb and vitals (4) Ulcerative colitis: Plan: On Entyvio (5) History of CAD (coronary artery disease): Plan: S/p stents. Last reported in 2019 Continue to hold aspirin, Plavix, imdur and coreg as above (6) HTN (hypertension): Plan: Continue to hold all antihypertensives as above (7) Pre-diabetes: Plan: A1c: 6.4 on 07/28/2022 Hold metformin NovoLog correction sliding scale currently as is NPO. Accucheck ac hs (8) Chronic diastolic heart failure: Plan: Hold Lasix (9) COPD (chronic obstructive pulmonary disease): Plan: No signs acute exacerbation Continue home inhalers (10) BPH NOS w ur obs/LUTS: Plan: Continue tamsulosin, finasteride with holding parameters DVT Prophylaxis SCDs Full Code I spent a total of 50 minutes coordinating, documenting and providing care for this patient excluding time spent in performance of separately billed services Admission and Anticipated Discharge Date Admission Date: February 19, 2023 Subjective Patient seen and examined Reports feeling better Sitting in chair Reported small dark BM earlier Denied any chest pain, cough, shortness of breath Denied abd pain, nausea, vomiting Physical Exam Constitutional: + well hydrated and + obese; no acute distress ENMT: external ear and nose normal, oropharynx normal Respiratory: normal respiratory effort, lungs clear to auscultation Cardiovascular: Rate/Rhythm: regular rate and regular rhythm S1 S2 Gastrointestinal (Abdomen): normal bowel sounds, soft, nontender, no hepatosplenomegaly Musculoskeletal: No pedal edema Neurologic: PERRL, EOMI, accommodation nl, no face palsy, no dysarthria Psychiatric: A+Ox3, euthymic affect Results & Data Results & Data Vital Signs (Past 12 Hours) Vital Signs Temp Pulse Resp BP Pulse Ox O2 Del Method O2 Flow Rate 02/21/23 08:15 112/48 L 02/21/23 08:15 37.2 C 81 20 90 02/21/23 08:01 87/60 L 02/21/23 08:01 37.2 C 88 23 02/21/23 08:00 37.2 C 88 18 94 02/21/23 07:45 114/52 L 02/21/23 07:45 37.2 C 82 23 92 02/21/23 07:31 37.3 C 85 15 96 02/21/23 07:31 104/43 L 02/21/23 07:15 104/58 L 02/21/23 07:15 37.3 C 85 16 96 Nasal Cannula 2 02/21/23 07:00 37.3 C 90 19 96 02/21/23 07:00 119/45 L 02/21/23 07:25 Nasal Cannula 2 02/21/23 05:52 37.3 C 84 19 97 02/21/23 05:52 123/53 L 02/21/23 05:52 123/53 L 02/21/23 05:45 37.2 C 80 16 96 02/21/23 05:45 102/46 L 02/21/23 05:30 37.2 C 80 16 98 02/21/23 05:30 99/51 L 02/21/23 05:15 37.3 C 91 H 16 97 02/21/23 05:15 130/53 L 02/21/23 05:00 37.2 C 77 16 97 02/21/23 05:00 110/54 L 02/21/23 04:45 37.3 C 83 19 97 02/21/23 04:45 98/49 L 02/21/23 04:30 37.4 C 78 21 95 02/21/23 04:30 119/58 L 02/21/23 04:16 37.3 C 78 18 97 02/21/23 04:16 107/45 L 02/21/23 04:16 107/45 L 02/21/23 04:15 37.4 C 71 15 97 02/21/23 04:00 37.4 C 90 18 97 02/21/23 04:00 90/57 L 02/21/23 03:45 37.5 C 77 17 96 02/21/23 03:45 123/53 L 02/21/23 03:30 37.5 C 82 15 97 02/21/23 03:30 96/44 L 02/21/23 03:15 37.4 C 85 18 97 02/21/23 03:15 97/48 L 02/21/23 03:00 37.3 C 78 21 97 02/21/23 03:00 109/48 L 02/21/23 02:45 37.1 C 78 18 96 02/21/23 02:45 108/50 L 02/21/23 02:30 37.4 C 83 15 97 02/21/23 02:30 96/46 L 02/21/23 02:17 116/51 L 02/21/23 02:17 37.5 C 91 H 19 95 02/21/23 02:15 37.5 C 79 18 94 02/21/23 02:15 90/47 L 02/21/23 02:00 37.5 C 83 17 94 02/21/23 02:00 95/48 L 02/21/23 01:45 37.4 C 88 17 96 02/21/23 01:45 113/48 L 02/21/23 01:30 37.4 C 85 16 95 02/21/23 01:30 108/51 L 02/21/23 01:15 37.5 C 82 13 95 02/21/23 01:15 97/47 L Laboratory Results Abnormal lab results 02/20/23 02/20/23 02/20/23 Range/Units 19:01 21:38 23:33 WBC (4.8-10.8) K/ul RBC (4.70-6.10) M/uL Hgb (14.0-18.0) g/dl Hct (42.0-52.0) % RDW Std Deviation (36.4-46.3) fL RDW Coeff of Flo (11.5-14.5) % Chloride (98-107) mmol/L Anion Gap (3-11) BUN (6-23) mg/dl BUN/Creatinine Ratio (10-20) Glucose (70-99(Fasting)) mg/dl POC Glucose 118 H 140 H (70-99) mg/dl Calcium (8.6-10.3) mg/dl Magnesium (1.7-2.4) mg/dl AST (13-39) U/L Total Protein (6.0-8.3) gm/dl Albumin (3.4-5.0) gm/dl Globulin (2.5-4.0) gm/dl Urine Protein (Negative) Urine Blood 3+ H (Negative) Ur Leukocyte Esterase (Negative) Urine WBC (Auto) (0-5) /hpf Urine RBC (Auto) >30 H (0-4) /hpf U Hyaline Cast (Auto) (0-5) /lpf U Epithel Cells (Auto) (0-5) /lpf 0602/21/23 02/21/23 Range/Units 04:29 04:29 05:02 WBC 21.29 H (4.8-10.8) K/ul RBC 2.74 L (4.70-6.10) M/uL Hgb 8.1 L (14.0-18.0) g/dl Hct 24.0 L (42.0-52.0) % RDW Std Deviation 48.9 H (36.4-46.3) fL RDW Coeff of Flo 15.2 H (11.5-14.5) % Chloride 117 H (98-107) mmol/L Anion Gap 2 L (3-11) BUN 38 H (6-23) mg/dl BUN/Creatinine Ratio 35.5 H (10-20) Glucose 151 H (70-99(Fasting)) mg/dl POC Glucose 156 H (70-99) mg/dl Calcium 8.0 L (8.6-10.3) mg/dl Magnesium 1.5 L (1.7-2.4) mg/dl AST 12 L (13-39) U/L Total Protein 4.0 L (6.0-8.3) gm/dl Albumin 2.4 L (3.4-5.0) gm/dl Globulin 1.6 L (2.5-4.0) gm/dl Urine Protein (Negative) Urine Blood (Negative) Ur Leukocyte Esterase (Negative) Urine WBC (Auto) (0-5) /hpf Urine RBC (Auto) (0-4) /hpf U Hyaline Cast (Auto) (0-5) /lpf U Epithel Cells (Auto) (0-5) /lpf 02/21/23 02/21/23 02/21/23 Range/Units 07:58 15:01 16:03 WBC (4.8-10.8) K/ul RBC (4.70-6.10) M/uL Hgb 8.2 L 8.5 L (14.0-18.0) g/dl Hct 25.7 L (42.0-52.0) % RDW Std Deviation (36.4-46.3) fL RDW Coeff of Flo (11.5-14.5) % Chloride (98-107) mmol/L Anion Gap (3-11) BUN (6-23) mg/dl BUN/Creatinine Ratio (10-20) Glucose (70-99(Fasting)) mg/dl POC Glucose 135 H (70-99) mg/dl Calcium (8.6-10.3) mg/dl Magnesium (1.7-2.4) mg/dl AST (13-39) U/L Total Protein (6.0-8.3) gm/dl Albumin (3.4-5.0) gm/dl Globulin (2.5-4.0) gm/dl Urine Protein (Negative) Urine Blood (Negative) Ur Leukocyte Esterase (Negative) Urine WBC (Auto) (0-5) /hpf Urine RBC (Auto) (0-4) /hpf U Hyaline Cast (Auto) (0-5) /lpf U Epithel Cells (Auto) (0-5) /lpf 02/21/23 Range/Units Unknown WBC (4.8-10.8) K/ul RBC (4.70-6.10) M/uL Hgb (14.0-18.0) g/dl Hct (42.0-52.0) % RDW Std Deviation (36.4-46.3) fL RDW Coeff of Flo (11.5-14.5) % Chloride (98-107) mmol/L Anion Gap (3-11) BUN (6-23) mg/dl BUN/Creatinine Ratio (10-20) Glucose (70-99(Fasting)) mg/dl POC Glucose (70-99) mg/dl Calcium (8.6-10.3) mg/dl Magnesium (1.7-2.4) mg/dl AST (13-39) U/L Total Protein (6.0-8.3) gm/dl Albumin (3.4-5.0) gm/dl Globulin (2.5-4.0) gm/dl Urine Protein 1+ H (Negative) Urine Blood 3+ H (Negative) Ur Leukocyte Esterase 1+ H (Negative) Urine WBC (Auto) 5-10 H (0-5) /hpf Urine RBC (Auto) >30 H (0-4) /hpf U Hyaline Cast (Auto) 5-10 H (0-5) /lpf U Epithel Cells (Auto) 20-30 H (0-5) /lpf (6) HTN (hypertension) Hypertension type: unspecified Qualified Code(s): I10 - Essential (primary) hypertension
[2023-02-21 15:37] LABS: Hematocrit (blood only) 25.7 % (42.0-52.0); Hemoglobin 8.5 g/dl (14.0-18.0)
[2023-02-21] MEDS: ATORVASTATIN 40 MG TAB PO SCH (20:37)
[2023-02-21] MEDS: FINASTERIDE 5 MG TAB PO SCH (20:37)
[2023-02-21 23:07] LABS: Hematocrit (blood only) 21.4 % (42.0-52.0); Hemoglobin 7.3 g/dl (14.0-18.0)
[2023-02-22] MEDS: INSULIN ASPART PER UNIT CHARGE SC SCH ×5 (00:26→20:05)
[2023-02-22] MEDS: PANTOprazole 40 MG in DEXTROSE 5% 100 ML IV SCH ×5 (00:40→22:05)
[2023-02-22 05:03] LABS: BUN Creatinine Ratio 26.7 (10-20); Calcium 8.2 mg/dl (8.6-10.3); Creatinine Clr Calc Pharmacy 114.4 ml/min; Est GFR (African American) 107.7 ml/min; Est GFR (Non-African American) 92.9 ml/min; Potassium 3.8 mmol/L (3.5-5.1)
[2023-02-22 05:09] LABS: Hematocrit (blood only) 20.7 % (42.0-52.0); Hemoglobin 6.9 g/dl (14.0-18.0); Mean Corpuscular Hemoglobin 29.7 pg (25.0-34.0); Mean Corpuscular Hgb Conc 33.3 g/dL (32.0-36.0); Mean Corpuscular Volume 89.2 fL (80.0-100.0); Mean Platelet Volume 11.4 fL (9.4-12.4); Platelet Count 147 K/uL (130-400); RDW Coefficient of Variation 15.4 % (11.5-14.5); RDW Standard Deviation 49.4 fL (36.4-46.3); Red Blood Count 2.32 M/uL (4.70-6.10); White Blood Count 14.89 K/ul (4.8-10.8)
[2023-02-22] MEDS ORDERED: SODIUM CHLORIDE 0.9% 250 ML IV PRN (05:15)
[2023-02-22 05:21] LABS: Basophils # (auto) 0.03 K/uL (0-0.2); Basophils % (auto) 0.2 %; Eosinophils # (auto) 0.34 K/uL (0-0.50); Eosinophils % (auto) 2.3 %; Immature Granulocytes # (auto) 0.12 K/uL (0.01-0.20); Immature Granulocytes % (auto) 0.8 %; Lymphocytes # (auto) 1.19 K/uL (1.2-3.4); Monocytes % (auto) 8.1 %; Neutrophils # (auto) 12.01 K/uL (1.40-6.50); Neutrophils % (auto) 80.6 %; Polychromasia 1+
[2023-02-22] MEDS ORDERED: diphenhydrAMINE Capsule 25 MG CAP PO ONE (05:28)
[2023-02-22] MEDS ORDERED: ACETAMINOPHEN 325 MG TAB PO STA (05:28)
[2023-02-22] MEDS ORDERED: SODIUM CHLORIDE 0.9% 1000ML 1,000 ML IV SCH (05:30)
[2023-02-22] MEDS: FLUTICASONE PROPIONATE NA SPR 16 GM BTL SCH (07:57)
[2023-02-22] MEDS: UMECLIDINIUM BROMIDE 62.5MCG/BLISTER 7 PUFFS/INHALER INH SCH (07:58)
[2023-02-22] MEDS: FLUTICASONE/VILANTEROL 100/25MCG 14 PUFFS/INHALER INH SCH (07:58)
[2023-02-22] MEDS ORDERED: FUROSEMIDE INJ 20 MG/2 ML VIAL IV ONE (08:00)
--- NOTE | 2023-02-22 08:48 | Gastroenterology Progress Note ---
Date of Service February 22, 2023 Assessment & Plan (1) Upper GI bleed: Plan: 72 year old male with history of COPD, restrictive lung disease, prediabetes, HTN, dyslipidemia, CAD s/p stents, chronic diastolic heart failure, ulcerative colitis admitted w/ multiple episodes dark bloody stools today, recent EGD/EUS in January w/EMR of duodenal bulb lipoma s/p EGD over the weekend for hemostasis w/ clip placement. Downtrending HGB this AM, last BM yesterday. Made NPO. Will discuss with attending. Can continue NPO status this AM If he has continued drop in HGB or evidence of GI bleeding he may need IR evaluation Protonix continuous infusion for 3 days. Hold Aspirin and Plavix Transfuse PRN to maintain H/H around 10/30 Thank you for allowing us to participate in the care of this patient. Please call with any acute changes, questions or concerns. Please see addendum below with additional recommendation from my supervising physician. Plan Attending attestation I have seen, examined this patient, and agree with the findings and above by our mid-level provider NIA Chamorro, with the following additions: Overall looks well, BP 114 and Pulse 86 during interview. Had 2 liquid meals and one solid meal yesterday. Hb declined down appx 1 p yesterday with one BM concerning for old vs bleeding, likely oozing given stable hemodynamics. Agree with continuation of IV PPI Given images and multiple endoscopic clips placed on two EGD's, endoscopic intervention has failed and no target for repeat therapy, therefore, if has any signs of bleeding that is significant will need transfer for IR.Will reach out to [facility] to discuss with IR attnd If no bleeding by midday, then ok for liquids Admission and Anticipated Discharge Date Admission Date: February 19, 2023 Subjective Pt was seen and evaluated, chart reviewed. HGB downtrending. Had episode of BRB and dark red stool yesterday. No BM yet today. No nausea, vomiting. Review of Systems Review of Systems: All systems reviewed & are unremarkable except as noted in HPI & below Physical Exam Constitutional: WD/WN, vitals as above Respiratory: normal respiratory effort Cardiovascular: Rate/Rhythm: regular rate and regular rhythm Gastrointestinal (Abdomen): normal bowel sounds, soft, nontender, no hepatosplenomegaly Results & Data Vital Signs (Past 12 Hours) Vital Signs Temp Pulse Resp BP Pulse Ox O2 Del Method O2 Flow Rate 02/22/23 08:10 36.7 C 86 18 110/55 L 96 02/22/23 08:09 Nasal Cannula 2 02/22/23 07:52 36.6 C 86 16 133/66 96 02/22/23 06:15 75 12 92 02/22/23 06:00 91 H 14 95 02/22/23 06:00 100/60 02/22/23 05:45 82 12 92 02/22/23 05:30 89 15 94 02/22/23 05:18 130/65 02/22/23 05:18 94 H 16 94 02/22/23 05:15 103 H 18 91 02/22/23 05:00 74 12 93 02/22/23 05:00 91/45 L 02/22/23 04:45 76 11 L 92 02/22/23 04:30 89 16 93 02/22/23 04:15 79 12 91 02/22/23 04:01 121/55 L 02/22/23 04:01 90 12 92 02/22/23 04:00 90 13 93 02/22/23 03:45 80 11 L 87 L 02/22/23 03:30 72 20 90 02/22/23 03:15 82 12 91 02/22/23 03:00 80 13 91 02/22/23 03:00 92/44 L 02/22/23 02:45 90 15 89 L 02/22/23 02:35 86 L 02/22/23 02:15 76 22 90 02/22/23 03:52 36.8 C 02/22/23 02:00 93 H 14 91 02/22/23 02:00 131/56 L 02/22/23 01:45 79 10 L 91 02/22/23 01:30 74 11 L 91 02/22/23 01:15 78 12 91 02/22/23 01:00 86 15 92 02/22/23 01:00 109/52 L 02/22/23 00:45 84 15 93 02/22/23 00:30 78 14 93 02/22/23 00:15 96 H 17 94 02/22/23 00:00 87 17 94 02/22/23 00:00 100/48 L 06/12/23 23:45 86 15 92 02/22/23 01:41 84 02/21/23 23:31 92 H 24 92 02/21/23 23:31 116/50 L 02/21/23 23:30 84 18 92 02/21/23 23:29 86 17 02/21/23 23:15 94 H 22 91 02/21/23 23:00 87 19 94 02/21/23 23:00 112/51 L 02/21/23 22:45 88 16 95 02/21/23 22:30 89 19 94 02/21/23 22:15 82 16 94 02/21/23 22:00 84 18 92 02/21/23 23:32 37.5 C 02/21/23 21:45 85 17 94 02/21/23 21:30 90 22 95 02/21/23 21:15 99 H 20 95 02/21/23 21:00 89 17 96 02/21/23 21:00 103/50 L Laboratory Results 02/22/23 02/22/23 02/22/23 Range/Units 04:25 04:25 04:25 WBC 14.89 H (4.8-10.8) K/ul RBC 2.32 L (4.70-6.10) M/uL Hgb 6.9 L* (14.0-18.0) g/dl Hct 20.7 L* (42.0-52.0) % MCV 89.2 (80.0-100.0) fL MCH 29.7 (25.0-34.0) pg MCHC 33.3 (32.0-36.0) g/dL RDW Std Deviation 49.4 H (36.4-46.3) fL RDW Coeff of Flo 15.4 H (11.5-14.5) % Plt Count 147 (130-400) K/uL MPV 11.4 (9.4-12.4) fL Immature Gran % (Auto) 0.8 % Neut % (Auto) 80.6 % Lymph % (Auto) 8.0 % [place] % (Auto) 8.1 % Eos % (Auto) 2.3 % Baso % (Auto) 0.2 % Neut # (Auto) 12.01 H (1.40-6.50) K/uL Lymph # (Auto) 1.19 L (1.2-3.4) K/uL [place] # (Auto) 1.20 H (0.11-0.59) K/uL Eos # (Auto) 0.34 (0-0.50) K/uL Baso # (Auto) 0.03 (0-0.2) K/uL Immature Gran # (Auto) 0.12 (0.01-0.20) K/uL Polychromasia 1+ Sodium 141 (136-145) mmol/L Potassium 3.8 (3.5-5.1) mmol/L Chloride 112 H (98-107) mmol/L Carbon Dioxide 27 (21-32) mmol/L Anion Gap 2 L (3-11) BUN 20 (6-23) mg/dl Creatinine 0.75 D (0.6-1.4) mg/dl Est Cr Clr Drug Dosing 114.4 ml/min Est GFR ( Amer) 107.7 ml/min Est GFR (Non-Af Amer) 92.9 ml/min BUN/Creatinine Ratio 26.7 H (10-20) Glucose 137 H (70-99(Fasting)) mg/dl POC Glucose (70-99) mg/dl Calcium 8.2 L (8.6-10.3) mg/dl Magnesium 2.0 (1.7-2.4) mg/dl Procalcitonin (0-0.5) ng/ml Blood Type A Positive Antibody Screen NEGATIVE Crossmatch See Detail Post-Trans Ur Hemoglobin Reaction Path Interpret Transfusion Serv Com 02/21/23 02/21/23 02/21/23 Range/Units 23:38 22:27 16:03 WBC (4.8-10.8) K/ul RBC (4.70-6.10) M/uL Hgb 7.3 L (14.0-18.0) g/dl Hct 21.4 L (42.0-52.0) % MCV (80.0-100.0) fL MCH (25.0-34.0) pg MCHC (32.0-36.0) g/dL RDW Std Deviation (36.4-46.3) fL RDW Coeff of Flo (11.5-14.5) % Plt Count (130-400) K/uL MPV (9.4-12.4) fL Immature Gran % (Auto) % Neut % (Auto) % Lymph % (Auto) % [place] % (Auto) % Eos % (Auto) % Baso % (Auto) % Neut # (Auto) (1.40-6.50) K/uL Lymph # (Auto) (1.2-3.4) K/uL [place] # (Auto) (0.11-0.59) K/uL Eos # (Auto) (0-0.50) K/uL Baso # (Auto) (0-0.2) K/uL Immature Gran # (Auto) (0.01-0.20) K/uL Polychromasia Sodium (136-145) mmol/L Potassium (3.5-5.1) mmol/L Chloride (98-107) mmol/L Carbon Dioxide (21-32) mmol/L Anion Gap (3-11) BUN (6-23) mg/dl Creatinine (0.6-1.4) mg/dl Est Cr Clr Drug Dosing ml/min Est GFR ( Amer) ml/min Est GFR (Non-Af Amer) ml/min BUN/Creatinine Ratio (10-20) Glucose (70-99(Fasting)) mg/dl POC Glucose 137 H 135 H (70-99) mg/dl Calcium (8.6-10.3) mg/dl Magnesium (1.7-2.4) mg/dl Procalcitonin (0-0.5) ng/ml Blood Type Antibody Screen Crossmatch Post-Trans Ur Hemoglobin Reaction Path Interpret Transfusion Serv Com 02/21/23 02/21/23 02/20/23 Range/Units 15:01 07:58 20:27 WBC (4.8-10.8) K/ul RBC (4.70-6.10) M/uL Hgb 8.5 L (14.0-18.0) g/dl Hct 25.7 L (42.0-52.0) % MCV (80.0-100.0) fL MCH (25.0-34.0) pg MCHC (32.0-36.0) g/dL RDW Std Deviation (36.4-46.3) fL RDW Coeff of Flo (11.5-14.5) % Plt Count (130-400) K/uL MPV (9.4-12.4) fL Immature Gran % (Auto) % Neut % (Auto) % Lymph % (Auto) % [place] % (Auto) % Eos % (Auto) % Baso % (Auto) % Neut # (Auto) (1.40-6.50) K/uL Lymph # (Auto) (1.2-3.4) K/uL [place] # (Auto) (0.11-0.59) K/uL Eos # (Auto) (0-0.50) K/uL Baso # (Auto) (0-0.2) K/uL Immature Gran # (Auto) (0.01-0.20) K/uL Polychromasia Sodium (136-145) mmol/L Potassium (3.5-5.1) mmol/L Chloride (98-107) mmol/L Carbon Dioxide (21-32) mmol/L Anion Gap (3-11) BUN (6-23) mg/dl Creatinine (0.6-1.4) mg/dl Est Cr Clr Drug Dosing ml/min Est GFR ( Amer) ml/min Est GFR (Non-Af Amer) ml/min BUN/Creatinine Ratio (10-20) Glucose (70-99(Fasting)) mg/dl POC Glucose (70-99) mg/dl Calcium (8.6-10.3) mg/dl Magnesium (1.7-2.4) mg/dl Procalcitonin 0.37 (0-0.5) ng/ml Blood Type Antibody Screen Crossmatch Post-Trans Ur Hemoglobin Reaction Path Interpret Transfusion Serv Com NONE
--- NOTE | 2023-02-22 09:41 | Critical Care Progress Note ---
Date of Service February 22, 2023 Assessment & Plan (1) Acute blood loss anemia: (2) Upper GI bleed: (3) Hemorrhagic shock: (4) History of CAD (coronary artery disease): Plan 72-year-old male with a history of coronary artery disease and UC who presented with upper GI bleed. Pulmonary: History of diastolic CHF. Off nasal cannula. Cardiovascular: Holding antiplatelet therapy per GI recommendations. Patient with relative bradycardia: resolved. Gastrointestinal: Patient with upper GI bleed. D/W GI [facility], D/W with [facility], willing to accept patient in transfer for IR embolization Renal: Discontinue Lundy Infectious disease: No acute issues at this time. Leukocytosis of unclear etiology. Hematologic: Reciving 1 Unit PRBC Trend h/h @ 1400 & 2200 Endocrine: Keep glucose under 180. F/E/N: NPO for possible interventions Lines and tubes: Peripheral IVs VTE prophylaxis: SCD: chemical prophylaxis contraindicated secondary to GI bleeding CODE STATUS: Full Disposition: Stable for downgrade out of ICU and possible transfer Admission and Anticipated Discharge Date Admission Date: February 20, 2023 Subjective No significant complaints, 1 bowel movement overnight Physical Exam Physical Exam: General: Alert. nontoxic. Skin: Warm, dry, Head: Atraumatic Ears, nose, mouth and throat: airway patent Cardiovascular: Normal peripheral perfusion Respiratory: no respiratory distress Gastrointestinal: Non distended Musculoskeletal: No deformity Results & Data Results & Data Vital Signs (Past 12 Hours) Vital Signs Temp Pulse Resp BP Pulse Ox O2 Del Method O2 Flow Rate 02/22/23 08:55 36.8 C 84 16 98/46 L 96 02/22/23 08:25 36.8 C 84 18 98/46 L 95 2 02/22/23 08:10 36.7 C 86 18 110/55 L 96 02/22/23 08:09 Nasal Cannula 2 02/22/23 07:52 36.6 C 86 16 133/66 96 02/22/23 06:15 75 12 92 02/22/23 06:00 91 H 14 95 02/22/23 06:00 100/60 02/22/23 05:45 82 12 92 02/22/23 05:30 89 15 94 02/22/23 05:18 130/65 02/22/23 05:18 94 H 16 94 02/22/23 05:15 103 H 18 91 02/22/23 05:00 74 12 93 02/22/23 05:00 91/45 L 02/22/23 04:45 76 11 L 92 02/22/23 04:30 89 16 93 02/22/23 04:15 79 12 91 02/22/23 04:01 121/55 L 02/22/23 04:01 90 12 92 02/22/23 04:00 90 13 93 02/22/23 03:45 80 11 L 87 L 02/22/23 03:30 72 20 90 02/22/23 03:15 82 12 91 02/22/23 03:00 80 13 91 02/22/23 03:00 92/44 L 02/22/23 02:45 90 15 89 L 02/22/23 02:35 86 L 02/22/23 02:15 76 22 90 02/22/23 03:52 36.8 C 02/22/23 02:00 93 H 14 91 02/22/23 02:00 131/56 L 02/22/23 01:45 79 10 L 91 02/22/23 01:30 74 11 L 91 02/22/23 01:15 78 12 91 02/22/23 01:00 86 15 92 02/22/23 01:00 109/52 L 02/22/23 00:45 84 15 93 02/22/23 00:30 78 14 93 02/22/23 00:15 96 H 17 94 02/22/23 00:00 87 17 94 02/22/23 00:00 100/48 L 02/21/23 23:45 86 15 92 02/22/23 01:41 84 02/21/23 23:31 92 H 24 92 02/21/23 23:31 116/50 L 02/21/23 23:30 84 18 92 02/21/23 23:29 86 17 02/21/23 23:15 94 H 22 91 02/21/23 23:00 87 19 94 02/21/23 23:00 112/51 L 02/21/23 22:45 88 16 95 02/21/23 22:30 89 19 94 02/21/23 22:15 82 16 94 02/21/23 22:00 84 18 92 02/21/23 23:32 37.5 C 02/21/23 21:45 85 17 94 Critical Care Results & Data Vital Signs (Past 12 Hours) Vital Signs Temp Pulse Resp BP Pulse Ox O2 Del Method O2 Flow Rate 02/22/23 09:55 36.8 C 70 18 112/51 L 95 2 02/22/23 08:55 36.8 C 84 16 98/46 L 96 02/22/23 08:25 36.8 C 84 18 98/46 L 95 2 02/22/23 08:10 36.7 C 86 18 110/55 L 96 02/22/23 08:09 Nasal Cannula 2 02/22/23 07:52 36.6 C 86 16 133/66 96 02/22/23 06:15 75 12 92 02/22/23 06:00 91 H 14 95 02/22/23 06:00 100/60 02/22/23 05:45 82 12 92 02/22/23 05:30 89 15 94 02/22/23 05:18 130/65 02/22/23 05:18 94 H 16 94 02/22/23 05:15 103 H 18 91 02/22/23 05:00 74 12 93 02/22/23 05:00 91/45 L 02/22/23 04:45 76 11 L 92 02/22/23 04:30 89 16 93 02/22/23 04:15 79 12 91 02/22/23 04:01 121/55 L 02/22/23 04:01 90 12 92 02/22/23 04:00 90 13 93 02/22/23 03:45 80 11 L 87 L 02/22/23 03:30 72 20 90 02/22/23 03:15 82 12 91 02/22/23 03:00 80 13 91 02/22/23 03:00 92/44 L 02/22/23 02:45 90 15 89 L 02/22/23 02:35 86 L 02/22/23 02:15 76 22 90 02/22/23 03:52 36.8 C 02/22/23 02:00 93 H 14 91 02/22/23 02:00 131/56 L 02/22/23 01:45 79 10 L 91 02/22/23 01:30 74 11 L 91 02/22/23 01:15 78 12 91 02/22/23 01:00 86 15 92 02/22/23 01:00 109/52 L 02/22/23 00:45 84 15 93 02/22/23 00:30 78 14 93 02/22/23 00:15 96 H 17 94 02/22/23 00:00 87 17 94 02/22/23 00:00 100/48 L 02/21/23 23:45 86 15 92 02/22/23 01:41 84 02/21/23 23:31 92 H 24 92 02/21/23 23:31 116/50 L 02/21/23 23:30 84 18 92 02/21/23 23:29 86 17 02/21/23 23:15 94 H 22 91 02/21/23 23:00 87 19 94 02/21/23 23:00 112/51 L 02/21/23 22:45 88 16 95 02/21/23 22:30 89 19 94 02/21/23 22:15 82 16 94 02/21/23 23:32 37.5 C Lab & Micro Results (Past 24 Hours) RBC 2.32 M/uL (4.70-6.10) L 02/22/23 WBC 14.89 K/ul (4.8-10.8) H 02/22/23 Hgb 6.9 g/dl (14.0-18.0) L* 02/22/23 Hct 20.7 % (42.0-52.0) L* 02/22/23 MCV 89.2 fL (80.0-100.0) 02/22/23 MCH 29.7 pg (25.0-34.0) 02/22/23 MCHC 33.3 g/dL (32.0-36.0) 02/22/23 RDW Standard Deviation 49.4 fL (36.4-46.3) H 02/22/23 RDW Coefficient of Variation 15.4 % (11.5-14.5) H 02/22/23 Plt Count 147 K/uL (130-400) 02/22/23 MPV 11.4 fL (9.4-12.4) 02/22/23 Neutrophils (%) (Auto) 80.6 % 02/22/23 Lymphocytes (%) (Auto) 8.0 % 02/22/23 Monocytes # (Auto) 1.20 K/uL (0.11-0.59) H 02/22/23 Eosinophils # (Auto) 0.34 K/uL (0-0.50) 02/22/23 Immature Granulocyte % (Auto) 0.8 % 02/22/23 Neutrophils # (Auto) 12.01 K/uL (1.40-6.50) H 02/22/23 Lymphocytes # (Auto) 1.19 K/uL (1.2-3.4) L 02/22/23 Monocytes # (Auto) 1.20 K/uL (0.11-0.59) H 02/22/23 Eosinophils # (Auto) 0.34 K/uL (0-0.50) 02/22/23 Basophils # (Auto) 0.03 K/uL (0-0.2) 02/22/23 Immature Granulocyte # (Auto) 0.12 K/uL (0.01-0.20) 3 Polychromasia 1+ 02/22/23 Na 141 mmol/L (136-145) 02/22/23 K 3.8 mmol/L (3.5-5.1) 02/22/23 Cl 112 mmol/L (98-107) H 02/22/23 CO2 27 mmol/L (21-32) 02/22/23 Anion Gap 2 (3-11) L 02/22/23 BUN 20 mg/dl (6-23) 02/22/23 Creatinine 0.75 mg/dl (0.6-1.4) 02/22/23 Estimated GFR ( Amer) 107.7 ml/min 02/22/23 Estimated GFR (Non-Af Amer) 92.9 ml/min 02/22/23 BUN/Creatinine Ratio 26.7 (10-20) H 02/22/23 Glu 137 mg/dl (70-99(Fasting)) H 02/22/23 Ca 8.2 mg/dl (8.6-10.3) L 02/22/23 Mg 2.0 mg/dl (1.7-2.4) 02/22/23 04:25 Calcium Level 8.2 mg/dl (8.6-10.3) L 02/22/23 04:25 I & O Totals 24 Hours 02/21/23 02/22/23 02/23/23 06:59 06:59 06:59 Intake Total 5332.967 / 5332.967 1446.533 / 1446.533 0 / 0 Output Total 2224 / 2224 1662 / 1662 Balance 3108.967 / 3108.967 -215.467 / -215.467 0 / 0 Cumulative 02/19/23 14:41 thru 02/22/23 07:55 Intake Total 7581.500 Output Total 4386 Balance 3195.500 RT Ventilator Mngmt (Last Documented) Ventilator Ordered Settings Respiratory Rate 18 02/22/23 09:55 Ventilator - PT Measurements Respiratory Rate 18 Coding Level of Care Code 18348 SUB INP/OBS CARE 2/35MIN Diagnoses Acute blood loss anemia D62 Upper GI bleed K92.2 Hemorrhagic shock R57.8 History of CAD (coronary artery disease) Z86.79
[2023-02-22] MEDS: TAMSULOSIN HCL 0.4 MG CAP PO SCH (11:59)
[2023-02-22 15:15] LABS: Hematocrit (blood only) 26.3 % (42.0-52.0); Hemoglobin 8.8 g/dl (14.0-18.0)
--- NOTE | 2023-02-22 16:07 | Hospitalist Progress Note ---
Date of Service February 22, 2023 Assessment & Plan (1) Upper GI bleed: (2) Acute blood loss anemia: (3) Syncope: Plan: 72-year-old male with PMH COPD, restrictive lung disease, prediabetes, HTN, HLD, CAD s/p stents, chronic diastolic heart failure, history of ulcerative colitis, GERD presented to ER with complaint of multiple episodes dark bloody stools and syncopal episode Had recent EUS with EMR resection of duodenal lipoma on 02/09/23 02/09/2023 had EGD with normal esophagus and stomach, a submucosal nodule found in duodenum and was removed and clips placed. 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 Colonoscopy 09/17/2022: Diverticulum with nonbleeding ulcer, clips were placed on ulcer site, diverticula throughout, no sign active colitis and colon, several polyps found and removed On presentation, CT head: no acute findings WBC: 12.7. Hgb: 10.8. Baseline Hgb mid 13's BUN: 34,Cr: 0.9 CT abdomen pelvis: Small amount of layering hyperdense material within the stomach. This likely reflects ingested contents. However, clot could appear similar. Suspected endoscopic clips within the first portion the duodenum. No pneumoperitoneum. Equivocal peripancreatic stranding. Findings could be correlated with serum lipase level to exclude acute pancreatitis. Colonic diverticulosis. No evidence for acute diverticulitis. On 02/20/23, patient had syncopal episode this morning while moving bowel, had bloody BM. BREAKER LAYER was called Stat Hb at the time, showed Hb had dropped from 10.8 on admission to 7.6 He had urgent EGD which showed hematin in the cardia, clotted blood in gastric antrum, a moderate post-EMR deformity in duodenal bulb. 3 endoclips visible with active bleeding. Area was unsuccessfully injected with epi. To prevent furtehr bleeding, [address] successfully place and no bleeding at end of procedure. Was moved to ICU for management of hemorrhagic shock Shock is resolved Hb was initially in 8s but trended down to 6.9 today Has got 4 PRBC and 1 platelet so far Continue IV PPI drip. Continue to hold antiplatelets GI Dr Talbert recommend transfer to [facility] as patient may need evaluation by IR if continues to bleed. I called transfer center and initiated transfer process. Accepting physician is Jazmine Monroe (4) Ulcerative colitis: Plan: On Entyvio (5) History of CAD (coronary artery disease): Plan: S/p stents. Last reported in 2019 Continue to hold aspirin, Plavix, imdur and coreg as above (6) HTN (hypertension): Plan: Continue to hold all antihypertensives as above (7) Pre-diabetes: Plan: A1c: 6.4 on 07/28/2022 Hold metformin NovoLog correction sliding scale currently as is NPO. Accucheck ac hs (8) Chronic diastolic heart failure: Plan: Hold Lasix (9) COPD (chronic obstructive pulmonary disease): Plan: No signs acute exacerbation Continue home inhalers (10) BPH NOS w ur obs/LUTS: Plan: Continue tamsulosin, finasteride with holding parameters DVT Prophylaxis SCDs Full Code I spent a total of 55 minutes coordinating, documenting and providing care for this patient excluding time spent in performance of separately billed services Admission and Anticipated Discharge Date Admission Date: February 20, 2023 Subjective Patient seen and examined No new complaints No BM so far since this morning Denied any chest pain, cough, shortness of breath Denied abd pain, nausea, vomiting Physical Exam Constitutional: + well hydrated and + obese; no acute distress ENMT: external ear and nose normal, oropharynx normal Respiratory: normal respiratory effort, lungs clear to auscultation Cardiovascular: Rate/Rhythm: regular rate and regular rhythm S1 S2 Gastrointestinal (Abdomen): normal bowel sounds, soft, nontender, no hepatosplenomegaly Musculoskeletal: No pedal edema Neurologic: PERRL, EOMI, accommodation nl, no face palsy, no dysarthria Psychiatric: A+Ox3, euthymic affect Results & Data Results & Data Vital Signs (Past 12 Hours) Vital Signs Temp Pulse Resp BP Pulse Ox O2 Del Method O2 Flow Rate 02/22/23 12:09 72 23 98 Nasal Cannula 2 02/22/23 12:09 130/69 02/22/23 12:00 87 13 02/22/23 11:55 77 25 H 02/22/23 12:14 37.1 C 02/22/23 10:55 37 C 73 20 164/65 H 96 2 02/22/23 09:55 36.8 C 70 18 112/51 L 95 2 06/13/23 08:55 36.8 C 84 16 98/46 L 96 02/22/23 08:25 36.8 C 84 18 98/46 L 95 2 02/22/23 08:10 36.7 C 86 18 110/55 L 96 02/22/23 08:09 Nasal Cannula 2 02/22/23 07:52 36.6 C 86 16 133/66 96 02/22/23 06:15 75 12 92 02/22/23 06:00 91 H 14 95 02/22/23 06:00 100/60 02/22/23 05:45 82 12 92 02/22/23 05:30 89 15 94 02/22/23 05:18 130/65 02/22/23 05:18 94 H 16 94 02/22/23 05:15 103 H 18 91 02/22/23 05:00 74 12 93 02/22/23 05:00 91/45 L 02/22/23 04:45 76 11 L 92 02/22/23 04:30 89 16 93 02/22/23 04:15 79 12 91 (6) HTN (hypertension) Hypertension type: unspecified Qualified Code(s): I10 - Essential (primary) hypertension
[2023-02-22] MEDS: FINASTERIDE 5 MG TAB PO SCH (20:05)
[2023-02-22] MEDS: ATORVASTATIN 40 MG TAB PO SCH (20:05)
--- NOTE | 2023-02-22 20:49 | Discharge Summary ---
Date of Service February 22, 2023 Admission HPI Per Admitting Provider Patient is 72-year-old male with PMH COPD, restrictive lung disease, prediabetes, HTN, HLD, CAD s/p stents, chronic diastolic heart failure, history of ulcerative colitis, GERD presented to ER with complaint of bloody stools today. Patient states this morning had episode of diarrhea. This was later followed by multiple episodes of loose stool with dark red blood. Patient reports had some nausea, no vomiting. Denies abdominal pain. States was having lightheadedness with standing. He feels short of breath with exertion today. Patient states this afternoon felt like he had need to have another bowel movement and was sitting on toilet for when he became nauseated and lightheaded and felt like he was going to pass out. His reports that she came in and found patient passed out with his eyes rolled back in his head and he appeared to be having shaking movements of his body. She states she was able to have him hold onto her to help get him off the toilet. Patient states remembers his being there at getting him off the toilet. Unsure if had loss of control of bowel or bladder as he was on toilet trying to have BM at the time of incident. No history of seizure or seizure-like activity before. On 02/09/2023 had EGD with normal esophagus and stomach, a submucosal nodule found in duodenum and was removed and clips placed. Denies fever/chills, diaphoresis, vomiting, hematemesis, FAUST, vision changes, neck pain, CP, orthopnea, palpitations, cough, sore throat, choking, otalgia, rhinorrhea, extremity weakness, extremity edema, rashes, dysuria, hematuria, urinary frequency. 02/09/2023 had EGD with normal esophagus and stomach, a submucosal nodule found in duodenum and was removed and clips placed. 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 Colonoscopy 09/17/2022: Diverticulum with nonbleeding ulcer, clips were placed on ulcer site, diverticula throughout, no sign active colitis and colon, several polyps found and removed Admission Exam Per Admitting Provider General: no distress, WDWN Head: normocephalic, atraumatic Eyes: PERRL, conjunctiva non-injected, anicteric ENT: normal inspection external ears, nose, mucous membranes mildly dry, no tongue lacerations Neck: supple, trachea midline Lungs: clear, no respiratory distress, no wheezing/rhonchi/rales CV: RRR, no murmur, no pretibial edema Abd: protuberant, normal BS, soft, non-tender Ext: no cyanosis, no calf tenderness Neuro: A&O x 3, no focal deficits noted, normal affect Skin: warm, dry Principal Diagnosis gi bleed Discharge Data Allergies Allergy/AdvReac Type Severity Reaction Status Date / Time fish oil Allergy Severe RASH Verified 02/19/23 18:04 vancomycin Allergy Intermediate Rash Verified 02/19/23 18:04 lisinopril AdvReac Intermediate COUGH Verified 02/19/23 18:04 shellfish derived AdvReac Intermediate VOMITTING Verified 02/19/23 18:04 Consultations 02/19/23 17:23 ED Decision to Admit Stat 02/19/23 18:57 Consult Gastroenterology Routine 02/20/23 11:29 Consult Wallpaper Installer Stat Procedures Performed Operation Date: 02/20/23 09:20 Actual Procedures p Esophagogastroduodenoscopy(Not Applicable) - Ricardo Leung Case, DO Ordered Studies 02/19/23 15:17 CT abd pelvis IV con only Stat 02/19/23 18:29 CT head/brain wo con Stat Diabetes Follow up Diabetes Follow-up Needed for Newly Diagnosed Diabetes Hospital Course (1) Upper GI bleed: (2) Acute blood loss anemia: (3) Syncope: Last Progress Notes Per : 72-year-old male with PMH COPD, restrictive lung disease, prediabetes, HTN, HLD, CAD s/p stents, chronic diastolic heart failure, history of ulcerative colitis, GERD presented to ER with complaint of multiple episodes dark bloody stools and syncopal episode Had recent EUS with EMR resection of duodenal lipoma on 02/09/23 02/09/2023 had EGD with normal esophagus and stomach, a submucosal nodule found in duodenum and was removed and clips placed. 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 Colonoscopy 09/17/2022: Diverticulum with nonbleeding ulcer, clips were placed on ulcer site, diverticula throughout, no sign active colitis and colon, several polyps found and removed On presentation, CT head: no acute findings WBC: 12.7. Hgb: 10.8. Baseline Hgb mid 13's BUN: 34,Cr: 0.9 CT abdomen pelvis: Small amount of layering hyperdense material within the stomach. This likely reflects ingested contents. However, clot could appear similar. Suspected endoscopic clips within the first portion the duodenum. No pneumoperitoneum. Equivocal peripancreatic stranding. Findings could be correlated with serum lipase level to exclude acute pancreatitis. Colonic diverticulosis. No evidence for acute diverticulitis. On 02/20/23, patient had syncopal episode this morning while moving bowel, had bloody BM. DESIGN ENG was called Stat Hb at the time, showed Hb had dropped from 10.8 on admission to 7.6 He had urgent EGD which showed hematin in the cardia, clotted blood in gastric antrum, a moderate post-EMR deformity in duodenal bulb. 3 endoclips visible with active bleeding. Area was unsuccessfully injected with epi. To prevent furtehr bleeding, [address] successfully place and no bleeding at end of procedure. Was moved to ICU for management of hemorrhagic shock Shock is resolved Hb was initially in 8s but trended down to 6.9 today Has got 4 PRBC and 1 platelet so far Continue IV PPI drip. Continue to hold antiplatelets GI Dr Talbert recommend transfer to [facility] as patient may need evaluation by IR if continues to bleed. I called transfer center and initiated transfer process. Accepting physician is Jazmine Monroe (4) Ulcerative colitis: On Entyvio (5) History of CAD (coronary artery disease): S/p stents. Last reported in 2019 Continue to hold aspirin, Plavix, imdur and coreg as above (6) HTN (hypertension): Continue to hold all antihypertensives as above (7) Pre-diabetes: A1c: 6.4 on 07/28/2022 Hold metformin NovoLog correction sliding scale currently as is NPO. Accucheck ac hs (8) Chronic diastolic heart failure: Hold Lasix (9) COPD (chronic obstructive pulmonary disease): No signs acute exacerbation Continue home inhalers (10) BPH NOS w ur obs/LUTS: Continue tamsulosin, finasteride with holding parameters DVT Prophylaxis SCDs Full Code I spent a total of 55 minutes coordinating, documenting and providing care for this patient excluding time spent in performance of separately billed services Total Time Total Time Spent Total Time Spent (In Minutes): 30minutes Discharge Plan Discharge Items Patient Disposition: Transfer Acute Care Hospital Reason For Visit: Syncope Discharge Diagnosis: Acute blood loss anemia Upper GI bleed Syncope Activity: As commented below Non-emergency contact: Primary Care Provider and Auxiliary Plant Operator Call non-emergency contact if: you have any medication questions Follow-up/Referrals: Jeimy Zavala MD [Primary Care Provider] - Diet: Heart Healthy Addtl Attending Provider Instructions: Mr Judd. You presented to the hospital for loss of consciousness and bloody bowel movement. You were evaluated and noted to have upper gastrointestinal bleeding. You had urgent endoscopy with clips placed. You are being transferred to [facility] for further evaluation in case you may need interventional radiological procedure if bleeding continues. It was a pleasure taking care of you. Pending Studies at Discharge: No Stand-Alone Forms: My [facility] Skilled Items Patient informed of condition?: Yes DNR: No Discharge Level of Care: Other Communicable Disease: No Discharge Prognosis: Other Lines: Peripheral IV Urinary Catheter: No Medications and DC Order Prescriptions: No Action isosorbide mononitrate 30 mg Tablet Extended Release 24 Hr 30 mg PO QAM folic acid 1 mg Tablet 1 mg PO QAM lutein 20 mg Capsule 20 mg PO QAM atorvastatin 80 mg Tablet 80 mg PO HS nitroglycerin [Nitrostat] 0.4 mg Tablet, Sublingual 0.4 mg Sublingual UD PRN (Reason: Chest Pain) Rx Instructions: NEEDED FOR CHEST PAIN: ONE TABLET UNDER THE TONGUE EVERY 5 MINUTES UP TO 3 DOSES. olmesartan [Benicar] 40 mg Tablet 40 mg PO QAM clopidogrel [Plavix] 75 mg Tablet 75 mg PO QAM vitamin B complex Tablet 1 tab PO QAM tamsulosin 0.4 mg Capsule 0.4 mg PO DAILY Qty: 0 carvedilol [Coreg] 25 mg Tablet 25 mg PO AMHS amlodipine 10 mg Tablet 10 mg PO QAM aspirin [Aspirin Childrens] 81 mg Tablet,Chewable 81 mg PO HS furosemide 20 mg tablet 20 mg PO QAM Rx Instructions: may take an extra tablet if needed for increased leg swelling Entyvio 300 mg Recon Soln 300 mg IV .Q8WK finasteride 5 mg tablet 5 mg PO PM Rx Instructions: take one tablet daily fluticasone propionate [Flonase Allergy Relief] 50 mcg/actuation spray,suspension 2 spray INTRANASAL DAILY Probiotic 3 billion cell Capsule 3,000 mmu cells PO QAM Trelegy Ellipta 100-62.5-25 mcg blister with device 1 inh INHALATION QAM albuterol sulfate 90 mcg/actuation HFA aerosol inhaler 2 puff INHALATION QID PRN (Reason: Shortness Of Breath Or Wheezing) Rx Instructions: 2 puffs in morning,noon,evening and before bedtime metformin 500 mg tablet extended release 24 hr 500 mg PO QAM fluorouracil 5 % cream 1 applic TOPICAL DIRECTED PRN (Reason: Rash) Discharge Orders: Discharge Order (Routine); Ordered 02/22/23 Ordered By: Ron Thakur/Other Patient Handouts: Exercise: Why Fitness Matters, Diabetes: Meal Planning, Type 2 Diabetes Admission Data Admit Date/Time: 02/20/23 10:24 Attending Provider: Johanny Wood I. Admit Provider: Yg Wood Primary Care Provider: Jeimy Zavala Other Providers: Yg Wood ; Ricardo Falcon ; Teddy Boyd
[2023-02-22 22:44] LABS: Hematocrit (blood only) 23.5 % (42.0-52.0); Hemoglobin 7.8 g/dl (14.0-18.0)
== END 2023-02-23 00:13 | disposition short-term general hospital (02) | DRG 391 ==
LOC: 2N 15:02 → ED 15:02 → INTOOBSV 17:55 → SUATTDRO 17:55 → OBSVTOIN 17:55 → 2N 18:27 → 1E 02-20 08:52